=== PATIENT | male | born 1950 | race Caucasian/White ===

== ENCOUNTER 2016-09-09 02:09 | Emergency (ER) | payer MEDICARE ==
[~2016-09-09] VITALS: Ht 160 cm; Wt 64.5 kg
[~2016-09-09 02:09] MED LIST: AUGM875T PO; CELE20TA PO; DILT-64 PO; OMEP20TA PO; REST30CA PO
[2016-09-09 02:18] VITALS: BP 143/104; PULSE 62; RESP 20; TEMP 98.1; O2SAT 95
[2016-09-09 03:54] VITALS: BP 138/80; PULSE 62; RESP 18; TEMP 98.1; O2SAT 97
[2016-09-09 03:57] VITALS: BP 138/80; PULSE 62; RESP 18; TEMP 98.1; O2SAT 97
[2016-09-09] MEDS ORDERED: SODIUM CHLORIDE 0.9% FLUSH 10 ML FLUSH IV FLUSH PRN (04:30)
[2016-09-09] MEDS ORDERED: ONDANSETRON HCL 4 MG/2 ML VIAL IVP ONE (04:30)
--- NOTE | 2016-09-09 04:33 | PD ---
HPI Chief Complaint: Abdominal Pain Time Seen by Provider: 04:17 Travel History International Travel<30 days: No Contact w/Intl Traveler<30days: No Traveled to known affect area: No History of Present Illness HPI 65-year-old male presents to the emergency department for complaint of 3 days of abdominal pain with intermittent nausea and vomiting. Patient denies fever chills. Patient's had no diarrhea or constipation. No report of bilious emesis hematemesis or coffee-ground emesis also denies any melena hematochezia. Patient denies any dysuria frequency urgency flank pain or hematuria. Patient denies any injury or trauma. Patient reports pain is epigastric and periumbilical. Patient is unable to identify exacerbating or alleviating factors. Patient reports that he has chronic abdominal pain. Patient takes diltiazem for hypertension. Patient also reports history of COPD anxiety and DVT. Patient is status post appendectomy. Patient reports he has taken his last dose of Coumadin as of evening. Patient states he typically has his [facility] but [facility] at [facility] a [facility] or longer. Patient does not report increased bruising, gingival bleeding, epistaxis, hemoptysis, hematemesis, coffee-ground emesis, hematuria, melena or hematochezia. [facility] Past Medical History Narrative Medical Medical record and nursing notes reviewed Hx Anticoagulant Therapy: Yes (OUT OF COUMADIN PAST COUPLE OF WEEKS) Asthma: No Anxiety: Yes Depression: Yes Heart Rhythm Problems: Yes (irregular heart beat) Cancer: No Cardiovascular Problems: Yes High Cholesterol: No Chest Pain: No Congestive Heart Failure: No COPD: Yes Diminished Hearing: No Deep Vein Thrombosis: Yes (PE) Endocrine: No GERD: Yes Genitourinary: Yes Hypertension: Yes Implanted Vascular Access Dvce: No Musculoskeletal: No Neurologic: No Psychiatric: Yes Reproductive: No Respiratory: Yes (COPD) Immunizations Current: No Tetanus Vaccination: Unknown Influenza Vaccination: No Past Surgical History Abdominal Surgery: Yes (APPENDECTOMY A CHILD.) Appendectomy: Yes Tonsillectomy: Yes Other Surgery: Yes Social History Alcohol Use: Yes (ABT 4 - 16 OZ DAILY) Tobacco Use: Yes (2 PPD) Substance Use: No Allergies-Medications (Allergen,Severity, Reaction): Coded Allergies: No Known Allergies (Verified , 09/09/16) Reported Meds & Prescriptions Reported Meds & Active Scripts Active Reported Coumadin (Warfarin) 5 Mg Tab 5 Mg PO DAILY Diltiazem CD 24 HR 240 Mg Caper 240 Mg PO DAILY Review of Systems Except as stated in HPI: all other systems reviewed are Neg General / Constitutional: No: Fever, Chills HENT: No: Congestion Cardiovascular: No: Chest Pain or Discomfort Respiratory: No: Cough, Shortness of Breath Gastrointestinal: Positive: Nausea, Vomiting, Abdominal Pain, No: Diarrhea, Hematemesis, Hematochezia Genitourinary: No: Urgency, Frequency, Dysuria, Hematuria Musculoskeletal: No: Myalgias, Arthralgias Skin: No Rash Neurologic: No: Weakness, Dizziness, Syncope Psychiatric: No: Anxiety Endocrine: No: Heat Intolerance Hematologic/Lymphatic: No: Easy Bruising Physical Exam Narrative GENERAL: Well-developed well-nourished nourished disheveled male in no apparent distress no respiratory distress SKIN: Warm and dry. HEAD: Normocephalic. EYES: No scleral icterus. No injection or drainage. NECK: Supple, trachea midline. No JVD or lymphadenopathy. CARDIOVASCULAR: Regular rate and rhythm without murmurs, gallops, or rubs. RESPIRATORY: Breath sounds equal bilaterally. No accessory muscle use. GASTROINTESTINAL: Abdomen soft, mild epigastric and focal tenderness no guarding no rebound no palpable pulsatile mass, nondistended. MUSCULOSKELETAL: No cyanosis, or edema. BACK: Nontender without obvious deformity. No CVA tenderness. Data Data Last Documented VS Vital Signs Date Time Temp Pulse Resp B/P Pulse Ox O2 Delivery O2 Flow Rate FiO2 09/09/16 06:24 66 18 141/84 97 Room Air 09/09/16 03:57 98.1 Orders Complete Blood Count With Diff (09/09/16 04:17) Comprehensive Metabolic Panel (09/09/16 04:17) Lipase (09/09/16 04:17) Lactic Acid (09/09/16 04:17) Prothrombin Time / Inr (Pt) (09/09/16 04:17) Act Partial Throm Time (Ptt) (09/09/16 04:17) Urinalysis - C+S If Indicated (09/09/16 04:17) Ct Abd/Pel W Iv Contrast(Rout) (09/09/16 04:17) Iv Access Insert/Monitor (09/09/16 04:17) Ecg Monitoring (09/09/16 04:17) Oximetry (09/09/16 04:17) Ondansetron Inj (Zofran Inj) (09/09/16 04:30) Sodium Chloride 0.9% Flush (Ns Flush) (09/09/16 04:30) Electrocardiogram (09/09/16 04:17) Chest, Single Ap (09/09/16 04:17) Iohexol 350 Inj (Omnipaque 350 Inj) (09/09/16 05:20) Ct Brain W/O Iv Contrast(Rout) (09/09/16 ) Labs Laboratory Tests Test 09/09/16 09/09/16 04:10 04:40 White Blood Count 9.2 TH/MM3 Red Blood Count 5.06 MIL/MM3 Hemoglobin 13.0 GM/DL Hematocrit 39.9 % Mean Corpuscular Volume 78.9 FL Mean Corpuscular Hemoglobin 25.7 PG Mean Corpuscular Hemoglobin 32.5 % Concent Red Cell Distribution Width 17.3 % Platelet Count 195 TH/MM3 Mean Platelet Volume 10.4 FL Neutrophils (%) (Auto) 63.8 % Lymphocytes (%) (Auto) 25.8 % Monocytes (%) (Auto) 6.3 % Eosinophils (%) (Auto) 3.5 % Basophils (%) (Auto) 0.6 % Neutrophils # (Auto) 5.8 TH/MM3 Lymphocytes # (Auto) 2.4 TH/MM3 Monocytes # (Auto) 0.6 TH/MM3 Eosinophils # (Auto) 0.3 TH/MM3 Basophils # (Auto) 0.1 TH/MM3 CBC Comment DIFF FINAL Differential Comment Prothrombin Time 9.9 SEC Prothromb Time International 0.9 RATIO Ratio Activated Partial 26.5 SEC Thromboplast Time Urine Color YELLOW Urine Turbidity CLEAR Urine pH 5.5 Urine Specific [place] 1.019 Urine Protein NEG mg/dL Urine Glucose (UA) NEG mg/dL Urine Ketones TRACE mg/dL Urine Occult Blood NEG Urine Nitrite NEG Urine Bilirubin NEG Urine Leukocyte Esterase NEG Urine RBC 0-2 /hpf Urine WBC 0-2 /hpf Urine Squamous Epithelial 0-5 /hpf Cells Urine Bacteria NONE /hpf Microscopic Urinalysis Comment CULT NOT INDICATED Sodium Level 142 MEQ/L Potassium Level 4.1 MEQ/L Chloride Level 108 MEQ/L Carbon Dioxide Level 24.9 MEQ/L Anion Gap 9 MEQ/L Blood Urea Nitrogen 25 MG/DL Creatinine 1.30 MG/DL Estimat Glomerular Filtration 55 ML/MIN Rate Random Glucose 108 MG/DL Calcium Level 9.0 MG/DL Total Bilirubin 0.3 MG/DL Aspartate Amino Transf 18 U/L (AST/SGOT) Alanine Aminotransferase 25 U/L (ALT/SGPT) Alkaline Phosphatase 82 U/L Total Protein 7.2 GM/DL Albumin 3.9 GM/DL Lipase 148 U/L Lactic Acid Level 1.4 mmol/L MDM Medical Decision Making Medical Screen Exam Complete: Yes Emergency Medical Condition: Yes Medical Record Reviewed: Yes (EKG normal sinus rhythm rate [address] elevation or injury pattern change noted) Interpretation(s) EKG: Sinus rhythm rate [address] elevation or injury pattern change noted Differential Diagnosis Abdominal pain, gastritis, peptic ulcer disease, cholecystitis, pancreatitis, colitis, diverticulitis, UTI, hernia, small bowel obstruction Narrative Course IV access obtained specimens collected and sent for resulting; EKG performed which reveals no acute ST elevation or injury pattern CT abdomen and pelvis ordered with IV contrast CBC with automated differential no leukocytosis anemia Pancytopenia or Marked Left Shift; Metabolic Panel Remarkable for Elevation of BUN Otherwise Values Grossly within Normal Range; Lactic Acid Is Not Elevated 1.4; INR Is 0.9 Not Prolonged; Urinalysis Is Grossly Within Normal Limits CT Abdomen and Pelvis Reveals No Acute Intra-Abdominal or Pelvic Pathology Other Than Radiologist Comments That There Is an Area of Possible Soft Tissue Swelling to the Right Groin That May Be Consistent with adenopathy or fluid collection or possible hematoma. Patient is reexamined and has no tenderness or soft tissue swelling to the groin area. Patient reports that he is not here because of his abdominal pain he is here because he has a headache. CT brain noncontrast ordered in view of patient's history of Coumadin treatment. Patient has no neurologic focality on exam. Patient is normotensive with out evidence of tachycardia. Hemoglobin is stable. INR is 0.9 suspects that soft tissue swelling is consistent with adenopathy as opposed to fluid collection or hematoma. CT brain noncontrast has been ordered and care signed over to oncoming Soha Oshea MD Sep 09, 2016 04:33
[2016-09-09 04:37] LABS: BLOOD, URINE NEG (NEG); GLUCOSE,URINE NEG (NEG); KETONE, URINE TRACE mg/dL (NEG); NITRITE,URINE NEG (NEG); PH, URINE 5.5 (5.0-8.5)
[2016-09-09 04:39] LABS: AUTOMATED NEUTROPHIL # 5.8 TH/MM3 (1.8-7.7); BASOPHIL # 0.1 TH/MM3 (0-0.2); BASOPHIL % 0.6 % (0.0-2.0); EOSINOPHIL # 0.3 TH/MM3 (0-0.4); EOSINOPHIL % 3.5 % (0.0-4.0); HEMATOCRIT 39.9 % (39.0-51.0); HEMO FLAGS DIFF FINAL; LYMPH % 25.8 % (9.0-44.0); LYMPHOCYTE # 2.4 TH/MM3 (1.0-4.8); MEAN CELL VOLUME 78.9 FL (80.0-100.0); MEAN CORPUSCULAR HEMOGLOBIN 25.7 PG (27.0-34.0); MEAN CORPUSCULAR HGB CONC 32.5 % (32.0-36.0); MONO % 6.3 % (0.0-8.0); NEUT % 63.8 % (16.0-70.0); PLATELET COUNT 195 TH/MM3 (150-450); RED BLOOD COUNT 5.06 MIL/MM3 (4.50-5.90); RED CELL DISTRIBUTION WIDTH 17.3 % (11.6-17.2); WHITE BLOOD COUNT 9.2 TH/MM3 (4.0-11.0)
[2016-09-09 04:42] LABS: URINE COLOR YELLOW (YELLW/STRAW); WBC, URINE 0-2 /hpf (0-5)
[2016-09-09 04:43] LABS: COMMENT (UR) CULT NOT INDICATED; CULTURE IF INDICATED CULT NOT INDICATED; RBC, URINE 0-2 /hpf (0-3); SQUAMOUS EPITHELIAL CELL URINE 0-5 /hpf (0-5)
[2016-09-09 04:44] LABS: CHLORIDE 108 MEQ/L (98-107); POTASSIUM 4.1 MEQ/L (3.5-5.1); SODIUM (NA) 142 MEQ/L (136-145)
[2016-09-09 04:48] LABS: ANION GAP 9 MEQ/L (5-15); APTT (PATIENT) 26.5 SEC (24.3-30.1); BICARBONATE 24.9 MEQ/L (21.0-32.0); BLOOD UREA NITROGEN 25 MG/DL (7-18); INTERNATIONAL NORMALIZED RATIO 0.9 RATIO; PROTHROMBIN TIME - PATIENT 9.9 SEC (9.8-11.6)
[2016-09-09 04:51] LABS: ALT (GPT) 25 U/L (12-78); AST (GOT) 18 U/L (15-37); GLOMERULAR FILTRATION RATE 55 ML/MIN (>89)
[2016-09-09 04:53] LABS: TOTAL BILIRUBIN ADULT 0.3 MG/DL (0.2-1.0)
[2016-09-09 04:54] LABS: ALKALINE PHOSPHATASE 82 U/L (45-117)
--- NOTE | 2016-09-09 05:12 | RADHPO ---
EXAM DATE/TIME: 09/09/2016 04:56 [facility] COMPARISON: CHEST SINGLE AP, March 13, 2016, 21:36. INDICATIONS : Shortness of breath. MEDICAL HISTORY : Hypertension. Chronic obstructive pulmonary disease. Deep venous thrombosis. SURGICAL HISTORY : Appendectomy. ENCOUNTER: Initial ACUITY: 1 day PAIN SCORE: 6/10 LOCATION: Bilateral chest FINDINGS: A single view of the chest demonstrates the lungs to be symmetrically aerated without evidence of mas s, infiltrate or effusion. The cardiomediastinal contours are unremarkable. There is minimal persist ent blunting of the left costophrenic angle. There is chronic remodeling at the humeral heads bilater ally with degenerative change at the glenohumeral joints. CONCLUSION: Minimal blunting of the left costophrenic angle Casey Huang MD on September 09, 2016 at 5:09 Board Certified Radiologist. This report was verified electronically.
[2016-09-09] MEDS ORDERED: IOHEXOL 350 MG/ML 10 ML VIAL (for RAD DIAG) IV ONE (05:20)
--- NOTE | 2016-09-09 05:43 | RADHPO ---
EXAM DATE/TIME: 09/09/2016 05:03 [facility] COMPARISON: CT ABDOMEN & PELVIS W CONTRAST, October 06, 2010, 16:32. INDICATIONS : Abdominal pain with nausea and vomiting. IV CONTRAST: 95 cc Omnipaque 350 (iohexol) IV ORAL CONTRAST: No oral contrast ingested. RADIATION DOSE: 13.71 CTDIvol (mGy) MEDICAL HISTORY : Deep venous thrombosis. Chronic obstructive pulmonary disease. Gastroesophageal reflux disease. SURGICAL HISTORY : Appendectomy. ENCOUNTER: Initial ACUITY: 1 day PAIN SCALE: 7/10 LOCATION: Abdomen. TECHNIQUE: Volumetric scanning of the abdomen and pelvis was performed. Using automated exposure control and ad justment of the mA and/or kV according to patient size, radiation dose was kept as low as reasonably achievable to obtain optimal diagnostic quality images. FINDINGS: LOWER LUNGS: The visualized lower lungs are clear. LIVER: Homogeneous density without lesion. There is no dilation of the biliary tree. No calcified gallston es. SPLEEN: Normal size without lesion. PANCREAS: Within normal limits. KIDNEYS: Normal in size and shape. There is no mass, stone or hydronephrosis. ADRENAL GLANDS: Within normal limits. VASCULAR: There is no aortic aneurysm. There are scattered vascular calcifications seen. BOWEL/MESENTERY: The stomach, small bowel, and colon demonstrate no acute abnormality. There is no free intraperitone al air or fluid. ABDOMINAL WALL: Within normal limits. RETROPERITONEUM: There is no lymphadenopathy. There is an IVC filter in place. BLADDER: No wall thickening or mass. REPRODUCTIVE: Within normal limits. INGUINAL: There is 3.1 cm lobulated soft tissue density in the right inguinal region. This does not clearly rep resent bowel. MUSCULOSKELETAL: There is degenerative change in the lumbar spine. CONCLUSION: 1. Lobulated soft tissue density in the right inguinal canal potentially related to adenopathy or com plex fluid. An evolving hematoma could have this appearance. This does not appear to be related to brandi wel. 2. Atherosclerotic change throughout the arterial system. 3. Degenerative change in the lumbar spine. Casey Huang MD on September 09, 2016 at 5:34 Board Certified Radiologist. This report was verified electronically.
[2016-09-09 06:24] VITALS: BP 141/84; PULSE 66; RESP 18; O2SAT 97
[2016-09-09] MEDS ORDERED: COUM5TAB PO (06:49)
[2016-09-09] MEDS ORDERED: ACETAMINOPHEN 325 MG TAB PO ONE (07:45)
--- NOTE | 2016-09-09 08:31 | RADHPO ---
EXAM DATE/TIME: 09/09/2016 07:51 [facility] COMPARISON: No previous studies available for comparison. INDICATIONS : Cephalgia. RADIATION DOSE: 60.67 CTDIvol (mGy) MEDICAL HISTORY : Chronic obstructive pulmonary disease. Gastroesophageal reflux disease. Deep venous thrombosis. SURGICAL HISTORY : Appendectomy. ENCOUNTER: Initial ACUITY: 1 day PAIN SCALE: 2/10 LOCATION: cranial TECHNIQUE: Multiple contiguous axial images were obtained of the head. Using automated exposure control and adj ustment of the mA and/or kV according to patient size, radiation dose was kept as low as reasonably a chievable to obtain optimal diagnostic quality images. FINDINGS: CEREBRUM: The ventricles are normal for age. No evidence of midline shift, mass lesion, hemorrhage or acute in farction. No extra-axial fluid collections are seen. POSTERIOR FOSSA: The cerebellum and brainstem are intact. The 4th ventricle is midline. The cerebellopontine angle i s unremarkable. EXTRACRANIAL: The visualized portion of the orbits is intact. SKULL: The calvaria is intact. No evidence of skull fracture. CONCLUSION: Normal examination. Dalia Elizabeth MD on September 09, 2016 at 8:29 Board Certified Radiologist. This report was verified electronically.
[2016-09-09 08:36] VITALS: BP 102/49; PULSE 65; RESP 16; O2SAT 96
--- NOTE | 2016-09-09 08:43 | PD ---
Data Data Last Documented VS Vital Signs Date Time Temp Pulse Resp B/P Pulse Ox O2 Delivery O2 Flow Rate FiO2 09/09/16 08:36 16 09/09/16 08:36 65 102/49 96 Room Air 09/09/16 03:57 98.1 Orders Complete Blood Count With Diff (09/09/16 04:17) Comprehensive Metabolic Panel (09/09/16 04:17) Lipase (09/09/16 04:17) Lactic Acid (09/09/16 04:17) Prothrombin Time / Inr (Pt) (09/09/16 04:17) Act Partial Throm Time (Ptt) (09/09/16 04:17) Urinalysis - C+S If Indicated (09/09/16 04:17) Ct Abd/Pel W Iv Contrast(Rout) (09/09/16 04:17) Iv Access Insert/Monitor (09/09/16 04:17) Ecg Monitoring (09/09/16 04:17) Oximetry (09/09/16 04:17) Ondansetron Inj (Zofran Inj) (09/09/16 04:30) Sodium Chloride 0.9% Flush (Ns Flush) (09/09/16 04:30) Electrocardiogram (09/09/16 04:17) Chest, Single Ap (09/09/16 04:17) Iohexol 350 Inj (Omnipaque 350 Inj) (09/09/16 05:20) Ct Brain W/O Iv Contrast(Rout) (09/09/16 ) Acetaminophen (Tylenol) (09/09/16 07:45) Labs Laboratory Tests Test 09/09/16 09/09/16 04:10 04:40 White Blood Count 9.2 TH/MM3 Red Blood Count 5.06 MIL/MM3 Hemoglobin 13.0 GM/DL Hematocrit 39.9 % Mean Corpuscular Volume 78.9 FL Mean Corpuscular Hemoglobin 25.7 PG Mean Corpuscular Hemoglobin 32.5 % Concent Red Cell Distribution Width 17.3 % Platelet Count 195 TH/MM3 Mean Platelet Volume 10.4 FL Neutrophils (%) (Auto) 63.8 % Lymphocytes (%) (Auto) 25.8 % Monocytes (%) (Auto) 6.3 % Eosinophils (%) (Auto) 3.5 % Basophils (%) (Auto) 0.6 % Neutrophils # (Auto) 5.8 TH/MM3 Lymphocytes # (Auto) 2.4 TH/MM3 Monocytes # (Auto) 0.6 TH/MM3 Eosinophils # (Auto) 0.3 TH/MM3 Basophils # (Auto) 0.1 TH/MM3 CBC Comment DIFF FINAL Differential Comment Prothrombin Time 9.9 SEC Prothromb Time International 0.9 RATIO Ratio Activated Partial 26.5 SEC Thromboplast Time Urine Color YELLOW Urine Turbidity CLEAR Urine pH 5.5 Urine Specific [place] 1.019 Urine Protein NEG mg/dL Urine Glucose (UA) NEG mg/dL Urine Ketones TRACE mg/dL Urine Occult Blood NEG Urine Nitrite NEG Urine Bilirubin NEG Urine Leukocyte Esterase NEG Urine RBC 0-2 /hpf Urine WBC 0-2 /hpf Urine Squamous Epithelial 0-5 /hpf Cells Urine Bacteria NONE /hpf Microscopic Urinalysis Comment CULT NOT INDICATED Sodium Level 142 MEQ/L Potassium Level 4.1 MEQ/L Chloride Level 108 MEQ/L Carbon Dioxide Level 24.9 MEQ/L Anion Gap 9 MEQ/L Blood Urea Nitrogen 25 MG/DL Creatinine 1.30 MG/DL Estimat Glomerular Filtration 55 ML/MIN Rate Random Glucose 108 MG/DL Calcium Level 9.0 MG/DL Total Bilirubin 0.3 MG/DL Aspartate Amino Transf 18 U/L (AST/SGOT) Alanine Aminotransferase 25 U/L (ALT/SGPT) Alkaline Phosphatase 82 U/L Total Protein 7.2 GM/DL Albumin 3.9 GM/DL Lipase 148 U/L Lactic Acid Level 1.4 mmol/L [facility] Supervised Visit with ARA: No Narrative Course This case is checked out to me by Dr. Ordaz at 7 AM. I have evaluated the patient and reviewed the entirety of the workup with him. At this Point he is minimally symptomatic. Stable for [facility] follow[facility]. Brain CT is negative Abdominal CT is reviewed with him. There is a vague right inguinal canal soft tissue fullness or hematoma that's hard to specifically define on CT. There are no objective findings on exam and he has no pain there. His INR is 0.9 Stable for outpatient follow-up. He is to discuss the finding with his physician. Diagnosis Primary Impression: Abdominal pain Qualified Code: R10.9 - Abdominal pain, unspecified location Additional Impression: Headache Qualified Code: R51 - Acute nonintractable headache, unspecified headache type Additional Instruction: The patient was advised to follow up with their physician and return if they worsen. Discuss CT scan of abdomen findings with your physician Med/Other Pt SpecificInfo: Other Disposition: 01 DISCHARGE HOME Condition: Stable Enrique Flores MD Sep 09, 2016 08:43
--- NOTE | 2016-09-09 14:36 | EKG ---
Date Performed: 09/09/2016 Time Performed: 04:26:04 PTAGE: 65 years EKG: Possible ectopic atrial rhythm. Lateral T wave changes are nonspecific Compared to prior tr acing no significant change Borderline ECG PREVIOUS TRACING : 03/14/2016 04.47 DOCTOR: Ash Ambrosio Interpretating Date/Time 09/09/2016 14:34:00
== END 2016-09-09 08:55 | disposition home or self-care (01) ==
LOC: PHED 02:09
DX: R10.9 Unspecified abdominal pain (principal); R51 Headache; F41.9 Anxiety disorder, unspecified; F32.9 Major depressive disorder, single episode, unspecified; J44.9 Chronic obstructive pulmonary disease, unspecified; K21.9 Gastro-esophageal reflux disease without esophagitis; I10 Essential (primary) hypertension; Z79.01 Long term (current) use of anticoagulants; Z86.718 Personal history of other venous thrombosis and embolism
CPT/HCPCS: 70450; 71010; 74177; 80053; 81001; 83605; 83690; 85025; 85610; 85730; 93005; 96374; 99285; J2405; Q9967

== ENCOUNTER 2017-07-16 05:24 | Inpatient (IN) | payer MEDICARE, MEDICAID ==
[2017-07-16] VITALS (16 sets, daily range): BP systolic 100–182; BP diastolic 58–98; PULSE 80–158; RESP 15–37; TEMP 97.8–99.5; O2SAT 88–100
[~2017-07-16] VITALS: Ht 160 cm; Wt 58.0 kg
[~2017-07-16 05:24] MED LIST changes: -AUGM875T PO; -CELE20TA PO; +COUM5TAB PO; -DILT-64 PO; +DILT240C44 PO; -OMEP20TA PO; -REST30CA PO
[2017-07-16] MEDS ORDERED: DILTIAZEM INJ 125 MG in SODIUM CHLORIDE 0.9% INJ 100 ML IV PRN (05:45)
[2017-07-16] MEDS ORDERED: SODIUM CHLORIDE 0.9% FLUSH 10 ML FLUSH IVF PRN (05:45)
[2017-07-16] MEDS ORDERED: DILTIAZEM HCL 25 MG/5 ML VIAL IV PUSH ONE (05:45)
--- NOTE | 2017-07-16 05:51 | PD ---
HPI Chief Complaint: Respiratory Distress Time Seen by Provider: 05:32 Travel History International Travel<30 days: No Contact w/Intl Traveler<30days: No Traveled to known affect area: No History of Present Illness HPI 66-year-old male was brought to the emergency room by EMS from the [place] [facility] emergently for respiratory distress. He was found by the [place] [facility] staff to be in acute respiratory distress and diaphoretic. Patient has history of congestive heart failure. When EMS arrived his blood pressure was 208 systolic. As per them audible rales could be heard from a distance. They gave him 2 sublingual nitroglycerin, 75 mg of IV Lasix and put him on a BiPAP and transported him. Prior to BiPAP his blood pressure was 81% on room air. After being on BiPAP it improved to 97%. As per them there was a significant improvement with all the intervention that they have done. When patient arrived to the emergency room he was so short of breath. He denied of any chest pain. Patient was in rapid A. fib on the cardiac monitor technician. Blood pressure was 180s systolic. Patient could not give good history given his respiratory distress. PFSH Past Medical History Narrative Medical List of his past medical, surgical, social and family history as reviewed from the nursing note. Hx Anticoagulant Therapy: Yes (OUT OF COUMADIN PAST COUPLE OF WEEKS) Asthma: No Anxiety: Yes Depression: Yes Heart Rhythm Problems: Yes (irregular heart beat) Cancer: No Cardiovascular Problems: Yes High Cholesterol: No Chest Pain: No Congestive Heart Failure: No COPD: Yes Diminished Hearing: No Deep Vein Thrombosis: Yes (PE) Endocrine: No GERD: Yes Genitourinary: Yes Hypertension: Yes Implanted Vascular Access Dvce: No Musculoskeletal: No Neurologic: No Psychiatric: Yes Reproductive: No Respiratory: Yes (COPD) Immunizations Current: No Tetanus Vaccination: < 5 Years Influenza Vaccination: No Past Surgical History Abdominal Surgery: Yes (APPENDECTOMY A CHILD.) Appendectomy: Yes Tonsillectomy: Yes Other Surgery: Yes Social History Alcohol Use: Yes (ABT 4 - 16 OZ DAILY) Tobacco Use: Yes (2 PPD) Substance Use: No Allergies-Medications (Allergen,Severity, Reaction): Coded Allergies: No Known Allergies (Verified Allergy, Unknown, 07/16/17) Comments No known drug allergies. Reported Meds & Prescriptions Reported Meds & Active Scripts Active Reported Omeprazole 20 Mg Tab 20 Mg PO DAILY Albuterol Neb (Albuterol Sulfate) 2.5 Mg/0.5 Ml Neb 2.5 Mg NEB Q6HR NEB Note: The Albuterol Sulfate Inhalation Solution is concentrated and must be diluted. Read complete instructions carefully before using. Narrative Medication list of his home medications reviewed from the nursing note. Review of Systems Except as stated in HPI: all other systems reviewed are Neg Respiratory: Positive: Shortness of Breath Physical Exam Narrative GENERAL: Awake, alert, significant distress, anxious SKIN: Focused skin assessment warm/dry. Diaphoretic HEAD: Atraumatic. Normocephalic. EYES: Pupils equal and round. No scleral icterus. No injection or drainage. ENT: No nasal bleeding or discharge. Mucous membranes pink and moist. NECK: Trachea midline. No JVD. CARDIOVASCULAR: Irregularly irregular rhythm, tachycardia. No murmur appreciated. RESPIRATORY: Tachypnea, respiratory distress, accessory muscles for respiration used. Fine crackles all the way up to the apex bilaterally GASTROINTESTINAL: Abdomen soft, non-tender, nondistended. Hepatic and splenic margins not palpable. MUSCULOSKELETAL: No obvious deformities. No clubbing. No cyanosis. No edema. NEUROLOGICAL: Awake and alert. No obvious cranial nerve deficits. Motor grossly within normal limits. Normal speech. PSYCHIATRIC: Appropriate mood and affect; insight and judgment normal. Data Data Last Documented VS Vital Signs Date Time Temp Pulse Resp B/P (MAP) Pulse Ox O2 Delivery O2 Flow Rate FiO2 07/16/17 08:15 98 BiPAP 40 07/16/17 07:50 85 100/58 (72) 07/16/17 06:28 99.5 18 Orders Orders Complete Blood Count With Diff (07/16/17 05:32) Basic Metabolic Panel (Bmp) (07/16/17 05:32) B-Type Natriuretic Peptide (07/16/17 05:32) Prothrombin Time / Inr (Pt) (07/16/17 05:32) Magnesium (Mg) (07/16/17 05:32) Troponin I (07/16/17 05:32) Arterial Blood Gas (Abg) (07/16/17 05:32) Urinalysis - C+S If Indicated (07/16/17 05:32) Iv Access Insert/Monitor (07/16/17 05:32) Electrocardiogram (07/16/17 05:32) Ecg Monitoring (07/16/17 05:32) Oximetry (07/16/17 05:32) Oxygen Administration (07/16/17 05:32) Chest, Single Ap (07/16/17 05:32) Sodium Chloride 0.9% Flush (Ns Flush) (07/16/17 05:45) Resp Bipap / Cpap Non Invas Vt (07/16/17 05:32) Vital Signs (Adult) Q15MX4,Q4H (07/16/17 05:34) [place] Technician / Telemetry IRINEO.Q8H (07/16/17 05:34) Cardiac Rhythm IRINEO.Q8H (07/16/17 05:34) Notify Dr: Other (07/16/17 05:34) Diltiazem Inj (Cardizem Inj) (07/16/17 05:45) Diltiazem Inj (Cardizem Inj) (07/16/17 05:45) Blood Culture (07/16/17 06:10) Lactic Acid (07/16/17 06:10) Diltiazem Inj (Cardizem Inj) (07/16/17 06:15) Piperacil-Tazo 4.5 Gm Premix (Zosyn 4.5 (07/16/17 07:45) Vancomycin Inj (Vancomycin Inj) (07/16/17 07:45) Ct Pulmonary Angiogram (07/16/17 ) Admit Order (Ed Use Only) (07/16/17 08:15) Labs Laboratory Tests Test 07/16/17 05:35 07/16/17 05:38 07/16/17 06:25 07/16/17 06:46 White Blood Count 19.5 TH/MM3 Red Blood Count 5.07 MIL/MM3 Hemoglobin 11.9 GM/DL Hematocrit 38.5 % Mean Corpuscular Volume 75.8 FL Mean Corpuscular Hemoglobin 23.4 PG Mean Corpuscular Hemoglobin Concent 30.9 % Red Cell Distribution Width 20.1 % Platelet Count 161 TH/MM3 Mean Platelet Volume 10.1 FL Neutrophils (%) (Auto) 89.3 % Lymphocytes (%) (Auto) 7.6 % Monocytes (%) (Auto) 2.3 % Eosinophils (%) (Auto) 0.3 % Basophils (%) (Auto) 0.5 % Neutrophils # (Auto) 17.4 TH/MM3 Lymphocytes # (Auto) 1.5 TH/MM3 Monocytes # (Auto) 0.4 TH/MM3 Eosinophils # (Auto) 0.1 TH/MM3 Basophils # (Auto) 0.1 TH/MM3 CBC Comment DIFF FINAL Differential Comment Prothrombin Time 11.3 SEC Prothromb Time International Ratio 1.1 RATIO Blood Urea Nitrogen 35 MG/DL Creatinine 1.34 MG/DL Random Glucose 208 MG/DL Calcium Level 8.2 MG/DL Magnesium Level 2.2 MG/DL Sodium Level 143 MEQ/L Potassium Level 4.7 MEQ/L Chloride Level 106 MEQ/L Carbon Dioxide Level 26.1 MEQ/L Anion Gap 11 MEQ/L Estimat Glomerular Filtration Rate 53 ML/MIN Troponin I 0.11 NG/ML B-Type Natriuretic Peptide 865 PG/ML Blood Gas Puncture Site RT RADIAL Blood Gas Patient Temperature 98.6 Blood Gas HCO3 25 mmol/L Blood Gas Base Excess 0.1 mmol/L Blood Gas Oxygen Saturation 98 % Arterial Blood pH 7.34 Arterial Blood Partial Pressure CO2 48 mmHg Arterial Blood Partial Pressure O2 413 mmHG Arterial Blood Oxygen Content 16.6 Vol % Arterial Blood Carboxyhemoglobin 0.7 % Arterial Blood Methemoglobin 1.2 % Blood Gas Hemoglobin 11.3 G/DL Oxygen Delivery Device BIPAP Blood Gas Ventilator Setting IPAP16/EPAP8 Blood Gas Inspired Oxygen 100 % Lactic Acid Level 3.8 mmol/L Urine Color LIGHT-YELLOW Urine Turbidity CLEAR Urine pH 6.0 Urine Specific [place] 1.006 Urine Protein TRACE mg/dL Urine Glucose (UA) NEG mg/dL Urine Ketones NEG mg/dL Urine Occult Blood NEG Urine Nitrite NEG Urine Bilirubin NEG Urine Urobilinogen LESS THAN 2.0 MG/DL Urine Leukocyte Esterase NEG Urine RBC 4 /hpf Urine WBC 3 /hpf Urine Squamous Epithelial Cells <1 /hpf Urine Hyaline Casts 1 /lpf Urine Mucus FEW /lpf Microscopic Urinalysis Comment CULT NOT INDICATED MDM Medical Decision Making Medical Screen Exam Complete: Yes Emergency Medical Condition: Yes Medical Record Reviewed: Yes Interpretation(s) Twelve-lead EKG was reviewed by me. Atrial fibrillation, left axis deviation, RVR. Heart rate of 143 bpm. Differential Diagnosis Flash pulmonary edema, congestive heart failure, acute coronary syndrome Narrative Course 5:51 AM patient was put on BiPAP here at 16/8. Blood gas which is reviewed by me which appears to be satisfactory. Awaiting for the blood test results to come back. I was just told by the nurse that his heart rate has come down to 1 teens to 120s. Patient will be getting a Cardizem bolus and possible drip. 6:12 AM blood test result shows significant leukocytosis with a leftward shift. I've ordered blood culture and lactic acid as well. Chest x-ray has been done. I do not see any obvious infiltrate or pleural effusion. Awaiting for the radiologist to give read. Heart rate is in 80s to 90s after a 15 mg of Cardizem bolus. Patient's blood pressure had dropped. I backed off on the BiPAP pressure to 12 and 6. I have discontinued the Cardizem drip at this point. 7:05 AM most of the blood test results of back. Patient's troponin is elevated. This could be from the rapid A. fib and RVR. I would like to admit the patient to [facility]. Awaiting for the call back from the admitting physician. Critical Care Narrative Aggregate critical care time was 60 minutes. Time to perform other separately billable procedures was not included in the critical care time. My time did not include minutes spent treating any other patients simultaneously or on activities that did not directly contribute to the patient's treatment. The services I provided to this patient were to treat and/or prevent clinically significant deterioration that could result in: Respiratory distress, A. fib with RVR, elevated troponin, sepsis I provided critical care services requiring my management, as noted below: Chart data review, documentation time, medication orders and management, vital sign assessments/reviewing monitor data, ordering and reviewing lab tests, ordering and interpreting/reviewing x-rays and diagnostic studies, care of the patient and discussion of the patient with the admitting physicians. Procedures EKG Prior to Arrival: No Diagnosis Primary Impression: Respiratory distress Additional Impressions: Atrial fibrillation with RVR Elevated troponin I level Hypertensive emergency Flash pulmonary edema Sepsis Qualified Codes: A41.9 - Sepsis, unspecified organism Admitting Information Admitting Physician Requests: Admit Scripts Prednisone (21) 10 mg tab Dose Pack (Prednisone (21) 10 mg tab Dose Pack) 10 Mg Pack 10 MG PO DIRECTED for Inflammation, #1 DSPK 0 Refills Prov: Ginger Gonzalez MD 07/18/17 [Budeson-Formot 160-4.5 Mcg Inh] 60 PUFF AERO No Conflict Check 2 PUFF INH Q12HR, #1 INH Prov: Ginger Gonzalez MD 07/18/17 Diltiazem CD 24 HR (Cardizem CD 24 HR) 180 Mg Caper 180 MG PO DAILY, #30 CAP Prov: Ginger Gonzalez MD 07/18/17 Levofloxacin (Levaquin) 750 Mg Tablet 750 MG PO Q24H, #5 TAB Prov: Ginger Gonzalez MD 07/18/17 Metoprolol Tartrate (Metoprolol Tartrate) 25 Mg Tab 25 MG PO BID, #60 TAB 0 Refills Prov: Ginger Gonzalez MD 07/18/17 Rivaroxaban (Xarelto) 10 Mg Tab 10 MG PO BID for Blood Clot Prevention, #30 TAB 0 Refills Prov: Ginger Gonzalez MD 07/18/17 Marc Myers MD Jul 16, 2017 05:51
[2017-07-16 05:57] LABS: AUTOMATED NEUTROPHIL # 17.4 TH/MM3 (1.8-7.7); BASOPHIL # 0.1 TH/MM3 (0-0.2); BASOPHIL % 0.5 % (0.0-2.0); EOSINOPHIL # 0.1 TH/MM3 (0-0.4); EOSINOPHIL % 0.3 % (0.0-4.0); HEMATOCRIT 38.5 % (39.0-51.0); HEMOGLOBIN 11.9 GM/DL (13.0-17.0); LYMPH % 7.6 % (9.0-44.0); LYMPHOCYTE # 1.5 TH/MM3 (1.0-4.8); MEAN CELL VOLUME 75.8 FL (80.0-100.0); MEAN CORPUSCULAR HEMOGLOBIN 23.4 PG (27.0-34.0); MEAN CORPUSCULAR HGB CONC 30.9 % (32.0-36.0); MEAN PLATELET VOLUME 10.1 FL (7.0-11.0); MONO % 2.3 % (0.0-8.0); MONOCYTE # 0.4 TH/MM3 (0-0.9); NEUT % 89.3 % (16.0-70.0); PLATELET COUNT 161 TH/MM3 (150-450); RED BLOOD COUNT 5.07 MIL/MM3 (4.50-5.90); RED CELL DISTRIBUTION WIDTH 20.1 % (11.6-17.2); WHITE BLOOD COUNT 19.5 TH/MM3 (4.0-11.0)
[2017-07-16 06:05] LABS: INTERNATIONAL NORMALIZED RATIO 1.1 RATIO; PROTHROMBIN TIME - PATIENT 11.3 SEC (9.8-11.6)
[2017-07-16] MEDS ORDERED: OMEP20TA93 PO (06:06)
[2017-07-16] MEDS ORDERED: ALBU.5I NEB (06:06)
[2017-07-16] MEDS ORDERED: XARE10TA PO (06:06)
[2017-07-16] MEDS ORDERED: FURO1TAB62 PO (06:06)
[2017-07-16] MEDS ORDERED: METO25TA3 PO (06:06)
[2017-07-16] MEDS ORDERED: METH8TAB3 PO (06:06)
[2017-07-16] MEDS ORDERED: DILTIAZEM HCL 25 MG/5 ML VIAL IV ONE (06:15)
--- NOTE | 2017-07-16 06:21 | RADRPT ---
EXAM DATE/TIME: 07/16/2017 05:51 [facility] COMPARISON: CHEST SINGLE AP, September 09, 2016, 4:56. INDICATIONS : Short of breath. MEDICAL HISTORY : Hypertension. Chronic obstructive pulmonary disease. Deep venous thrombosis. SURGICAL HISTORY : Appendectomy. ENCOUNTER: Initial ACUITY: 1 day PAIN SCORE: 0/10 LOCATION: Bilateral chest FINDINGS: There is atherosclerotic calcification of the aorta, possible tiny effusion with blunting of the left lateral costophrenic angle and mild left basilar atelectasis. Aortic calcification. CONCLUSION: Left basilar atelectasis. Possible tiny left effusion. Thom Harding MD on July 16, 2017 at 6:18 Board Certified Radiologist. This report was verified electronically.
[2017-07-16 06:26] LABS: BICARBONATE 26.1 MEQ/L (21.0-32.0); CALCIUM 8.2 MG/DL (8.5-10.1); CREATININE 1.34 MG/DL (0.60-1.30); MAGNESIUM 2.2 MG/DL (1.5-2.5)
[2017-07-16 06:29] LABS: TROPONIN I 0.11 NG/ML (0.02-0.05)
[2017-07-16 07:36] LABS: BILIRUBIN, URINE NEG (NEG); BLOOD, URINE NEG (NEG); GLUCOSE,URINE NEG (NEG); HYALINE CAST, URINE 1 /lpf (RARE); KETONE, URINE NEG (NEG); MUCUS URINE FEW /lpf (OCC); NITRITE,URINE NEG (NEG); SQUAMOUS EPITHELIAL CELL URINE <1 /hpf (0-5); URINE COLOR LIGHT-YELLOW (YELLW/STRAW); URINE LEUKOCYTE ESTERASE NEG (NEG)
[2017-07-16] MEDS ORDERED: VANCOMYCIN INJ 1,000 MG in SODIUM CHLOR 0.9% 250 ML INJ 250 ML IV ONE (07:45)
[2017-07-16] MEDS ORDERED: PIPERACIL-TAZO 4.5 GM PREMIX 100 ML IV ONE (07:45)
--- NOTE | 2017-07-16 08:15 | PD ---
Data Data Last Documented VS Vital Signs Date Time Temp Pulse Resp B/P (MAP) Pulse Ox O2 Delivery O2 Flow Rate FiO2 07/16/17 07:50 85 100/58 (72) 94 BiPAP 50 07/16/17 06:28 99.5 18 Orders Orders Complete Blood Count With Diff (07/16/17 05:32) Basic Metabolic Panel (Bmp) (07/16/17 05:32) B-Type Natriuretic Peptide (07/16/17 05:32) Prothrombin Time / Inr (Pt) (07/16/17 05:32) Magnesium (Mg) (07/16/17 05:32) Troponin I (07/16/17 05:32) Arterial Blood Gas (Abg) (07/16/17 05:32) Urinalysis - C+S If Indicated (07/16/17 05:32) Iv Access Insert/Monitor (07/16/17 05:32) Electrocardiogram (07/16/17 05:32) Ecg Monitoring (07/16/17 05:32) Oximetry (07/16/17 05:32) Oxygen Administration (07/16/17 05:32) Chest, Single Ap (07/16/17 05:32) Sodium Chloride 0.9% Flush (Ns Flush) (07/16/17 05:45) Resp Bipap / Cpap Non Invas Vt (07/16/17 05:32) Vital Signs (Adult) Q15MX4,Q4H (07/16/17 05:34) Special Events Manager / Telemetry IRINEO.Q8H (07/16/17 05:34) Cardiac Rhythm IRINEO.Q8H (07/16/17 05:34) Notify Dr: Other (07/16/17 05:34) Diltiazem Inj (Cardizem Inj) (07/16/17 05:45) Diltiazem Inj (Cardizem Inj) (07/16/17 05:45) Blood Culture (07/16/17 06:10) Lactic Acid (07/16/17 06:10) Diltiazem Inj (Cardizem Inj) (07/16/17 06:15) Piperacil-Tazo 4.5 Gm Premix (Zosyn 4.5 (07/16/17 07:45) Vancomycin Inj (Vancomycin Inj) (07/16/17 07:45) Ct Pulmonary Angiogram (07/16/17 ) Labs Laboratory Tests Test 07/16/17 05:35 07/16/17 05:38 07/16/17 06:25 07/16/17 06:46 White Blood Count 19.5 TH/MM3 Red Blood Count 5.07 MIL/MM3 Hemoglobin 11.9 GM/DL Hematocrit 38.5 % Mean Corpuscular Volume 75.8 FL Mean Corpuscular Hemoglobin 23.4 PG Mean Corpuscular Hemoglobin Concent 30.9 % Red Cell Distribution Width 20.1 % Platelet Count 161 TH/MM3 Mean Platelet Volume 10.1 FL Neutrophils (%) (Auto) 89.3 % Lymphocytes (%) (Auto) 7.6 % Monocytes (%) (Auto) 2.3 % Eosinophils (%) (Auto) 0.3 % Basophils (%) (Auto) 0.5 % Neutrophils # (Auto) 17.4 TH/MM3 Lymphocytes # (Auto) 1.5 TH/MM3 Monocytes # (Auto) 0.4 TH/MM3 Eosinophils # (Auto) 0.1 TH/MM3 Basophils # (Auto) 0.1 TH/MM3 CBC Comment DIFF FINAL Differential Comment Prothrombin Time 11.3 SEC Prothromb Time International Ratio 1.1 RATIO Blood Urea Nitrogen 35 MG/DL Creatinine 1.34 MG/DL Random Glucose 208 MG/DL Calcium Level 8.2 MG/DL Magnesium Level 2.2 MG/DL Sodium Level 143 MEQ/L Potassium Level 4.7 MEQ/L Chloride Level 106 MEQ/L Carbon Dioxide Level 26.1 MEQ/L Anion Gap 11 MEQ/L Estimat Glomerular Filtration Rate 53 ML/MIN Troponin I 0.11 NG/ML B-Type Natriuretic Peptide 865 PG/ML Blood Gas Puncture Site RT RADIAL Blood Gas Patient Temperature 98.6 Blood Gas HCO3 25 mmol/L Blood Gas Base Excess 0.1 mmol/L Blood Gas Oxygen Saturation 98 % Arterial Blood pH 7.34 Arterial Blood Partial Pressure CO2 48 mmHg Arterial Blood Partial Pressure O2 413 mmHG Arterial Blood Oxygen Content 16.6 Vol % Arterial Blood Carboxyhemoglobin 0.7 % Arterial Blood Methemoglobin 1.2 % Blood Gas Hemoglobin 11.3 G/DL Oxygen Delivery Device BIPAP Blood Gas Ventilator Setting IPAP16/EPAP8 Blood Gas Inspired Oxygen 100 % Lactic Acid Level 3.8 mmol/L Urine Color LIGHT-YELLOW Urine Turbidity CLEAR Urine pH 6.0 Urine Specific [place] 1.006 Urine Protein TRACE mg/dL Urine Glucose (UA) NEG mg/dL Urine Ketones NEG mg/dL Urine Occult Blood NEG Urine Nitrite NEG Urine Bilirubin NEG Urine Urobilinogen LESS THAN 2.0 MG/DL Urine Leukocyte Esterase NEG Urine RBC 4 /hpf Urine WBC 3 /hpf Urine Squamous Epithelial Cells <1 /hpf Urine Hyaline Casts 1 /lpf Urine Mucus FEW /lpf Microscopic Urinalysis Comment CULT NOT INDICATED MDM Supervised Visit with ARA: No Narrative Course I have evaluated this patient at 8 AM. I resumed care of this patient so he could get admitted into the hospital. Patient currently is on BiPAP with a saturation of 94% He is in rapid A. fib with a rate of 120 and a systolic blood pressure of 100 He has low-grade temp of 99.5 and elevated lactate and leukocytosis with marginal vital signs on BiPAP and I believe intensive care is the proper place for him at this time. I have discussed with the herb counselor in detail. He is recommended CT pulmonary angiogram to rule out PE given his lack of chest x-ray findings explaining his shortness of breath and poor saturations There is no pulmonary edema or pneumonia on chest x-ray Patient does have history of multiple DVT on Xarelto but his compliance may not be full Patient has received IV antibiotics I admitted him to intensive care after discussion with Dr. Lanier and I ordered CT pulmonary angiogram Diagnosis Primary Impression: Respiratory distress Additional Impressions: Atrial fibrillation with RVR Elevated troponin I level Hypertensive emergency Flash pulmonary edema Sepsis Qualified Codes: A41.9 - Sepsis, unspecified organism Admitting Information Admitting Physician Requests: Admit Enrique Flores MD Jul 16, 2017 08:15
[2017-07-16] MEDS ORDERED: IOHEXOL 350 MG/ML 10 ML VIAL (for RAD DIAG) IVCONTRAST ONE (09:16)
--- NOTE | 2017-07-16 09:25 | RADRPT ---
EXAM DATE/TIME: 07/16/2017 09:10 [facility] COMPARISON: CT PULMONARY ANGIOGRAM, March 14, 2016, 8:19. INDICATIONS : Shortness of breath, rule out pulmonary embolism. IV CONTRAST: 74 cc Omnipaque 350 (iohexol) IV RADIATION DOSE: 14.75 CTDIvol (mGy) MEDICAL HISTORY : Cardiovascular disease. Hypertension. Chronic obstructive pulmonary disease.Pulmonary Embolism SURGICAL HISTORY : Appendectomy. ENCOUNTER: Initial ACUITY: 1 day PAIN SCALE: 0/10 LOCATION: chest TECHNIQUE: Volumetric scanning of the chest was performed using a pulmonary embolism protocol MIP images were re constructed. Using automated exposure control and adjustment of the mA and/or kV according to patien t size, radiation dose was kept as low as reasonably achievable to obtain optimal diagnostic quality images. DICOM format image data is available electronically for review and comparison. Follow-up recommendations for detected pulmonary nodules are based at a minimum on nodule size and pa tient risk factors according to Fleischner Society Guidelines. FINDINGS: . Minimal consolidative changes are present anteriorly in the right lung. On there is no axillary or mediastinal adenopathy. There is no evidence of central pulmonary emboli Moderate coronary calcifications are noted Extensive sclerotic changes are seen about both glenoid. Slight changes are seen in numerous vertebr al bodies these are nonspecific but could represent neoplastic process in appropriate to the situatio n. Correlation is suggested. CONCLUSION: Minimal consolidative changes right lung Negative for central pulmonary emboli Abnormal axial skeleton unchanged from 03/14/16. Ish Caceres MD FACR on July 16, 2017 at 9:20 Board Certified Radiologist. This report was verified electronically.
[2017-07-16] MEDS ORDERED: RESP: ALBUTEROL 2.5 MG/IPRATROPIUM 0.5 MG NEB (PRN) INH (09:45)
[2017-07-16] MEDS ORDERED: MAGNESIUM HYDROXIDE SUSP 30 ML CUP PO PRN (09:45)
[2017-07-16] MEDS ORDERED: SENNOSIDES 8.6 MG TAB PO PRN (09:45)
[2017-07-16] MEDS ORDERED: BISACODYL 10 MG SUPP RECTAL PRN (09:45)
[2017-07-16] MEDS ORDERED: CHLORHEXIDINE GLUCONATE 2 % 1 PACK (2 CLOTHS) TOP PRN (09:45)
[2017-07-16] MEDS ORDERED: LACTULOSE SYRUP 20 GM/30 ML CUP PO PRN (09:45)
[2017-07-16] MEDS ORDERED: MISCELLANEOUS NURSING INFORMATION XX SCH (09:45)
[2017-07-16] MEDS: DOCUSATE SODIUM 50 MG/SENNA 8.6 MG TAB PO SCH ×2 (10:00→20:41)
[2017-07-16] MEDS ORDERED: GLUCAGON 1 MG/ML VIAL OTHER PRN (10:30)
[2017-07-16] MEDS ORDERED: DEXTROSE 50% IN WATER 50 ML VIAL(D50) IV PUSH PRN (10:30)
[2017-07-16] MEDS: INSULIN NovoLIN REGULAR SUPPLEMENTAL SCALE SQ SCH ×4 (10:30→23:35)
[2017-07-16] MEDS: BUDESONIDE-FORMOTEROL 160/4.5 MCG INHALER INH SCH ×2 (10:30→20:41)
[2017-07-16] MEDS: RESP: ALBUTEROL 2.5 MG/IPRATROPIUM 0.5 MG NEB (SCH) INH ×3 (10:41→19:42)
[2017-07-16] MEDS ORDERED: CHLORHEXIDINE GLUCONATE 2 % 1 PACK (2 CLOTHS)(extra cloths) TOPICAL PRN (11:00)
[2017-07-16] MEDS ORDERED: HEPARIN SODIUM - SQ 10,000 UNITS/ML VIAL SQ SCH (11:00)
--- NOTE | 2017-07-16 11:09 | MH ---
cc: [facility] DATE OF ADMISSION: 07/16/2017 1948 HISTORY OF PRESENT ILLNESS The patient is 66-year-old male with past medical history of pulmonary embolism and DVT left lower extremity in 2010 on Xarelto, COPD, anxiety disorder. The patient presented to [facility] ED with three to four day history of respiratory distress. On arrival to the ER the patient was hypertensive with systolic blood pressure in 180s and his EKG showed atrial fibrillation with rapid ventricular response at a rate of 143 beats per minute. He was given Cardizem 15 mg IV push. In addition he was given Lasix 40 mg by paramedics. The patient was initially placed on a BiPAP 16/8 with 100% FIO2 and his ABG showed a pH of 7.34, CO2 48, pAO2 413, bicarb 25 and sats of 98%. He was weaned off BiPAP and is currently on 4 liters oxygen with good saturation. His laboratory data was significant for leukocytosis with a WBC of 19.5, however, the patient is afebrile. His lactic acid measured at 3.8 and BNP 865. A chest x-ray in the ED showed left basilar atelectasis. Subsequently the patient underwent CT angiogram of the chest which showed no evidence of any central pulmonary emboli. However, minimal consolidative changes noted in the right lung base. He received vancomycin and Zosyn in the ER. He denies any associated symptoms of chest pain, cough or any constitutional symptoms. Furthermore, the patient denies any orthopnea, PND or edema of lower extremities. He denies any use of oxygen at home. The patient states that he has a nebulizer at home, however, it is broken. He quit smoking a month ago and has a 40 pack-year history of smoking. The patient denies any history of coronary artery disease. PAST MEDICAL HISTORY Past medical history significant for: 1. Pulmonary embolism. 2. DVT. 3. COPD. 4. Irregular heartbeat. 5. Anxiety disorder. 6. Depression. PAST SURGICAL HISTORY 1. Previous appendectomy. 2. Previous tonsillectomy. 3. Hernia repair. SOCIAL HISTORY The patient has quit smoking a month ago. Has a 40 pack-year history of smoking. Also he has history of ETOH use. ALLERGIES NO KNOWN DRUG ALLERGIES. FAMILY HISTORY Noncontributory to current present illness. MEDICATION Reported medications: 1. Omeprazole. 2. Medrol Dosepak. 3. Lasix. 4. Xarelto. 5. Albuterol. REVIEW OF SYSTEMS As per HPI. The rest of review of systems unremarkable. PHYSICAL EXAMINATION GENERAL: A 66-year-old male lying in bed, in mild respiratory distress. VITAL SIGNS: Temperature 99.5, pulse of 105, saturation 95% on 4 liters, respiratory rate of 18. HEENT: Atraumatic, normocephalic. Pupil equal, round, reactive to light and accommodation. Extraocular muscles intact. Conjunctivae pink. Nonicteric sclerae. Oral mucosa within normal. NECK: Supple. No JVD, adenopathy, thyromegaly. Trachea midline. CARDIOVASCULAR: Tachycardic, irregular. Normal S1-S2. No murmurs, rubs or gallops noted. PULMONARY: Bilateral equal air entry. No crackles. ABDOMEN: Soft, nontender, no distension. Positive bowel sounds. EXTREMITIES: No cyanosis, clubbing or edema. NEURO: No focal sensory deficit. LABORATORY DATA Sodium 143, potassium 4.7, chloride 106, CO2 26, BUN 35, creatinine 1.34, glucose 208, lactic acid 3.8, troponin 0.11, BNP 865, WBC 19.5, hemoglobin 11.9, hematocrit 38, platelet count of 161, INR 1.1, PT 11.3. EKG Showed atrial fibrillation with RVR. RADIOGRAPHIC STUDIES CT angiogram of the chest negative for central pulmonary emboli, minimal consolidative changes noted right lung base. IMPRESSION 1. Acute hypercapnic respiratory failure. 2. COPD exacerbation. 3. CHF with elevated BNP on admission. 4. Hypertension. 5. Lactic acidemia. 6. Mild acute kidney injury. 7. Hyperglycemia. 8. Leukocytosis. 9. History of PE and DVT. 10. History of anxiety. RECOMMENDATIONS 1. Monitor neuro status closely and avoid sedatives. 2. Continue oxygen and maintain sats above 92%. 3. Bronchodilators in the form of DuoNeb q. 4 plus q. 2 p.r.n. for shortness of breath. In addition will start on Symbicort two puffs q. 12-hour. 4. Noninvasive positive pressure ventilation p.r.n. for respiratory distress. 5. Will consult pulmonary service. The patient will need pulmonary function test as an outpatient to assess the severity of his obstructive lung disease. 6. Monitor heart rate and blood pressure closely and maintain MAP greater than 65 mmHg. Will monitor troponins and will obtain 2-D echo to evaluate LV function and to rule out regional wall motion abnormalities. 7. Diurese with Lasix as needed. Continue with Xarelto 10 mg b.i.d. 8. Serial lactic acid monitoring until clear. 9. Monitor renal function, Is and Os and avoid nephrotoxins. Electrolyte replacement as needed. 10. Place on heart healthy diet and Pepcid for GI prophylaxis. 11. Place on empiric antibiotics in the form of Levaquin and monitor for signs of infections which include fever and WBC. Will obtain a sputum culture with gram stain. Follow up on blood cultures. His urinalysis is negative for leukocyte esterase and nitrite, [address] on sliding scale insulin with Accu-Cheks for glycemic control. 13. Monitor CBC. 14. GI prophylaxis with Pepcid and DVT prophylaxis with SCDs and will continue with Xarelto 10 mg b.i.d. 15. Further recommendations will be based on hospital course. MD TRISTEN Hendrickson/KAREN /10:30 AM /10:46 AM
--- NOTE | 2017-07-16 11:58 | EKG ---
Date Performed: 07/16/2017 Time Performed: 05:31:47 PTAGE: 66 years EKG: ATRIAL FIBRILLATION WITH RAPID VENTRICULAR RESPONSE NONSPECIFIC ST & T-WAVE ABNORMALITY Com pared to previous tracing atrial fibrillation with rapid v. response has replaced ectopic rhythm, ST segment depression and T wave inversion is now noted in the lateral precordial leads. ABNORMAL ECG PREVIOUS TRACING : 09/09/16 DOCTOR: Serge Carias Interpretating Date/Time 07/16/2017 11:57:45
[2017-07-16] MEDS ORDERED: ALPRAZolam 0.25 MG TAB PO ONE (12:00)
[2017-07-16] MEDS: LEVOFLOXACIN 750 MG TAB PO SCH (13:04)
[2017-07-16] MEDS: methylPREDNISolone SOD SUCC 40 MG/1 ML VIAL IV PUSH SCH ×2 (13:05→17:12)
[2017-07-16] MEDS ORDERED: oxyCODONE/ACETAMINOPHEN 5 MG/325 MG TAB PO ONE (14:00)
[2017-07-16 15:24] LABS: AUTOMATED NEUTROPHIL # 11.8 TH/MM3 (1.8-7.7); BASOPHIL % 0.2 % (0.0-2.0); EOSINOPHIL # 0.1 TH/MM3 (0-0.4); EOSINOPHIL % 0.5 % (0.0-4.0); HEMOGLOBIN 11.5 GM/DL (13.0-17.0); LYMPH % 6.5 % (9.0-44.0); LYMPHOCYTE # 0.9 TH/MM3 (1.0-4.8); MEAN CELL VOLUME 74.2 FL (80.0-100.0); MEAN CORPUSCULAR HEMOGLOBIN 23.1 PG (27.0-34.0); MEAN CORPUSCULAR HGB CONC 31.1 % (32.0-36.0); MEAN PLATELET VOLUME 9.2 FL (7.0-11.0); MONO % 3.8 % (0.0-8.0); MONOCYTE # 0.5 TH/MM3 (0-0.9); PLATELET COUNT 116 TH/MM3 (150-450); RED BLOOD COUNT 4.98 MIL/MM3 (4.50-5.90); RED CELL DISTRIBUTION WIDTH 19.1 % (11.6-17.2); WHITE BLOOD COUNT 13.2 TH/MM3 (4.0-11.0)
[2017-07-16 15:41] LABS: BICARBONATE 31.3 MEQ/L (21.0-32.0); CALCIUM 7.8 MG/DL (8.5-10.1); CREATININE 1.25 MG/DL (0.60-1.30)
[2017-07-16 15:43] LABS: TROPONIN I 0.18 NG/ML (0.02-0.05)
[2017-07-16] MEDS ORDERED: ASPIRIN 325 MG TAB PO ONE (16:15)
[2017-07-16] MEDS: METOPROLOL TARTRATE 25 MG TAB PO SCH ×2 (17:12→20:41)
[2017-07-16] MEDS: DILTIAZEM HCL 60 MG TAB PO SCH ×2 (19:19→23:35)
--- NOTE | 2017-07-16 19:53 | MB ---
cc: DAVE BLEVINS DATE OF CONSULTATION 07/16/[address] Lanier REASON FOR CONSULTATION Evaluation of COPD exacerbation. HISTORY OF THE PRESENT ILLNESS Mr. Membreno is a 66-year-old male with longstanding history of COPD, nicotine use continues to smoke one pack of cigarettes a day. He has a history of DVT and has IVC filter placed. He stopped taking his anticoagulation. He came to the emergency room with shortness of breath. He said that he was getting out of his RV and suddenly he felt loss of his breathing. He was brought to the emergency room and was found to be in atrial fibrillation with rapid ventricular rate, also had hypercarbia. The patient was admitted in intensive care unit. His rate is much better controlled now. LABORATORY DATA His lab evaluation revealed WBC count 13.2, hemoglobin 11.5, hematocrit 37, MCV 74, platelet count of 116. Sodium 145, potassium 4.1, chloride 103, CO2 31, BUN 33, creatinine 1.25, glucose 82. Blood gas pH 7.34, pCO2 48, pCO2 413. IMAGING His CTA of the chest shows no pulmonary embolism. It showed minimal changes in the right lung. PAST MEDICAL HISTORY Significant for: 1. History of COPD. 2. History of DVT not on any anticoagulation. 3. IVC filter placement. 4. Appendectomy. 5. Hernia surgery. 6. Anxiety. 7. Depression. MEDICATIONS 1. The patient uses inhaler off and on. He [facility]. Currently he is on Famotidine 10 milligrams. 2. Xarelto 10 mg twice a day. 3. Lopressor 25 mg q. 12-hour. 4. Albuterol/Atrovent nebulizer treatment. 5. Levaquin 750 milligrams a day. 6. Solu-Medrol 40 mg q.8 h. 7. Symbicort 160/4.5 two puffs twice a day. 8. He is on insulin coverage. ALLERGIES NO KNOWN DRUG ALLERGIES. SOCIAL HISTORY He has been twice, lives alone. History of smoking one pack a day and he drinks significant amount. FAMILY HISTORY He has two children. REVIEW OF SYSTEMS Normally up, around and active. No history of malignancy. No seizure or epilepsy. PHYSICAL EXAMINATION GENERAL: Moderately built, well-nourished male mild short of breath not in acute distress. VITAL SIGNS: Blood pressure 126/87, heart rate 108, respirations 18, temperature 98.2. HEENT: Pupils are equal and reactive to light. He has bilateral cataracts. Oral mucosa and nasal mucosa normal. NECK: Supple. JVD not raised. CHEST: He has expiratory rhonchi. CARDIOVASCULAR: S1-S2 normal. ABDOMEN: Soft. Nontender, nondistended. Bowel sounds are present. EXTREMITIES: No edema. GAME ENGINEER: Alert , oriented, no focal deficit. IMPRESSION 1. COPD with exacerbation. 2. Respiratory acidosis. 3. Atrial fibrillation with rapid ventricular rate. 4. History of deep venous thrombosis. 5. Status post IVC filter placement. PLAN I advised him strongly to quit smoking. And advised compliance with medications. Continue IV Solu-Medrol and aerosol treatment. Continue antibiotic. He is on Xarelto 10 mg twice a day but he is not sure he would want to continue with anticoagulation. Once he gets better we will check his pulmonary function study. Further treatment will depend on the course in the hospital. Thank you Dr. Lanier for this consultation. MD SANYA Duran/RABIA /5:03 PM /7:16 PM SIMONE
[2017-07-16] MEDS: FAMOTIDINE 20 MG/2 ML VIAL IV PUSH SCH (20:41)
[2017-07-16] MEDS: RIVAROXABAN 10 MG TAB PO SCH (20:41)
[2017-07-16] MEDS ORDERED: METOPROLOL TARTRATE 25 MG TAB PO SCH (21:00)
--- NOTE | 2017-07-16 22:07 | MB ---
cc: BRYAN TORREZ DATE OF CONSULTATION 07/16/2017 HISTORY Mr. Membreno is a 66-year-old white male with a history of pulmonary embolism, left lower extremity DVT, COPD and anxiety. He has had increased shortness of breath for at least 3 days prior to admission. He was found to have severe hypertension. He was in atrial fibrillation with rapid ventricle response. He is aware of previous history of atrial fibrillation. He quit smoking several days ago but he is using alcohol heavily. PAST MEDICAL HISTORY Positive for: 1. Pulmonary embolism. 2. Deep venous thrombosis. 3. COPD. 4. Atrial fibrillation. 5. Anxiety. 6. Depression. 7. History of hernia repair. 8. Tonsillectomy. 9. Appendectomy. MEDICATIONS 1. Xarelto. 2. Lasix. 3. Medrol Dosepak, 4. Omeprazole. 5. Albuterol. ALLERGIES None. SOCIAL HISTORY The patient quit smoking in the last month. He uses alcohol excessively. FAMILY HISTORY Negative for heart disease. REVIEW OF SYSTEMS Otherwise negative. PHYSICAL EXAMINATION VITAL SIGNS: Blood pressure 126/87, pulse 140 and irregular. HEENT: Negative. NECK: 2+ carotid upstrokes. No bruits. LUNGS: Clear. CARDIOVASCULAR: Heart irregularly irregular. Tachycardic. No murmur, gallop or rub. ABDOMEN: Soft. No bruits. EXTREMITIES: Without edema. 1-2+ distal pulses. NEUROLOGIC: Grossly nonfocal. EKG was reviewed and showed atrial fibrillation with rapid ventricular response and nonspecific ST-T changes. LABORATORY DATA Hemoglobin 11.5. Potassium 4.1, creatinine 1.25. Troponin 0.11 and 0.18. BNP 865. DIAGNOSIS 1. Acute respiratory failure. 2. Chronic obstructive pulmonary disease exacerbation. 3. Acute congestive heart failure. 4. Atrial fibrillation with rapid ventricular response. 5. Hypertension. 6. History of deep venous thrombosis and pulmonary embolism. 7. Anxiety. DISPOSITION Mr. Membreno will be monitored on telemetry. His troponin is slightly elevated which is likely due to his congestive heart failure and atrial fibrillation with rapid ventricular response. He has not had any chest discomfort. He will be treated with antibiotics for his COPD exacerbation. We will start diltiazem for rate control. He will be monitored in the ICU. I will follow him for cardiology during his hospitalization. We will continue anticoagulation with Xarelto due to his history of DVT and PE. MD SHOAIB Rosas /6:10 PM /9:46 PM
[2017-07-17] VITALS (10 sets, daily range): BP systolic 93–131; BP diastolic 56–83; PULSE 51–86; RESP 12–47; TEMP 97.7–98.3; O2SAT 80–100
[2017-07-17] MEDS: RESP: ALBUTEROL 2.5 MG/IPRATROPIUM 0.5 MG NEB (SCH) INH ×7 (00:38→23:22)
[2017-07-17] MEDS: methylPREDNISolone SOD SUCC 40 MG/1 ML VIAL IV PUSH SCH ×3 (02:59→17:54)
[2017-07-17] MEDS ORDERED: CHLORHEXIDINE GLUCONATE 2 % 1 PACK (2 CLOTHS) TOP SCH (04:00)
[2017-07-17] MEDS ORDERED: CHLORHEXIDINE GLUCONATE 2 % 1 PACK (2 CLOTHS)(taper/protocol) TOPICAL SCH (04:00)
[2017-07-17 04:23] LABS: AUTOMATED NEUTROPHIL # 10.8 TH/MM3 (1.8-7.7); BASOPHIL % 0.1 % (0.0-2.0); HEMATOCRIT 38.4 % (39.0-51.0); LYMPH % 4.8 % (9.0-44.0); LYMPHOCYTE # 0.6 TH/MM3 (1.0-4.8); MEAN CELL VOLUME 75.4 FL (80.0-100.0); MEAN CORPUSCULAR HEMOGLOBIN 23.5 PG (27.0-34.0); MEAN CORPUSCULAR HGB CONC 31.2 % (32.0-36.0); MEAN PLATELET VOLUME 10.4 FL (7.0-11.0); MONOCYTE # 0.2 TH/MM3 (0-0.9); NEUT % 93.1 % (16.0-70.0); PLATELET COUNT 130 TH/MM3 (150-450); RED CELL DISTRIBUTION WIDTH 19.4 % (11.6-17.2); WHITE BLOOD COUNT 11.6 TH/MM3 (4.0-11.0)
[2017-07-17 04:32] LABS: BICARBONATE 31.5 MEQ/L (21.0-32.0); CALCIUM 8.3 MG/DL (8.5-10.1); CREATININE 1.29 MG/DL (0.60-1.30); MAGNESIUM 1.9 MG/DL (1.5-2.5)
[2017-07-17] MEDS: DILTIAZEM HCL 60 MG TAB PO SCH ×4 (05:51→23:31)
[2017-07-17] MEDS: INSULIN NovoLIN REGULAR SUPPLEMENTAL SCALE SQ SCH ×4 (05:51→23:31)
--- NOTE | 2017-07-17 08:27 | HHI.PR ---
Subjective Remarks Patient reports he is feeling slightly better today. Shortness of breath has improved. Heart rate is controlled. He complains of anxiety today. States he used to take a benzodiazepine for anxiety. He believes that alcohol helps with his anxiety. Objective Vitals Vital Signs Date Time Temp Pulse Resp B/P (MAP) Pulse Ox O2 Delivery O2 Flow Rate FiO2 07/17/17 07:41 97 Nasal Cannula 4.00 07/17/17 06:00 66 07/17/17 04:00 98.0 60 16 93/56 (68) 91 07/17/17 04:00 53 07/17/17 02:00 64 07/17/17 00:00 75 07/17/17 00:00 97.8 85 14 130/79 (96) 100 07/16/17 22:00 80 07/16/17 20:00 95 07/16/17 20:00 97.8 95 35 103/77 (86) 100 07/16/17 19:44 100 Nasal Cannula 4.00 07/16/17 19:00 100 Nasal Cannula 4.00 07/16/17 18:00 122 07/16/17 16:00 108 07/16/17 16:00 98.3 108 15 126/87 (100) 100 07/16/17 14:00 153 07/16/17 12:00 98.5 105 37 124/82 (96) 88 07/16/17 12:00 105 07/16/17 11:00 98.4 89 22 133/76 (95) 97 07/16/17 10:43 94 Nasal Cannula 4.00 07/16/17 10:30 07/16/17 09:35 100 Nasal Cannula 4.00 I/O 07/16/17 07/16/17 07/16/17 07/17/17 07/17/17 07/17/17 07:00 15:00 23:00 07:00 15:00 23:00 Intake Total 100 ml 730 ml 240 ml Output Total 625 ml 1100 ml 450 ml Balance -525 ml -370 ml -210 ml Intake Oral 480 ml 240 ml IV Total 100 ml 250 ml Output Urine Total 625 ml 1100 ml 450 ml # Voids 1 # Bowel Movements 0 Result Diagram: 07/17/17 0336 07/17/17335 Imaging Last Impressions Chest X-Ray 07/16/17 0532 Signed Impressions: Service Date/Time: Sunday, July 16, 2017 05:51 - CONCLUSION: Left basilar atelectasis. Possible tiny left effusion. Thom Harding MD CT Angiography 07/16/17 0000 Signed Impressions: Service Date/Time: Sunday, July 16, 2017 09:10 - CONCLUSION: Minimal consolidative changes right lung Negative for central pulmonary emboli Abnormal axial skeleton unchanged from 03/14/16. Ish Caceres MD FACR Objective Remarks GENERAL: This is a well-nourished, well-developed patient, in no apparent distress. CARDIOVASCULAR: Normal rate and regular rhythm without murmurs, gallops, or rubs. RESPIRATORY: Good respiratory efforts. Diminished breath sounds at the bases bilaterally otherwise clear to auscultation. GASTROINTESTINAL: Abdomen soft, non-tender, non-distended. Normal active bowel sounds MUSCULOSKELETAL: Extremities without cyanosis, or edema. NEURO: Alert & Oriented x4 to person, place, time, situation. Moves all ext x4 PSYCH: Appropriate mood and affect. A/P Assessment and Plan 66-year-old male admitted with acute hypercapnic respiratory failure secondary to COPD exacerbation, A. fib with aVR Acute respiratory failure secondary to COPD exacerbation: - Continue supplemental oxygen, IV Solu-Medrol today. Plan to transition to oral steroids tomorrow. - Breathing treatments. Continue oral Levaquin. Plan to DC home on a short course. - Patient strongly counseled to quit smoking. A. fib with aVR: - Appreciate cardiology following. - Diltiazem added. Continue metoprolol and Xarelto. Alcohol abuse: - Patient counseled on cessation. - [facility] protocol Anxiety: Likely related to alcohol dependence. - Patient counseled alcohol or benzodiazepines are not the right medications for generalized anxiety. He is advised to follow-up outpatient with PCP or psychiatry to consider long-term medications for treatment of anxiety such as SSRI. He is not interested in starting this medication at this time. History of PE and DVT: -Continue Xarelto Elevated BNP: No overt heart failure. LVEF preserved on 2D echocardiogram. Hold off on diuretics. GI prophylaxis: Famotidine. Stool softener PRN constipation. DVT PPx: On Xarelto Discharge Planning Transfer to floor today. Possible discharge tomorrow if he continues to improve. Ginger Gonzalez MD Jul 17, 2017 08:27
[2017-07-17] MEDS ORDERED: LORazepam 2 MG/ML VIAL IV PUSH PRN ×4 (08:30)
[2017-07-17] MEDS ORDERED: LORazepam 2 MG TAB PO PRN (08:30)
[2017-07-17] MEDS ORDERED: LORazepam 1 MG TAB PO PRN (08:30)
[2017-07-17] MEDS ORDERED: FLUMAZENIL 0.5 MG/5 ML VIAL IV PUSH PRN (08:30)
[2017-07-17] MEDS: METOPROLOL TARTRATE 25 MG TAB PO SCH ×2 (08:56→20:24)
[2017-07-17] MEDS: FAMOTIDINE 20 MG/2 ML VIAL IV PUSH SCH ×2 (08:56→20:25)
[2017-07-17] MEDS: BUDESONIDE-FORMOTEROL 160/4.5 MCG INHALER INH SCH ×2 (08:57→21:07)
[2017-07-17] MEDS: DOCUSATE SODIUM 50 MG/SENNA 8.6 MG TAB PO SCH ×2 (08:57→20:24)
[2017-07-17] MEDS: RIVAROXABAN 10 MG TAB PO SCH ×2 (08:57→20:24)
--- NOTE | 2017-07-17 11:01 | ECHRPT ---
Indication: CHF CONCLUSIONS Normal left ventricular size with upper normal wall thickness. The left ventricular systolic functio n is normal with an estimated ejection fraction in the range of 60-65%. Normal wall motion. Trileaflet aortic valve. Mild aortic valve sclerosis is present. Trace aortic valve regurgitation. Structurally normal tricuspid valve. There is trace tricuspid valve regurgitation. The estimated pulmonary arterial pressure is 31 mmHg. Structurally normal mitral valve. Trace mitral valve regurgitation. BP: 100 / 58 HR: 85 Rhythm: Sinus MEASUREMENTS (Male / Female) Normal Values Technical Quality:Good 2D ECHO LV Diastolic Diameter PLAX 4.1 cm 4.2 - 5.9 / 3.9 - 5.3 cm LV Systolic Diameter PLAX 2.7 cm IVS Diastolic Thickness 1.2 cm 0.6 - 1.0 / 0.6 - 0.9 cm LVPW Diastolic Thickness 1.2 cm 0.6 - 1.0 / 0.6 - 0.9 cm LV Relative Wall Thickness 0.6 RV Internal Dim ED PLAX 2.8 cm LVOT Diameter 1.8 cm LA Systolic Diameter LX 4.1 cm 3.0 - 4.0 / 2.7 - 3.8 cm LV Ejection Fraction MOD 4C 69.9 % LV Cardiac Index MOD 4C 3058.6 cm/minm LV Ejection Fraction 4C AL 71.5 % LV Cardiac Index 4C AL 3262.2 cm/minm M-MODE Aortic Root Diameter MM 3.1 cm LA Systolic Diameter MM 3.8 cm LA Ao Ratio MM 1.2 DOPPLER AV Peak Velocity 191.0 cm/s AV Peak Gradient 14.6 mmHg AI Peak Velocity 261.0 cm/s AI Peak Gradient 27.2 mmHg AI Pressure Half Time 1157.0 ms LVOT Peak Velocity 87.9 cm/s LVOT Peak Gradient 3.1 mmHg AV Area Cont Eq pk 1.2 cm MV Area PHT 4.2 cm LV E' Lateral Velocity 9.4 cm/s LV E' Septal Velocity 6.7 cm/s TR Peak Velocity 229.0 cm/s TR Peak Gradient 21.0 mmHg Right Atrial Pressure 10.0 mmHg Pulmonary Artery Systolic Pressu 31.0 mmHg Right Ventricular Systolic Press 31.0 mmHg PV Peak Velocity 70.6 cm/s PV Peak Gradient 2.0 mmHg FINDINGS LEFT VENTRICLE Normal left ventricular size with upper normal wall thickness. The left ventricular systolic functio n is normal with an estimated ejection fraction in the range of 60-65%. Normal wall motion. RIGHT VENTRICLE Normal right ventricular size and systolic function. LEFT ATRIUM The left atrial size is normal. RIGHT ATRIUM The right atrial size is normal. ATRIAL SEPTUM Normal atrial septal thickness without atrial level shunting by limited color doppler interrogation. AORTA The aortic root and proximal ascending aorta are normal in size on limited imaging. MITRAL VALVE Structurally normal mitral valve. Trace mitral valve regurgitation. AORTIC VALVE Trileaflet aortic valve. Mild aortic valve sclerosis is present. Trace aortic valve regurgitation. TRICUSPID VALVE Structurally normal tricuspid valve. There is trace tricuspid valve regurgitation. The estimated pulmonary arterial pressure is 31 mmHg. PULMONARY VALVE No pulmonary valve regurgitation or stenosis. VESSELS The inferior vena cava is normal in size. PERICARDIUM No pericardial effusion. Stephane Antunez MD (Electronically Signed) Final Date:17 July 2017 11:00
[2017-07-17] MEDS: LEVOFLOXACIN 750 MG TAB PO SCH (11:20)
--- NOTE | 2017-07-17 16:17 | HHI.DCPOC ---
Discharge Care Plan Diagnosis: (1) Elevated brain natriuretic peptide (BNP) level (2) COPD with exacerbation (3) Atrial fibrillation with RVR (4) Alcohol abuse Goals to Promote Your Health * To prevent worsening of your condition and complications * To maintain your health at the optimal level Directions to Meet Your Goals Take your medications as prescribed Follow your dietary instruction Follow activity as directed Keep your appointments as scheduled Take your immunizations and boosters as scheduled If your symptoms worsen call your PCP, if no PCP go to Urgent Care Center or Emergency Room Smoking is Dangerous to Your Health. Avoid second hand smoke Call the 24-hour hour crisis hotline for domestic abuse at Ginger Gonzalez MD Jul 17, 2017 16:17
--- NOTE | 2017-07-17 16:25 | PD.CARD.PN ---
Subjective Subjective Remarks No angina, still c/o SOB, HR well controlled with diltiazem Objective Medications Current Medications Medications (Trade) Dose Ordered Sig/Hugh Route Start Time Stop Time Status Last Admin (Pepcid Inj) 10 mg Q12HR IV PUSH 07/16/17 21:00 07/17/17 08:56 (Duoneb Neb) 1 ampule Q4HR NEB INH 07/16/17 12:00 07/17/17 11:32 (Duoneb Neb) 1 ampule Q2HR NEB PRN INH 07/16/17 09:45 (Talita-Colace) 1 tab BID PO 07/16/17 10:00 07/17/17 08:57 (Milk Of Magnesia Liq) 30 ml Q12H PRN PO 07/16/17 09:45 (Senokot) 17.2 mg Q12H PRN PO 07/16/17 09:45 (Dulcolax Supp) 10 mg DAILY PRN RECTAL 07/16/17 09:45 (Lactulose Liq) 30 ml DAILY PRN PO 07/16/17 09:45 (Levaquin) 750 mg Q24H PO 07/16/17 11:00 07/17/17 11:20 (Symbicort 160-4.5 Mcg Inh) 2 puff Q12HR INH 07/16/17 10:30 07/17/17 08:57 (SoluMEDROL INJ) 40 mg Q8H IV PUSH 07/16/17 11:00 07/17/17 11:20 (D50w (Vial) Inj) 50 ml UNSCH PRN IV PUSH 07/16/17 10:30 (Glucagon Inj) 1 mg UNSCH PRN OTHER 07/16/17 10:30 (NovoLIN R SUPPLEMENTAL SCALE) 1 Q6HR SQ 07/16/17 10:30 07/17/17 11:22 (Xarelto) 10 mg BID PO 07/16/17 21:00 07/17/17 08:57 Miscellaneous Information Patient in critical care unit? Ass... Q361D .XX 07/16/17 11:00 (Chlorhexidine 2% Cloth) 3 pack DAILY@04 TOPICAL 07/17/17 04:00 07/21/17 04:01 07/17/17 03:38 (Chlorhexidine 2% Cloth) 3 pack UNSCH PRN TOPICAL 07/16/17 11:00 07/21/17 10:57 (Lopressor) 25 mg Q12HR PO 07/16/17 16:30 07/17/17 08:56 (Cardizem) 60 mg Q6HR PO 07/16/17 18:15 07/17/17 11:20 (Romazicon Inj) 0.2 mg Q1M PRN IV PUSH 07/17/17 08:30 (Ativan) 1 mg Q4H PRN PO 07/17/17 08:30 (Ativan Inj) 1 mg Q4H PRN IV PUSH 07/17/17 08:30 (Ativan) 2 mg Q2H PRN PO 07/17/17 08:30 (Ativan Inj) 2 mg Q2H PRN IV PUSH 07/17/17 08:30 (Ativan Inj) 2 mg Q1H PRN IV PUSH 07/17/17 08:30 (Ativan Inj) 2 mg Q15M PRN IV PUSH 07/17/17 08:30 Vital Signs / I&O Vital Signs Date Time Temp Pulse Resp B/P (MAP) Pulse Ox O2 Delivery O2 Flow Rate FiO2 07/17/17 12:00 51 07/17/17 12:00 98.3 51 17 131/83 (99) 100 07/17/17 08:00 60 07/17/17 08:00 98.2 61 12 119/69 (86) 100 07/17/17 07:41 97 Nasal Cannula 4.00 07/17/17 07:00 98 Nasal Cannula 4.00 07/17/17 06:00 66 07/17/17 04:00 98.0 60 16 93/56 (68) 91 07/17/17 04:00 53 07/17/17 02:00 64 07/17/17 00:00 75 07/17/17 00:00 97.8 85 14 130/79 (96) 100 07/16/17 22:00 80 07/16/17 20:00 95 07/16/17 20:00 97.8 95 35 103/77 (86) 100 07/16/17 19:44 100 Nasal Cannula 4.00 07/16/17 19:00 100 Nasal Cannula 4.00 07/16/17 18:00 122 I/O 2/12/18 2/05/2107/16/17 07/17/17 07/17/17 07/17/17 07:00 15:00 23:00 07:00 15:00 23:00 Intake Total 100 ml 730 ml 240 ml Output Total 625 ml 1100 ml 450 ml Balance -525 ml -370 ml -210 ml Intake Oral 480 ml 240 ml IV Total 100 ml 250 ml Output Urine Total 625 ml 1100 ml 450 ml # Voids 1 # Bowel Movements 0 Physical Exam GENERAL: In mild resp distress, anxious SKIN: Warm and dry. HEAD: Normocephalic. EYES: No scleral icterus. No injection or drainage. NECK: Supple, trachea midline. No JVD or lymphadenopathy. CARDIOVASCULAR: Irregular rate and rhythm without murmurs, gallops, or rubs. RESPIRATORY: Breath sounds equal bilaterally. No accessory muscle use. Few rhonchi. GASTROINTESTINAL: Abdomen soft, non-tender, nondistended. MUSCULOSKELETAL: No cyanosis, mild LE edema. Laboratory Laboratory Tests Test 07/17/17 03:36 White Blood Count 11.6 TH/MM3 Red Blood Count 5.10 MIL/MM3 Hemoglobin 12.0 GM/DL Hematocrit 38.4 % Mean Corpuscular Volume 75.4 FL Mean Corpuscular Hemoglobin 23.5 PG Mean Corpuscular Hemoglobin Concent 31.2 % Red Cell Distribution Width 19.4 % Platelet Count 130 TH/MM3 Mean Platelet Volume 10.4 FL Neutrophils (%) (Auto) 93.1 % Lymphocytes (%) (Auto) 4.8 % Monocytes (%) (Auto) 2.0 % Eosinophils (%) (Auto) 0.0 % Basophils (%) (Auto) 0.1 % Neutrophils # (Auto) 10.8 TH/MM3 Lymphocytes # (Auto) 0.6 TH/MM3 Monocytes # (Auto) 0.2 TH/MM3 Eosinophils # (Auto) 0.0 TH/MM3 Basophils # (Auto) 0.0 TH/MM3 CBC Comment DIFF FINAL Differential Comment Blood Urea Nitrogen 40 MG/DL Creatinine 1.29 MG/DL Random Glucose 85 MG/DL Calcium Level 8.3 MG/DL Phosphorus Level 4.0 MG/DL Magnesium Level 1.9 MG/DL Sodium Level 143 MEQ/L Potassium Level 3.8 MEQ/L Chloride Level 102 MEQ/L Carbon Dioxide Level 31.5 MEQ/L Anion Gap 10 MEQ/L Estimat Glomerular Filtration Rate 55 ML/MIN Assessment and Plan Problem List: (1) Atrial fibrillation with RVR ICD Codes: I48.91 - Unspecified atrial fibrillation Status: Acute (2) CHF (congestive heart failure) ICD Codes: I50.9 - Heart failure, unspecified (3) COPD with exacerbation ICD Codes: J44.1 - Chronic obstructive pulmonary disease with (acute) exacerbation (4) Hypertension ICD Codes: I10 - Essential (primary) hypertension Status: Acute (5) History of DVT of lower extremity ICD Codes: Z86.718 - Personal history of other venous thrombosis and embolism Status: Acute (6) Anxiety ICD Codes: F41.9 - Anxiety disorder, unspecified (7) Alcohol abuse ICD Codes: F10.10 - Alcohol abuse, uncomplicated Status: Acute (8) Noncompliance ICD Codes: Z91.19 - Patient's noncompliance with other medical treatment and regimen Assessment and Plan AF rate well controlled with PO diltiazem and metoprolol. Echo with well preserved LV function. Recommend to continue anticoagulation although the patient is not sure if he wants to continue Xarelto long-term. Continue tx for COPD exac. Increase activity. Counseled on alcohol and compliance with medical care. Veronica Ferrer MD Jul 17, 2017 16:25
[2017-07-17] MEDS: CALCIUM CARBONATE 500 MG CHEWABLE TAB CHEW PRN ×2 (17:53→20:31)
--- NOTE | 2017-07-17 18:36 | HHI.PR ---
Subjective Remarks 66 YOWM with COPD exac,AF with RVR Breathing betetr C/O Back pain no fever No CP Objective Vital Signs Vital Signs Date Time Temp Pulse Resp B/P (MAP) Pulse Ox O2 Delivery O2 Flow Rate FiO2 07/17/17 16:00 51 07/17/17 16:00 97.7 86 47 126/58 (80) 80 07/17/17 12:00 51 07/17/17 12:00 98.3 51 17 131/83 (99) 100 07/17/17 08:00 60 07/17/17 08:00 98.2 61 12 119/69 (86) 100 07/17/17 07:41 97 Nasal Cannula 4.00 07/17/17 07:00 98 Nasal Cannula 4.00 07/17/17 06:00 66 07/17/17 04:00 98.0 60 16 93/56 (68) 91 07/17/17 04:00 53 07/17/17 02:00 64 07/17/17 00:00 75 07/17/17 00:00 97.8 85 14 130/79 (96) 100 07/16/17 22:00 80 07/16/17 20:00 95 07/16/17 20:00 97.8 95 35 103/77 (86) 100 07/16/17 19:44 100 Nasal Cannula 4.00 07/16/17 19:00 100 Nasal Cannula 4.00 I/O 07/16/17 07/16/17 07/16/17 07/17/17 07/17/17 07/17/17 07:00 15:00 23:00 07:00 15:00 23:00 Intake Total 100 ml 730 ml 240 ml 720 ml Output Total 625 ml 1100 ml 450 ml 500 ml Balance -525 ml -370 ml -210 ml 220 ml Intake Oral 480 ml 240 ml 720 ml IV Total 100 ml 250 ml Output Urine Total 625 ml 1100 ml 450 ml 500 ml # Voids 1 # Bowel Movements 0 0 Result Diagram: 07/17/1733507/17/17335 Objective Remarks GENERAL: Elderly WM, mild sob SKIN: Warm and dry. HEAD: Normocephalic. EYES: No scleral icterus. No injection or drainage. NECK: Supple, trachea midline. No JVD or lymphadenopathy. CARDIOVASCULAR: Regular rate and rhythm without murmurs, gallops, or rubs. RESPIRATORY: Breath sounds equal bilaterally. No accessory muscle use. Decreased chest excursion GASTROINTESTINAL: Abdomen soft, non-tender, nondistended. MUSCULOSKELETAL: No cyanosis, or edema. BACK: Nontender without obvious deformity. No CVA tenderness. A/P Assessment and Plan COPD with Exac AF with RVR Resp acidosis DVT, s/p IVC filter CHF PLAN: Aerosol nebs. Symbicort 2 puffs bid IV Solumedrol Xarelto 10 mg bid Supplement 02 PFT Rivera Lundberg MD Jul 17, 2017 18:36
[2017-07-18] VITALS: BP 150/64; PULSE 58; PULSE 71; RESP 20; TEMP 97.9; O2SAT 98
[2017-07-18] MEDS: methylPREDNISolone SOD SUCC 40 MG/1 ML VIAL IV PUSH SCH ×2 (02:53→11:17)
[2017-07-18] MEDS: RESP: ALBUTEROL 2.5 MG/IPRATROPIUM 0.5 MG NEB (SCH) INH ×3 (03:44→11:38)
[2017-07-18 04:00] VITALS: BP 150/83; PULSE 66; RESP 20; TEMP 98.1; O2SAT 100
[2017-07-18] MEDS: INSULIN NovoLIN REGULAR SUPPLEMENTAL SCALE SQ SCH (06:00)
[2017-07-18 07:06] LABS: HEMATOCRIT 33.6 % (39.0-51.0); HEMOGLOBIN 10.6 GM/DL (13.0-17.0); MEAN CELL VOLUME 75.1 FL (80.0-100.0); MEAN CORPUSCULAR HEMOGLOBIN 23.8 PG (27.0-34.0); MEAN CORPUSCULAR HGB CONC 31.7 % (32.0-36.0); MEAN PLATELET VOLUME 9.9 FL (7.0-11.0); PLATELET COUNT 97 TH/MM3 (150-450); RED BLOOD COUNT 4.47 MIL/MM3 (4.50-5.90); RED CELL DISTRIBUTION WIDTH 19.7 % (11.6-17.2); WHITE BLOOD COUNT 13.4 TH/MM3 (4.0-11.0)
[2017-07-18 07:07] LABS: BICARBONATE 31.8 MEQ/L (21.0-32.0); CALCIUM 8.9 MG/DL (8.5-10.1); CREATININE 1.2 MG/DL (0.60-1.30)
[2017-07-18 07:20] VITALS: O2SAT 95
[2017-07-18 08:00] VITALS: BP 154/80; PULSE 80; PULSE 87; RESP 18; TEMP 98.1; O2SAT 93
[2017-07-18] MEDS: FAMOTIDINE 20 MG/2 ML VIAL IV PUSH SCH (08:51)
[2017-07-18] MEDS: METOPROLOL TARTRATE 25 MG TAB PO SCH (08:51)
[2017-07-18] MEDS: DOCUSATE SODIUM 50 MG/SENNA 8.6 MG TAB PO SCH (08:51)
[2017-07-18] MEDS: RIVAROXABAN 10 MG TAB PO SCH (08:51)
[2017-07-18] MEDS: BUDESONIDE-FORMOTEROL 160/4.5 MCG INHALER INH SCH (08:52)
[2017-07-18] MEDS ORDERED: DILTIAZEM-CD 180 MG CAP ER PO SCH (09:00)
[2017-07-18] MEDS ORDERED: PRED10PA PO (09:02)
[2017-07-18] MEDS ORDERED: LEVA750T9 PO (09:02)
[2017-07-18] MEDS ORDERED: Budeson-Formot 160-4.5 Mcg Inh INH (09:02)
[2017-07-18] MEDS ORDERED: XARE10TA PO (09:02)
[2017-07-18] MEDS ORDERED: CARD180C5 PO (09:02)
[2017-07-18] MEDS ORDERED: METO25TA3 PO (09:02)
--- NOTE | 2017-07-18 09:03 | HHI.DS ---
Discharge Summary Admission Date Jul 16, 2017 at 08:17 Discharge Date: Jul 18, 2017 Admitting Diagnosis resp distress,afib with rvr (1) COPD with exacerbation ICD Code: J44.1 - Chronic obstructive pulmonary disease with (acute) exacerbation (2) History of DVT of lower extremity ICD Code: Z86.718 - Personal history of other venous thrombosis and embolism Status: Acute (3) Noncompliance ICD Code: Z91.19 - Patient's noncompliance with other medical treatment and regimen (4) Anxiety ICD Code: F41.9 - Anxiety disorder, unspecified (5) Elevated brain natriuretic peptide (BNP) level ICD Code: R79.89 - Other specified abnormal findings of blood chemistry (6) Alcohol abuse ICD Code: F10.10 - Alcohol abuse, uncomplicated Status: Acute Procedures None Brief History - From Admission HPI from the admitting physician 66-year-old male with past medical history of pulmonary embolism and DVT left lower extremity in 2010 on Xarelto, COPD, anxiety disorder. The patient presented to [facility] ED with three to four day history of respiratory distress. On arrival to the ER the patient was hypertensive with systolic blood pressure in 180s and his EKG showed atrial fibrillation with rapid ventricular response at a rate of 143 beats per minute. He was given Cardizem 15 mg IV push. In addition he was given Lasix 40 mg by paramedics. The patient was initially placed on a BiPAP 16/8 with 100% FIO2 and his ABG showed a pH of 7.34, CO2 48, pAO2 413, bicarb 25 and sats of 98%. He was weaned off BiPAP and is currently on 4 liters oxygen with good saturation. His laboratory data was significant for leukocytosis with a WBC of 19.5, however, the patient is afebrile. His lactic acid measured at 3.8 and BNP 865. A chest x-ray in the ED showed left basilar atelectasis. Subsequently the patient underwent CT angiogram of the chest which showed no evidence of any central pulmonary emboli. However, minimal consolidative changes noted in the right lung base. He received vancomycin and Zosyn in the ER. He denies any associated symptoms of chest pain, cough or any constitutional symptoms. Furthermore, the patient denies any orthopnea, PND or edema of lower extremities. He denies any use of oxygen at home. The patient states that he has a nebulizer at home, however, it is broken. He quit smoking a month ago and has a 40 pack-year history of smoking. The patient denies any history of coronary artery disease. CBC/BMP: 07/18/17 0535 07/18/17 0535 Significant Findings Laboratory Tests Test 07/16/17 05:35 07/16/17 05:38 07/16/17 06:25 07/16/17 06:46 White Blood Count 19.5 TH/MM3 (4.0-11.0) Hemoglobin 11.9 GM/DL (13.0-17.0) Hematocrit 38.5 % (39.0-51.0) Mean Corpuscular Volume 75.8 FL (80.0-100.0) Mean Corpuscular Hemoglobin 23.4 PG (27.0-34.0) Mean Corpuscular Hemoglobin Concent 30.9 % (32.0-36.0) Red Cell Distribution Width 20.1 % (11.6-17.2) Neutrophils (%) (Auto) 89.3 % (16.0-70.0) Lymphocytes (%) (Auto) 7.6 % (9.0-44.0) Neutrophils # (Auto) 17.4 TH/MM3 (1.8-7.7) Blood Urea Nitrogen 35 MG/DL (7-18) Creatinine 1.34 MG/DL (0.60-1.30) Random Glucose 208 MG/DL (74-106) Calcium Level 8.2 MG/DL (8.5-10.1) Estimat Glomerular Filtration Rate 53 ML/MIN (>89) Troponin I 0.11 NG/ML (0.02-0.05) B-Type Natriuretic Peptide 865 PG/ML (0-100) Arterial Blood pH 7.34 (7.380-7.420) Arterial Blood Partial Pressure CO2 48 mmHg (38-42) Arterial Blood Partial Pressure O2 413 mmHG (61-120) Blood Gas Hemoglobin 11.3 G/DL (12.0-16.0) Lactic Acid Level 3.8 mmol/L (0.4-2.0) Urine RBC 4 /hpf (0-3) Urine Mucus FEW /lpf (OCC) Test 07/16/17 10:02 07/16/17 10:30 07/16/17 14:43 07/17/17 03:36 Lactic Acid Level 2.2 mmol/L (0.4-2.0) White Blood Count 13.2 TH/MM3 (4.0-11.0) 11.6 TH/MM3 (4.0-11.0) Hemoglobin 11.5 GM/DL (13.0-17.0) 12.0 GM/DL (13.0-17.0) Hematocrit 37.0 % (39.0-51.0) 38.4 % (39.0-51.0) Mean Corpuscular Volume 74.2 FL (80.0-100.0) 75.4 FL (80.0-100.0) Mean Corpuscular Hemoglobin 23.1 PG (27.0-34.0) 23.5 PG (27.0-34.0) Mean Corpuscular Hemoglobin Concent 31.1 % (32.0-36.0) 31.2 % (32.0-36.0) Red Cell Distribution Width 19.1 % (11.6-17.2) 19.4 % (11.6-17.2) Platelet Count 116 TH/MM3 (150-450) 130 TH/MM3 (150-450) Neutrophils (%) (Auto) 89.0 % (16.0-70.0) 93.1 % (16.0-70.0) Lymphocytes (%) (Auto) 6.5 % (9.0-44.0) 4.8 % (9.0-44.0) Neutrophils # (Auto) 11.8 TH/MM3 (1.8-7.7) 10.8 TH/MM3 (1.8-7.7) Lymphocytes # (Auto) 0.9 TH/MM3 (1.0-4.8) 0.6 TH/MM3 (1.0-4.8) Platelet Estimate LOW (NORMAL) Blood Urea Nitrogen 33 MG/DL (7-18) 40 MG/DL (7-18) Calcium Level 7.8 MG/DL (8.5-10.1) 8.3 MG/DL (8.5-10.1) Estimat Glomerular Filtration Rate 57 ML/MIN (>89) 55 ML/MIN (>89) Troponin I 0.18 NG/ML (0.02-0.05) Test 07/18/17 05:35 White Blood Count 13.4 TH/MM3 (4.0-11.0) Red Blood Count 4.47 MIL/MM3 (4.50-5.90) Hemoglobin 10.6 GM/DL (13.0-17.0) Hematocrit 33.6 % (39.0-51.0) Mean Corpuscular Volume 75.1 FL (80.0-100.0) Mean Corpuscular Hemoglobin 23.8 PG (27.0-34.0) Mean Corpuscular Hemoglobin Concent 31.7 % (32.0-36.0) Red Cell Distribution Width 19.7 % (11.6-17.2) Platelet Count 97 TH/MM3 (150-450) Blood Urea Nitrogen 53 MG/DL (7-18) Random Glucose 154 MG/DL (74-106) Estimat Glomerular Filtration Rate 60 ML/MIN (>89) Imaging Last Impressions Chest X-Ray 07/16/17 0532 Signed Impressions: Service Date/Time: Sunday, July 16, 2017 05:51 - CONCLUSION: Left basilar atelectasis. Possible tiny left effusion. Thom Harding MD CT Angiography 07/16/17 0000 Signed Impressions: Service Date/Time: Sunday, July 16, 2017 09:10 - CONCLUSION: Minimal consolidative changes right lung Negative for central pulmonary emboli Abnormal axial skeleton unchanged from 03/14/16. Ish Caceres MD FACR PE at Discharge GENERAL: This is a well-nourished, well-developed patient, in no apparent distress. CARDIOVASCULAR: Normal rate and regular rhythm without murmurs, gallops, or rubs. RESPIRATORY: Good respiratory efforts. Diminished breath sounds at the bases bilaterally otherwise clear to auscultation. GASTROINTESTINAL: Abdomen soft, non-tender, non-distended. Normal active bowel sounds MUSCULOSKELETAL: Extremities without cyanosis, or edema. NEURO: Alert & Oriented x4 to person, place, time, situation. Moves all ext x4 PSYCH: Appropriate mood and affect. Pt update on day of discharge Patient reports he is feeling much better. He is breathing much more comfortable. Hospital Course 66-year-old male admitted and treated for the following: Acute respiratory failure secondary to COPD exacerbation: -Patient treated with IV Solu-Medrol. He was transitioned to oral steroids. He was treated with oral Levaquin for COPD exacerbation. He is discharged on a short course of antibiotics and a prednisone taper. Patient was strongly counseled against smoking. A. fib with aVR: -Patient was followed by cardiology - Diltiazem added. Continue metoprolol and Xarelto. Patient agrees that he needs Xarelto. He will continue to take this medication. Elevated troponins: Agree with station mechanic assessment, likely secondary to A. fib. - Continue rate control medications. Alcohol abuse: - Patient counseled on cessation. - CIWA protocol Anxiety: Likely related to alcohol dependence. - Patient counseled re alcohol or benzodiazepines are not the right medications for generalized anxiety. He is advised to follow-up outpatient with PCP or psychiatry to consider long-term medications for treatment of anxiety such as SSRI. He is not interested in starting this medication at this time. History of PE and DVT: -Continue Xarelto Elevated BNP: No overt heart failure. LVEF preserved on 2D echocardiogram. Hold off on diuretics. Pt Condition on Discharge: Good Discharge Disposition: Discharge to SNF Discharge Time: > 30 minutes Discharge Instructions DIET: Follow Instructions for: Heart Healthy Diet Activities you can perform: Regular-No Restrictions Follow up Referrals: PCP Follow-up New Medications: Prednisone (21) 10 mg tab Dose Pack (Prednisone (21) 10 mg tab Dose Pack) 10 Mg Pack 10 MG PO DIRECTED for Inflammation, #1 DSPK 0 Refills Diltiazem CD 24 HR (Cardizem CD 24 HR) 180 Mg Caper 180 MG PO DAILY, #30 CAP Levofloxacin (Levaquin) 750 Mg Tablet 750 MG PO Q24H, #5 TAB [Budeson-Formot 160-4.5 Mcg Inh] () 60 PUFF AERO 2 PUFF INH Q12HR, #1 INH Continued Medications: Albuterol Neb (Albuterol Neb) 2.5 Mg/0.5 Ml Neb 2.5 MG NEB Q6HR NEB, BOX Note: The Albuterol Sulfate Inhalation Solution is concentrated and must be diluted. Read complete instructions carefully before using. Metoprolol Tartrate (Metoprolol Tartrate) 25 Mg Tab 25 MG PO BID, #60 TAB 0 Refills (This prescription has been renewed) Omeprazole (Omeprazole) 20 Mg Tab 20 MG PO DAILY, #30 TAB 0 Refills Rivaroxaban (Xarelto) 10 Mg Tab 10 MG PO BID for Blood Clot Prevention, #30 TAB 0 Refills (This prescription has been renewed) Discontinued Medications: Furosemide (Lasix) 20 Mg Tab 20 MG PO DAILY, #30 TAB 0 Refills Methylprednisolone (Methylprednisolone) 8 Mg Tab 4 MG PO BID, TAB 0 Refills Ginger Gonzalez MD Jul 18, 2017 09:03
[2017-07-18 11:00] VITALS: BP 156/75; PULSE 76; RESP 16
[2017-07-18] MEDS: LEVOFLOXACIN 750 MG TAB PO SCH (11:17)
--- NOTE | 2017-07-24 09:21 | RSPPFT ---
DATE OF PROCEDURE: 07/18/17 COMMENTS: Spirometry shows FVC of 1.7 at 63% of predicted, FEV1 of 0.7 at 34%, FEV1/FVC ratio is decreased. Flow is decreased at FEF 25, FEF 50, FEF 75 and FEF 25-75. There is a good response after bronchodilator treatment. IMPRESSION: 1. Severe obstructive lung disease. 2. Good response after bronchodilator treatment.
== END 2017-07-18 11:50 | DRG 189 ==
LOC: NEPC 05:24 → NEDA 08:17 → HIMW 10:35
PROVIDERS: ADMIT Family Medicine; ATTEND Family Medicine
PROC: 5A09357 Assistance with Respiratory Ventilation, Less than 24 Consecutive Hours, Continuous Positive Airway Pressure (ICD-10-PCS; principal; 2017-07-16)
DX: J96.02 Acute respiratory failure with hypercapnia (principal); N17.9 Acute kidney failure, unspecified; E87.2 Acidosis; I11.0 Hypertensive heart disease with heart failure; I50.9 Heart failure, unspecified; J44.1 Chronic obstructive pulmonary disease with (acute) exacerbation; J98.11 Atelectasis; I16.1 Hypertensive emergency; I48.91 Unspecified atrial fibrillation; R73.9 Hyperglycemia, unspecified; R74.8 Abnormal levels of other serum enzymes; K21.9 Gastro-esophageal reflux disease without esophagitis; F17.200 Nicotine dependence, unspecified, uncomplicated; F10.20 Alcohol dependence, uncomplicated; F32.9 Major depressive disorder, single episode, unspecified; F41.9 Anxiety disorder, unspecified; Z79.01 Long term (current) use of anticoagulants; Z86.711 Personal history of pulmonary embolism; Z86.718 Personal history of other venous thrombosis and embolism; Z91.19 Patient's noncompliance with other medical treatment and regimen
CPT/HCPCS: 36600; 71045; 71275; 80048; 81001; 82805; 82948; 83605; 83735; 83880; 84100; 84484; 85025; 85027; 85610; 87040; 87641; 93005; 93306; 94002; 94060; 94640; 94664; J2543; J2920; J3370; J7050; Q9967

== ENCOUNTER 2017-08-27 08:32 | Inpatient (IN) | payer MEDICARE, MEDICAID ==
[2017-08-27] VITALS (48 sets, daily range): BP systolic 41–208; BP diastolic 12–110; PULSE 98–168; RESP 16–63; TEMP 98.2–103.1; O2SAT 90–100
[~2017-08-27] VITALS: Ht 167.6 cm; Wt 75.6 kg
[~2017-08-27 08:32] MED LIST changes: +ALBU.5I NEB; +ATROPINE SULFATE 1 MG/10 ML SYRINGE IV ONE; +Budeson-Formot 160-4.5 Mcg Inh INH; +CALCIUM CHLORIDE 10% SOLN 1 GRAM/10 ML SYR IV ONE; +CARD180C5 PO; -COUM5TAB PO; -DILT240C44 PO; +EPINEPHrine HCL (1:10,000) 1 MG/10 ML SYRINGE IV ONE; +FUROSEMIDE 100 MG/10 ML VIAL IV PUSH ONE; +LEVA750T9 PO; +METO25TA3 PO; +OMEP20TA93 PO; +PRED10PA PO; +SODIUM BICARBONATE 8.4% INJ 50 MEQ/50 ML SYR IV ONE; +XARE10TA PO
[2017-08-27] MEDS ORDERED: PROPOFOL 500 MG/50 ML INJ 50 ML ONE (08:40)
[2017-08-27] MEDS ORDERED: ACETAMINOPHEN 650 MG SUPP RECTAL ONE (08:45)
[2017-08-27] MEDS ORDERED: DILTIAZEM HCL 25 MG/5 ML VIAL IV PUSH ONE (08:45)
[2017-08-27] MEDS ORDERED: DILTIAZEM INJ 125 MG in SODIUM CHLORIDE 0.9% INJ 100 ML IV PRN (08:45)
[2017-08-27] MEDS ORDERED: SODIUM CHLOR 0.9% 1000 ML INJ 1,000 ML IV ONE ×3 (09:15→10:15)
--- NOTE | 2017-08-27 09:16 | RADRPT ---
EXAM DATE/TIME: 08/27/2017 08:53 [facility] COMPARISON: CHEST SINGLE AP, July 16, 2017, 5:51. INDICATIONS : Unresponsive shortness of breath. Patient is status post intubation. MEDICAL HISTORY : None. SURGICAL HISTORY : None. ENCOUNTER: Initial ACUITY: 1 day PAIN SCORE: Non-responsive. LOCATION: Bilateral chest FINDINGS: A single AP supine view of the chest was obtained and demonstrates interval intubation with the endot yosef tube tip approximately 1 cm above the maru. A nasogastric tube has been placed and is seen coursing through the esophagus and into the stomach. There are new bilateral perihilar and bibasal ar e airspace opacities. There is mild blunting of the left costophrenic angle again noted. The heart si ze is at the upper limits of normal. Degenerative changes again noted in both glenohumeral joints. CONCLUSION: 1. Interval intubation and placement of nasogastric tube. 2. New bilateral airspace disease most characteristic of pulmonary edema. 3. Small left effusion. Neftali Lora MD on August 27, 2017 at 9:12 Board Certified Radiologist. This report was verified electronically.
[2017-08-27] MEDS: PROPOFOL 1000 MG/100 ML INJ 100 ML IV PRN (09:17)
--- NOTE | 2017-08-27 09:18 | PD ---
HPI . Respiratory distress Chief Complaint: Respiratory Distress Time Seen by Provider: 08:38 Travel History International Travel<30 days: No Contact w/Intl Traveler<30days: No Traveled to known affect area: No History of Present Illness HPI This patient is brought to us by [facility] intubated from the group home. No history is available from the patient. History was obtained from [facility] and by reviewing old records. This patient has a history of COPD, CHF, previous non- STEMI, atrial fibrillation and continued tobacco abuse. The group home staff was off for the weekend. They reported to [facility] that they came in this morning" found him this way ". He had a decreased mental status, tachycardia and tachypnea [facility] was called. On their arrival, they found him to have a heart rate of 160 and a respiratory rate of 30. They report that he was struggling to breathe so they elected to intubate him. His initial end-tidal CO2 was about 80. PFSH Past Medical History Hx Anticoagulant Therapy: Yes Asthma: No Anxiety: Yes Depression: Yes Heart Rhythm Problems: Yes (irregular heart beat) Cancer: No Cardiovascular Problems: Yes High Cholesterol: No Chest Pain: No Congestive Heart Failure: No COPD: Yes Diabetes: Yes (patient states "borderline" ) Diminished Hearing: No Deep Vein Thrombosis: Yes (PE) Endocrine: Yes GERD: Yes Genitourinary: Yes Hypertension: Yes Immune Disorder: No Implanted Vascular Access Dvce: No Musculoskeletal: No Neurologic: No Psychiatric: Yes Reproductive: No Respiratory: Yes Immunizations Current: No Past Surgical History Abdominal Surgery: Yes (APPENDECTOMY A CHILD.) Appendectomy: Yes Tonsillectomy: Yes Other Surgery: Yes Social History Alcohol Use: Yes (ABT 4 - 16 OZ DAILY) Tobacco Use: Yes (2 PPD) Substance Use: No Allergies-Medications (Allergen,Severity, Reaction): Coded Allergies: No Known Allergies (Verified Allergy, Unknown, 07/16/17) Reported Meds & Prescriptions Reported Meds & Active Scripts Active [Budeson-Formot 160-4.5 Mcg Inh] 60 PUFF Aero 2 Puff INH Q12HR Cardizem CD 24 HR (Diltiazem CD 24 HR) 180 Mg Caper 180 Mg PO DAILY Metoprolol Tartrate 25 Mg Tab 25 Mg PO BID Xarelto (Rivaroxaban) 10 Mg Tab 10 Mg PO BID Reported Methylprednisolone 8 Mg Tab 4 Mg PO DAILY Albuterol Neb (Albuterol Sulfate) 2.5 Mg/0.5 Ml Neb 2.5 Mg NEB Q6HR NEB Note: The Albuterol Sulfate Inhalation Solution is concentrated and must be diluted. Read complete instructions carefully before using. Review of Systems ROS Limitations: Intubated, Altered Mental Status Physical Exam Narrative GENERAL: Cachectic, chronically ill-appearing man who is currently intubated and fighting the ventilator. SKIN: warm/dry. Several bruises including a large hematoma on the right medial thigh. HEAD: Normocephalic. Atraumatic. EYES: Pupils equal and round. No scleral icterus. No injection or drainage. ENT: No nasal bleeding or discharge. Mucous membranes are dry. NECK: Trachea midline. CARDIOVASCULAR: Irregular rhythm with a rate of 160-190. RESPIRATORY: Intubated. Fighting the tube. Breath sounds are diminished on the left. GASTROINTESTINAL: Abdomen soft. Bowel sounds present. Nondistended. : Normal male. MUSCULOSKELETAL: No obvious deformities. NEUROLOGICAL: Intubated. PSYCHIATRIC: Unable to assess. Data Data Last Documented VS Vital Signs Date Time Temp Pulse Resp B/P (MAP) Pulse Ox O2 Delivery O2 Flow Rate FiO2 08/27/17 11:09 102.0 100 20 142/67 (92) 100 Ventilator 50 Orders Orders Ecg Monitoring (08/27/17 08:38) Blood Pressure (08/27/17 08:38) Iv Access Insert/Monitor (08/27/17 08:38) Oximetry (08/27/17 08:38) Vital Signs (08/27/17 08:38) Diltiazem Inj (Cardizem Inj) (08/27/17 08:45) Diltiazem Inj (Cardizem Inj) (08/27/17 08:45) Sodium Chloride 0.9% Flush (Ns Flush) (08/27/17 08:45) Propofol 500 Mg/50 Ml Inj (Diprivan 500 (08/27/17 08:40) Propofol 1000 Mg/100 Ml Inj (Diprivan 10 (08/27/17 08:45) Electrocardiogram (08/27/17 08:40) Complete Blood Count With Diff (08/27/17 08:40) Comprehensive Metabolic Panel (08/27/17 08:40) Lactic Acid Sepsis Protocol (08/27/17 08:40) Blood Culture (08/27/17 08:40) Chest, Single Ap (08/27/17 08:40) Arterial Blood Gas (Abg) (08/27/17 08:40) Oxygen Administration (08/27/17 08:40) Troponin I (08/27/17 08:40) B-Type Natriuretic Peptide (08/27/17 08:40) Acetaminophen Supp (Tylenol Supp) (08/27/17 08:45) Sodium Chlor 0.9% 1000 Ml Inj (Ns 1000 M (08/27/17 09:15) Sodium Chlor 0.9% 1000 Ml Inj (Ns 1000 M (08/27/17 09:15) Insert Temp Sensing [place]man Cath (08/27/17 09:11) Ct Brain W/O Iv Contrast(Rout) (08/27/17 09:19) Piperacil-Tazo 4.5 Gm Premix (Zosyn 4.5 (08/27/17 09:22) Azithromycin Inj (Zithromax Inj) (08/27/17 09:22) Tobramycin Inj (Nebcin Inj) (08/27/17 09:22) Diltiazem Inj (Cardizem Inj) (08/27/17 09:45) Urinalysis - C+S If Indicated (08/27/17 10:07) Sodium Chlor 0.9% 1000 Ml Inj (Ns 1000 M (08/27/17 10:15) Urine Culture (08/27/17 09:20) Urinary Catheter Insert/Apply (08/27/17 10:25) Restraints Non-Violent IRINEO.Q3H (08/27/17 10:41) Electrocardiogram (08/27/17 ) Labs Laboratory Tests Test 08/27/17 08:55 08/27/17 09:10 08/27/17 09:15 08/27/17 09:20 White Blood Count 23.1 TH/MM3 Red Blood Count 4.61 MIL/MM3 Hemoglobin 10.8 GM/DL Hematocrit 35.7 % Mean Corpuscular Volume 77.5 FL Mean Corpuscular Hemoglobin 23.4 PG Mean Corpuscular Hemoglobin Concent 30.2 % Red Cell Distribution Width 24.2 % Platelet Count 232 TH/MM3 Mean Platelet Volume 9.3 FL Neutrophils (%) (Auto) 83.8 % Lymphocytes (%) (Auto) 13.0 % Monocytes (%) (Auto) 2.9 % Eosinophils (%) (Auto) 0.2 % Basophils (%) (Auto) 0.1 % Neutrophils # (Auto) 19.4 TH/MM3 Lymphocytes # (Auto) 3.0 TH/MM3 Monocytes # (Auto) 0.7 TH/MM3 Eosinophils # (Auto) 0.1 TH/MM3 Basophils # (Auto) 0.0 TH/MM3 CBC Comment AUTO DIFF Differential Total Cells Counted 100 Neutrophils % (Manual) 73 % Band Neutrophils % 10 % Lymphocytes % 10 % Monocytes % 5 % Eosinophils % 1 % Neutrophils # (Manual) 19.4 TH/MM3 Myelocytes 1 % Differential Comment FINAL DIFF MANUAL Platelet Estimate NORMAL Platelet Morphology Comment NORMAL Tear Drop Cells 1+ Ovalocytes 1+ Blood Urea Nitrogen 27 MG/DL Creatinine 1.18 MG/DL Random Glucose 182 MG/DL Total Protein 6.1 GM/DL Albumin 3.0 GM/DL Calcium Level 7.6 MG/DL Alkaline Phosphatase 75 U/L Aspartate Amino Transf (AST/SGOT) 60 U/L Alanine Aminotransferase (ALT/SGPT) 44 U/L Total Bilirubin 0.6 MG/DL Sodium Level 141 MEQ/L Potassium Level 5.3 MEQ/L Chloride Level 108 MEQ/L Carbon Dioxide Level 23.0 MEQ/L Anion Gap 10 MEQ/L Estimat Glomerular Filtration Rate 61 ML/MIN Troponin I 0.05 NG/ML Lactic Acid Level 3.3 mmol/L Blood Gas Puncture Site LT BRACHIAL Blood Gas Patient Temperature 98.6 Blood Gas HCO3 22 mmol/L Blood Gas Base Excess -4.3 mmol/L Blood Gas Oxygen Saturation 97 % Arterial Blood pH 7.25 Arterial Blood Partial Pressure CO2 52 mmHg Arterial Blood Partial Pressure O2 230 mmHg Arterial Blood Oxygen Content 16.4 Vol % Arterial Blood Carboxyhemoglobin 1.3 % Arterial Blood Methemoglobin 1.4 % Blood Gas Hemoglobin 11.7 G/DL Oxygen Delivery Device VENTILATOR Blood Gas Ventilator Setting PRVC/VT500/R16/P5 Blood Gas Inspired Oxygen 100 % Urine Color YELLOW Urine Turbidity HAZY Urine pH 6.5 Urine Specific [place] 1.016 Urine Protein 100 mg/dL Urine Glucose (UA) NEG mg/dL Urine Ketones NEG mg/dL Urine Occult Blood TRACE Urine Nitrite NEG Urine Bilirubin NEG Urine Urobilinogen LESS THAN 2.0 MG/DL Urine Leukocyte Esterase NEG Urine RBC 2 /hpf Urine WBC 15 /hpf Urine Mucus FEW /lpf Microscopic Urinalysis Comment CATH-CULTURE IND MDM Medical Decision Making Medical Screen Exam Complete: Yes Emergency Medical Condition: Yes Medical Record Reviewed: Yes (PMH COPD with continued tobacco abuse, AF, CHF, previous NSTEMI) Interpretation(s) EKG shows atrial fibrillation. He has ST segment depression and T-wave inversion laterally. However, this is unchanged from a recent EKG. repeat EKG following cardiac arrest shows sinus tachycardia with a rate of 104. He has a right bundle branch block. Differential Diagnosis Differential diagnosis of dyspnea includes but is not limited to congestive heart failure, pneumonia, wheezing, pneumothorax, pulmonary embolism Narrative Course This patient presents to us and respiratory failure, intubated per EMS. He was found to have a fever. He is also in atrial fibrillation with a ventricular response of 160-190. Septic workup labs have been ordered. He has been placed on a propofol drip for sedation. He has been given a Cardizem bolus and drip for the atrial fibrillation with RVR. He is receiving 2 L of fluid. ABG Test 08/27/17 09:15 Arterial Blood Carboxyhemoglobin 1.3 % Arterial Blood Methemoglobin 1.4 % Arterial Blood Oxygen Content 16.4 Vol % Arterial Blood Partial Pressure CO2 52 mmHg *H Arterial Blood Partial Pressure O2 230 mmHg H Arterial Blood pH 7.25 *L Blood Gas Base Excess -4.3 mmol/L L Blood Gas HCO3 22 mmol/L Blood Gas Hemoglobin 11.7 G/DL L Blood Gas Inspired Oxygen 100 % Blood Gas Oxygen Saturation 97 % Blood Gas Ventilator Setting PRVC/VT500/R16/P5 Oxygen Delivery Device VENTILATOR The FiO2 was subsequently decreased in the respiratory rate was increased. CBC Diagram 08/27/17 08:55 CXR: 1. Interval intubation and placement of nasogastric tube. 2. New bilateral airspace disease most characteristic of pulmonary edema. 3. Small left effusion The patient has subsequently been given Lasix as well as antibiotics for presumed HCAP. The patient has remained tachycardic at about 130. He has been given a second bolus of Cardizem. He is also receiving IV fluids. Thus far, he is making very little urine. UA>>15 WBCs but is LE and nitrite neg. 11:07 AM The patient has been resuscitated from an asystolic arrest. He was treated with epinephrine, atropine, bicarb and calcium chloride. Please see the code sheet for exact times. Critical Care Narrative Aggregate critical care time was 60 minutes. Time to perform other separately billable procedures was not included in the critical care time. My time did not include minutes spent treating any other patients simultaneously or on activities that did not directly contribute to the patient's treatment. The services I provided to this patient were to treat and/or prevent clinically significant deterioration due to respiratory failure, AF with RVR, fever I provided critical care services requiring my management, as noted below: Chart data review, documentation time, medication orders and management, vital sign assessments/reviewing monitor data, ordering and reviewing lab tests, ordering and interpreting/reviewing x-rays and diagnostic studies, care of the patient and discussion of the patient with the admitting physicians Procedures Procedure Narrative ACLS: The patient coded at 10: 52 a.m. It was an asystolic arrest. CPR was immediately started. He was treated with epi 3, atropine 2, sodium bicarb 1 and calcium chloride 1. He was successfully resuscitated. Sepsis Criteria SIRS Criteria (2 or more): Temp > 100.9 or < 96.8, Heart rate over 90, WBC > 30856, < 4000 or > 10% bands Sepsis Criteria (SIRS+source): Infect source susp/known Severe Sepsis (+one): Lactate >2 Criteria Outcome: Meets SIRS criteria, Meets sepsis criteria, Meets severe sepsis criteria Diagnosis Primary Impression: Respiratory failure Qualified Codes: J96.02 - Acute respiratory failure with hypercapnia Additional Impressions: Pulmonary edema Qualified Codes: J81.0 - Acute pulmonary edema Pneumonia Qualified Codes: J18.9 - Pneumonia, unspecified organism Atrial fibrillation with RVR Severe sepsis Admitting Information Admitting Physician Requests: Admit Condition: Serious Sandy Novak MD Aug 27, 2017 09:18
[2017-08-27] MEDS ORDERED: TOBRAMYCIN IV STA (09:22)
[2017-08-27] MEDS ORDERED: SODIUM CHLORIDE 0.9% IV STA (09:22)
[2017-08-27] MEDS ORDERED: PIPERACIL-TAZO 4.5 GM PREMIX 100 ML IV STA (09:22)
[2017-08-27] MEDS ORDERED: AZITHROMYCIN INJ 500 MG in SODIUM CHLOR 0.9% 250 ML INJ 250 ML IV STA (09:22)
[2017-08-27 09:45] LABS: AUTOMATED NEUTROPHIL # 19.4 TH/MM3 (1.8-7.7); BASOPHIL % 0.1 % (0.0-2.0); EOSINOPHIL # 0.1 TH/MM3 (0-0.4); EOSINOPHIL % 0.2 % (0.0-4.0); HEMATOCRIT 35.7 % (39.0-51.0); HEMOGLOBIN 10.8 GM/DL (13.0-17.0); MEAN CELL VOLUME 77.5 FL (80.0-100.0); MEAN CORPUSCULAR HEMOGLOBIN 23.4 PG (27.0-34.0); MEAN CORPUSCULAR HGB CONC 30.2 % (32.0-36.0); MEAN PLATELET VOLUME 9.3 FL (7.0-11.0); MONO % 2.9 % (0.0-8.0); MONOCYTE # 0.7 TH/MM3 (0-0.9); NEUT % 83.8 % (16.0-70.0); PLATELET COUNT 232 TH/MM3 (150-450); RED BLOOD COUNT 4.61 MIL/MM3 (4.50-5.90); RED CELL DISTRIBUTION WIDTH 24.2 % (11.6-17.2); WHITE BLOOD COUNT 23.1 TH/MM3 (4.0-11.0)
[2017-08-27] MEDS: DILTIAZEM HCL 50 MG/10 ML VIAL IV PUSH ONE ×2 (09:51→10:04)
[2017-08-27 10:00] LABS: ALT (GPT) 44 U/L (12-78)
[2017-08-27 10:02] LABS: AST (GOT) 60 U/L (15-37); BLOOD UREA NITROGEN 27 MG/DL (7-18); CALCIUM 7.6 MG/DL (8.5-10.1); CHLORIDE 108 MEQ/L (98-107); CREATININE 1.18 MG/DL (0.60-1.30); GLOMERULAR FILTRATION RATE 61 ML/MIN (>89); GLUCOSE,RANDOM 182 MG/DL (74-106); SODIUM (NA) 141 MEQ/L (136-145)
[2017-08-27 10:03] LABS: LACTIC ACID SEPSIS PROTOCOL 3.3 mmol/L (0.4-2.0)
[2017-08-27 10:04] LABS: ALKALINE PHOSPHATASE 75 U/L (45-117); TOTAL BILIRUBIN ADULT 0.6 MG/DL (0.2-1.0); TOTAL PROTEIN 6.1 GM/DL (6.4-8.2); TROPONIN I 0.05 NG/ML (0.02-0.05)
[2017-08-27] MEDS ORDERED: METH8TAB3 PO (10:14)
[2017-08-27 10:17] LABS: BILIRUBIN, URINE NEG (NEG); BLOOD, URINE TRACE (NEG); GLUCOSE,URINE NEG (NEG); KETONE, URINE NEG (NEG); MUCUS URINE FEW /lpf (OCC); NITRITE,URINE NEG (NEG); PH, URINE 6.5 (5.0-8.5); URINE COLOR YELLOW (YELLW/STRAW); URINE LEUKOCYTE ESTERASE NEG (NEG)
[2017-08-27 10:18] LABS: BANDS 10 % (0-6); LYMPHOCYTES 10 % (9-44); MONOCYTES 5 % (0-8); MYELOCYTES 1 % (0-0); NEUTROPHIL # MANUAL DIFF 19.4 TH/MM3 (1.8-7.7); OVALOCYTES 1+ (NORMAL); POLYS (SEG NEUTROPHILS) 73 % (16-70)
[2017-08-27 10:19] LABS: TEARDROP RBCS 1+ (NORMAL)
[2017-08-27] MEDS ORDERED: BISACODYL 10 MG SUPP RECTAL PRN (12:00)
[2017-08-27] MEDS ORDERED: SENNOSIDES 8.6 MG TAB PO PRN (12:00)
[2017-08-27] MEDS ORDERED: CHLORHEXIDINE GLUCONATE 2 % 1 PACK (2 CLOTHS) TOP PRN (12:00)
[2017-08-27] MEDS ORDERED: MAGNESIUM HYDROXIDE SUSP 30 ML CUP PO PRN (12:00)
[2017-08-27] MEDS ORDERED: MISCELLANEOUS NURSING INFORMATION XX SCH (12:00)
[2017-08-27] MEDS ORDERED: LACTULOSE SYRUP 20 GM/30 ML CUP PO PRN (12:00)
[2017-08-27] MEDS ORDERED: DEXTROSE 50% IN WATER 50 ML VIAL(D50) IV PUSH PRN (12:15)
[2017-08-27] MEDS: FAMOTIDINE 20 MG/2 ML VIAL IV PUSH SCH ×2 (12:15→21:36)
[2017-08-27] MEDS: INSULIN NovoLIN REGULAR SUPPLEMENTAL SCALE SQ SCH ×3 (12:15→20:15)
[2017-08-27] MEDS ORDERED: GLUCAGON 1 MG/ML VIAL OTHER PRN (12:15)
[2017-08-27 13:06] LABS: AUTOMATED NEUTROPHIL # 27.9 TH/MM3 (1.8-7.7); BASOPHIL # 0.1 TH/MM3 (0-0.2); BASOPHIL % 0.5 % (0.0-2.0); EOSINOPHIL % 0.1 % (0.0-4.0); HEMATOCRIT 40.3 % (39.0-51.0); HEMOGLOBIN 11.9 GM/DL (13.0-17.0); LYMPH % 4.6 % (9.0-44.0); LYMPHOCYTE # 1.4 TH/MM3 (1.0-4.8); MEAN CELL VOLUME 78.7 FL (80.0-100.0); MEAN CORPUSCULAR HEMOGLOBIN 23.2 PG (27.0-34.0); MEAN PLATELET VOLUME 8.9 FL (7.0-11.0); MONO % 1.2 % (0.0-8.0); MONOCYTE # 0.4 TH/MM3 (0-0.9); NEUT % 93.6 % (16.0-70.0); PLATELET COUNT 218 TH/MM3 (150-450); RED BLOOD COUNT 5.13 MIL/MM3 (4.50-5.90); RED CELL DISTRIBUTION WIDTH 24.2 % (11.6-17.2); WHITE BLOOD COUNT 29.8 TH/MM3 (4.0-11.0)
[2017-08-27 13:09] LABS: MEAN CORPUSCULAR HGB CONC 29.4 % (32.0-36.0)
--- NOTE | 2017-08-27 13:34 | RADRPT ---
EXAM DATE/TIME: 08/27/2017 13:25 [facility] COMPARISON: CT BRAIN W/O CONTRAST, September 09, 2016, 7:51. INDICATIONS : Altered mental status RADIATION DOSE: 60.34 CTDIvol (mGy) MEDICAL HISTORY : Hypertension. Cardiovascular disease Pulmonary embolism SURGICAL HISTORY : Tonsillectomy. ENCOUNTER: Initial ACUITY: 1 day PAIN SCALE: 0/10 LOCATION: cranial TECHNIQUE: Multiple contiguous axial images were obtained of the head. Using automated exposure control and adj ustment of the mA and/or kV according to patient size, radiation dose was kept as low as reasonably a chievable to obtain optimal diagnostic quality images. DICOM format image data is available electro nically for review and comparison. FINDINGS: CEREBRUM: The ventricles are normal for age. No evidence of midline shift, mass lesion, hemorrhage or acute in farction. No extra-axial fluid collections are seen. POSTERIOR FOSSA: The cerebellum and brainstem are intact. The 4th ventricle is midline. The cerebellopontine angle i s unremarkable. EXTRACRANIAL: The visualized portion of the orbits is intact. SKULL: The calvaria is intact. No evidence of skull fracture. CONCLUSION: Negative noncontrast CT. Neftali Lora MD on August 27, 2017 at 13:30 Board Certified Radiologist. This report was verified electronically.
--- NOTE | 2017-08-27 13:35 | MH ---
cc: Estee Lanier MD DATE OF ADMISSION: 08/27/2017 HISTORY OF PRESENT ILLNESS: The patient is a 66-year-old male with a past medical history of COPD, CHF, hypertension, history of PE and DVT on Xarelto, and coronary artery disease, who was brought in by [facility] from the [place] [facility] for generalized weakness, shortness of breath, fever and altered mental status. In the ED, the patient was found to have a temperature of 103.2 rectally. On arrival, he was in atrial fibrillation with RVR and due to respiratory distress, the patient was intubated by [facility]. The patient was placed on a Diprivan for sedation. In addition, he was placed on Cardizem drip at 15 mg an hour. Shortly after, the patient went into asystole. ACLS protocol was initiated and he received epinephrine, atropine, bicarbonate, and calcium with successful return of spontaneous circulation. LABORATORY DATA: Significant for leukocytosis with a WBC of 23.1, lactic acidemia, lactic acid level of 3.3 and 4.7 post-code. A chest x-ray showed bilateral airspace disease. He was given 1 liter bolus of normal saline along with Zosyn, azithromycin and tobramycin. The patient received 3 liters of crystalloids in the ED. ABG post-intubation showed acute hypercapnic respiratory acidosis with a pH of 7.25, CO2 52, bicarbonate 22, PaO2 230, saturation 97%. PAST MEDICAL HISTORY: Significant for a history of PE and DVT, atrial fibrillation, hypertension, CHF, coronary artery disease, COPD. PAST SURGICAL HISTORY: Previous appendectomy, tonsillectomy and hernia repair. SOCIAL HISTORY: The patient has a [id number] history of smoking and a history of ETOH use. He is a [facility] resident. ALLERGIES: NO KNOWN DRUG ALLERGIES. FAMILY HISTORY: Noncontributing to present illness. REPORTED MEDICATIONS: Include: Xarelto, metoprolol, Cardizem and Medrol Dose-Hermilo. REVIEW OF SYSTEMS: As per HPI. The rest of the review of systems is unobtainable. PHYSICAL EXAMINATION: GENERAL: This is a 66-year-old male, intubated for respiratory failure, status post cardiopulmonary arrest. VITAL SIGNS: Temperature T-max 103.2 rectally, blood pressure 104/55, pulse 116, sats 93%, vent setting PRVC rate of 18, tidal volume 500, I-time 1, 5 of PEEP, FIO2 50%. HEENT: Atraumatic, normocephalic. Pupils are equal, round and reactive to light and accommodation. Extraocular muscles intact. Conjunctivae pink. Nonicteric sclerae. Oral mucosa within normal limits. NECK: Supple. No JVD, adenopathy, or thyromegaly. Trachea in the midline. Orally intubated. CARDIOVASCULAR: Tachycardic. Normal S1, S2. No murmurs, rubs or gallops. PULMONARY: Bilateral air entry with coarse breath sounds. ABDOMEN: Soft, nontender. No distention. Positive bowel sounds. EXTREMITIES: No cyanosis, clubbing or edema. NEUROLOGIC: Intubated. LABORATORY DATA: Sodium 141, potassium 5.3, chloride 108, CO2 23, BUN 27, creatinine 1.18, glucose 182. Lactic acid 4.7, AST 60, ALT 44. WBC 23.1, hemoglobin 10.8, hematocrit 35, platelet count 232. Urinalysis, 15 WBC, negative for leukocyte esterase and nitrite. RADIOGRAPHIC STUDIES: Chest x-ray shows bilateral airspace disease. IMPRESSION: 1. Acute hypoxemic and hypercapnic respiratory failure requiring incubation. 2. Diffuse bilateral pulmonary infiltrates. 3. Leukocytosis with bandemia. 4. Febrile illness. 5. Status post cardiopulmonary arrest. 6. Chronic obstructive pulmonary disease. 7. Anemia. 8. History of hypertension. 9. History of congestive heart failure. 10. History of pulmonary embolism and deep venous thrombosis. 11. History of atrial fibrillation. RECOMMENDATIONS: 1. Diprivan infusion for sedation if needed. Monitor neuro status closely. The patient is for a CT scan of the brain without contrast. 2. Continue with vent support and maintain sats above 92%. 3. Bronchodilators in the form of DuoNeb q. 6 hours and placed on Solu-Medrol 40 mg IV q. 8 hours. 4. Increased respiratory rate to 20. Decrease FIO2 to 40% and repeat ABG in 1 hour. 5. We will proceed with CT scan of the chest without contrast for further evaluation of pulmonary parenchyma. 6. Monitor heart rate and blood pressure closely and maintain MAP greater than 65 mmHg. Serial lactic acid monitoring until clear. He was given 3 liters of crystalloids in the ED. We will place on maintenance fluids NS at 75 mL an hour. 7. We will obtain 2D echo to evaluate LV function. He had an echocardiogram on a previous admission in July which showed an EF of 60-65%. 8. Monitor renal function, I's and O's and electrolyte replacement per protocol. IV fluids as stated above. 9. Keep n.p.o. for now and place on Pepcid 20 mg IV q. 12 hours for GI prophylaxis. Start nutrition support within 24 hours if remains intubated. 10. Continued broad spectrum antibiotics. We will place on vancomycin, Zosyn and azithromycin. Monitor for signs of infection which include fever and WBC. Consult ID service. Follow up on blood and urine cultures. I will obtain sputum culture with Gram stain, Strep pneumonia, Legionella urinary antigen and will send a nasal washing to rule out influenza. 11. Placed on sliding scale insulin with Accu-Chek's for glycemic control. 12. GI prophylaxis with Pepcid 20 mg q. 12 and DVT prophylaxis with SCDs. We will resume Xarelto if CT scan of the brain is negative for acute intracranial process. The patient is critically ill with respiratory failure, and pneumonia, status post cardiopulmonary arrest. Critical care time 60 minutes, excluding procedures. Estee Lanier MD AI/DL , 12:36 PM , 01:33 PM
[2017-08-27 13:39] LABS: ALBUMIN 2.4 GM/DL (3.4-5.0); ALKALINE PHOSPHATASE 104 U/L (45-117); ALT (GPT) 1141 U/L (12-78); AST (GOT) 1121 U/L (15-37); BICARBONATE 21.5 MEQ/L (21.0-32.0); BLOOD UREA NITROGEN 25 MG/DL (7-18); CALCIUM 7.6 MG/DL (8.5-10.1); CHLORIDE 116 MEQ/L (98-107); CREATININE 1.19 MG/DL (0.60-1.30); GLOMERULAR FILTRATION RATE 61 ML/MIN (>89); SODIUM (NA) 147 MEQ/L (136-145); TOTAL BILIRUBIN ADULT 1.4 MG/DL (0.2-1.0); TOTAL PROTEIN 5.2 GM/DL (6.4-8.2)
[2017-08-27 13:40] LABS: GLUCOSE,RANDOM 14 MG/DL (74-106)
--- NOTE | 2017-08-27 13:41 | RADRPT ---
EXAM DATE/TIME: 08/27/2017 13:28 [facility] COMPARISON: CHEST SINGLE AP, August 27, 2017, 8:53. CT BRAIN W/O CONTRAST, August 27, 2017, 13:25. CT PULMONARY A NGIOGRAM, July 16, 2017, 9:10. INDICATIONS : Post cardiac arrest RADIATION DOSE: 16.10 CTDIvol (mGy) MEDICAL HISTORY : Hypertension. Cardiovascular disease Pulmonary embolism SURGICAL HISTORY : Tonsillectomy. ENCOUNTER: Initial ACUITY: 1 day PAIN SCALE: 2/10 LOCATION: Bilateral chest TECHNIQUE: Volumetric scanning of the chest was performed. Using automated exposure control and adjustment of t he mA and/or kV according to patient size, radiation dose was kept as low as reasonably achievable to obtain optimal diagnostic quality images. DICOM format image data is available electronically for r eview and comparison. Follow-up recommendations for detected pulmonary nodules are based at a minimum on nodule size and pa tient risk factors according to Fleischner Society Guidelines. FINDINGS: LUNGS: Bilateral alveolar opacities are present with areas of consolidation in the perihilar regions and bot h lower lobes. There is no focal mass. An endotracheal tube is present with the tip at the level the maru. PLEURAE: There are minimal pleural effusions which are not well-visualized. MEDIASTINUM: The heart and great vessels demonstrate no acute abnormality. There is no mediastinal or hilar lymph adenopathy. A nasogastric tube is coursing through the esophagus. Coronary artery calcifications are present. AXILLAE: Within normal limits. No lymphadenopathy. MUSCULOSKELETAL: Within normal limits for patient age. MISCELLANEOUS: The visualized upper abdominal organs demonstrate no acute abnormality. CONCLUSION: 1. Bilateral airspace disease with areas of consolidation and air bronchograms most characteristic of pulmonary edema. 2. Minimal pleural effusions. 3. The patient is intubated with the endotracheal tube tip at the level of the maru. Neftali Lora MD on August 27, 2017 at 13:34 Board Certified Radiologist. This report was verified electronically.
[2017-08-27 13:53] LABS: BANDS 15 % (0-6); CORRECTED NUCLEATED RBC 1 /100 WBC (0-0); LYMPHOCYTES 6 % (9-44); MONOCYTES 1 % (0-8); NEUTROPHIL # MANUAL DIFF 27.7 TH/MM3 (1.8-7.7); NUCLEATED RED BLOOD CELL 1 (0-0); OVALOCYTES 1+ (NORMAL); POLYCHROMASIA 2.2 % (0.0-1.9); POLYS (SEG NEUTROPHILS) 78 % (16-70)
[2017-08-27] MEDS: DEXTROSE 10% INJ 1,000 ML IV SCH (14:00)
[2017-08-27] MEDS: PIPERACIL-TAZO 4.5 GM PREMIX 100 ML IV SCH ×2 (15:00→21:00)
[2017-08-27] MEDS ORDERED: CALCIUM GLUCONATE INJ 1 GM in DEXTROSE 5% IN WATER 100ML INJ 100 ML IV ONE ×2 (15:00)
[2017-08-27] MEDS ORDERED: SODIUM BICARBONATE 8.4% INJ 50 MEQ/50 ML SYR IV PUSH ONE (15:00)
[2017-08-27] MEDS ORDERED: FUROSEMIDE 40 MG/4 ML VIAL IV PUSH ONE (15:00)
[2017-08-27] MEDS ORDERED: SODIUM POLYSTYRENE SULFONATE SUSP 15 GM/60 ML CUP PO ONE (15:00)
[2017-08-27] MEDS: RESP: ALBUTEROL 2.5 MG/IPRATROPIUM 0.5 MG NEB (SCH) INH ×2 (15:15→22:12)
--- NOTE | 2017-08-27 15:47 | HHI.HCSW ---
Machine Design Engineer Visit Advance Directive Spoke with social service department at [facility]. No advanced directives on file, states Mr. Membreno was his own person. They do not know of any other family than his daughter and sister (both listed in EMR). . Follow Up Visit Palliative care consulted to assist with goals of care. Goals to be determined pending family discussion with daughter to determine health care proxy and patient/family wishes. Delfina Rios, TRUCK RENTAL MANAGER Aug 27, 2017 15:47
[2017-08-27] MEDS: methylPREDNISolone SOD SUCC 40 MG/1 ML VIAL IV PUSH SCH ×2 (15:52→21:36)
[2017-08-27] MEDS: VANCOMYCIN INJ 1,000 MG in SODIUM CHLOR 0.9% 250 ML INJ 250 ML IV SCH (15:53)
--- NOTE | 2017-08-27 15:54 | RADRPT ---
EXAM DATE/TIME: 08/27/2017 15:10 [facility] COMPARISON: CHEST SINGLE AP, August 27, 2017, 8:53. INDICATIONS : Evaluate short of breath. Apparent pulmonary edema on chest CT. Followup infiltrates. MEDICAL HISTORY : Hypertension. Chronic obstructive pulmonary disease. Deep venous thrombosis SURGICAL HISTORY : Appendectomy. ENCOUNTER: Initial ACUITY: 1 day PAIN SCORE: Non-responsive. LOCATION: Bilateral chest FINDINGS: A single AP portable semierect view of the chest was obtained and again demonstrates the endotracheal tube in place with the tip now located approximately 2.7 cm above the maru. Nasogastric tube is ag ain seen coursing through the esophagus and stomach. Hazy perihilar and bibasilar opacities are again noted with mild increased consolidation in the perihilar region on the right. The heart size remains at the upper limits of normal. Both costophrenic angles are blunted. Overlying oxygen tubing and esme ctrocardiogram leads are present. There are degenerative changes in both glenohumeral joints. CONCLUSION: 1. Endotracheal tube tip now lies approximately 2.7 cm above the maru. 2. Mild decrease in confluency of the alveolar opacities in the right perihilar region. 3. Small effusions again noted. Neftali Lora MD on August 27, 2017 at 15:49 Board Certified Radiologist. This report was verified electronically.
--- NOTE | 2017-08-27 16:31 | HHI.HCPN ---
Attempted to contact family to notify them re: patient's critical condition; to verify appropriate legal decision maker; and get guidance regarding goals of medical treatment. Calls included : * Mai Membreno (daughter) [facility] -- [phone] -- voicemail was full; unable to leave message * Claire Saravia (sister) [phone] -- No answer. We will need to continue with full code status and all aggressive care until we can identify legal health care decision maker and get guidance regarding goals. Jm Hoang MD Aug 27, 2017 16:31
--- NOTE | 2017-08-27 16:36 | RADRPT ---
EXAM DATE/TIME: 08/27/2017 16:24 [facility] COMPARISON: No previous studies available for comparison. INDICATIONS : Increased lab values. MEDICAL HISTORY : Deep venous thrombosis. Hypertension. Chronic obstructive pulmonary disease. Hearing loss. Cardiac di sorders. Irregular heartbeat. Pulmonary embolism. Dyspnea. GERD. Renal disease. Diabetes. Depression. Tobacco use. Anxiety. Anticoagulant therapy. SURGICAL HISTORY : Tonsillectomy. Appendectomy. Right ankle surgery. ENCOUNTER: Initial ACUITY: 1 day PAIN SCORE: Nonresponsive. LOCATION: Bilateral upper quadrant MEASUREMENTS: LIVER: 15.7 cm length COMMON DUCT: 3 mm RIGHT KIDNEY: 9.5 x 3.9 x 3.9 cm SPLEEN: 9.4 cm length FINDINGS: LIVER: Normal echotexture without focal lesion or ductal dilatation. Portal vein is patent. COMMON DUCT: No intraluminal mass or stone visualized. GALLBLADDER: Gallbladder is mildly distended. There are no internal echoes. Minimal pericholecystic fluid is ident ified. PANCREAS: Not well visualized. RIGHT KIDNEY: No hydronephrosis, stone or mass. SPLEEN: No focal lesion. Small amount of fluid is identified surrounding the spleen. CONCLUSION: 1. Minimal free fluid in the abdomen 2. Mildly distended gallbladder without evidence of cholelithiasis. 3. No evidence of biliary obstructive disease or focal liver abnormality. Jagjit Lilly MD on August 27, 2017 at 16:30 Board Certified Radiologist. This report was verified electronically.
[2017-08-27 17:01] LABS: INTERNATIONAL NORMALIZED RATIO 1.2 RATIO; PROTHROMBIN TIME - PATIENT 12.4 SEC (9.8-11.6)
[2017-08-27 17:39] LABS: ALBUMIN 2.3 GM/DL (3.4-5.0); ALKALINE PHOSPHATASE 106 U/L (45-117); ALT (GPT) 1940 U/L (12-78); AST (GOT) 1631 U/L (15-37); BICARBONATE 20.9 MEQ/L (21.0-32.0); BLOOD UREA NITROGEN 28 MG/DL (7-18); CALCIUM 7.7 MG/DL (8.5-10.1); CHLORIDE 116 MEQ/L (98-107); CREATININE 1.46 MG/DL (0.60-1.30); GLOMERULAR FILTRATION RATE 48 ML/MIN (>89); SODIUM (NA) 146 MEQ/L (136-145); TOTAL BILIRUBIN ADULT 1.3 MG/DL (0.2-1.0)
[2017-08-27 17:44] LABS: GLUCOSE,RANDOM 31 MG/DL (74-106)
--- NOTE | 2017-08-27 20:44 | PD.PROCEDR ---
Procedure Note Procedure Procedure: Arterial Line Placement Right radial arterial line Diagnosis: Status post PEA arrest Indications: Need for beat to beat hemodynamic monitoring Consent: Emergent Description of the Procedure: The right wrist was prepped and draped sterilely. 1% lidocaine was used for local anesthesia. The pulse was located and a needle was advanced into the artery. A 20 gauge, 12 cm catheter was advanced into the artery using a modified Seldinger technique. The catheter was sutured to the skin and a sterile dressing was applied. The catheter was connected to a pressure transducer and an arterial waveform was noted. There were no immediate complications noted. There was minimal EBL. I personally performed the procedure. Andrews Gutierrez MD Aug 27, 2017 20:44
--- NOTE | 2017-08-27 20:45 | PD.PROCEDR ---
Procedure Note Procedure Central Line Procedure Note Left subclavian triple lumen catheter Diagnosis: Status post cardiac arrest Indications: Need for highly potent vasoactive substances Consent: Emergent Anesthesia: 1% lidocaine locally Description of the Procedure: The patient was placed in the supine, mild- Trendelenburg position. The area was prepped and draped sterilely. A 19g needle was inserted under negative pressure aspiration and dark venous blood was obtained. A guidewire was inserted easily without resistance. A small incision was made using a #11 blade. Using a modified Seldinger technique, the dilator and 7 [place], 20 cm catheter were advanced over the guidewire without resistance. All ports were aspirated and flushed, and had brisk blood return. The line was secured at the skin using 2-0 silk interrupted sutures. A Biopatch and Transparent sterile dressing were applied. There were no immediate complications noted. There was minimal EBL. The patient tolerated the procedure well. Ultrasound guidance was not used for this procedure A Chest x-ray has been ordered. I personally performed the procedure. Andrews Gutierrez MD Aug 27, 2017 20:45
--- NOTE | 2017-08-27 20:48 | HHI.PR ---
Subjective Remarks Patient was transferred to [facility] ICU for ongoing management. I evaluated the patient in the [facility] ICU separate time from Dr. Beltran's evaluation. The patient is persistently encephalopathic, GCS 3, pupils fixed and dilated. The patient is labored breathing and an ABG resulted in severe metabolic acidosis with a pH of 7 and a base deficit of -9. I emergently gave some sodium bicarbonate to help bring the pH into a more normal range. I placed arterial line and central venous catheter to assist in ongoing management and evaluation of cardiac filling, see separate procedure note for details. Patient remains in acute hypoxic hypercarbic respiratory failure as well as septic shock with an elevated lactate. Objective Vital Signs Date Time Temp Pulse Resp B/P (MAP) Pulse Ox O2 Delivery O2 Flow Rate FiO2 08/27/17 19:05 110 40 121/78 (92) 90 08/27/17 19:03 104 34 41/26 (31) 90 08/27/17 18:59 110 33 44/12 (23) 90 08/27/17 18:45 106 08/27/17 18:45 104 36 106/81 (89) 91 08/27/17 18:30 106 43 114/75 (88) 94 08/27/17 17:56 95 100 08/27/17 17:45 106 08/27/17 17:45 100 08/27/17 17:45 99.2 104 38 208/92 (130) 91 08/27/17 16:32 99.7 122 24 96/69 (78) 98 Ventilator 08/27/17 16:13 99.5 117 22 119/53 (75) 96 Ventilator 08/27/17 15:37 99.1 114 18 90/92 (91) 95 Ventilator 100 08/27/17 15:15 94 100 08/27/17 14:44 98.6 115 18 131/62 (85) 91 Ventilator 08/27/17 14:21 110 16 106/59 (75) 93 Ventilator 08/27/17 13:50 98.2 101 109/59 (76) 94 Ventilator 08/27/17 13:40 99 100 08/27/17 13:00 98.2 103 20 134/68 (90) 100 Ventilator 50 08/27/17 12:00 99.1 108 18 123/67 (85) 100 Ventilator 50 08/27/17 11:31 101.1 101 18 101/59 (73) 100 Ventilator 50 08/27/17 11:25 101.6 98 18 99/71 (80) 98 Ventilator 50 08/27/17 11:19 101.8 106 20 101/68 (79) 100 Ventilator 50 08/27/17 11:09 102.0 100 20 142/67 (92) 100 Ventilator 50 08/27/17 10:30 102.6 102 20 139/83 (101) 100 Ventilator 50 08/27/17 10:23 102.3 115 22 110/68 (82) 100 Ventilator 50 08/27/17 10:08 102.2 114 24 159/68 (98) 98 Ventilator 50 08/27/17 09:58 102.1 (97) 100 Ventilator 50 08/27/17 09:37 129 59/68 08/27/17 09:35 50 08/27/17 09:34 101.3 133 28 148/72 (97) 100 Ventilator 100 08/27/17 09:17 155 150/88 08/27/17 09:05 162 148/89 08/27/17 08:55 156 38 148/89 (108) 100 Ventilator 08/27/17 08:49 100 100 08/27/17 08:40 100 Ventilator 100 08/27/17 08:40 100 08/27/17 08:40 38 100 Ventilator 100 08/27/17 08:35 171 38 100 Ventilator 100 08/27/17 08:35 103.1 168 38 199/110 (139) I/O 08/26/17 08/26/17 08/26/17 08/27/17 08/27/17 08/27/17 07:00 15:00 23:00 07:00 15:00 23:00 Intake Total 3550 ml Balance 3550 ml Intake IV Total 3550 ml Result Diagram: 08/27/17 1248 08/27/17 1605 Objective Remarks Patient is obtunded,, comatose, GCS 3. Nonresponsive. Pupils 5 mm, nonreactive. Labored respirations, tachycardic and tachypneic Extremities are cold and poorly perfused. Assessment and Plan Assessment and Plan Assessment: 66-year-old male status post out of hospital cardiac arrest with severe leukocytosis, fever, evidence of septic shock, likely from pulmonary origin. Continue antibiotics. Serial lactates. Trend labs. Frequent urine output monitoring. Given poor neurologic exam, unlikely to have a good prognosis. Palliative care involved. Remains very critically ill. Ongoing active problems: Severe metabolic acidosis Septic shock Status post cardiac arrest Hypoxic ischemic encephalopathy Plan: Placed arterial and central venous catheters Sodium bicarb normalized pH Serial labs Close unit for monitoring Frequent neurochecks No weaning of mechanical ventilation until neurologic improvement Appreciate palliative care. This patient remains critically ill with one or more organ systems which are or may become a threat to life. This addendum represents an additional 25 minutes in excess of any time previously documented in the care and management of this patient. This time is discontinuous, exclusive of procedures, and includes, but is not limited to, evaluation of the patient, review of the medical record, discussions with family, consultants, nursing staff, or respiratory therapy, and documentation in the medical record. Andrews Gutierrez MD Aug 27, 2017 20:48
[2017-08-27] MEDS ORDERED: TERBUTALINE INJ 1 MG/ML AMP SQ PRN (21:00)
--- NOTE | 2017-08-27 21:01 | PD.CONS ---
Consult Service Palliative Care . Consult Requested By Dr. Lanier . Primary Care Physician Serge Abreu MD . Reason for Consultation a. To assist with evaluation and management of symptoms including: dyspnea ; encephalopathy b. To assist medical decision maker(s) with: better understanding of current medical conditions; weighing benefits/burdens of medical treatment options; making medical treatment decisions. . HPI History of Present Illness Mr. Membreno is a 66-year-old male fdc resident with a known history of pulmonary embolus; DVT; atrial fibrillation; CHF; coronary artery disease status post non-STEMI; COPD; and hypertension who was sent from his nursing facility by the paramedics to [facility] Emergency Department earlier today when he was noted to have significant shortness of breath, fever, altered mental status, and generalized weakness. On their arrival, paramedics noted the patient to have a heart rate of 160 and respiratory rate of 30. Due to his respiratory distress, paramedics intubated the patient in the field. Initial end-tidal CO2 was about 80. Initial temperature in the emergency department was 103.2. Initial physical examination by the emergency retail department supervisor noted the following patient was cachectic and chronically ill appearing. He was fighting the ventilator.: Bruising was noted in multiple areas including a large hematoma on the right medial thigh. Pupils were equal and round. Patient was tachycardic with an irregular rate. Breath sounds were diminished more so on the left. Abdomen was benign. No other significant abnormalities noted. Initial diagnostic studies were as follows: * CBC showed WBC 23.1; hemoglobin 10.8; platelet count 232 there were 10% band neutrophils.. * ABGs on the ventilator at 100% FiO2 showed a pH of 7.25; PCO2 of 52; PO2 of 230; bicarbonate of 22; base excess -4.3 * Urinalysis was unremarkable * Troponin was 0.05 * Chem profile showed sodium 141; potassium 5.3; chloride 108; CO2 23; anion gap 10; BUN 27; creatinine 1.18; glucose 182; calcium 7.6; GFR 61; lactic acid 3.3 * Liver function studies showed total bilirubin 0.6; alkaline phosphatase 75; AST 60; ALT 44; total protein 6.1; albumin 3.0 * EKG revealed atrial fibrillation. There were ST segment depressions and T- wave inversions laterally but this was unchanged from the prior EKG. A right bundle branch block was present. * Chest x-ray showed bilateral airspace disease most characteristic of pulmonary edema. There is a small left effusion. The patient was initially given Cardizem to help control his atrial fibrillation with RVR. He received 2 L of fluid. Septic workup labs were ordered. Lasix was ordered. Empiric antibiotics were started for presumed healthcare associated pneumonia. While still in the emergency department the patient experienced an asystolic cardiac arrest. He received CPR and he was treated with epi 3, atropine 2, sodium bicarb 1 and calcium chloride 1. He was successfully resuscitated. Critical care was consulted. . Repeat laboratory work shows white blood count going up to 29.8. Blood glucose went down to 14. Creatinine has increased to 1.46. Most significant, transaminases show evidence of shock liver with AST at 1631 and ALT at 1940. There is no apparent living will. We have been unable to contact family. Aggressive care continues. . Function/Cognitive Trajectory Patient was recently hospitalized from 07/16/2017 through 07/18/2017 for respiratory distress associated with atrial fibrillation with RVR. He required BiPAP during that admission but avoided mechanical ventilation. His functional status and trajectory of decline are difficult to ascertain from available medical records, and there is no family available. . Review of Systems ROS Limitations: Clinical Condition (Patient cannot provide his own review of systems and there is no family to help with this. Review of systems is taken as best as possible from the medical record.) Constitutional: COMPLAINS OF: Fatigue, Fever Ears, nose, mouth, throat: DENIES: Hearing loss, Oral lesions Respiratory: COMPLAINS OF: Cough, Wheezing, Sputum production, Shortness of breath Cardiovascular: COMPLAINS OF: Palpitations, DENIES: Chest pain Gastrointestinal: COMPLAINS OF: Dyspepsia or heartburn Musculoskeletal: COMPLAINS OF: Neck pain Psychiatric: COMPLAINS OF: Anxiety, Depression Past Family Social History Coded Allergies: No Known Allergies (Verified Allergy, Unknown, 07/16/17) Past Medical History Pulmonary embolus Deep venous thrombosis Atrial fibrillation Congestive heart failure Coronary artery disease COPD Hypertension . Past Surgical History Appendectomy Tonsillectomy Hernia repair Inferior vena cava filter placement Surgery of the right ankle . Reported Medications Prehospitalization medications at the [facility]dc included the following: [Budeson-Formot 160-4.5 Mcg Inh] 60 PUFF Aero 2 Puff INH Q12HR Cardizem CD 24 HR (Diltiazem CD 24 HR) 180 Mg Caper 180 Mg PO DAILY Metoprolol Tartrate 25 Mg Tab 25 Mg PO BID Xarelto (Rivaroxaban) 10 Mg Tab 10 Mg PO BID Methylprednisolone 8 Mg Tab 4 Mg PO DAILY Albuterol Neb (Albuterol Sulfate) 2.5 Mg/0.5 Ml Neb 2.5 Mg NEB Q6HR NEB Note: The Albuterol Sulfate Inhalation Solution is concentrated and must be diluted. Read complete instructions carefully before using. . Current Medications Medications (Trade) Dose Ordered Sig/Hugh Route Start Time Stop Time Status Last Admin (NS Flush) 2 ml UNSCH PRN IV FLUSH 08/27/17 08:45 Propofol 100 ml @ 0 mls/hr TITRATE PRN IV 08/27/17 08:45 08/27/17 09:17 (Pepcid Inj) 20 mg Q12HR IV PUSH 08/27/17 12:00 08/27/17 12:15 (Duoneb Neb) 1 ampule Q6HR NEB INH 08/27/17 12:00 08/27/17 15:15 Miscellaneous Information 1 Q361D XX 08/27/17 12:00 (Chlorhexidine 2% Cloth) 3 pack Taper DAILY@04 TOP 08/28/17 04:00 08/24/18 03:59 (Chlorhexidine 2% Cloth) 3 pack UNSCH PRN TOP 08/27/17 12:00 (Talita-Colace) 1 tab BID PO 08/27/17 21:00 (Milk Of Magnesia Liq) 30 ml Q12H PRN PO 08/27/17 12:00 (Senokot) 17.2 mg Q12H PRN PO 08/27/17 12:00 (Dulcolax Supp) 10 mg DAILY PRN RECTAL 08/27/17 12:00 (Lactulose Liq) 30 ml DAILY PRN PO 08/27/17 12:00 (SoluMEDROL INJ) 40 mg Q8HR IV PUSH 08/27/17 14:00 08/27/17 15:52 Vancomycin HCl 1000 mg/Sodium Chloride 250 ml @ 250 mls/hr Q12H IV 08/27/17 14:00 08/27/17 15:53 Piperacillin Sod/ Tazobactam Sod 100 ml @ 200 mls/hr Q6H IV 08/27/17 15:00 Azithromycin 500 mg/Sodium Chloride 250 ml @ 250 mls/hr Q24H IV 08/28/17 10:00 (D50w (Vial) Inj) 50 ml UNSCH PRN IV PUSH 08/27/17 12:15 08/27/17 13:50 (Glucagon Inj) 1 mg UNSCH PRN OTHER 08/27/17 12:15 (NovoLIN R SUPPLEMENTAL SCALE) 1 Q4H SQ 08/27/17 12:15 Dextrose 1,000 ml @ 42 mls/hr [id number] IV 08/27/17 14:00 08/27/17 14:00 . Family History Father of lung cancer. No history of DVT or pulmonary embolus in the family. . Substance Use Tobacco: Greater than [id number] history of smoking and has been smoking 1 pack per day up until very recently. Alcohol: History of abuse. Prescription med abuse: No known prescription drug abuse. Illicits: No known use of illicits . Psychosocial History Born in [place] Has not worked for at least 7 years. He used to do [employer] work. twice. His contacts include 1 daughter --Elena Membreno --who we believe lives in [facility]. We have been unable to contact her. Uncertain if there are other children. Records indicate the patient also has a brother and 3 sisters. Contact information includes a sister who lives locally. We have not been able to contact her. . Spiritual/Cultural Factors No reported islam in the electronic medical record. . Living Will: Never completed Health Care Surrogate: Never completed Durable Power of Television And Radio Repairer: Never completed Date completed: Patient has not completed an advanced directive prior records. . Health Care Surrogate(s): There is been no written designation of healthcare surrogate per our records. . Documented care wishes: There is no written documentation of healthcare wishes or preferences. . Today's verbally stated goals: Patient is unable to verbally state his own healthcare preferences or goals. At this point it is unlikely he will regain capacity to do so. . Family/friends goals: We have been unable to contact any family or friends to provide guidance regarding patient's goals/preferences for health care. . Ethical and Legal Issues Patient is currently incapacitated at it currently appears quite unlikely that he will regain capacity. We have not yet been able to locate a healthcare decision maker. . Physical Exam Vital Signs Date Time Temp Pulse Resp B/P (MAP) Pulse Ox O2 Delivery O2 Flow Rate FiO2 08/27/17 19:05 110 40 121/78 (92) 90 08/27/17 19:03 104 34 41/26 (31) 90 08/27/17 18:59 110 33 44/12 (23) 90 08/27/17 18:45 106 08/27/17 18:45 104 36 106/81 (89) 91 08/27/17 18:30 106 43 114/75 (88) 94 08/27/17 17:56 95 100 08/27/17 17:45 106 08/27/17 17:45 100 08/27/17 17:45 99.2 104 38 208/92 (130) 91 08/27/17 16:32 99.7 122 24 96/69 (78) 98 Ventilator 08/27/17 16:13 99.5 117 22 119/53 (75) 96 Ventilator 08/27/17 15:37 99.1 114 18 90/92 (91) 95 Ventilator 100 08/27/17 15:15 94 100 08/27/17 14:44 98.6 115 18 131/62 (85) 91 Ventilator 08/27/17 14:21 110 16 106/59 (75) 93 Ventilator 08/27/17 13:50 98.2 101 109/59 (76) 94 Ventilator 08/27/17 13:40 99 100 08/27/17 13:00 98.2 103 20 134/68 (90) 100 Ventilator 50 08/27/17 12:00 99.1 108 18 123/67 (85) 100 Ventilator 50 08/27/17 11:31 101.1 101 18 101/59 (73) 100 Ventilator 50 08/27/17 11:25 101.6 98 18 99/71 (80) 98 Ventilator 50 08/27/17 11:19 101.8 106 20 101/68 (79) 100 Ventilator 50 08/27/17 11:09 102.0 100 20 142/67 (92) 100 Ventilator 50 08/27/17 10:30 102.6 102 20 139/83 (101) 100 Ventilator 50 08/27/17 10:23 102.3 115 22 110/68 (82) 100 Ventilator 50 08/27/17 10:08 102.2 114 24 159/68 (98) 98 Ventilator 50 08/27/17 09:58 102.1 (97) 100 Ventilator 50 08/27/17 09:37 129 59/68 08/27/17 09:35 50 08/27/17 09:34 101.3 133 28 148/72 (97) 100 Ventilator 100 08/27/17 09:17 155 150/88 08/27/17 09:05 162 148/89 08/27/17 08:55 156 38 148/89 (108) 100 Ventilator 08/27/17 08:49 100 100 08/27/17 08:40 100 Ventilator 100 08/27/17 08:40 100 08/27/17 08:40 38 100 Ventilator 100 08/27/17 08:35 171 38 100 Ventilator 100 08/27/17 08:35 103.1 168 38 199/110 (139) . 08/27/17 08/28/17 19:00 07:00 Intake Total 3550 ml Balance 3550 ml Intake IV Total 3550 ml . Exam CONSTITUTIONAL/GENERAL: This is an adequately nourished patient tachypneic and laboring on the ventilator. He is quite pale. He is unresponsive. TUBES/LINES/DRAINS: Orotracheal tube; orogastric tube; Grossman catheter; soft wrist restraints; external jugular line; peripheral IVs SKIN: No jaundice, rashes. There is a large bruise on the inner right thigh. Other smaller ecchymoses on the extremities. . No wounds seen anteriorly. Skin temperature appropriate. Not diaphoretic. HEAD: Atraumatic. Normocephalic. EYES: Pupils equal and round and non--reactive. Unable to assess extraocular movements. No scleral icterus. No injection or drainage. Fundi not examined. ENT: Unable to assess hearing.. Nose without bleeding or purulent drainage. Throat without visible erythema, exudates, masses, or lesions though difficult to adequately examine due to intubations. NECK: Trachea midline. No palpable thyroid enlargement or nodularity. CARDIOVASCULAR: Tachycardic, irregular rhythm without murmurs, gallops, or rubs. No JVD. Peripheral pulses symmetric. RESPIRATORY/CHEST: Symmetric, rapid, labored respirations. Very little air movement bilaterally. No wheezes, rales, or rhonchi. GASTROINTESTINAL: Abdomen soft, distended. No hepato-splenomegaly, or palpable masses. No guarding. Bowel sounds hypoactive. GENITOURINARY: Without palpable bladder distension. Grossman catheter in place. MUSCULOSKELETAL: Extremities without clubbing, cyanosis, or edema. Slight mottling of the feet is noted. LYMPHATICS: No palpable cervical or supraclavicular adenopathy. NEUROLOGICAL: Unresponsive. No spontaneous movements noted. Is not withdrawing to noxious stimuli. Pupils are nonreactive. PSYCHIATRIC: Unable to assess due to level of responsiveness. . Diagnostic Tests Laboratory Laboratory Tests Test 08/27/17 08:55 08/27/17 09:10 08/27/17 09:15 08/27/17 09:20 White Blood Count 23.1 TH/MM3 (4.0-11.0) Red Blood Count 4.61 MIL/MM3 (4.50-5.90) Hemoglobin 10.8 GM/DL (13.0-17.0) Hematocrit 35.7 % (39.0-51.0) Mean Corpuscular Volume 77.5 FL (80.0-100.0) Mean Corpuscular Hemoglobin 23.4 PG (27.0-34.0) Mean Corpuscular Hemoglobin Concent 30.2 % (32.0-36.0) Red Cell Distribution Width 24.2 % (11.6-17.2) Platelet Count 232 TH/MM3 (150-450) Mean Platelet Volume 9.3 FL (7.0-11.0) Neutrophils (%) (Auto) 83.8 % (16.0-70.0) Lymphocytes (%) (Auto) 13.0 % (9.0-44.0) Monocytes (%) (Auto) 2.9 % (0.0-8.0) Eosinophils (%) (Auto) 0.2 % (0.0-4.0) Basophils (%) (Auto) 0.1 % (0.0-2.0) Neutrophils # (Auto) 19.4 TH/MM3 (1.8-7.7) Lymphocytes # (Auto) 3.0 TH/MM3 (1.0-4.8) Monocytes # (Auto) 0.7 TH/MM3 (0-0.9) Eosinophils # (Auto) 0.1 TH/MM3 (0-0.4) Basophils # (Auto) 0.0 TH/MM3 (0-0.2) CBC Comment AUTO DIFF Differential Total Cells Counted 100 Neutrophils % (Manual) 73 % (16-70) Band Neutrophils % 10 % (0-6) Lymphocytes % 10 % (9-44) Monocytes % 5 % (0-8) Eosinophils % 1 % (0-4) Neutrophils # (Manual) 19.4 TH/MM3 (1.8-7.7) Myelocytes 1 % (0-0) Differential Comment FINAL DIFF MANUAL Platelet Estimate NORMAL (NORMAL) Platelet Morphology Comment NORMAL (NORMAL) Tear Drop Cells 1+ (NORMAL) Ovalocytes 1+ (NORMAL) Blood Urea Nitrogen 27 MG/DL (7-18) Creatinine 1.18 MG/DL (0.60-1.30) Random Glucose 182 MG/DL (74-106) Total Protein 6.1 GM/DL (6.4-8.2) Albumin 3.0 GM/DL (3.4-5.0) Calcium Level 7.6 MG/DL (8.5-10.1) Alkaline Phosphatase 75 U/L (45-117) Aspartate Amino Transf (AST/SGOT) 60 U/L (15-37) Alanine Aminotransferase (ALT/SGPT) 44 U/L (12-78) Total Bilirubin 0.6 MG/DL (0.2-1.0) Sodium Level 141 MEQ/L (136-145) Potassium Level 5.3 MEQ/L (3.5-5.1) Chloride Level 108 MEQ/L (98-107) Carbon Dioxide Level 23.0 MEQ/L (21.0-32.0) Anion Gap 10 MEQ/L (5-15) Estimat Glomerular Filtration Rate 61 ML/MIN (>89) Troponin I 0.05 NG/ML (0.02-0.05) B-Type Natriuretic Peptide 534 PG/ML (0-100) Lactic Acid Level 3.3 mmol/L (0.4-2.0) Blood Gas Puncture Site LT BRACHIAL Blood Gas Patient Temperature 98.6 Blood Gas HCO3 22 mmol/L (22-26) Blood Gas Base Excess -4.3 mmol/L (-2-2) Blood Gas Oxygen Saturation 97 % (90-100) Arterial Blood pH 7.25 (7.380-7.420) Arterial Blood Partial Pressure CO2 52 mmHg (38-42) Arterial Blood Partial Pressure O2 230 mmHg (61-120) Arterial Blood Oxygen Content 16.4 Vol % (12.0-20.0) Arterial Blood Carboxyhemoglobin 1.3 % (0-4) Arterial Blood Methemoglobin 1.4 % (0-2) Blood Gas Hemoglobin 11.7 G/DL (12.0-16.0) Oxygen Delivery Device VENTILATOR Blood Gas Ventilator Setting PRVC/VT500/R16/P5 Blood Gas Inspired Oxygen 100 % Urine Color YELLOW (YELLW/STRAW) Urine Turbidity HAZY (CLEAR) Urine pH 6.5 (5.0-8.5) Urine Specific [place] 1.016 (1.002-1.035) Urine Protein 100 mg/dL (NEG-TRACE) Urine Glucose (UA) NEG mg/dL (NEG) Urine Ketones NEG mg/dL (NEG) Urine Occult Blood TRACE (NEG) Urine Nitrite NEG (NEG) Urine Bilirubin NEG (NEG) Urine Urobilinogen LESS THAN 2.0 MG/DL (LESS Urine Leukocyte Esterase NEG (NEG) Urine RBC 2 /hpf (0-3) Urine WBC 15 /hpf (0-5) Urine Mucus FEW /lpf (OCC) Microscopic Urinalysis Comment CATH-CULTURE IND Test 08/27/17 11:32 08/27/17 12:48 08/27/17 16:05 08/27/17 18:40 Lactic Acid Level 4.7 mmol/L (0.4-2.0) White Blood Count 29.8 TH/MM3 (4.0-11.0) Red Blood Count 5.13 MIL/MM3 (4.50-5.90) Hemoglobin 11.9 GM/DL (13.0-17.0) Hematocrit 40.3 % (39.0-51.0) Mean Corpuscular Volume 78.7 FL (80.0-100.0) Mean Corpuscular Hemoglobin 23.2 PG (27.0-34.0) Mean Corpuscular Hemoglobin Concent 29.4 % (32.0-36.0) Red Cell Distribution Width 24.2 % (11.6-17.2) Platelet Count 218 TH/MM3 (150-450) Mean Platelet Volume 8.9 FL (7.0-11.0) Neutrophils (%) (Auto) 93.6 % (16.0-70.0) Lymphocytes (%) (Auto) 4.6 % (9.0-44.0) Monocytes (%) (Auto) 1.2 % (0.0-8.0) Eosinophils (%) (Auto) 0.1 % (0.0-4.0) Basophils (%) (Auto) 0.5 % (0.0-2.0) Neutrophils # (Auto) 27.9 TH/MM3 (1.8-7.7) Lymphocytes # (Auto) 1.4 TH/MM3 (1.0-4.8) Monocytes # (Auto) 0.4 TH/MM3 (0-0.9) Eosinophils # (Auto) 0.0 TH/MM3 (0-0.4) Basophils # (Auto) 0.1 TH/MM3 (0-0.2) CBC Comment AUTO DIFF Differential Total Cells Counted 100 Neutrophils % (Manual) 78 % (16-70) Band Neutrophils % 15 % (0-6) Lymphocytes % 6 % (9-44) Monocytes % 1 % (0-8) Neutrophils # (Manual) 27.7 TH/MM3 (1.8-7.7) Nucleated Red Blood Cells 1 /100 WBC (0-0) Differential Comment FINAL DIFF MANUAL Platelet Estimate NORMAL (NORMAL) Platelet Morphology Comment NORMAL (NORMAL) Polychromasia 2.2 % (0.0-1.9) Ovalocytes 1+ (NORMAL) Blood Urea Nitrogen 25 MG/DL (7-18) 28 MG/DL (7-18) Creatinine 1.19 MG/DL (0.60-1.30) 1.46 MG/DL (0.60-1.30) Random Glucose 14 MG/DL (74-106) 31 MG/DL (74-106) Total Protein 5.2 GM/DL (6.4-8.2) 5.0 GM/DL (6.4-8.2) Albumin 2.4 GM/DL (3.4-5.0) 2.3 GM/DL (3.4-5.0) Calcium Level 7.6 MG/DL (8.5-10.1) 7.7 MG/DL (8.5-10.1) Alkaline Phosphatase 104 U/L (45-117) 106 U/L (45-117) Aspartate Amino Transf (AST/SGOT) 1121 U/L (15-37) 1631 U/L (15-37) Alanine Aminotransferase (ALT/SGPT) 1141 U/L (12-78) 1940 U/L (12-78) Total Bilirubin 1.4 MG/DL (0.2-1.0) 1.3 MG/DL (0.2-1.0) Sodium Level 147 MEQ/L (136-145) 146 MEQ/L (136-145) Potassium Level 5.5 MEQ/L (3.5-5.1) 4.8 MEQ/L (3.5-5.1) Chloride Level 116 MEQ/L (98-107) 116 MEQ/L (98-107) Carbon Dioxide Level 21.5 MEQ/L (21.0-32.0) 20.9 MEQ/L (21.0-32.0) Anion Gap 10 MEQ/L (5-15) 9 MEQ/L (5-15) Estimat Glomerular Filtration Rate 61 ML/MIN (>89) 48 ML/MIN (>89) Prothrombin Time 12.4 SEC (9.8-11.6) Prothromb Time International Ratio 1.2 RATIO Hepatitis A IgM Antibody NONREACTIVE (NONREACTIVE) Hepatitis B Surface Antigen NONREACTIVE (NONREACTIVE) Hepatitis B Core IgM Antibody NONREACTIVE (NONREACTIVE) Hepatitis C IgG Antibody NONREACTIVE (NONREACTIVE) Blood Gas Puncture Site RT FEMORAL Blood Gas Patient Temperature 37.0 Blood Gas HCO3 19 mmol/L (22-26) Blood Gas Base Excess -9.1 mmol/L (-2-2) Blood Gas Oxygen Saturation 90 % (90-100) Arterial Blood pH 7.09 (7.380-7.420) Arterial Blood Partial Pressure CO2 66 mmHg (38-42) Arterial Blood Partial Pressure O2 84 mmHg (61-120) Arterial Blood Oxygen Content 15.1 Vol % (12.0-20.0) Arterial Blood Carboxyhemoglobin 1.1 % (0-4) Arterial Blood Methemoglobin 1.5 % (0-2) Blood Gas Hemoglobin 11.8 G/DL (12.0-16.0) Oxygen Delivery Device VENT PRVC/AC MODE Blood Gas Ventilator Setting RR20/VT550/PEEP8 Blood Gas Inspired Oxygen 100 % . Result Diagram: 08/27/17 1248 08/27/17 3605 Microbiology Microbiology Date/Time Source Procedure Growth Status 08/27/17 08:55 Blood Peripheral Aerobic Blood Culture Pending Received 08/27/17 08:55 Blood Peripheral Anaerobic Blood Culture Pending Received 08/27/17 08:40 Blood Peripheral Aerobic Blood Culture Pending Received 08/27/17 08:40 Blood Peripheral Anaerobic Blood Culture Pending Received 08/27/17 12:48 Nasal Aspirate Influenza Types A,B Antigen (SHERRELL) - Final NEGATIVE FOR FLU A AND B ANTIGEN.... Complete 08/27/17 09:20 Urine Catheterized Urine Urine Culture Pending Received . Imaging Last Impressions Chest X-Ray 08/27/17 0840 Signed Impressions: Service Date/Time: Sunday, August 27, 2017 08:53 - CONCLUSION: 1. Interval intubation and placement of nasogastric tube. 2. New bilateral airspace disease most characteristic of pulmonary edema. 3. Small left effusion. Neftali Lora MD . Procedures * Intubation/mechanical ventilation. . Patient/Family Conference Present at Family Conference: Unable to contact family members. . Family Conference Time (mins): 0 Issues Discussed: Assessment and Plan Disease Oriented Problem List: (1) Cardiac arrest (2) Respiratory failure (3) Shock liver (4) COPD with exacerbation (5) Severe sepsis (6) Acute kidney injury (7) Atrial fibrillation with RVR (8) Pulmonary edema (9) CHF (congestive heart failure) (10) Pneumonia (11) Hypoalbuminemia Symptom Scale: (1) Pain 0-10 Scale: Unable to quantify Comment: Unclear if patient had prehospitalization pain syndromes. Current sources of pain might include recent chest compressions; orotracheal and orogastric intubations; Grossman catheter; venous access catheters; restraints; prolonged bedbound status. . (2) Dyspnea 0-10 Scale: Unable to quantify Comment: Dyspnea probably secondary to a combination of underlying COPD; tachycardia; and congestive heart failure. Dyspnea currently managed on the ventilator. . (3) Encephalopathy 0-10 Scale: Unable to quantify Pertinent Non-Medical Issues Psychosocial: Patient was a resident of health system. We have not been able to locate family or friends. Spiritual: Records do not include any church affiliation. Uncertain if islam or spirituality played an important role in this patient's life. Legal: No advance directives available to us. No known healthcare surrogate. Have not been able to locate a proxy healthcare decision maker. Ethical issues impacting care: Patient is incapacitated. It appears unlikely at this time that he will regain capacity to make his own healthcare decisions. . Important Contacts Elena Membreno (daughter) [phone] Claire Saravia (sister) [phone] . Prognosis Patient has multiple underlying comorbidities. He came in in respiratory distress and suffered a asystolic cardiac arrest. He is now going into shock liver. Kidney function is declining. Prognosis is poor at this time. It is uncertain if patient will survive this hospitalization. If he does survive the hospitalization it is unclear what type of quality of life he will return to. Prognostication would also be helped if I was clear about his functional status prior to this event. . Code Status: Full Code Plan == Code Status: FULL CODE -- pt will need to remain full code until we are able to find a legal health care decision maker. == Decision Making: Patient is incapacitated to make his own healthcare decisions. At this point it is very unlikely that he will recover capacity to do so.. There is no known written designation of healthcare surrogate. Records seem to indicate patient is . We have a telephone number for a daughter but there is no answer and voicemail is full. Proxy decision making would fall to the majority of adult children. If there are no adult children or the choose not to participate I believe there are some siblings that would be next in line. Finding a healthcare decision maker will be a high priority. If there are no family or friends available, we will need to consider bringing in [employer]. == Goals medical treatment: Without a living will, with patient being incapacitated, and without legal healthcare decision makers, goals must be aggressive at this point. == Symptoms: * Pain: Unclear if patient had prehospitalization pain syndromes. Current sources of pain might include recent chest compressions; orotracheal and orogastric intubations; Grossman catheter; venous access catheters; restraints; prolonged bedbound status. There are no current orders for opioids. Sedating medicines are probably being minimized at this time with the hopes of improving respiratory status. No recommendations at this time. * Dyspnea: probably secondary to a combination of underlying COPD; tachycardia ; and congestive heart failure. Dyspnea currently managed on the ventilator. No additional recommendations at this time. * Encephalopathy: Probably metabolic and multi-factorial . This will probably improve if we can correct some of the underlying metabolic issues. No further recommendations at this time. == Palliative care will assist in trying to locate and contact family members or friends who might be able to serve as healthcare proxy. Should none be found , we will need to consider bringing [employer] in to serve as proxy. == Palliative care will try to get more information on prehospitalization functional status. This might help with prognostication. == Palliative care will continue to follow to assist with symptom management and to further clarify goals of medical treatment as the clinical course evolves. . Thank you for the opportunity to participate in the care of Mr. Membreno. . Attestation To help prompt me to consider important information that might be impacting today's encounter and assessment, information from prior notes written by myself or my colleagues may have been "brought forward" into today's note. My signature on this note, however, is an attestation that I personally performed the exam, history, and/or decision-making noted today, and, unless otherwise indicated, the interactions with patient, family, and staff as well as the review of records all occurred today. I also attest that the listed assessment and stated plan reflect my best clinical judgment today based on the combination of historical information, prior notes, and today's exam/ interactions. When time spent is documented, it refers only to time spent today by the signer, or if indicated, combined time spent today by collaborating physician/nurse practitioner. . Jm Hoang MD Aug 27, 2017 21:01
[2017-08-27] MEDS: DOCUSATE SODIUM 50 MG/SENNA 8.6 MG TAB PO SCH (21:36)
--- NOTE | 2017-08-27 21:50 | RADRPT ---
EXAM DATE/TIME: 08/27/2017 20:45 [facility] COMPARISON: CHEST SINGLE AP, August 27, 2017, 15:10. INDICATIONS : Central line placement. MEDICAL HISTORY : Hypertension. Cardiovascular disease. Pulmonary embolism. SURGICAL HISTORY : None. ENCOUNTER: Subsequent ACUITY: 2 days PAIN SCORE: Non-responsive. LOCATION: Bilateral chest FINDINGS: Endotracheal tube in good position. NG enters stomach. Left central line in superior vena cava. Bilat eral patchy airspace disease and pleural effusions similar to exam from earlier today. CONCLUSION: 1. Placement of left central line with tip in superior vena cava. No pneumothorax. Ra Chapa MD on August 27, 2017 at 21:47 Board Certified Radiologist. This report was verified electronically.
[2017-08-27 22:21] LABS: LACTIC ACID SEPSIS PROTOCOL 2.3 mmol/L (0.4-2.0)
[2017-08-28] VITALS (88 sets, daily range): BP systolic 44–156; BP diastolic 30–82; PULSE 92–142; RESP 11–50; TEMP 98.2–100.1; O2SAT 93–100
--- NOTE | 2017-08-28 00:02 | EKG ---
Date Performed: 08/27/2017 Time Performed: 11:07:58 PTAGE: 66 years EKG: SINUS TACHYCARDIA WITH SHORT TN INTERVAL MARKED RIGHT AXIS DEVIATION RIGHT BUNDLE BRANCH BL OCK ABNORMAL ECG PREVIOUS TRACING : 08/27/2017 08.46 DOCTOR: Ayaz Park Interpretating Date/Time 08/27/2017 23:58:23
--- NOTE | 2017-08-28 00:07 | EKG ---
Date Performed: 08/27/2017 Time Performed: 08:46:52 PTAGE: 66 years EKG: ATRIAL FIBRILLATION WITH RAPID VENTRICULAR RESPONSE ST DEVIATION AND MODERATE T-WAVE ABNORM ALITY, CONSIDER LATERAL ISCHEMIA ABNORMAL ECG PREVIOUS TRACING : 07/16/2017 05.31 DOCTOR: Ayaz Park Interpretating Date/Time 08/28/2017 00:01:06
[2017-08-28 00:15] LABS: BICARBONATE 21.8 MEQ/L (21.0-32.0); CALCIUM 7.1 MG/DL (8.5-10.1); CREATININE 1.8 MG/DL (0.60-1.30)
[2017-08-28] MEDS: INSULIN NovoLIN REGULAR SUPPLEMENTAL SCALE SQ SCH ×6 (00:15→19:47)
[2017-08-28] MEDS: fentaNYL DRIP 250 ML IV PRN (01:51)
[2017-08-28] MEDS: VANCOMYCIN INJ 1,000 MG in SODIUM CHLOR 0.9% 250 ML INJ 250 ML IV SCH ×2 (02:09→15:12)
[2017-08-28] MEDS: RESP: ALBUTEROL 2.5 MG/IPRATROPIUM 0.5 MG NEB (SCH) INH ×4 (03:09→21:12)
[2017-08-28] MEDS: CHLORHEXIDINE GLUCONATE 2 % 1 PACK (2 CLOTHS) TOP SCH (03:43)
[2017-08-28] MEDS: PIPERACIL-TAZO 4.5 GM PREMIX 100 ML IV SCH ×4 (04:56→20:12)
[2017-08-28] MEDS: DEXTROSE 10% INJ 1,000 ML IV SCH (04:57)
[2017-08-28] MEDS: LACTATED RINGER'S 1000 ML INJ 1,000 ML IV SCH ×2 (04:57→20:14)
[2017-08-28 05:11] LABS: ALBUMIN 2.1 GM/DL (3.4-5.0); BICARBONATE 21.5 MEQ/L (21.0-32.0); CALCIUM 7.1 MG/DL (8.5-10.1); CALCIUM-PROTEIN CORRECTED 8.5 MG/DL (8.5-10.1); CREATININE 2.3 MG/DL (0.60-1.30); TOTAL BILIRUBIN ADULT 1.1 MG/DL (0.2-1.0); TOTAL PROTEIN 4.5 GM/DL (6.4-8.2)
[2017-08-28] MEDS: methylPREDNISolone SOD SUCC 40 MG/1 ML VIAL IV PUSH SCH ×3 (05:16→23:14)
[2017-08-28 05:19] LABS: AUTOMATED NEUTROPHIL # 19.2 TH/MM3 (1.8-7.7); BASOPHIL % 0.1 % (0.0-2.0); EOSINOPHIL % 0.1 % (0.0-4.0); HEMATOCRIT 34.4 % (39.0-51.0); HEMOGLOBIN 10.4 GM/DL (13.0-17.0); LYMPH % 3.7 % (9.0-44.0); LYMPHOCYTE # 0.8 TH/MM3 (1.0-4.8); MEAN CELL VOLUME 77.2 FL (80.0-100.0); MEAN CORPUSCULAR HEMOGLOBIN 23.2 PG (27.0-34.0); MEAN CORPUSCULAR HGB CONC 30.1 % (32.0-36.0); MEAN PLATELET VOLUME 9.9 FL (7.0-11.0); MONO % 1.3 % (0.0-8.0); MONOCYTE # 0.3 TH/MM3 (0-0.9); NEUT % 94.8 % (16.0-70.0); PLATELET COUNT 160 TH/MM3 (150-450); RED BLOOD COUNT 4.46 MIL/MM3 (4.50-5.90); RED CELL DISTRIBUTION WIDTH 22.9 % (11.6-17.2); WHITE BLOOD COUNT 20.3 TH/MM3 (4.0-11.0)
[2017-08-28 05:44] LABS: BANDS 30 % (0-6); CORRECTED NUCLEATED RBC 2 /100 WBC (0-0); LYMPHOCYTES 9 % (9-44); METAMYELOCYTES 4 % (0-1); MONOCYTES 2 % (0-8); NEUTROPHIL # MANUAL DIFF 18.1 TH/MM3 (1.8-7.7); NUCLEATED RED BLOOD CELL 2 (0-0); POLYS (SEG NEUTROPHILS) 55 % (16-70)
[2017-08-28 05:45] LABS: OVALOCYTES 1+ (NORMAL)
[2017-08-28 06:20] LABS: CALCIUM-PROTEIN CORRECTED 8.4 MG/DL (8.5-10.1); TOTAL PROTEIN 4.8 GM/DL (6.4-8.2)
--- NOTE | 2017-08-28 07:36 | HHI.CCPN ---
Subjective Remarks/Hospital Course 08/28: overnight, started to become purposeful in upper extremities, and pupils are 3mm and now reactive. remains in shock with shock liver, acute kidney injury , multiorgan failure. LFTs uptrending. Objective Vital Signs Date Time Temp Pulse Resp B/P (MAP) Pulse Ox O2 Delivery O2 Flow Rate FiO2 08/28/17 06:05 101 08/28/17 06:00 20 80/58 (65) 97 100/54 (69) 08/28/17 05:25 70 08/28/17 04:30 100.1 08/27/17 16:32 Ventilator Intake and Output 08/28/17 08/28/17 08/29/17 08:00 16:00 00:00 Intake Total 350 ml Output Total 600 ml Balance -250 ml Result Diagram: 08/28/17 0435 08/28/17 0435 Other Results Microbiology Date/Time Source Procedure Growth Status 08/27/17 12:48 Nasal Aspirate Influenza Types A,B Antigen (SHERRELL) - Final NEGATIVE FOR FLU A AND B ANTIGEN.... Complete Laboratory Tests Test 08/27/17 09:15 08/27/17 18:40 08/27/17 23:15 Blood Gas Puncture Site LT BRACHIAL RT FEMORAL VLAD Blood Gas Patient Temperature 98.6 37.0 37.0 Blood Gas HCO3 22 mmol/L (22-26) 19 mmol/L (22-26) 18 mmol/L (22-26) Blood Gas Base Excess -4.3 mmol/L (-2-2) -9.1 mmol/L (-2-2) -8.6 mmol/L (-2-2) Blood Gas Oxygen Saturation 97 % (90-100) 90 % (90-100) 95 % (90-100) Arterial Blood pH 7.25 (7.380-7.420) 7.09 (7.380-7.420) 7.24 (7.380-7.420) Arterial Blood Partial Pressure CO2 52 mmHg (38-42) 66 mmHg (38-42) 43 mmHg (38-42) Arterial Blood Partial Pressure O2 230 mmHg (61-120) 84 mmHg (61-120) 107 mmHg (61-120) Arterial Blood Oxygen Content 16.4 Vol % (12.0-20.0) 15.1 Vol % (12.0-20.0) 14.8 Vol % (12.0-20.0) Arterial Blood Carboxyhemoglobin 1.3 % (0-4) 1.1 % (0-4) 0.3 % (0-4) Arterial Blood Methemoglobin 1.4 % (0-2) 1.5 % (0-2) 1.1 % (0-2) Blood Gas Hemoglobin 11.7 G/DL (12.0-16.0) 11.8 G/DL (12.0-16.0) 11.0 G/DL (12.0-16.0) Oxygen Delivery Device VENTILATOR VENT PRVC/AC MODE VENTILATOR Blood Gas Ventilator Setting PRVC/VT500/R16/P5 RR20/VT550/PEEP8 PRVC/AC Blood Gas Inspired Oxygen 100 % 100 % 90 % Objective Remarks gen: elderly male, lying in bed, comatose, critically ill heent: pupils 3mm, equal, reactive. mucous membranes moist. nc. at. neck: no jvd. trachea midline. chest: equal chest rise. coarse breath sounds. left subclavian cvl in place, site c/d/i. cv: tachycardic rate, irregularly irregular rhythm. afib. abd: soft, nontender, nondistended. no guarding. extr: distal pulses 2+. no peripheral edema. right radial art line in place, site c/d/i. neuro: RASS -4. GCS 6 (E1V1M4). +cough. - gag. + corneals. purposeful in the upper extremities, withdrawing in the lower extremities. A/P Assessment and Plan Assessment: 66yM who presented in extremis and progressed rapidly to PEA arrest , most likely secondary to septic shock. Possible sources at this point are pneumonic and urinary. Now with what appears to be hypoxic ischemic encephalopathy superimposed on metabolic encephalopathy from septic shock. remains very critically ill in multiorgan failure. continue supportive care. Appreciate palliative care involvement. Plan by systems: Neurologic: Hypoxic-ischemic encephalopathy Metabolic encephalopathy Frequent neuro checks Propofol for goal RASS -2 Avoid long-acting sedatives Respiratory: Acute hypoxic and hypercarbic respiratory failure Vent bundle Head of bed at 30 Nebs No SBT until neurologic status improves Wean FiO2 for goal SPO2 greater than 90% Cardiovascular: Septic shock Status post PEA arrest Atrial fibrillation with rapid ventricular response Continue IV fluids Trend lactates Will avoid rate controlling medicines at present given recent PA arrest and bradycardia Telemetry Renal: Acute kidney injury-worsening Secondary septic shock Continue Grossman today -- Strict I/Os FEN/GI: Acute protein calorie malnutrition -severe Shock liver Hyperkalemia Continue n.p.o. Trend LFTs Heme/ID: Septic shock Leukocytosis Possible urinary tract infection Possible pneumonia Continue vancomycin Continue Zosyn Continue azithromycin Follow-up cultures send urinary legionella and pneumococcal Ag Endocrine: Hypoglycemia Secondary to shock liver Continue D10W Frequent glycemic checks -- SSI Prophylaxis: GI Prophylaxis IV Pepcid DVT Prophylaxis -- SCDs Subcu heparin Lines: 08/27 left subclavian triple-lumen catheter 08/27 right radial arterial line Grossman Dispo: Remain in ICU. Remains critically ill. This patient remains critically ill with one or more organ systems which are or may become a threat to life. I have spent in excess of 42 minutes discontinuously in the care and management of this patient. This time is exclusive of procedures, and includes, but is not limited to, evaluation of the patient, review of the medical record, discussions with family, consultants, nursing staff, or respiratory therapy, and documentation in the medical record. Andrews Gutierrez MD Aug 28, 2017 07:36
[2017-08-28 08:38] LABS: INTERNATIONAL NORMALIZED RATIO 1.4 RATIO; PROTHROMBIN TIME - PATIENT 14.4 SEC (9.8-11.6)
[2017-08-28] MEDS: CHLORHEXIDINE 0.12% (ORAL KIT) 15 ML CUP MT SCH ×2 (09:22→20:00)
[2017-08-28] MEDS: FAMOTIDINE 20 MG/2 ML VIAL IV PUSH SCH (09:23)
[2017-08-28] MEDS: DOCUSATE SODIUM 50 MG/SENNA 8.6 MG TAB PO SCH ×2 (09:23→20:13)
[2017-08-28] MEDS: HEPARIN SODIUM - SQ 10,000 UNITS/ML VIAL SQ SCH ×2 (09:23→20:13)
[2017-08-28] MEDS: NOREPINEPHRINE-DEXTROSE DRIP 250 ML IV PRN ×2 (09:58→16:42)
[2017-08-28] MEDS: AZITHROMYCIN INJ 500 MG in SODIUM CHLOR 0.9% 250 ML INJ 250 ML IV SCH (11:00)
--- NOTE | 2017-08-28 12:30 | HHI.HCSW ---
Sales Order Clerk Visit Advance Directive Attempted to contact michael Membreno-- number in EMR continues to ring to [employer], mailbox full unable to leave a message. Telephone call to sister Claire Quintana-- number in EMR just rings, unable to leave message. Google search produced possible number for michael Parker-- [phone]-- not a working number, another possible number [phone]-- rings busy. Google search unable to locate additional contact for sister Claire. No potential matches found via social media. [employer] requested, results: *POSSIBLE MEHUL? CAROLYNN BATES : [birth year] Age: 61 Gender: Female NO PHONE LISTED AND NO RECORDS TO PURCHASE. USING HER RELATIVES LIST, POSSIBLE PHONE NUMBER FOR THOM BATES~ [phone] FOUND NO CLAIRE MARIANO, [place]~~ TO MANY RECORDS FOR Liliana QUINTANA.~ FOUND A ZACH QUINTANA AGE 81 . Attempted to contact possible relative Thom Bates [phone]-- number rings to [employer] --Unable to narrow additional contact information on google search. Unable to identify match on facebook. At this time seems appropriate to proceed with social work advantage as no family/relatives able to be identified, contacted. . Follow Up Visit Palliative care consulted to assist with goals of care. Goals to be determined pending securing health care proxy decision maker, possible social work advantage. . Delfina Rios, ADMISSIONS RECRUITER Aug 28, 2017 12:30
[2017-08-28] MEDS: PROPOFOL 1000 MG/100 ML INJ 100 ML IV PRN (13:00)
--- NOTE | 2017-08-28 14:31 | ECHRPT ---
Indication: S/P CARDIAC ARREST CONCLUSIONS Normal left ventricular size. ef @ 35=40%, ant-sep wamm appears dispropotionately hypokinetic c/w remainder of lv Wall thickness is normal. The left atrial size is [id number] dilated. The right atrial size is mildly dilated. No atrial level shunt is demonstrated by color flow Doppler interrogation. Trace mitral valve regurgitation. Aortic valve sclerosis is present. Trace aortic valve regurgitation. There is mild tricuspid valve regurgitation. The estimated pulmonary arterial pressure is 53.8 mmHg. A right sided pleural effusion is present. BP: 80 / 58 HR: 101 Rhythm: Atrial fibrillation MEASUREMENTS (Male / Female) Normal Values Technical Quality:Fair 2D ECHO LV Diastolic Diameter PLAX 4.2 cm 4.2 - 5.9 / 3.9 - 5.3 cm LV Systolic Diameter PLAX 3.0 cm IVS Diastolic Thickness 1.0 cm 0.6 - 1.0 / 0.6 - 0.9 cm LVPW Diastolic Thickness 1.0 cm 0.6 - 1.0 / 0.6 - 0.9 cm LV Relative Wall Thickness 0.5 RV Internal Dim ED PLAX 3.0 cm LVOT Diameter 2.1 cm Aortic Root Diameter 3.4 cm LA Systolic Diameter LX 3.8 cm 3.0 - 4.0 / 2.7 - 3.8 cm M-MODE AV Cusp Separation MM 1.8 cm DOPPLER AV Peak Velocity 141.5 cm/s AV Peak Gradient 8.0 mmHg AV Mean Gradient 5.5 mmHg AV Velocity Time Integral 20.4 cm LVOT Peak Velocity 63.1 cm/s LVOT Peak Gradient 1.6 mmHg LVOT Velocity Time Integral 9.2 cm AV Area Cont Eq vti 1.6 cm AV Area Cont Eq pk 1.5 cm Mitral E Point Velocity 88.5 cm/s LV E' Lateral Velocity 7.8 cm/s Mitral E to LV E' Lateral Ratio 11.4 LV E' Septal Velocity 5.6 cm/s Mitral E to LV E' Septal Ratio 15.8 TR Peak Velocity 331.0 cm/s TR Peak Gradient 43.8 mmHg Right Atrial Pressure 10.0 mmHg Pulmonary Artery Systolic Pressu 53.8 mmHg Right Ventricular Systolic Press 53.8 mmHg PV Peak Velocity 72.6 cm/s PV Peak Gradient 2.1 mmHg FINDINGS LEFT VENTRICLE Normal left ventricular size. Wall thickness is normal. The left ventricular systolic function is normal with an estimated ejection fraction in the range of 60-65%. RIGHT VENTRICLE Normal right ventricular size and systolic function. LEFT ATRIUM The left atrial size is vvwg-bx-aubzikihoo dilated. RIGHT ATRIUM The right atrial size is mildly dilated. ATRIAL SEPTUM No atrial level shunt is demonstrated by color flow Doppler interrogation. AORTA The aortic root and proximal ascending aorta are not well visualized. MITRAL VALVE Trace mitral valve regurgitation. AORTIC VALVE Aortic valve sclerosis is present. Trace aortic valve regurgitation. TRICUSPID VALVE There is mild tricuspid valve regurgitation. The estimated pulmonary arterial pressure is 53.8 mmHg. PULMONARY VALVE No pulmonary valve regurgitation or stenosis. PERICARDIUM No pericardial effusion. A right sided pleural effusion is present. Connor Bearden MD, FACC, [facility] (Electronically Signed) Final Date:28 August 2017 14:30
[2017-08-28] MEDS: MUPIROCIN 2% OINT 1 APPLIC/GM SYR NASAL SCH (20:13)
[2017-08-28] MEDS: FAMOTIDINE 20 MG TAB PO SCH (20:13)
[2017-08-29] VITALS (42 sets, daily range): BP systolic 84–134; BP diastolic 50–72; PULSE 80–130; RESP 5–22; TEMP 98.3–99.1; O2SAT 90–100
[2017-08-29] MEDS: NOREPINEPHRINE-DEXTROSE DRIP 250 ML IV PRN (00:40)
[2017-08-29] MEDS: LACTATED RINGER'S 1000 ML INJ 1,000 ML IV SCH (00:49)
[2017-08-29] MEDS: INSULIN NovoLIN REGULAR SUPPLEMENTAL SCALE SQ SCH ×7 (00:52→23:35)
[2017-08-29] MEDS: VANCOMYCIN INJ 1,000 MG in SODIUM CHLOR 0.9% 250 ML INJ 250 ML IV SCH ×2 (02:58→14:54)
[2017-08-29] MEDS: DEXTROSE 10% INJ 1,000 ML IV SCH (02:58)
[2017-08-29] MEDS: RESP: ALBUTEROL 2.5 MG/IPRATROPIUM 0.5 MG NEB (SCH) INH ×4 (03:23→22:02)
[2017-08-29] MEDS: CHLORHEXIDINE GLUCONATE 2 % 1 PACK (2 CLOTHS) TOP SCH (04:00)
[2017-08-29] MEDS: PIPERACIL-TAZO 4.5 GM PREMIX 100 ML IV SCH ×2 (04:16→09:00)
[2017-08-29 04:40] LABS: HEMOGLOBIN 9.1 GM/DL (13.0-17.0); MEAN CELL VOLUME 75.2 FL (80.0-100.0); MEAN CORPUSCULAR HEMOGLOBIN 24.5 PG (27.0-34.0); MEAN CORPUSCULAR HGB CONC 32.6 % (32.0-36.0); PLATELET COUNT 112 TH/MM3 (150-450); RED BLOOD COUNT 3.73 MIL/MM3 (4.50-5.90)
[2017-08-29 05:46] LABS: ALBUMIN 1.7 GM/DL (3.4-5.0); BICARBONATE 17.2 MEQ/L (21.0-32.0); CALCIUM 6.9 MG/DL (8.5-10.1); CALCIUM-PROTEIN CORRECTED 8.4 MG/DL (8.5-10.1); CREATININE 3.1 MG/DL (0.60-1.30); TOTAL BILIRUBIN ADULT 1.2 MG/DL (0.2-1.0); TOTAL PROTEIN 4.4 GM/DL (6.4-8.2)
[2017-08-29] MEDS: methylPREDNISolone SOD SUCC 40 MG/1 ML VIAL IV PUSH SCH ×3 (05:52→23:22)
[2017-08-29 06:16] LABS: INTERNATIONAL NORMALIZED RATIO 1.3 RATIO; PROTHROMBIN TIME - PATIENT 12.7 SEC (9.8-11.6)
[2017-08-29] MEDS ORDERED: ALBUMIN 5% INJ 500 ML IV ONE (06:45)
--- NOTE | 2017-08-29 07:02 | HHI.CCPN ---
Subjective Remarks/Hospital Course 08/28: overnight, started to become purposeful in upper extremities, and pupils are 3mm and now reactive. remains in shock with shock liver, acute kidney injury , multiorgan failure. LFTs uptrending. 08/29: improvement in mental status. now following commands. discussion with sister: patient drinks heavily: 2-3 6-packs/day. liver enzymes still elevated, remains oliguric with Cr > 3 now and rising. albumin continues to fall which is likely combination of very poor nutritional status and poor liver synthetic function. blood sugar slightly improved. overall still in multiorgan failure. family appears to have poor insight into patient's condition: sister herself is going through rehab for a recent severe illness. now also starting tremors which may be early alcohol withdraw given new clinical history to suggest large etoh intake. Objective Vital Signs Date Time Temp Pulse Resp B/P (MAP) Pulse Ox O2 Delivery O2 Flow Rate FiO2 08/29/17 06:08 96 08/29/17 06:00 20 110/60 (77) 98 08/29/17 04:15 99.1 08/29/17 04:00 40 08/27/17 16:32 Ventilator Intake and Output 08/29/17 08/29/17 08/30/17 08:00 16:00 00:00 Intake Total 999 ml Output Total 400 ml Balance 599 ml Result Diagram: 08/29/17 0427 08/29/17 0427 Other Results Microbiology Date/Time Source Procedure Growth Status 08/27/17 12:48 Nasal Aspirate Influenza Types A,B Antigen (SHERRELL) - Final NEGATIVE FOR FLU A AND B ANTIGEN.... Complete 08/28/17 09:30 Urine Catheterized Urine Legionella Antigen - Final PRESUMPTIVE NEGATIVE FOR LEGIONELLA P... Complete 08/28/17 09:30 Urine Catheterized Urine Streptococcus pneumoniae Antigen (M - Final PRESUMPTIVE NEGATIVE FOR STREPTOCOCCU... Complete Laboratory Tests Test 08/28/17 07:30 Blood Gas Puncture Site ART LINE Blood Gas Patient Temperature 37.0 Blood Gas HCO3 16 mmol/L (22-26) Blood Gas Base Excess -9.4 mmol/L (-2-2) Blood Gas Oxygen Saturation 96 % (90-100) Arterial Blood pH 7.27 (7.380-7.420) Arterial Blood Partial Pressure CO2 37 mmHg (38-42) Arterial Blood Partial Pressure O2 156 mmHg (61-120) Arterial Blood Oxygen Content 12.6 Vol % (12.0-20.0) Arterial Blood Carboxyhemoglobin 1.2 % (0-4) Arterial Blood Methemoglobin 1.5 % (0-2) Blood Gas Hemoglobin 9.1 G/DL (12.0-16.0) Oxygen Delivery Device VENT PRVC/AC MODE Blood Gas Ventilator Setting VT550/RR20/PEEP 8 Blood Gas Inspired Oxygen 70 % Objective Remarks gen: elderly male, lying in bed, intubated, sedated heent: pupils 3mm, equal, reactive. mucous membranes moist. nc. at. neck: no jvd. trachea midline. chest: equal chest rise. coarse breath sounds. left subclavian cvl in place, site c/d/i. cv: tachycardic rate, irregularly irregular rhythm. afib. abd: soft, nontender, nondistended. no guarding. extr: distal pulses 2+. no peripheral edema. right radial art line in place, site c/d/i. neuro: RASS -2. GCS 10 (E3V1M6). +cough. + gag. + corneals. follows commands. A/P Assessment and Plan Assessment: 66yM who presented in extremis and progressed rapidly to PEA arrest , most likely secondary to septic shock. Possible sources at this point are pneumonic and urinary. Remains in septic shock with multiorgan failure. by pulse contour analysis, cardiac output is adequate. remains on vasopressors. multiple organs still involved, including worsening renal failure and persistent shock liver. Chronic etoh history will complicate clinical course. remains very critically ill, off pathway. Again, prognosis is poor and I appreciate palliative care input. Plan by systems: Neurologic: Hypoxic-ischemic encephalopathy Metabolic encephalopathy - improving Alcohol Dependence Alcohol withdraw syndrome Frequent neuro checks Propofol for goal RASS -2 start iv thiamine, mvi valium 10mg per tube q8h would be a good candidate for clonidine, but shock prevents this currently Respiratory: Acute hypoxic and hypercarbic respiratory failure - persistent. Vent bundle Head of bed at 30 Nebs remains with severe metabolic acidosis. unable to start SBT due to acidosis. Wean FiO2 for goal SPO2 greater than 90% Cardiovascular: Septic shock - persistent. Status post PEA arrest Atrial fibrillation with rapid ventricular response d/c LR. Will avoid rate controlling medicines at present given recent PA arrest and bradycardia Telemetry continue levophed for goal map > 65 mmHg. Renal: Acute kidney injury-worsening Secondary septic shock Continue Grossman today order renal ultrasound to rule out obstructive uropathy. -- Strict I/Os FEN/GI: Acute protein calorie malnutrition -severe Shock liver Hyperkalemia start tube feeds Trend LFTs nutrition consult Heme/ID: Septic shock Leukocytosis Possible urinary tract infection Possible pneumonia Continue vancomycin Continue Zosyn Continue azithromycin Follow-up cultures urinary legionella and pneumococcal Ag: negative. Endocrine: Hypoglycemia- improving. Secondary to shock liver Continue D10W -- SSI Prophylaxis: GI Prophylaxis IV Pepcid DVT Prophylaxis -- SCDs needs full anticoagulation for afib, but worsening renal function is concerning. will start heparin drip and titrate as needed. can transition back to Xarelto if renal function improves. Lines: 08/27 left subclavian triple-lumen catheter 08/27 right radial arterial line Grossman Dispo: Remain in ICU. Remains critically ill. This patient remains critically ill with one or more organ systems which are or may become a threat to life. I have spent in excess of 49 minutes discontinuously in the care and management of this patient. This time is exclusive of procedures, and includes, but is not limited to, evaluation of the patient, review of the medical record, discussions with family, consultants, nursing staff, or respiratory therapy, and documentation in the medical record. Andrews Gutierrez MD Aug 29, 2017 07:02
[2017-08-29] MEDS: CHLORHEXIDINE 0.12% (ORAL KIT) 15 ML CUP MT SCH ×2 (08:00→20:54)
[2017-08-29] MEDS ORDERED: MULTIVITAMIN INJ 10 ML, THIAMINE INJ 100 MG, FOLIC ACID INJ 1 MG in SODIUM CHLOR 0.45% ... IV ONE (08:00)
[2017-08-29] MEDS: DIAZEPAM 10 MG TAB PO SCH ×3 (08:30→20:55)
[2017-08-29] MEDS: MUPIROCIN 2% OINT 1 APPLIC/GM SYR NASAL SCH ×2 (09:00→20:55)
[2017-08-29] MEDS: FAMOTIDINE 20 MG TAB PO SCH ×2 (09:00→20:55)
[2017-08-29] MEDS: DOCUSATE SODIUM 50 MG/SENNA 8.6 MG TAB PO SCH ×2 (09:00→20:55)
--- NOTE | 2017-08-29 09:51 | RADRPT ---
EXAM DATE/TIME: 08/29/2017 08:50 [facility] COMPARISON: CHEST SINGLE AP, August 27, 2017, 20:45. CT ABDOMEN & PELVIS W CONTRAST, September 09, 2016, 5:03. INDICATIONS : Increased BUN/Creatinine. MEDICAL HISTORY : Deep venous thrombosis. Hypertension. Chronic obstructive pulmonary disease. Hearing loss. Cardiac di sorders. Irregular heartbeat. Pulmonary embolism. Dyspnea. GERD. Renal disease. Diabetes. Depression. Tobacco use. Anxiety. Anticoagulant therapy. SURGICAL HISTORY : Tonsillectomy. Appendectomy. Right ankle surgery. ENCOUNTER: Subsequent ACUITY: 1 day PAIN SCORE: Nonresponsive. LOCATION: Bilateral flank MEASUREMENTS: RIGHT KIDNEY: 12.1 x 4.5 x 4.8 cm LEFT KIDNEY: 10.5 x 4.7 x 4.4 cm FINDINGS: RIGHT KIDNEY: There is increased echogenicity of the renal parenchyma. There is no evidence of hydronephrosis. Ther e is some mild perinephric edema. LEFT KIDNEY: There is increased echogenicity of the renal parenchyma. There is no evidence of hydronephrosis. Ther e is some mild perinephric edema. There appears to be a left-sided pleural effusion. BLADDER: Grossman catheter in a decompressed urinary bladder. CONCLUSION: 1. No evidence of hydronephrosis. 2. Increased echogenicity of the renal parenchyma bilaterally suggestive of chronic medical renal dis ease. Jn Larios MD on August 29, 2017 at 9:47 Board Certified Radiologist. This report was verified electronically.
[2017-08-29] MEDS: AZITHROMYCIN INJ 500 MG in SODIUM CHLOR 0.9% 250 ML INJ 250 ML IV SCH (10:00)
[2017-08-29] MEDS: PROPOFOL 1000 MG/100 ML INJ 100 ML IV PRN (10:12)
--- NOTE | 2017-08-29 12:21 | HHI.HCPN ---
Spoke with nurse to obtain additional contact information for sister, not currently updated in EMR. Sent request for contact information to be updated in EMR. Spoke with sister. She states she will not be available to meet with palliative care today as she is about to leave the hospital. She states she will be back tomorrow, 08/30 and will be staying most of the day. Palliative care to meet with her tomorrow. Palliative care will continue to follow throughout hospitalization. Delfina Rios, CHIEF DISPATCHER SERVICE Aug 29, 2017 12:21
[2017-08-29] MEDS: PIPERACIL-TAZO 2.25 GM PREMIX 50 ML IV SCH ×2 (15:00→20:55)
--- NOTE | 2017-08-29 15:46 | HHI.HCPN ---
Reason for visit a. To assist with evaluation and management of symptoms including: dyspnea ; encephalopathy, pain, anxiety b. To assist medical decision maker(s) with: better understanding of current medical conditions; weighing benefits/burdens of medical treatment options; making medical treatment decisions. . Subjective/Interval History Patient seen to follow-up on symptom management and goals of care. Sister's telephone number was updated today and she was contacted by the palliative care social media content manager, Delfina Rios. She is not available today for a [id number] meeting but will be at the bedside all day tomorrow and will be happy to receive the palliative care update either by phone or in person. Clinical data: * Laboratory: PT 12.7, INR 1.3, APTT 40.1 (on heparin), WBC 18.0, hemoglobin 9.1 , hematocrit 28.0, platelets 112, sodium 139, potassium 4.6, chloride 110, carbon dioxide 17.2, BUN 50 (37), creatinine 3.10 (2.30) AST 847 (1496), ALT 2260 Ahrendt disease 2117), total protein 4.4, albumin 1.7, ABG pH 7.29, PCO2 35 , PO2 113, HCO3 16, base excess -9.2, saturation 95%. * Microbiology: Blood culture shows gram-positive cocci, final and sensitivity pending. * Radiology: Ultrasound of the kidneys show increased echogenicity of the renal parenchyma with no evidence of hydronephrosis and mild perinephric edema bilaterally. Left-sided pleural effusion is noted. Patient is seen in room 8407, ICU, intubated, sedated. When on sedation vacation this morning he was showing some improvement. Has been seen with some purposeful movement in the upper extremities. Following commands occasionally when sedation is off. Remains critically ill in multisystem organ failure, respiratory failure, shock liver and acute kidney injury. . Family/friend interactions Spoke with [facility] where patient had resided several times. He was there for short-term rehab and then went home but returned to the SNF 2017 with multiple bruises noted per the staff. There is no incident report of patient falls since that time. His sister had reported that he was a heavy drinker of 2-3 6 packs per day however has been in the SNF for the last 2 weeks where he has not had any alcohol. They report he does have a chronic anxiety disorder and takes a benzodiazepine twice daily and as needed. He was previously ambulatory but noncompliant with using his walker. Spoke with his sister Carmen at length regarding past social, psychosocial and medical history. She is in contact with the patient's daughter, Elena, who lives in [place] as well as the patient's estranged son, who changed his name to Oleksandr Carbajal, but still contacts his aunt. Carmen states that she has spoken with both children regarding the patient's hospitalization and critical condition. We will continue this conversation as clinical course develops. She wishes to continue his current CODE STATUS pending that discussion with the children. . Advance Directives Living Will: Copy in medical record Health Care Surrogate: Copy in medical record Durable Power of Distance Education Director: Copy in medical record (DURABLE POWER OF SAFETY ADMIN ASSISTANT for healthcare) Advance Directive Specifics Date completed: November 14, 2010 . Health Care Surrogate(s): He has named his sister Felecia Fowler as his primary healthcare surrogate and his other sister Susan Saravia as his alternate . Documented care wishes: Living will on chart. . Objective Vital Signs Date Time Temp Pulse Resp B/P (MAP) Pulse Ox O2 Delivery O2 Flow Rate FiO2 08/29/17 11:05 99 35 08/29/17 07:24 99 40 08/29/17 06:08 96 08/29/17 06:00 90 20 110/60 (77) 98 08/29/17 05:30 90 20 112/60 (77) 99 08/29/17 05:00 86 20 108/58 (75) 99 08/29/17 04:45 94 19 104/56 (72) 99 08/29/17 04:16 84 111/55 08/29/17 04:15 99.1 88 19 134/72 (92) 100 08/29/17 04:00 108 08/29/17 04:00 40 08/29/17 04:00 92 9 108/58 (75) 100 08/29/17 03:45 92 19 122/66 (84) 100 08/29/17 03:30 92 18 120/66 (84) 99 08/29/17 03:25 98 40 08/29/17 03:15 96 18 120/66 (84) 90 08/29/17 03:00 94 20 126/66 (86) 98 08/29/17 02:45 90 19 126/66 (86) 97 08/29/17 02:30 96 22 110/60 (77) 98 08/29/17 02:00 98 19 128/66 (86) 99 08/29/17 02:00 80 08/29/17 01:30 96 19 114/60 (78) 99 08/29/17 01:00 98.3 94 15 116/60 (78) 99 08/29/17 00:40 95 109/64 08/29/17 00:30 88 20 118/62 (80) 99 08/29/17 00:00 94 19 110/58 (75) 98 08/29/17 00:00 98 08/29/17 00:00 40 08/28/17 23:45 98 40 08/28/17 23:30 94 19 104/56 (72) 98 08/28/17 23:15 96 20 110/56 (74) 97 08/28/17 23:00 94 19 138/70 (92) 97 08/28/17 22:45 94 19 146/74 (98) 99 08/28/17 22:30 94 20 152/74 (100) 99 08/28/17 22:15 92 20 142/74 (96) 99 08/28/17 22:00 92 08/28/17 22:00 94 19 142/72 (95) 98 08/28/17 21:55 96 20 140/72 (94) 99 08/28/17 21:55 96 20 140/72 (94) 99 08/28/17 20:15 116 19 108/58 (75) 96 08/28/17 20:00 116 08/28/17 20:00 108 22 110/58 (75) 97 08/28/17 20:00 40 08/28/17 20:00 96 40 08/28/17 19:48 108 142/74 08/28/17 19:45 102 20 120/62 (81) 97 08/28/17 19:30 102 19 134/66 (88) 97 08/28/17 19:15 104 18 124/62 (82) 99 08/28/17 19:00 102 19 134/64 (87) 97 08/28/17 18:00 106 20 122/58 (79) 96 08/28/17 18:00 106 3/27/18 17:45 114 26 118/62 (80) 93 08/28/17 17:30 110 20 126/62 (83) 97 08/28/17 17:15 108 19 124/60 (81) 96 08/28/17 17:05 96 40 08/28/17 17:00 106 20 132/64 (86) 95 08/28/17 17:00 106 20 132/64 (86) 95 08/28/17 16:45 108 11 64/36 (45) 99 08/28/17 16:42 106 61/36 08/28/17 16:30 104 20 130/64 (86) 98 08/28/17 16:15 106 19 136/66 (89) 98 08/28/17 16:00 40 08/28/17 16:00 114 08/28/17 16:00 99.3 114 15 128/64 (85) 98 08/28/17 15:45 108 19 124/64 (84) 96 08/28/17 15:30 110 20 130/64 (86) 97 08/28/17 15:15 112 20 128/64 (85) 97 08/28/17 15:00 108 19 118/58 (78) 96 08/28/17 14:45 112 20 114/56 (75) 96 Intake & Output 08/29/17 08/29/17 07:00 19:00 Intake Total 1099 ml Output Total 400 ml Balance 699 ml Intake IV Total 1099 ml Output Urine Total 400 ml Physical Exam CONSTITUTIONAL/GENERAL: This is an adequately nourished patient intubated, sedated, in no acute distress. TUBES/LINES/DRAINS: Orotracheal tube; orogastric tube; Grossman catheter; soft wrist restraints; left subclavian CVL; peripheral IVs SKIN: No jaundice, rashes. There is a large bruise on the inner right thigh. Other smaller ecchymoses on the extremities. . No wounds seen anteriorly. Skin temperature appropriate. Not diaphoretic. HEAD: Atraumatic. Normocephalic. EYES: Pupils equal and round and reactive, 3 mm. Unable to assess extraocular movements. No scleral icterus. No injection or drainage. Fundi not examined. ENT: Unable to assess hearing.. Nose without bleeding or purulent drainage. CARDIOVASCULAR: Mildly tachycardic, irregular rhythm without murmurs, gallops, or rubs. No JVD. Peripheral pulses symmetric. RESPIRATORY/CHEST: Lungs diminished, coarse breath sounds, rare wheeze. On mechanical vent. GASTROINTESTINAL: Abdomen soft, distended. No hepato-splenomegaly, or palpable masses. No guarding. Bowel sounds hypoactive. GENITOURINARY: Without palpable bladder distension. Grossman catheter in place. MUSCULOSKELETAL: Extremities without clubbing, cyanosis, or edema. Slight mottling of the feet is noted. NEUROLOGICAL: Unresponsive. No spontaneous movements noted. Withdraws to noxious stimuli on sedation vacation. PSYCHIATRIC: Unable to assess due to level of responsiveness. . Diagnostic Tests Laboratory Laboratory Tests Test 08/27/17 08:55 08/27/17 09:10 08/27/17 09:15 08/27/17 09:20 White Blood Count 23.1 TH/MM3 (4.0-11.0) Red Blood Count 4.61 MIL/MM3 (4.50-5.90) Hemoglobin 10.8 GM/DL (13.0-17.0) Hematocrit 35.7 % (39.0-51.0) Mean Corpuscular Volume 77.5 FL (80.0-100.0) Mean Corpuscular Hemoglobin 23.4 PG (27.0-34.0) Mean Corpuscular Hemoglobin Concent 30.2 % (32.0-36.0) Red Cell Distribution Width 24.2 % (11.6-17.2) Platelet Count 232 TH/MM3 (150-450) Mean Platelet Volume 9.3 FL (7.0-11.0) Neutrophils (%) (Auto) 83.8 % (16.0-70.0) Lymphocytes (%) (Auto) 13.0 % (9.0-44.0) Monocytes (%) (Auto) 2.9 % (0.0-8.0) Eosinophils (%) (Auto) 0.2 % (0.0-4.0) Basophils (%) (Auto) 0.1 % (0.0-2.0) Neutrophils # (Auto) 19.4 TH/MM3 (1.8-7.7) Lymphocytes # (Auto) 3.0 TH/MM3 (1.0-4.8) Monocytes # (Auto) 0.7 TH/MM3 (0-0.9) Eosinophils # (Auto) 0.1 TH/MM3 (0-0.4) Basophils # (Auto) 0.0 TH/MM3 (0-0.2) CBC Comment AUTO DIFF Differential Total Cells Counted 100 Neutrophils % (Manual) 73 % (16-70) Band Neutrophils % 10 % (0-6) Lymphocytes % 10 % (9-44) Monocytes % 5 % (0-8) Eosinophils % 1 % (0-4) Neutrophils # (Manual) 19.4 TH/MM3 (1.8-7.7) Myelocytes 1 % (0-0) Differential Comment FINAL DIFF MANUAL Platelet Estimate NORMAL (NORMAL) Platelet Morphology Comment NORMAL (NORMAL) Tear Drop Cells 1+ (NORMAL) Ovalocytes 1+ (NORMAL) Blood Urea Nitrogen 27 MG/DL (7-18) Creatinine 1.18 MG/DL (0.60-1.30) Random Glucose 182 MG/DL (74-106) Total Protein 6.1 GM/DL (6.4-8.2) Albumin 3.0 GM/DL (3.4-5.0) Calcium Level 7.6 MG/DL (8.5-10.1) Alkaline Phosphatase 75 U/L (45-117) Aspartate Amino Transf (AST/SGOT) 60 U/L (15-37) Alanine Aminotransferase (ALT/SGPT) 44 U/L (12-78) Total Bilirubin 0.6 MG/DL (0.2-1.0) Sodium Level 141 MEQ/L (136-145) Potassium Level 5.3 MEQ/L (3.5-5.1) Chloride Level 108 MEQ/L (98-107) Carbon Dioxide Level 23.0 MEQ/L (21.0-32.0) Anion Gap 10 MEQ/L (5-15) Estimat Glomerular Filtration Rate 61 ML/MIN (>89) Troponin I 0.05 NG/ML (0.02-0.05) B-Type Natriuretic Peptide 534 PG/ML (0-100) Lactic Acid Level 3.3 mmol/L (0.4-2.0) Blood Gas Puncture Site LT BRACHIAL Blood Gas Patient Temperature 98.6 Blood Gas HCO3 22 mmol/L (22-26) Blood Gas Base Excess -4.3 mmol/L (-2-2) Blood Gas Oxygen Saturation 97 % (90-100) Arterial Blood pH 7.25 (7.380-7.420) Arterial Blood Partial Pressure CO2 52 mmHg (38-42) Arterial Blood Partial Pressure O2 230 mmHg (61-120) Arterial Blood Oxygen Content 16.4 Vol % (12.0-20.0) Arterial Blood Carboxyhemoglobin 1.3 % (0-4) Arterial Blood Methemoglobin 1.4 % (0-2) Blood Gas Hemoglobin 11.7 G/DL (12.0-16.0) Oxygen Delivery Device VENTILATOR Blood Gas Ventilator Setting PRVC/VT500/R16/P5 Blood Gas Inspired Oxygen 100 % Urine Color YELLOW (YELLW/STRAW) Urine Turbidity HAZY (CLEAR) Urine pH 6.5 (5.0-8.5) Urine Specific [place] 1.016 (1.002-1.035) Urine Protein 100 mg/dL (NEG-TRACE) Urine Glucose (UA) NEG mg/dL (NEG) Urine Ketones NEG mg/dL (NEG) Urine Occult Blood TRACE (NEG) Urine Nitrite NEG (NEG) Urine Bilirubin NEG (NEG) Urine Urobilinogen LESS THAN 2.0 MG/DL (LESS Urine Leukocyte Esterase NEG (NEG) Urine RBC 2 /hpf (0-3) Urine WBC 15 /hpf (0-5) Urine Mucus FEW /lpf (OCC) Microscopic Urinalysis Comment CATH-CULTURE IND Test 08/27/17 11:32 08/27/17 12:48 08/27/17 16:05 08/27/17 18:40 Lactic Acid Level 4.7 mmol/L (0.4-2.0) White Blood Count 29.8 TH/MM3 (4.0-11.0) Red Blood Count 5.13 MIL/MM3 (4.50-5.90) Hemoglobin 11.9 GM/DL (13.0-17.0) Hematocrit 40.3 % (39.0-51.0) Mean Corpuscular Volume 78.7 FL (80.0-100.0) Mean Corpuscular Hemoglobin 23.2 PG (27.0-34.0) Mean Corpuscular Hemoglobin Concent 29.4 % (32.0-36.0) Red Cell Distribution Width 24.2 % (11.6-17.2) Platelet Count 218 TH/MM3 (150-450) Mean Platelet Volume 8.9 FL (7.0-11.0) Neutrophils (%) (Auto) 93.6 % (16.0-70.0) Lymphocytes (%) (Auto) 4.6 % (9.0-44.0) Monocytes (%) (Auto) 1.2 % (0.0-8.0) Eosinophils (%) (Auto) 0.1 % (0.0-4.0) Basophils (%) (Auto) 0.5 % (0.0-2.0) Neutrophils # (Auto) 27.9 TH/MM3 (1.8-7.7) Lymphocytes # (Auto) 1.4 TH/MM3 (1.0-4.8) Monocytes # (Auto) 0.4 TH/MM3 (0-0.9) Eosinophils # (Auto) 0.0 TH/MM3 (0-0.4) Basophils # (Auto) 0.1 TH/MM3 (0-0.2) CBC Comment AUTO DIFF Differential Total Cells Counted 100 Neutrophils % (Manual) 78 % (16-70) Band Neutrophils % 15 % (0-6) Lymphocytes % 6 % (9-44) Monocytes % 1 % (0-8) Neutrophils # (Manual) 27.7 TH/MM3 (1.8-7.7) Nucleated Red Blood Cells 1 /100 WBC (0-0) Differential Comment FINAL DIFF MANUAL Platelet Estimate NORMAL (NORMAL) Platelet Morphology Comment NORMAL (NORMAL) Polychromasia 2.2 % (0.0-1.9) Ovalocytes 1+ (NORMAL) Blood Urea Nitrogen 25 MG/DL (7-18) 28 MG/DL (7-18) Creatinine 1.19 MG/DL (0.60-1.30) 1.46 MG/DL (0.60-1.30) Random Glucose 14 MG/DL (74-106) 31 MG/DL (74-106) Total Protein 5.2 GM/DL (6.4-8.2) 5.0 GM/DL (6.4-8.2) Albumin 2.4 GM/DL (3.4-5.0) 2.3 GM/DL (3.4-5.0) Calcium Level 7.6 MG/DL (8.5-10.1) 7.7 MG/DL (8.5-10.1) Alkaline Phosphatase 104 U/L (45-117) 106 U/L (45-117) Aspartate Amino Transf (AST/SGOT) 1121 U/L (15-37) 1631 U/L (15-37) Alanine Aminotransferase (ALT/SGPT) 1141 U/L (12-78) 1940 U/L (12-78) Total Bilirubin 1.4 MG/DL (0.2-1.0) 1.3 MG/DL (0.2-1.0) Sodium Level 147 MEQ/L (136-145) 146 MEQ/L (136-145) Potassium Level 5.5 MEQ/L (3.5-5.1) 4.8 MEQ/L (3.5-5.1) Chloride Level 116 MEQ/L (98-107) 116 MEQ/L (98-107) Carbon Dioxide Level 21.5 MEQ/L (21.0-32.0) 20.9 MEQ/L (21.0-32.0) Anion Gap 10 MEQ/L (5-15) 9 MEQ/L (5-15) Estimat Glomerular Filtration Rate 61 ML/MIN (>89) 48 ML/MIN (>89) Prothrombin Time 12.4 SEC (9.8-11.6) Prothromb Time International Ratio 1.2 RATIO Hepatitis A IgM Antibody NONREACTIVE (NONREACTIVE) Hepatitis B Surface Antigen NONREACTIVE (NONREACTIVE) Hepatitis B Core IgM Antibody NONREACTIVE (NONREACTIVE) Hepatitis C IgG Antibody NONREACTIVE (NONREACTIVE) Blood Gas Puncture Site RT FEMORAL Blood Gas Patient Temperature 37.0 Blood Gas HCO3 19 mmol/L (22-26) Blood Gas Base Excess -9.1 mmol/L (-2-2) Blood Gas Oxygen Saturation 90 % (90-100) Arterial Blood pH 7.09 (7.380-7.420) Arterial Blood Partial Pressure CO2 66 mmHg (38-42) Arterial Blood Partial Pressure O2 84 mmHg (61-120) Arterial Blood Oxygen Content 15.1 Vol % (12.0-20.0) Arterial Blood Carboxyhemoglobin 1.1 % (0-4) Arterial Blood Methemoglobin 1.5 % (0-2) Blood Gas Hemoglobin 11.8 G/DL (12.0-16.0) Oxygen Delivery Device VENT PRVC/AC MODE Blood Gas Ventilator Setting RR20/VT550/PEEP8 Blood Gas Inspired Oxygen 100 % Test 08/27/17 21:50 08/27/17 23:05 08/27/17 23:15 08/28/17 00:01 Lactic Acid Level 2.3 mmol/L (0.4-2.0) 2.3 mmol/L (0.4-2.0) Nasal Screen MRSA (PCR) MRSA DETECTED (NOT DETECT) Blood Urea Nitrogen 34 MG/DL (7-18) Creatinine 1.80 MG/DL (0.60-1.30) Random Glucose 111 MG/DL (74-106) Total Protein 4.8 GM/DL (6.4-8.2) Calcium Level 7.1 MG/DL (8.5-10.1) Sodium Level 144 MEQ/L (136-145) Potassium Level 4.8 MEQ/L (3.5-5.1) Chloride Level 114 MEQ/L (98-107) Carbon Dioxide Level 21.8 MEQ/L (21.0-32.0) Anion Gap 8 MEQ/L (5-15) Estimat Glomerular Filtration Rate 38 ML/MIN (>89) Protein Corrected Calcium 8.4 MG/DL (8.5-10.1) Blood Gas Puncture Site VLAD Blood Gas Patient Temperature 37.0 Blood Gas HCO3 18 mmol/L (22-26) Blood Gas Base Excess -8.6 mmol/L (-2-2) Blood Gas Oxygen Saturation 95 % (90-100) Arterial Blood pH 7.24 (7.380-7.420) Arterial Blood Partial Pressure CO2 43 mmHg (38-42) Arterial Blood Partial Pressure O2 107 mmHg (61-120) Arterial Blood Oxygen Content 14.8 Vol % (12.0-20.0) Arterial Blood Carboxyhemoglobin 0.3 % (0-4) Arterial Blood Methemoglobin 1.1 % (0-2) Blood Gas Hemoglobin 11.0 G/DL (12.0-16.0) Oxygen Delivery Device VENTILATOR Blood Gas Ventilator Setting [facility]/AC Blood Gas Inspired Oxygen 90 % Test 08/28/17 04:35 08/28/17 07:30 08/28/17 08:20 08/29/17 04:27 White Blood Count 20.3 TH/MM3 (4.0-11.0) 18.0 TH/MM3 (4.0-11.0) Red Blood Count 4.46 MIL/MM3 (4.50-5.90) 3.73 MIL/MM3 (4.50-5.90) Hemoglobin 10.4 GM/DL (13.0-17.0) 9.1 GM/DL (13.0-17.0) Hematocrit 34.4 % (39.0-51.0) 28.0 % (39.0-51.0) Mean Corpuscular Volume 77.2 FL (80.0-100.0) 75.2 FL (80.0-100.0) Mean Corpuscular Hemoglobin 23.2 PG (27.0-34.0) 24.5 PG (27.0-34.0) Mean Corpuscular Hemoglobin Concent 30.1 % (32.0-36.0) 32.6 % (32.0-36.0) Red Cell Distribution Width 22.9 % (11.6-17.2) 23.0 % (11.6-17.2) Platelet Count 160 TH/MM3 (150-450) 112 TH/MM3 (150-450) Mean Platelet Volume 9.9 FL (7.0-11.0) 9.0 FL (7.0-11.0) Neutrophils (%) (Auto) 94.8 % (16.0-70.0) Lymphocytes (%) (Auto) 3.7 % (9.0-44.0) Monocytes (%) (Auto) 1.3 % (0.0-8.0) Eosinophils (%) (Auto) 0.1 % (0.0-4.0) Basophils (%) (Auto) 0.1 % (0.0-2.0) Neutrophils # (Auto) 19.2 TH/MM3 (1.8-7.7) Lymphocytes # (Auto) 0.8 TH/MM3 (1.0-4.8) Monocytes # (Auto) 0.3 TH/MM3 (0-0.9) Eosinophils # (Auto) 0.0 TH/MM3 (0-0.4) Basophils # (Auto) 0.0 TH/MM3 (0-0.2) CBC Comment AUTO DIFF Differential Total Cells Counted 100 Neutrophils % (Manual) 55 % (16-70) Band Neutrophils % 30 % (0-6) Lymphocytes % 9 % (9-44) Monocytes % 2 % (0-8) Neutrophils # (Manual) 18.1 TH/MM3 (1.8-7.7) Metamyelocytes 4 % (0-1) Nucleated Red Blood Cells 2 /100 WBC (0-0) Differential Comment FINAL DIFF MANUAL Platelet Estimate NORMAL (NORMAL) Platelet Morphology Comment CLUMPED (NORMAL) Ovalocytes 1+ (NORMAL) Blood Urea Nitrogen 37 MG/DL (7-18) 50 MG/DL (7-18) Creatinine 2.30 MG/DL (0.60-1.30) 3.10 MG/DL (0.60-1.30) Random Glucose 116 MG/DL (74-106) 146 MG/DL (74-106) Total Protein 4.5 GM/DL (6.4-8.2) 4.4 GM/DL (6.4-8.2) Albumin 2.1 GM/DL (3.4-5.0) 1.7 GM/DL (3.4-5.0) Calcium Level 7.1 MG/DL (8.5-10.1) 6.9 MG/DL (8.5-10.1) Alkaline Phosphatase 92 U/L (45-117) 77 U/L (45-117) Aspartate Amino Transf (AST/SGOT) 1496 U/L (15-37) 847 U/L (15-37) Alanine Aminotransferase (ALT/SGPT) 2117 U/L (12-78) 2260 U/L (12-78) Total Bilirubin 1.1 MG/DL (0.2-1.0) 1.2 MG/DL (0.2-1.0) Sodium Level 144 MEQ/L (136-145) 139 MEQ/L (136-145) Potassium Level 5.0 MEQ/L (3.5-5.1) 4.6 MEQ/L (3.5-5.1) Chloride Level 115 MEQ/L (98-107) 110 MEQ/L (98-107) Carbon Dioxide Level 21.5 MEQ/L (21.0-32.0) 17.2 MEQ/L (21.0-32.0) Anion Gap 8 MEQ/L (5-15) 12 MEQ/L (5-15) Estimat Glomerular Filtration Rate 28 ML/MIN (>89) 20 ML/MIN (>89) Protein Corrected Calcium 8.5 MG/DL (8.5-10.1) 8.4 MG/DL (8.5-10.1) Blood Gas Puncture Site ART LINE Blood Gas Patient Temperature 37.0 Blood Gas HCO3 16 mmol/L (22-26) Blood Gas Base Excess -9.4 mmol/L (-2-2) Blood Gas Oxygen Saturation 96 % (90-100) Arterial Blood pH 7.27 (7.380-7.420) Arterial Blood Partial Pressure CO2 37 mmHg (38-42) Arterial Blood Partial Pressure O2 156 mmHg (61-120) Arterial Blood Oxygen Content 12.6 Vol % (12.0-20.0) Arterial Blood Carboxyhemoglobin 1.2 % (0-4) Arterial Blood Methemoglobin 1.5 % (0-2) Blood Gas Hemoglobin 9.1 G/DL (12.0-16.0) Oxygen Delivery Device VENT PRVC/AC MODE Blood Gas Ventilator Setting VT550/RR20/PEEP 8 Blood Gas Inspired Oxygen 70 % Prothrombin Time 14.4 SEC (9.8-11.6) 12.7 SEC (9.8-11.6) Prothromb Time International Ratio 1.4 RATIO 1.3 RATIO Activated Partial Thromboplast Time 33.4 SEC (24.3-30.1) 40.1 SEC (24.3-30.1) Test 08/29/17 06:28 08/29/17 08:03 Blood Gas Puncture Site VLAD Blood Gas Patient Temperature 37.0 Blood Gas HCO3 16 mmol/L (22-26) Blood Gas Base Excess -9.2 mmol/L (-2-2) Blood Gas Oxygen Saturation 95 % (90-100) Arterial Blood pH 7.29 (7.380-7.420) Arterial Blood Partial Pressure CO2 35 mmHg (38-42) Arterial Blood Partial Pressure O2 113 mmHg (61-120) Arterial Blood Oxygen Content 12.0 Vol % (12.0-20.0) Arterial Blood Carboxyhemoglobin 1.3 % (0-4) Arterial Blood Methemoglobin 1.6 % (0-2) Blood Gas Hemoglobin 8.8 G/DL (12.0-16.0) Oxygen Delivery Device VENTILATOR Blood Gas Ventilator Setting PRVC/AV Blood Gas Inspired Oxygen 40 % Prealbumin 13 MG/DL (20-40) Result Diagram: 08/29/1742608/29/17426 Microbiology Microbiology Date/Time Source Procedure Growth Status 08/27/17 08:55 Blood Peripheral Aerobic Blood Culture - Preliminary Gram Positive Cocci Resulted 08/27/17 08:55 Blood Peripheral Anaerobic Blood Culture - Preliminary NO GROWTH IN 2 DAYS Resulted 08/27/17 08:40 Blood Peripheral Aerobic Blood Culture - Preliminary NO GROWTH IN 2 DAYS Resulted 08/27/17 08:40 Anaerobic Blood Culture - Final Staph Sp Coagulase Negative Resulted 08/27/17 23:10 Sputum Endotracheal Gram Stain - Final Complete 08/27/17 23:10 Sputum Endotracheal Sputum Culture - Final NO GROWTH IN 48 HOURS. Complete 08/27/17 12:48 Nasal Aspirate Influenza Types A,B Antigen (SHERRELL) - Final NEGATIVE FOR FLU A AND B ANTIGEN.... Complete 08/28/17 09:30 Urine Catheterized Urine Legionella Antigen - Final PRESUMPTIVE NEGATIVE FOR LEGIONELLA P... Complete 08/28/17 09:30 Urine Catheterized Urine Streptococcus pneumoniae Antigen (M - Final PRESUMPTIVE NEGATIVE FOR STREPTOCOCCU... Complete 08/27/17 09:20 Urine Catheterized Urine Urine Culture - Final NO GROWTH IN 48 HOURS. Complete Imaging Last Impressions Renal Ultrasound 08/29/17 0000 Signed Impressions: Service Date/Time: Tuesday, August 29, 2017 08:50 - CONCLUSION: 1. No evidence of hydronephrosis. 2. Increased echogenicity of the renal parenchyma bilaterally suggestive of chronic medical renal disease. Jn Larios MD Head CT 08/27/17 0919 Signed Impressions: Service Date/Time: Sunday, August 27, 2017 13:25 - CONCLUSION: Negative noncontrast CT. Neftail Lora MD Chest X-Ray 08/27/17 0840 Signed Impressions: Service Date/Time: Sunday, August 27, 2017 08:53 - CONCLUSION: 1. Interval intubation and placement of nasogastric tube. 2. New bilateral airspace disease most characteristic of pulmonary edema. 3. Small left effusion. Neftali Lora MD Liver Ultrasound 08/27/17 0000 Signed Impressions: Service Date/Time: Sunday, August 27, 2017 16:24 - CONCLUSION: 1. Minimal free fluid in the abdomen 2. Mildly distended gallbladder without evidence of cholelithiasis. 3. No evidence of biliary obstructive disease or focal liver abnormality. Jagjit Llily MD Chest CT 08/27/17 0000 Signed Impressions: Service Date/Time: Sunday, August 27, 2017 13:28 - CONCLUSION: 1. Bilateral airspace disease with areas of consolidation and air bronchograms most characteristic of pulmonary edema. 2. Minimal pleural effusions. 3. The patient is intubated with the endotracheal tube tip at the level of the maru. Neftali Lora MD Procedures * 08/27 intubation/mechanical ventilation. Intubation by EMS at shelter. * 08/27 right radial arterial line placement * 08/27 left subclavian triple-lumen catheter placement . Assessment and Plan Disease Oriented Problem List: (1) Cardiac arrest (2) Respiratory failure (3) Shock liver (4) COPD with exacerbation (5) Severe sepsis (6) Acute kidney injury (7) Atrial fibrillation with RVR (8) Pulmonary edema (9) CHF (congestive heart failure) (10) Pneumonia (11) Hypoalbuminemia Symptom Scale: (1) Pain 0-10 Scale: Unable to quantify Comment: Unclear if patient had prehospitalization pain syndromes. Current sources of pain might include recent chest compressions; orotracheal and orogastric intubations; Grossman catheter; venous access catheters; restraints; prolonged bedbound status. . (2) Dyspnea 0-10 Scale: Unable to quantify Comment: Dyspnea probably secondary to a combination of underlying COPD; tachycardia; and congestive heart failure. Dyspnea currently managed on the ventilator. . (3) Encephalopathy 0-10 Scale: Unable to quantify Pertinent Non-Medical Issues Psychosocial: He was born in [facility] and moved to [facility] as a young child where he spent most of his life. He was in the [employer] and served in the [place] [employer]. He is color blind and so was stationed in [place]. 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 He has 1 daughter, Elena Chauhan who lives in [place] and one son, from whom he is estranged who changed his name to Oleksandr Carbajal. He was 1 of 5 children. 2 sisters are and he has 1 sister, Susan who is his healthcare surrogate and one brother in [place]. Patient was a resident of [facility]. Sister has been located and produced advanced directive paperwork naming her as healthcare surrogate. Spiritual: Not an important concept to the patient per the sister. Legal: Healthcare surrogate and living will on chart. Ethical issues impacting care: Patient is incapacitated. It appears unlikely at this time that he will regain capacity to make his own healthcare decisions. His sister is willing to serve as his healthcare surrogate. . Important Contacts Sylvie Butler (daughter) Claire Saravia (sister) [phone] healthcare surrogate . Prognosis Patient has multiple underlying comorbidities. He came in in respiratory distress and suffered a asystolic cardiac arrest. He is now going into shock liver. Kidney function is declining. Prognosis is poor at this time. It is uncertain if patient will survive this hospitalization. If he does survive the hospitalization it is unclear what type of quality of life he will return to. Prognostication would also be helped if I was clear about his functional status prior to this event. . Code Status: Full Code Plan == Code Status: FULL CODE --sister wishes him to remain a full code until she has discussed this with the patient's daughter. == Decision Making: Patient is incapacitated to make his own healthcare decisions. At this point it is very unlikely that he will recover capacity to do so. His sister Claire is his healthcare surrogate == Goals medical treatment: Sister states that patient stated he would undergo 1 round of CPR but then would not want it extended and would want to be allowed to pass naturally. The CODE STATUS has not been changed pending discussion with the patient's daughter. == Symptoms: * Pain: Unclear if patient had prehospitalization pain syndromes. Current sources of pain might include recent chest compressions; orotracheal and orogastric intubations; Grossman catheter; venous access catheters; restraints; prolonged bedbound status. There are no current orders for opioids. Sedating medicines are probably being minimized at this time with the hopes of improving respiratory status. No recommendations at this time. * Dyspnea: probably secondary to a combination of underlying COPD; tachycardia ; and congestive heart failure. Dyspnea currently managed on the ventilator. No additional recommendations at this time. * Encephalopathy: Probably metabolic and multi-factorial . This will probably improve if we can correct some of the underlying metabolic issues. No further recommendations at this time. * Anxiety: Per shelter and the patient's sister, he has a severe anxiety disorder and has been chronically on benzodiazepines. He is a heavy alcohol user of 2-3 6 packs per day, but has not been drinking during the last 2 weeks as he has been in a shelter. He is receiving Valium 10 mg every 8 hours and no further tremors are seen at this evaluation. == Palliative care will continue to follow to assist with symptom management and to further clarify goals of medical treatment as the clinical course evolves. . Attestation To help prompt me to consider important information that might be impacting today's encounter and assessment, information from prior notes written by myself or my colleagues may have been "brought forward" into today's note. My signature on this note, however, is an attestation that I personally performed the exam, history, and/or decision-making noted today, and, unless otherwise indicated, the interactions with patient, family, and staff as well as the review of records all occurred today. I also attest that the listed assessment and stated plan reflect my best clinical judgment today based on the combination of historical information, prior notes, and today's exam/ interactions. When time spent is documented, it refers only to time spent today by the signer, or if indicated, combined time spent today by collaborating physician/nurse practitioner. . Jacquelyn Maya Aug 29, 2017 15:43
[2017-08-29] MEDS: fentaNYL DRIP 250 ML IV PRN (21:34)
[2017-08-30] VITALS (43 sets, daily range): BP systolic 110–136; BP diastolic 65–99; PULSE 84–156; RESP 7–34; TEMP 97.3–97.9; O2SAT 89–100
[2017-08-30] MEDS: THIAMINE INJ 100 MG in SODIUM CHLORIDE 0.9% INJ 100 ML IV SCH (01:21)
[2017-08-30] MEDS: VANCOMYCIN INJ 1,000 MG in SODIUM CHLOR 0.9% 250 ML INJ 250 ML IV SCH ×2 (01:22→14:00)
[2017-08-30] MEDS: PIPERACIL-TAZO 2.25 GM PREMIX 50 ML IV SCH ×4 (02:21→20:23)
[2017-08-30] MEDS: RESP: ALBUTEROL 2.5 MG/IPRATROPIUM 0.5 MG NEB (SCH) INH ×4 (03:31→21:59)
[2017-08-30] MEDS: PROPOFOL 1000 MG/100 ML INJ 100 ML IV PRN ×2 (03:59→12:43)
[2017-08-30] MEDS: DEXTROSE 10% INJ 1,000 ML IV SCH (03:59)
[2017-08-30] MEDS: CHLORHEXIDINE GLUCONATE 2 % 1 PACK (2 CLOTHS) TOP SCH (04:00)
[2017-08-30] MEDS: INSULIN NovoLIN REGULAR SUPPLEMENTAL SCALE SQ SCH ×5 (04:00→20:21)
[2017-08-30 04:44] LABS: HEMATOCRIT 27.2 % (39.0-51.0); HEMOGLOBIN 8.4 GM/DL (13.0-17.0); MEAN CELL VOLUME 75.2 FL (80.0-100.0); MEAN CORPUSCULAR HEMOGLOBIN 23.1 PG (27.0-34.0); MEAN CORPUSCULAR HGB CONC 30.7 % (32.0-36.0); MEAN PLATELET VOLUME 10.7 FL (7.0-11.0); PLATELET COUNT 85 TH/MM3 (150-450); RED BLOOD COUNT 3.62 MIL/MM3 (4.50-5.90); RED CELL DISTRIBUTION WIDTH 22.9 % (11.6-17.2); WHITE BLOOD COUNT 9.6 TH/MM3 (4.0-11.0)
[2017-08-30 05:06] LABS: INTERNATIONAL NORMALIZED RATIO 1.1 RATIO; PROTHROMBIN TIME - PATIENT 10.9 SEC (9.8-11.6)
[2017-08-30 05:08] LABS: ALBUMIN 2.1 GM/DL (3.4-5.0); BICARBONATE 15.3 MEQ/L (21.0-32.0); CALCIUM 6.8 MG/DL (8.5-10.1); CALCIUM-PROTEIN CORRECTED 7.8 MG/DL (8.5-10.1); CREATININE 3.6 MG/DL (0.60-1.30); TOTAL BILIRUBIN ADULT 1.5 MG/DL (0.2-1.0); TOTAL PROTEIN 5.1 GM/DL (6.4-8.2)
[2017-08-30] MEDS: DIAZEPAM 10 MG TAB PO SCH ×3 (05:27→21:40)
[2017-08-30] MEDS: methylPREDNISolone SOD SUCC 40 MG/1 ML VIAL IV PUSH SCH ×3 (05:27→21:41)
--- NOTE | 2017-08-30 06:17 | HHI.CCPN ---
Subjective Remarks/Hospital Course 08/28: overnight, started to become purposeful in upper extremities, and pupils are 3mm and now reactive. remains in shock with shock liver, acute kidney injury , multiorgan failure. LFTs uptrending. 08/29: improvement in mental status. now following commands. discussion with sister: patient drinks heavily: 2-3 6-packs/day. liver enzymes still elevated, remains oliguric with Cr > 3 now and rising. albumin continues to fall which is likely combination of very poor nutritional status and poor liver synthetic function. blood sugar slightly improved. overall still in multiorgan failure. family appears to have poor insight into patient's condition: sister herself is going through rehab for a recent severe illness. now also starting tremors which may be early alcohol withdraw given new clinical history to suggest large etoh intake. 08/30: improvements in hemodynamics and off vasopressors. wbc downtrending. but no improvement and worsening in metabolic organ failure: Cr higher, remains oliguric. LFTs still high. remains on d10w and tube feeds with marginal blood glucose. acidosis continues to worsen despite adequate cardiac index. Objective Vital Signs Date Time Temp Pulse Resp B/P (MAP) Pulse Ox O2 Delivery O2 Flow Rate FiO2 08/30/17 06:00 96 20 120/70 (87) 99 08/30/17 04:30 35 08/30/17 00:00 97.6 08/27/17 16:32 Ventilator Intake and Output 08/30/17 08/30/17 08/31/17 08:00 16:00 00:00 Intake Total 1464 ml Output Total 300 ml Balance 1164 ml Result Diagram: 08/30/17 0430 08/30/17 0430 Other Results Microbiology Date/Time Source Procedure Growth Status 08/27/17 23:10 Sputum Endotracheal Gram Stain - Final Complete 08/27/17 23:10 Sputum Endotracheal Sputum Culture - Final NO GROWTH IN 48 HOURS. Complete 08/27/17 12:48 Nasal Aspirate Influenza Types A,B Antigen (SHERRELL) - Final NEGATIVE FOR FLU A AND B ANTIGEN.... Complete 08/28/17 09:30 Urine Catheterized Urine Legionella Antigen - Final PRESUMPTIVE NEGATIVE FOR LEGIONELLA P... Complete 08/28/17 09:30 Urine Catheterized Urine Streptococcus pneumoniae Antigen (M - Final PRESUMPTIVE NEGATIVE FOR STREPTOCOCCU... Complete 08/27/17 09:20 Urine Catheterized Urine Urine Culture - Final NO GROWTH IN 48 HOURS. Complete Laboratory Tests Test 08/29/17 06:28 Blood Gas Puncture Site VLAD Blood Gas Patient Temperature 37.0 Blood Gas HCO3 16 mmol/L (22-26) Blood Gas Base Excess -9.2 mmol/L (-2-2) Blood Gas Oxygen Saturation 95 % (90-100) Arterial Blood pH 7.29 (7.380-7.420) Arterial Blood Partial Pressure CO2 35 mmHg (38-42) Arterial Blood Partial Pressure O2 113 mmHg (61-120) Arterial Blood Oxygen Content 12.0 Vol % (12.0-20.0) Arterial Blood Carboxyhemoglobin 1.3 % (0-4) Arterial Blood Methemoglobin 1.6 % (0-2) Blood Gas Hemoglobin 8.8 G/DL (12.0-16.0) Oxygen Delivery Device VENTILATOR Blood Gas Ventilator Setting PRVC/AV Blood Gas Inspired Oxygen 40 % Objective Remarks gen: elderly male, lying in bed, intubated, sedated heent: pupils 3mm, equal, reactive. mucous membranes moist. nc. at. neck: no jvd. trachea midline. chest: equal chest rise. coarse breath sounds. left subclavian cvl in place, site c/d/i. cv: tachycardic rate, irregularly irregular rhythm. afib. abd: soft, nontender, nondistended. no guarding. extr: distal pulses 2+. no peripheral edema. right radial art line in place, site c/d/i. neuro: RASS -2. GCS 10 (E3V1M6). +cough. + gag. + corneals. follows commands. A/P Assessment and Plan Assessment: 66yM who presented in extremis and progressed rapidly to PEA arrest , most likely secondary to septic shock. Blood with Coag negative staph in 2/4 bottles. Unclear source of infection as sputum and urine cultures have not produced organism. He remains in multiorgan failure and his liver and kidneys are still severely dysfunctional without signs of improvement. remains critically ill. given chronic medical comorbidities and severe malnutrition, unlikely to survive this illness. Plan by systems: Neurologic: Hypoxic-ischemic encephalopathy Metabolic encephalopathy - improving Alcohol Dependence Alcohol withdraw syndrome Frequent neuro checks Propofol for goal RASS -2 iv thiamine, mvi valium 10mg per tube q8h would be a good candidate for clonidine, but shock prevents this currently Respiratory: Acute hypoxic and hypercarbic respiratory failure - persistent. Vent bundle Head of bed at 30 Nebs remains with severe metabolic acidosis. unable to start SBT due to acidosis. Wean FiO2 for goal SPO2 greater than 90% obtain CT chest to rule out empyema Cardiovascular: Septic shock Status post PEA arrest Atrial fibrillation with rapid ventricular response Will avoid rate controlling medicines at present given recent PA arrest and bradycardia Telemetry continue levophed for goal map > 65 mmHg. Renal: Acute kidney injury-worsening Secondary septic shock Continue Grossman today renal ultrasound 08/29: no evidence of hydronephrosis. -- Strict I/Os FEN/GI: Acute protein calorie malnutrition -severe Shock liver Hyperkalemia tube feeds Trend LFTs Liver ultrasound nutrition consult Heme/ID: Septic shock Leukocytosis Continue vancomycin Continue Zosyn Continue azithromycin urine and sputum cultures NG Blood cultures, coag negative staph urinary legionella and pneumococcal Ag: negative. wbc and fever curve trending down. Endocrine: Hypoglycemia- improving. Secondary to shock liver Continue D10W -- SSI Prophylaxis: GI Prophylaxis IV Pepcid DVT Prophylaxis -- SCDs heparin drip Lines: 08/27 left subclavian triple-lumen catheter 08/27 right radial arterial line Grossman Dispo: Remain in ICU. Remains critically ill. This patient remains critically ill with one or more organ systems which are or may become a threat to life. I have spent in excess of 33 minutes discontinuously in the care and management of this patient. This time is exclusive of procedures, and includes, but is not limited to, evaluation of the patient, review of the medical record, discussions with family, consultants, nursing staff, or respiratory therapy, and documentation in the medical record. Andrews Gutierrez MD Aug 30, 2017 06:17
[2017-08-30] MEDS: HEPARIN-D5W 25,000 U/250 ML 250 ML IV PRN (06:25)
[2017-08-30] MEDS ORDERED: FUROSEMIDE 100 MG/10 ML VIAL IV PUSH ONE ×2 (06:45→14:15)
[2017-08-30] MEDS: MUPIROCIN 2% OINT 1 APPLIC/GM SYR NASAL SCH ×2 (08:45→20:22)
[2017-08-30] MEDS: MULTIVITAMIN TAB PO SCH (08:45)
[2017-08-30] MEDS: FAMOTIDINE 20 MG TAB PO SCH ×2 (08:45→20:22)
[2017-08-30] MEDS: CHLORHEXIDINE 0.12% (ORAL KIT) 15 ML CUP MT SCH ×2 (08:47→20:21)
[2017-08-30] MEDS: DOCUSATE SODIUM 50 MG/SENNA 8.6 MG TAB PO SCH ×2 (08:48→20:23)
[2017-08-30] MEDS: SODIUM BICARBONATE 8.4% INJ 150 MEQ in WATER STERILE FOR INJ 850 ML IV SCH ×2 (09:24→23:08)
[2017-08-30] MEDS: fentaNYL DRIP 250 ML IV PRN ×2 (10:22→21:40)
[2017-08-30] MEDS: AZITHROMYCIN INJ 500 MG in SODIUM CHLOR 0.9% 250 ML INJ 250 ML IV SCH (11:27)
--- NOTE | 2017-08-30 13:31 | RADRPT ---
EXAM DATE/TIME: 08/30/2017 11:55 [facility] COMPARISON: CT THORAX W/O CONTRAST, August 27, 2017, 13:28. INDICATIONS : Pneumonia. RADIATION DOSE: 11.42 CTDIvol (mGy) MEDICAL HISTORY : Deep venous thrombosis. Chronic obstructive pulmonary disease. Cardiovascular disease Hypertension. D iabetes. Pulmonary embolism. SURGICAL HISTORY : None. ENCOUNTER: Initial ACUITY: 1 day PAIN SCALE: 0/10 LOCATION: chest TECHNIQUE: Volumetric scanning of the chest was performed. Using automated exposure control and adjustment of t he mA and/or kV according to patient size, radiation dose was kept as low as reasonably achievable to obtain optimal diagnostic quality images. DICOM format image data is available electronically for r eview and comparison. Follow-up recommendations for detected pulmonary nodules are based at a minimum on nodule size and pa tient risk factors according to Fleischner Society Guidelines. FINDINGS: LUNGS: Compared to the prior study there has been significant improvement with the scattered areas of inters titial and airspace disease especially in the upper lung spivey. The upper lung spivey are better aer ated on today's examination. There continues to be some infiltrates in both lung bases along with sma ll effusions. There is some compressive atelectasis in both lung bases. PLEURAE: Small bilateral effusions. MEDIASTINUM: The heart and great vessels demonstrate no acute abnormality. There is no mediastinal or hilar lymph adenopathy. Heart size is enlarged but stable. AXILLAE: Within normal limits. No lymphadenopathy. MUSCULOSKELETAL: Within normal limits for patient age. MISCELLANEOUS: The visualized upper abdominal organs demonstrate no acute abnormality. CONCLUSION: There has been overall improvement with increased aeration of both upper lung spivey and improving re solution of the previously noted scattered interstitial and airspace infiltrates especially in both u pper lung spivey. There continues to be infiltrates in both lung bases with some compressive atelecta sis. Small bilateral effusions. Jn Larios MD on August 30, 2017 at 13:27 Board Certified Radiologist. This report was verified electronically.
[2017-08-30] MEDS ORDERED: AMIODARONE INJ 150 MG in DEXTROSE 5% IN WATER 100ML INJ 100 ML IV ONE ×2 (14:00)
[2017-08-30] MEDS ORDERED: AMIODARONE INJ 450 MG in DEXTROSE 5% IN WATE(EXCEL) INJ 241 ML IV PRN ×2 (14:13)
[2017-08-30] MEDS ORDERED: SODIUM BICARBONATE 8.4% INJ 50 MEQ/50 ML SYR IV PUSH ONE (14:15)
[2017-08-30] MEDS ORDERED: MAGNESIUM SULFATE 2 GM/NS 100 ML IV ONE ×2 (14:15)
[2017-08-30] MEDS ORDERED: CHLOROTHIAZIDE SOD 500 MG VIAL IV ONE (14:15)
[2017-08-30] MEDS: AMIODARONE INJ 450 MG in SODIUM CHLOR 0.9% (EXCEL) INJ 241 ML IV PRN (15:00)
[2017-08-30 15:20] LABS: LACTIC ACID SEPSIS PROTOCOL 5.7 mmol/L (0.4-2.0)
[2017-08-31] VITALS (46 sets, daily range): BP systolic 92–133; BP diastolic 61–87; PULSE 82–112; RESP 15–25; TEMP 97.3–98.2; O2SAT 93–100
[2017-08-31] MEDS: INSULIN NovoLIN REGULAR SUPPLEMENTAL SCALE SQ SCH ×6 (00:39→20:36)
[2017-08-31] MEDS: HEPARIN-D5W 25,000 U/250 ML 250 ML IV PRN ×2 (00:42→14:00)
[2017-08-31] MEDS: THIAMINE INJ 100 MG in SODIUM CHLORIDE 0.9% INJ 100 ML IV SCH (01:54)
[2017-08-31] MEDS: VANCOMYCIN INJ 1,000 MG in SODIUM CHLOR 0.9% 250 ML INJ 250 ML IV SCH ×2 (01:58→13:39)
[2017-08-31] MEDS: PIPERACIL-TAZO 2.25 GM PREMIX 50 ML IV SCH ×4 (02:56→20:36)
[2017-08-31] MEDS: AMIODARONE INJ 450 MG in SODIUM CHLOR 0.9% (EXCEL) INJ 241 ML IV PRN (03:04)
[2017-08-31] MEDS: RESP: ALBUTEROL 2.5 MG/IPRATROPIUM 0.5 MG NEB (SCH) INH ×4 (03:45→20:49)
[2017-08-31] MEDS: CHLORHEXIDINE GLUCONATE 2 % 1 PACK (2 CLOTHS) TOP SCH (04:00)
[2017-08-31 05:01] LABS: HEMATOCRIT 27.3 % (39.0-51.0); HEMOGLOBIN 8.6 GM/DL (13.0-17.0); MEAN CELL VOLUME 73.7 FL (80.0-100.0); MEAN CORPUSCULAR HGB CONC 31.3 % (32.0-36.0); MEAN PLATELET VOLUME 9.1 FL (7.0-11.0); PLATELET COUNT 57 TH/MM3 (150-450); RED BLOOD COUNT 3.71 MIL/MM3 (4.50-5.90); RED CELL DISTRIBUTION WIDTH 22.4 % (11.6-17.2); WHITE BLOOD COUNT 10.5 TH/MM3 (4.0-11.0)
[2017-08-31 05:19] LABS: ALBUMIN 2.1 GM/DL (3.4-5.0); CALCIUM 6.7 MG/DL (8.5-10.1)
[2017-08-31 05:23] LABS: CALCIUM-PROTEIN CORRECTED 7.7 MG/DL (8.5-10.1); CREATININE 4.1 MG/DL (0.60-1.30); TOTAL BILIRUBIN ADULT 1.8 MG/DL (0.2-1.0); TOTAL PROTEIN 5.1 GM/DL (6.4-8.2)
[2017-08-31 05:35] LABS: INTERNATIONAL NORMALIZED RATIO 1.1 RATIO; PROTHROMBIN TIME - PATIENT 11.4 SEC (9.8-11.6)
[2017-08-31] MEDS: DIAZEPAM 10 MG TAB PO SCH ×3 (05:41→23:02)
[2017-08-31] MEDS: methylPREDNISolone SOD SUCC 40 MG/1 ML VIAL IV PUSH SCH ×3 (05:41→23:03)
[2017-08-31] MEDS: FUROSEMIDE 100 MG/10 ML VIAL IV PUSH SCH ×3 (06:42→18:38)
[2017-08-31] MEDS: ALBUMIN 25% INJ 100 ML IV SCH ×3 (06:45→18:45)
[2017-08-31] MEDS: cloNIDine HCL 0.2 MG TAB PO SCH ×3 (06:45→23:02)
--- NOTE | 2017-08-31 06:45 | HHI.CCPN ---
Subjective Remarks/Hospital Course 08/28: overnight, started to become purposeful in upper extremities, and pupils are 3mm and now reactive. remains in shock with shock liver, acute kidney injury , multiorgan failure. LFTs uptrending. 08/29: improvement in mental status. now following commands. discussion with sister: patient drinks heavily: 2-3 6-packs/day. liver enzymes still elevated, remains oliguric with Cr > 3 now and rising. albumin continues to fall which is likely combination of very poor nutritional status and poor liver synthetic function. blood sugar slightly improved. overall still in multiorgan failure. family appears to have poor insight into patient's condition: sister herself is going through rehab for a recent severe illness. now also starting tremors which may be early alcohol withdraw given new clinical history to suggest large etoh intake. 08/30: improvements in hemodynamics and off vasopressors. wbc downtrending. but no improvement and worsening in metabolic organ failure: Cr higher, remains oliguric. LFTs still high. remains on d10w and tube feeds with marginal blood glucose. acidosis continues to worsen despite adequate cardiac index. 08/31: kidney function continues to worsen, though uop slightly improved from yesterday. remains off vasopressors. afib RVR yesterday now controlled with amiodarone. overall no meaningful improvements- acidosis still too severe to allow extubation and renal function complicating acidosis. very poor dialysis candidate given overall functionality and current acute illness. Objective Vital Signs Date Time Temp Pulse Resp B/P (MAP) Pulse Ox O2 Delivery O2 Flow Rate FiO2 08/31/17 06:01 90 19 95/65 (75) 99 08/31/17 04:00 40 08/31/17 03:01 97.6 08/27/17 16:32 Ventilator Intake and Output 08/31/17 08/31/17 09/01/17 08:00 16:00 00:00 Intake Total 2699 ml Output Total 725 ml Balance 1974 ml Result Diagram: 08/31/17 0410 08/31/17 041 Other Results Microbiology Date/Time Source Procedure Growth Status 08/28/17 09:30 Urine Catheterized Urine Legionella Antigen - Final PRESUMPTIVE NEGATIVE FOR LEGIONELLA P... Complete 08/28/17 09:30 Urine Catheterized Urine Streptococcus pneumoniae Antigen (M - Final PRESUMPTIVE NEGATIVE FOR STREPTOCOCCU... Complete Laboratory Tests Test 08/30/17 13:35 Blood Gas Puncture Site ART LINE Blood Gas Patient Temperature 37.0 Blood Gas HCO3 14 mmol/L (22-26) Blood Gas Base Excess -13.5 mmol/L (-2-2) Blood Gas Oxygen Saturation 92 % (90-100) Arterial Blood pH 7.15 (7.380-7.420) Arterial Blood Partial Pressure CO2 40 mmHg (38-42) Arterial Blood Partial Pressure O2 90 mmHg (61-120) Arterial Blood Oxygen Content 13.0 Vol % (12.0-20.0) Arterial Blood Carboxyhemoglobin 1.1 % (0-4) Arterial Blood Methemoglobin 1.6 % (0-2) Blood Gas Hemoglobin 10.0 G/DL (12.0-16.0) Oxygen Delivery Device VENTILATOR Blood Gas Ventilator Setting 20/550/PEEP 10 Blood Gas Inspired Oxygen 50 % Objective Remarks gen: elderly male, lying in bed, intubated, sedated heent: pupils 3mm, equal, reactive. mucous membranes moist. nc. at. neck: no jvd. trachea midline. chest: equal chest rise. coarse breath sounds. left subclavian cvl in place, site c/d/i. cv: normal rate, irregularly irregular rhythm. afib. abd: soft, nontender, nondistended. no guarding. extr: distal pulses 2+. no peripheral edema. right radial art line in place, site c/d/i. neuro: RASS -2. GCS 10 (E3V1M6). +cough. + gag. + corneals. follows commands. A/P Assessment and Plan Assessment: 66yM who presented in extremis and progressed rapidly to PEA arrest , most likely secondary to septic shock. Blood with Coag negative staph in 4/4 bottles. Unclear source of infection as sputum and urine cultures have not produced organism. He remains in multiorgan failure and his liver and kidneys are still severely dysfunctional without signs of improvement. remains critically ill. After long discusion with his sister and medical decisionmaker, plan to make him DNR with continued aggressive care. Acidosis and renal failure are biggest barriers today. will consult nephrology, although he would be an exceedingly poor renal replacement candidate given his pre-hospital poor functional status, his critical illness, and his multi organ dysfunction. Aggressive goals remain and he continues to be critically ill and off pathway. Plan by systems: Neurologic: Hypoxic-ischemic encephalopathy Metabolic encephalopathy - improving Alcohol Dependence Alcohol withdraw syndrome Frequent neuro checks Propofol for goal RASS -2 iv thiamine, mvi valium 10mg per tube q8h: wean to 5mg po q8h today. start clonidine 0.2mg po q8h. Respiratory: Acute hypoxic and hypercarbic respiratory failure - persistent. Vent bundle Head of bed at 30 Nebs remains with severe metabolic acidosis. unable to start SBT due to acidosis. Wean FiO2 for goal SPO2 greater than 90% CT chest 08/30: resolving consolidation without significant effusion or empyema. Cardiovascular: Septic shock - resolving. Status post PEA arrest Atrial fibrillation with rapid ventricular response continue amiodarone drip until 24h completes at 1500, then transition to 200mg po q12h. start clonidine 0.2mg po q8h Renal: Acute kidney injury-worsening Secondary septic shock Continue Grossman today renal ultrasound 08/29: no evidence of hydronephrosis. -- Strict I/Os send urine electrolytes, urine eos, complements c3/4. nephrology consult. again, very poor dialysis candidate. very volume overloaded. increase diuresis to lasix 100mg iv q6h and give with albumin 25gm q6h. diuril 500mg iv x 1. FEN/GI: Acute protein calorie malnutrition -severe Shock liver Hyperkalemia tube feeds Trend LFTs nutrition consult Heme/ID: Septic shock Leukocytosis Continue vancomycin Continue Zosyn Continue azithromycin urine and sputum cultures NG Blood cultures, coag negative staph 4/4 bottles TTE negative for overt vegetations. will repeat blood cultures today. if positive, may need to consider JACQUE. overt source most likely pulmonary as he clinically still has an HCAP pneumonia with sputum production, o2 requirement, LLL consolidation. urinary legionella and pneumococcal Ag: negative. wbc and fever curve trending down. culture data has not produced any sputum micro other than the coag neg staph in 4/4 bottles. would plan to complete full empiric antibiotic course x 7 days ( anticipated stop date 09/02). if blood cultures are persistently positive, then needs to transition to oxacillin for a longer duration of therapy and consider JACQUE. if negative, it is possible that both bottles were drawn from same stick and are contaminated. Endocrine: Hypoglycemia- improving. Secondary to shock liver d/c d10w -- SSI Prophylaxis: GI Prophylaxis IV Pepcid DVT Prophylaxis -- SCDs heparin drip Lines: 08/27 left subclavian triple-lumen catheter 08/27 right radial arterial line Grossman Dispo: Remain in ICU. Remains critically ill. This patient remains critically ill with one or more organ systems which are or may become a threat to life. I have spent in excess of 45 minutes discontinuously in the care and management of this patient. This time is exclusive of procedures, and includes, but is not limited to, evaluation of the patient, review of the medical record, discussions with family, consultants, nursing staff, or respiratory therapy, and documentation in the medical record. Andrews Gutierrez MD Aug 31, 2017 06:45
[2017-08-31] MEDS ORDERED: CHLOROTHIAZIDE SOD 500 MG VIAL IV ONE (07:00)
[2017-08-31] MEDS: CHLORHEXIDINE 0.12% (ORAL KIT) 15 ML CUP MT SCH ×2 (08:00→19:48)
--- NOTE | 2017-08-31 08:23 | RADRPT ---
EXAM DATE/TIME: 08/31/2017 07:52 [facility] COMPARISON: CT THORAX W/O CONTRAST, August 30, 2017, 11:55. CHEST SINGLE AP, August 27, 2017, 20:45. INDICATIONS : Pneumonia. MEDICAL HISTORY : Chronic obstructive pulmonary disease. Cardiovascular disease. Diabetes mellitus type II. Deep ve nous thrombosis.Pulmonary embolism.Hypertension SURGICAL HISTORY : None. ENCOUNTER: Subsequent ACUITY: 4 - 6 days PAIN SCORE: Non-responsive. LOCATION: Bilateral chest FINDINGS: Endotracheal tube is stable in good position a couple centimeters above the maru. Nasogastric tube coils in the stomach. A left subclavian central line is stable with tip overlying SVC. Patchy bilater al infiltrates and increasing effusions noted. Cardiac contours are grossly stable. There is severe a rthritic change noted in the shoulders. CONCLUSION: Probable slight interval increase in effusions Casey Guillen MD on August 31, 2017 at 8:20 Board Certified Radiologist. This report was verified electronically.
[2017-08-31] MEDS: MUPIROCIN 2% OINT 1 APPLIC/GM SYR NASAL SCH ×2 (09:00→20:36)
[2017-08-31] MEDS: DOCUSATE SODIUM 50 MG/SENNA 8.6 MG TAB PO SCH ×2 (09:00→20:36)
[2017-08-31] MEDS: AZITHROMYCIN INJ 500 MG in SODIUM CHLOR 0.9% 250 ML INJ 250 ML IV SCH (10:00)
[2017-08-31] MEDS: SODIUM BICARBONATE 8.4% INJ 150 MEQ in WATER STERILE FOR INJ 850 ML IV SCH ×2 (10:10→13:47)
[2017-08-31] MEDS: fentaNYL DRIP 250 ML IV PRN (10:15)
[2017-08-31] MEDS: PROPOFOL 1000 MG/100 ML INJ 100 ML IV PRN (10:15)
[2017-08-31] MEDS: FAMOTIDINE 20 MG TAB PO SCH ×2 (10:21→20:36)
[2017-08-31] MEDS: MULTIVITAMIN TAB PO SCH (10:21)
--- NOTE | 2017-08-31 11:02 | MB ---
cc: Glendy Muniz MD DATE: 08/31/2017 REASON FOR CONSULTATION: Acute kidney injury with elevated BUN and creatinine. HISTORY OF PRESENT ILLNESS: This is 66-year-old male with a past medical history of chronic obstructive pulmonary disease, history of deep venous thrombosis with pulmonary embolism, atrial fibrillation, hypertension, ischemic heart disease, congestive heart failure, who [facility] with generalized weakness and altered mental status. I was called to see the patient because of elevated BUN and creatinine. The patient was found febrile on admission and he was in respiratory distress and he was intubated and he was started on a Cardizem drip and shortly after he developed asystole and ACLS protocol was done and since then the patient has increasing creatinine. His creatinine on presentation was 1.1, which is gradually increasing and his urine output declining. The patient also has shock liver. He was hypotensive initially. He was on pressors, but he is off pressors now, but is still on the ventilator. Most of the history is taken from the patient's chart and some from the patient's sister, who is sitting at the bedside. The patient has gradual decrease in the urine output. He was started on diuretics. Blood pressure is better now and he is off pressors. PAST MEDICAL HISTORY: Ischemic heart disease, congestive heart failure, chronic obstructive pulmonary disease, hypertension, atrial fibrillation, history of deep venous thrombosis and pulmonary embolism. PAST SURGICAL HISTORY: Appendicectomy, tonsillectomy, hernia repair surgery. REVIEW OF SYSTEMS: Cannot be taken since the patient is intubated. SOCIAL HISTORY: The patient lives in a nursing facility. He has history of smoking and alcohol abuse in the past. FAMILY HISTORY: Noncontributory. ALLERGIES: HE HAS NO KNOWN DRUG ALLERGIES. MEDICATIONS: Currently, he is on: 1 IV fluid with sodium bicarbonate. 2. Talita-Colace 1 tablet b.i.d. 3. Famotidine 10 mg b.i.d. 4. Thiamine 100 mg once a day. 5. Multivitamin 1 tablet daily. 6. DuoNeb nebulizer. 7. Vancomycin 1 gram IV q. 12 hours. 8. Amiodarone 200 mg q. 12 hours. 9. Azithromycin 500 mg IV q. 24 hours. 10. Zosyn 2.25 grams IV q. 6 hours. 11. Lasix 100 mg IV q. 6 hours. 12. Albumin q. 6 hours. 13. Methylprednisolone 40 mg IV q. 8 hours. 14. Insulin q. 4 hours. 15. Clonidine as needed. PHYSICAL EXAMINATION: GENERAL: The patient is intubated and sedated. VITAL SIGNS: His last blood pressure was 119/68, temperature 98.2, oxygen saturation 35%, FIO2 98-99%. HEENT: Pupils are mid-constricted. Nonicteric sclerae. Conjunctivae pale. NECK: Supple. JVD is not elevated. LUNGS: :The patient has bilateral decreased air entry with scattered wheezing and basilar rales. HEART: S1, S2. Irregular rhythm. ABDOMEN: Distended, soft, lax. Bowel sounds positive. EXTREMITIES: He has bilateral 2+ edema. INVESTIGATIONS: WBC count is 10.5, hemoglobin 8.6, platelet count of 57. INR 1.1 with a PTT of greater than 277. Sodium 136, potassium 4.8, chloride 102, bicarbonate 21, BUN 86, creatinine 4.1, calcium 6.7, corrected calcium 7.7, phosphorus 8.0, AST is 397, ALT is 2541, total protein is 5.1 with albumin of 2.1. Urinalysis showing protein of 100. This was done on admission. Urine eosinophils and urine sodium pending. IMAGING STUDIES: The patient had ultrasound of the kidneys done 2 days ago which shows that both kidneys are normal in size with no hydronephrosis. There is increased echogenicity suggestive of chronic medical disease. CT scan of the chest was done without IV contrast and it shows that he has improvement in the aeration and infiltrate in both lungs, small bilateral pleural effusion. CT scan of the brain was done and was negative for any lesion. ASSESSMENT AND PLAN: 1. Post-cardiac arrest with asystole. 2. Respiratory failure with pneumonia. 3. Acute kidney injury. 4. Metabolic acidosis. 5. Encephalopathy. 6. Alcohol dependence and withdrawal. 7. Shock liver. 8. Anemia. The patient has multiorgan failure and he has metabolic acidosis. Lactic acid was high at 5.7 and now is 2.4, pH has improved to 7.30 after giving the bicarbonate infusion. At present the urine output is declining. I agree with continuing the IV fluid and diuretics. Most likely he has acute kidney injury because of acute tubular necrosis because of the cardiac arrest. Blood pressure has stabilized now he is off pressors. There is no acute urgent need for dialysis at this point, but I did discuss with the sister and she does not want him to go for dialysis at present, but asking to discuss with them again in case if the patient is requiring dialysis. She has already made the patient a NO CODE and palliative care on the case and she also indicated that they are also considering withdrawal of the care. So at present there is no acute urgent need for dialysis. When it comes to that, then I will discuss with the sister again, but I told her that his overall prognosis is not very good. Thank you for the consultation, and I will follow the patient while he is in the hospital. MD CHANDLER Luther/MANUELA , 10:34 AM , 11:01 AM SIMONE
[2017-08-31 14:00] LABS: CREATININE, RANDOM URINE LESS THAN 13.0 MG/DL; SODIUM,RANDOM URINE 108 MEQ/L
[2017-08-31 14:11] LABS: OSMOLALITY,URINE 300 MOSM/KG (300-1300)
[2017-08-31 14:15] LABS: OSMOLALITY,SERUM 310 MOSM/KG (275-295)
--- NOTE | 2017-08-31 14:18 | HHI.HCPN ---
Reason for visit a. To assist with evaluation and management of symptoms including: dyspnea ; encephalopathy, pain, anxiety b. To assist medical decision maker(s) with: better understanding of current medical conditions; weighing benefits/burdens of medical treatment options; making medical treatment decisions. . Subjective/Interval History Patient seen to follow-up on symptom management and goals of care. Mr. Membreno remains intubated and sedated. During sedation vacation yesterday he was able to answer questions regarding pain and was following commands. At this visit he is sedated on fentanyl, 200 mcg/h and propofol 10 mcg/kg/min. He is not responding to tactile or verbal stimuli. His sister is at bedside. He is no longer requiring vasopressor support. He developed atrial fibrillation with rapid ventricular response yesterday and amiodarone was initiated. Rate is controlled today. Renal indices continued to worsen and a nephrology consultation has been requested. He is receiving bicarbonate, improving his acidosis. ABG yesterday showed a pH of 7.15, today 7.30. Liver enzymes increasing showing total bilirubin 1.8, AST 397, ALT 2541, alkaline phosphatase 130. Phosphorus is 8.0. Sodium 136, potassium 4.8, BUN 86, creatinine 4.10, WBC 10.5, hemoglobin 8.6, hematocrit 27.3, platelets 57. Presenting blood culture was positive for Staphylococcus epidermidis. Repeat blood cultures are pending. Chest x-ray shows probable slight interval increase in effusions. . Family/friend interactions His sister is at bedside and has received updates from Dr. Gutierrez and the RN. She is communicating with the patient's daughter and providing medical updates. The patient's son is estranged but there is some communication between the aunt and him Via Facebook. Nephrology consultation was also done during this visit and she states that unless there would be a definitive benefit to his recovery with dialysis, he would not be in favor of doing procedures to him for the sake of doing procedures. Per Dr. Muniz's conversation, there is no urgent need for dialysis and he recommends continuing IV fluid and diuretics for now. Dialysis will be revisited if that is unsuccessful. She did express that withdrawal of ventilator support was discussed by Dr. Gutierrez and while she is hoping that he does recover, she is not willing to keep him on the ventilator for an extended time. . Advance Directives Living Will: Copy in medical record Health Care Surrogate: Copy in medical record Durable Power of Steam Shovelman: Copy in medical record (DURABLE POWER OF PAYABLE PROCESSOR for healthcare) Advance Directive Specifics Date completed: November 14, 2010 . Health Care Surrogate(s): He has named his sister Felecia Fowler as his primary healthcare surrogate and his other sister Susan Saravia as his alternate . Documented care wishes: Living will on chart. . Objective Vital Signs Date Time Temp Pulse Resp B/P (MAP) Pulse Ox O2 Delivery O2 Flow Rate FiO2 08/31/17 12:01 86 20 92/67 (75) 100 08/31/17 12:00 35 08/31/17 12:00 96 08/31/17 11:01 96 19 102/62 (75) 99 08/31/17 10:01 94 20 102/61 (75) 99 08/31/17 10:00 90 19 99 08/31/17 09:01 102 20 119/68 (85) 98 08/31/17 09:01 102 20 119/68 (85) 98 08/31/17 09:00 104 20 98 08/31/17 08:31 99 35 08/31/17 08:01 92 25 105/74 (84) 93 08/31/17 08:00 98 08/31/17 08:00 35 08/31/17 07:01 98.2 96 20 101/70 (80) 99 08/31/17 07:00 96 20 99 08/31/17 06:01 90 19 95/65 (75) 99 08/31/17 06:00 108 08/31/17 05:01 90 19 104/71 (82) 99 08/31/17 04:01 96 15 110/71 (84) 96 08/31/17 04:01 96 15 110/71 (84) 96 08/31/17 04:00 40 08/31/17 04:00 112 08/31/17 03:51 98 40 08/31/17 03:04 77 124/77 08/31/17 03:01 97.6 92 19 124/77 (93) 99 08/31/17 02:01 94 19 122/75 (91) 98 08/31/17 02:00 91 08/31/17 01:04 100 40 08/31/17 01:01 94 20 107/70 (82) 100 08/31/17 00:01 97.3 82 19 102/69 (80) 100 08/31/17 00:00 40 08/31/17 00:00 100 08/30/17 23:01 84 16 122/77 (92) 100 08/30/17 22:01 92 19 119/83 (95) 100 08/30/17 22:00 93 08/30/17 22:00 100 40 08/30/17 21:01 94 20 125/73 (90) 100 08/30/17 20:01 97.6 98 20 112/76 (88) 99 08/30/17 20:00 87 08/30/17 20:00 50 08/30/17 19:39 100 50 08/30/17 19:01 96 20 113/77 (89) 100 08/30/17 19:00 94 20 100 08/30/17 18:01 96 7 100 08/30/17 18:00 100 8 129/76 (93) 100 08/30/17 18:00 108 08/30/17 17:00 110 34 99 08/30/17 17:00 110 34 112/71 (85) 99 08/30/17 16:29 100 50 08/30/17 16:00 110 20 124/65 (84) 99 08/30/17 16:00 35 08/30/17 16:00 98 08/30/17 15:53 99 50 08/30/17 15:00 153 119/78 08/30/17 15:00 97.3 118 20 117/69 (85) 97 08/30/17 14:59 152 119/78 08/30/17 14:58 148 20 119/78 (92) 97 08/30/17 14:00 118 08/30/17 14:00 95 50 Intake & Output 08/31/17 08/31/17 07:00 19:00 Intake Total 2699 ml Output Total 725 ml Balance 1974 ml Intake Oral 0 ml IV Total 2137 ml Tube Feeding 442 ml Other 120 ml Output Urine Total 725 ml # Bowel Movements 0 Physical Exam CONSTITUTIONAL/GENERAL: This is an adequately nourished patient intubated, sedated, in no acute distress. TUBES/LINES/DRAINS: Orotracheal tube; orogastric tube; Grossman catheter; soft wrist restraints; left subclavian CVL; peripheral IVs SKIN: No jaundice, rashes. There is a fading bruise on the inner right thigh. Other smaller ecchymoses on the extremities. . No wounds seen anteriorly. Skin temperature appropriate. Not diaphoretic. CARDIOVASCULAR: Controlled rate, irregular rhythm without murmurs, gallops, or rubs. No JVD. Peripheral pulses symmetric. RESPIRATORY/CHEST: Lungs diminished, coarse breath sounds, rare wheeze. On mechanical vent. GASTROINTESTINAL: Abdomen soft, distended. No hepato-splenomegaly, or palpable masses. No guarding. Bowel sounds hypoactive. GENITOURINARY: Without palpable bladder distension. Grossman catheter in place. MUSCULOSKELETAL: Extremities without clubbing, cyanosis, or edema. Slight mottling of the feet is noted. NEUROLOGICAL: Unresponsive. No spontaneous movements noted. RN reports that he was responding to commands when on sedation vacation. PSYCHIATRIC: Unable to assess due to level of responsiveness. . Diagnostic Tests Laboratory Laboratory Tests Test 08/29/17 04:27 08/29/17 06:28 08/29/17 08:03 08/29/17 21:00 White Blood Count 18.0 TH/MM3 (4.0-11.0) Red Blood Count 3.73 MIL/MM3 (4.50-5.90) Hemoglobin 9.1 GM/DL (13.0-17.0) Hematocrit 28.0 % (39.0-51.0) Mean Corpuscular Volume 75.2 FL (80.0-100.0) Mean Corpuscular Hemoglobin 24.5 PG (27.0-34.0) Mean Corpuscular Hemoglobin Concent 32.6 % (32.0-36.0) Red Cell Distribution Width 23.0 % (11.6-17.2) Platelet Count 112 TH/MM3 (150-450) Mean Platelet Volume 9.0 FL (7.0-11.0) Prothrombin Time 12.7 SEC (9.8-11.6) Prothromb Time International Ratio 1.3 RATIO Activated Partial Thromboplast Time 40.1 SEC (24.3-30.1) 77.4 SEC (24.3-30.1) Blood Urea Nitrogen 50 MG/DL (7-18) Creatinine 3.10 MG/DL (0.60-1.30) Random Glucose 146 MG/DL (74-106) Total Protein 4.4 GM/DL (6.4-8.2) Albumin 1.7 GM/DL (3.4-5.0) Calcium Level 6.9 MG/DL (8.5-10.1) Alkaline Phosphatase 77 U/L (45-117) Aspartate Amino Transf (AST/SGOT) 847 U/L (15-37) Alanine Aminotransferase (ALT/SGPT) 2260 U/L (12-78) Total Bilirubin 1.2 MG/DL (0.2-1.0) Sodium Level 139 MEQ/L (136-145) Potassium Level 4.6 MEQ/L (3.5-5.1) Chloride Level 110 MEQ/L (98-107) Carbon Dioxide Level 17.2 MEQ/L (21.0-32.0) Anion Gap 12 MEQ/L (5-15) Estimat Glomerular Filtration Rate 20 ML/MIN (>89) Protein Corrected Calcium 8.4 MG/DL (8.5-10.1) Blood Gas Puncture Site VLAD Blood Gas Patient Temperature 37.0 Blood Gas HCO3 16 mmol/L (22-26) Blood Gas Base Excess -9.2 mmol/L (-2-2) Blood Gas Oxygen Saturation 95 % (90-100) Arterial Blood pH 7.29 (7.380-7.420) Arterial Blood Partial Pressure CO2 35 mmHg (38-42) Arterial Blood Partial Pressure O2 113 mmHg (61-120) Arterial Blood Oxygen Content 12.0 Vol % (12.0-20.0) Arterial Blood Carboxyhemoglobin 1.3 % (0-4) Arterial Blood Methemoglobin 1.6 % (0-2) Blood Gas Hemoglobin 8.8 G/DL (12.0-16.0) Oxygen Delivery Device VENTILATOR Blood Gas Ventilator Setting PRVC/AV Blood Gas Inspired Oxygen 40 % Prealbumin 13 MG/DL (20-40) Test 08/30/17 02:34 08/30/17 04:30 08/30/17 06:10 08/30/17 09:25 Activated Partial Thromboplast Time 64.7 SEC (24.3-30.1) 83.9 SEC (24.3-30.1) White Blood Count 9.6 TH/MM3 (4.0-11.0) Red Blood Count 3.62 MIL/MM3 (4.50-5.90) Hemoglobin 8.4 GM/DL (13.0-17.0) Hematocrit 27.2 % (39.0-51.0) Mean Corpuscular Volume 75.2 FL (80.0-100.0) Mean Corpuscular Hemoglobin 23.1 PG (27.0-34.0) Mean Corpuscular Hemoglobin Concent 30.7 % (32.0-36.0) Red Cell Distribution Width 22.9 % (11.6-17.2) Platelet Count 85 TH/MM3 (150-450) Mean Platelet Volume 10.7 FL (7.0-11.0) Prothrombin Time 10.9 SEC (9.8-11.6) Prothromb Time International Ratio 1.1 RATIO Blood Urea Nitrogen 65 MG/DL (7-18) Creatinine 3.60 MG/DL (0.60-1.30) Random Glucose 169 MG/DL (74-106) Total Protein 5.1 GM/DL (6.4-8.2) Albumin 2.1 GM/DL (3.4-5.0) Calcium Level 6.8 MG/DL (8.5-10.1) Alkaline Phosphatase 70 U/L (45-117) Aspartate Amino Transf (AST/SGOT) 828 U/L (15-37) Alanine Aminotransferase (ALT/SGPT) 2801 U/L (12-78) Total Bilirubin 1.5 MG/DL (0.2-1.0) Sodium Level 136 MEQ/L (136-145) Potassium Level 5.0 MEQ/L (3.5-5.1) Chloride Level 106 MEQ/L (98-107) Carbon Dioxide Level 15.3 MEQ/L (21.0-32.0) Anion Gap 15 MEQ/L (5-15) Estimat Glomerular Filtration Rate 17 ML/MIN (>89) Protein Corrected Calcium 7.8 MG/DL (8.5-10.1) Lipase 118 U/L (73-393) Blood Gas Puncture Site VLAD Blood Gas Patient Temperature 37.0 Blood Gas HCO3 13 mmol/L (22-26) Blood Gas Base Excess -12.8 mmol/L (-2-2) Blood Gas Oxygen Saturation 95 % (90-100) Arterial Blood pH 7.24 (7.380-7.420) Arterial Blood Partial Pressure CO2 32 mmHg (38-42) Arterial Blood Partial Pressure O2 128 mmHg (61-120) Arterial Blood Oxygen Content 11.6 Vol % (12.0-20.0) Arterial Blood Carboxyhemoglobin 0.4 % (0-4) Arterial Blood Methemoglobin 1.0 % (0-2) Blood Gas Hemoglobin 8.5 G/DL (12.0-16.0) Oxygen Delivery Device VENTILATOR Blood Gas Ventilator Setting PRVC/AC Blood Gas Inspired Oxygen 35 % Miscellaneous Test Result Adenovirus (PCR) NOT DETECTED (NOT DETECT) Bordetella holmesii (PCR) NOT DETECTED (NOT DETECT) Bordetella pertussis DNA (PCR) NOT DETECTED (NOT DETECT) B. parapertussis/bronchi (PCR) NOT DETECTED (NOT DETECT) Human Metapneumovirus (PCR) NOT DETECTED (NOT DETECT) Influenza Type A (RT-PCR) NOT DETECTED (NOT DETECT) Influenza Type A (H1) (PCR) NOT DETECTED (NOT DETECT) Influenza Type A (H3) (PCR) NOT DETECTED (NOT DETECT) Influenza Type B (RT-PCR) NOT DETECTED (NOT DETECT) Parainfluenza Type 1 (PCR) NOT DETECTED (NOT DETECT) Parainfluenza Type 2 (PCR) NOT DETECTED (NOT DETECT) Parainfluenza Type 3 (PCR) NOT DETECTED (NOT DETECT) Parainfluenza Type 4 (PCR) NOT DETECTED (NOT DETECT) Resp Syncytial Virus Type A (PCR) NOT DETECTED (NOT DETECT) Resp Syncytial Virus Type B (PCR) NOT DETECTED (NOT DETECT) Rhinovirus (PCR) NOT DETECTED (NOT DETECT) Test 08/30/17 13:35 08/30/17 14:35 08/30/17 19:35 08/31/17 04:10 Blood Gas Puncture Site ART LINE Blood Gas Patient Temperature 37.0 Blood Gas HCO3 14 mmol/L (22-26) Blood Gas Base Excess -13.5 mmol/L (-2-2) Blood Gas Oxygen Saturation 92 % (90-100) Arterial Blood pH 7.15 (7.380-7.420) Arterial Blood Partial Pressure CO2 40 mmHg (38-42) Arterial Blood Partial Pressure O2 90 mmHg (61-120) Arterial Blood Oxygen Content 13.0 Vol % (12.0-20.0) Arterial Blood Carboxyhemoglobin 1.1 % (0-4) Arterial Blood Methemoglobin 1.6 % (0-2) Blood Gas Hemoglobin 10.0 G/DL (12.0-16.0) Oxygen Delivery Device VENTILATOR Blood Gas Ventilator Setting 20/550/PEEP 10 Blood Gas Inspired Oxygen 50 % Lactic Acid Level 5.7 mmol/L (0.4-2.0) 2.4 mmol/L (0.4-2.0) White Blood Count 10.5 TH/MM3 (4.0-11.0) Red Blood Count 3.71 MIL/MM3 (4.50-5.90) Hemoglobin 8.6 GM/DL (13.0-17.0) Hematocrit 27.3 % (39.0-51.0) Mean Corpuscular Volume 73.7 FL (80.0-100.0) Mean Corpuscular Hemoglobin 23.0 PG (27.0-34.0) Mean Corpuscular Hemoglobin Concent 31.3 % (32.0-36.0) Red Cell Distribution Width 22.4 % (11.6-17.2) Platelet Count 57 TH/MM3 (150-450) Mean Platelet Volume 9.1 FL (7.0-11.0) Prothrombin Time 11.4 SEC (9.8-11.6) Prothromb Time International Ratio 1.1 RATIO Activated Partial Thromboplast Time GREATER THAN 277.5 SEC Blood Urea Nitrogen 86 MG/DL (7-18) Creatinine 4.10 MG/DL (0.60-1.30) Random Glucose 191 MG/DL (74-106) Total Protein 5.1 GM/DL (6.4-8.2) Albumin 2.1 GM/DL (3.4-5.0) Calcium Level 6.7 MG/DL (8.5-10.1) Alkaline Phosphatase 130 U/L (45-117) Aspartate Amino Transf (AST/SGOT) 397 U/L (15-37) Alanine Aminotransferase (ALT/SGPT) 2541 U/L (12-78) Total Bilirubin 1.8 MG/DL (0.2-1.0) Sodium Level 136 MEQ/L (136-145) Potassium Level 4.8 MEQ/L (3.5-5.1) Chloride Level 102 MEQ/L (98-107) Carbon Dioxide Level 21.0 MEQ/L (21.0-32.0) Anion Gap 13 MEQ/L (5-15) Estimat Glomerular Filtration Rate 15 ML/MIN (>89) Protein Corrected Calcium 7.7 MG/DL (8.5-10.1) Phosphorus Level 8.0 MG/DL (2.5-4.9) Test 08/31/17 06:30 08/31/17 09:15 08/31/17 11:30 Blood Gas Puncture Site LT RADIAL Blood Gas Patient Temperature 37.0 Blood Gas HCO3 19 mmol/L (22-26) Blood Gas Base Excess -6.1 mmol/L (-2-2) Blood Gas Oxygen Saturation 96 % (90-100) Arterial Blood pH 7.30 (7.380-7.420) Arterial Blood Partial Pressure CO2 40 mmHg (38-42) Arterial Blood Partial Pressure O2 133 mmHg (61-120) Arterial Blood Oxygen Content 11.4 Vol % (12.0-20.0) Arterial Blood Carboxyhemoglobin 1.3 % (0-4) Arterial Blood Methemoglobin 1.1 % (0-2) Blood Gas Hemoglobin 8.2 G/DL (12.0-16.0) Oxygen Delivery Device VENTILATOR Blood Gas Ventilator Setting PRVC/AC Blood Gas Inspired Oxygen 40 % Activated Partial Thromboplast Time 32.0 SEC (24.3-30.1) Result Diagram: 08/31/17 0410 08/31/17 0410 Microbiology Microbiology Date/Time Source Procedure Growth Status 08/31/17 11:30 Blood Peripheral Aerobic Blood Culture Pending Received 08/31/17 11:30 Blood Peripheral Anaerobic Blood Culture Pending Received 08/31/17 11:15 Blood Peripheral Aerobic Blood Culture Pending Received 08/31/17 11:15 Blood Peripheral Anaerobic Blood Culture Pending Received Imaging Last Impressions Chest X-Ray 08/31/17 0000 Signed Impressions: Service Date/Time: Thursday, August 31, 2017 07:52 - CONCLUSION: Probable slight interval increase in effusions Casey Guillen MD Chest CT 08/30/17 0000 Signed Impressions: Service Date/Time: August 11:55 - CONCLUSION: There has been overall improvement with increased aeration of both upper lung spivey and improving resolution of the previously noted scattered interstitial and airspace infiltrates especially in both upper lung spivey. There continues to be infiltrates in both lung bases with some compressive atelectasis. Small bilateral effusions. Jn Larios MD Renal Ultrasound 08/29/17 0000 Signed Impressions: Service Date/Time: Tuesday, August 29, 2017 08:50 - CONCLUSION: 1. No evidence of hydronephrosis. 2. Increased echogenicity of the renal parenchyma bilaterally suggestive of chronic medical renal disease. Jn Larios MD Head CT 08/27/17 0919 Signed Impressions: Service Date/Time: Sunday, August 27, 2017 13:25 - CONCLUSION: Negative noncontrast CT. Neftali Lora MD Liver Ultrasound 08/27/17 0000 Signed Impressions: Service Date/Time: Sunday, August 27, 2017 16:24 - CONCLUSION: 1. Minimal free fluid in the abdomen 2. Mildly distended gallbladder without evidence of cholelithiasis. 3. No evidence of biliary obstructive disease or focal liver abnormality. Jagjit Lilly MD Procedures * 08/27 intubation/mechanical ventilation. Intubation by EMS at longterm. * 08/27 right radial arterial line placement * 08/27 left subclavian triple-lumen catheter placement . Assessment and Plan Disease Oriented Problem List: (1) Cardiac arrest (2) Respiratory failure (3) Shock liver (4) COPD with exacerbation (5) Severe sepsis (6) Acute kidney injury (7) Atrial fibrillation with RVR (8) Pulmonary edema (9) CHF (congestive heart failure) (10) Pneumonia (11) Hypoalbuminemia Symptom Scale: (1) Pain 0-10 Scale: Unable to quantify Comment: Unclear if patient had prehospitalization pain syndromes. Current sources of pain might include recent chest compressions; orotracheal and orogastric intubations; Grossman catheter; venous access catheters; restraints; prolonged bedbound status. . (2) Dyspnea 0-10 Scale: Unable to quantify Comment: Dyspnea probably secondary to a combination of underlying COPD; tachycardia; and congestive heart failure. Dyspnea currently managed on the ventilator. . (3) Encephalopathy 0-10 Scale: Unable to quantify Pertinent Non-Medical Issues Psychosocial: He was born in [facility] and moved to [facility] as a young child where he spent most of his life. He was in the [employer] and served in the [place] War. He is color blind and so was stationed in [place]. He hung drywall for a living. He has 1 daughter, Elena Chauhan who lives in [place] and one son, from whom he is estranged who changed his name to Oleksandr Carbajal. He was 1 of 5 children. 2 sisters are and he has 1 sister, Susan who is his healthcare surrogate and one brother in [place]. Patient was a resident [facility]. Sister has been located and produced advanced directive paperwork naming her as healthcare surrogate. Spiritual: Not an important concept to the patient per the sister. Legal: Healthcare surrogate and living will on chart. Ethical issues impacting care: Patient is incapacitated. It appears unlikely at this time that he will regain capacity to make his own healthcare decisions. His sister is willing to serve as his healthcare surrogate. . Important Contacts Severino Butlersas (daughter) Claire Saravia (sister) [phone] healthcare surrogate . Prognosis Patient has multiple underlying comorbidities. He came in in respiratory distress and suffered a asystolic cardiac arrest. He is now going into shock liver. Kidney function is declining. Prognosis is poor at this time. It is uncertain if patient will survive this hospitalization. If he does survive the hospitalization it is unclear what type of quality of life he will return to. Prognostication would also be helped if I was clear about his functional status prior to this event. . Code Status: Full Code Plan == Code Status: FULL CODE --sister wishes him to remain a full code until she has discussed this with the patient's daughter. == Decision Making: Patient is incapacitated to make his own healthcare decisions. At this point it is very unlikely that he will recover capacity to do so. His sister Claire is his healthcare surrogate == Goals medical treatment: Sister states that patient stated he would undergo 1 round of CPR but then would not want it extended and would want to be allowed to pass naturally. The CODE STATUS has not been changed pending discussion with the patient's daughter. == Symptoms: * Pain: Unclear if patient had prehospitalization pain syndromes. He does not "yes". Fentanyl added for both pain and sedation. Current sources of pain might include recent chest compressions; orotracheal and orogastric intubations ; Grossman catheter; venous access catheters; restraints; prolonged bedbound status. * Dyspnea: probably secondary to a combination of underlying COPD; atrial fibrillation and congestive heart failure. Dyspnea currently managed on the ventilator. No additional recommendations at this time. * Encephalopathy: Probably metabolic and multi-factorial . This will probably improve if we can correct some of the underlying metabolic issues. He is currently receiving sodium bicarbonate 150 mEq via IV drip. Patient was able to respond to questions during sedation vacation. No further recommendations at this time. * Anxiety: Per longterm and the patient's sister, he has a severe anxiety disorder and has been chronically on benzodiazepines. He is a heavy alcohol user of 2-3 6 packs per day, but has not been drinking during the last 2 weeks as he has been in a longterm. He is receiving Valium 5 mg every 8 hours and no further tremors are seen at this evaluation. == Palliative care will continue to follow to assist with symptom management and to further clarify goals of medical treatment as the clinical course evolves. . Attestation To help prompt me to consider important information that might be impacting today's encounter and assessment, information from prior notes written by myself or my colleagues may have been "brought forward" into today's note. My signature on this note, however, is an attestation that I personally performed the exam, history, and/or decision-making noted today, and, unless otherwise indicated, the interactions with patient, family, and staff as well as the review of records all occurred today. I also attest that the listed assessment and stated plan reflect my best clinical judgment today based on the combination of historical information, prior notes, and today's exam/ interactions. When time spent is documented, it refers only to time spent today by the signer, or if indicated, combined time spent today by collaborating physician/nurse practitioner. . Jacquelyn Maya Aug 31, 2017 14:17
[2017-08-31 16:01] LABS: BICARBONATE 22.1 MEQ/L (21.0-32.0); CALCIUM 6.4 MG/DL (8.5-10.1); CREATININE 4.2 MG/DL (0.60-1.30); MAGNESIUM 2.4 MG/DL (1.5-2.5); PHOSPHORUS 7.3 MG/DL (2.5-4.9)
[2017-08-31] MEDS: AMIODARONE 200 MG TAB PO SCH (16:01)
[2017-08-31 16:16] LABS: TOTAL PROTEIN 5.4 GM/DL (6.4-8.2)
[2017-08-31 16:17] LABS: CALCIUM-PROTEIN CORRECTED 7.2 MG/DL (8.5-10.1)
[2017-08-31 16:26] LABS: COMPLEMENT C3 47 MG/DL (90-180); COMPLEMENT C4 12 MG/DL (10-40)
[2017-09-01] VITALS (41 sets, daily range): BP systolic 107–164; BP diastolic 59–104; PULSE 74–104; RESP 13–21; TEMP 97.3–98.7; O2SAT 97–100
[2017-09-01] MEDS: FUROSEMIDE 100 MG/10 ML VIAL IV PUSH SCH ×4 (00:50→17:50)
[2017-09-01] MEDS: fentaNYL DRIP 250 ML IV PRN ×2 (00:50→12:11)
[2017-09-01] MEDS: ALBUMIN 25% INJ 100 ML IV SCH ×4 (00:50→17:50)
[2017-09-01] MEDS: INSULIN NovoLIN REGULAR SUPPLEMENTAL SCALE SQ SCH ×6 (01:04→19:28)
[2017-09-01] MEDS: VANCOMYCIN INJ 1,000 MG in SODIUM CHLOR 0.9% 250 ML INJ 250 ML IV SCH (01:53)
[2017-09-01] MEDS ORDERED: SODIUM CHLOR 0.9% 1000 ML INJ 1,000 ML IV SCH (02:30)
[2017-09-01] MEDS: PIPERACIL-TAZO 2.25 GM PREMIX 50 ML IV SCH (03:34)
[2017-09-01] MEDS: CHLORHEXIDINE GLUCONATE 2 % 1 PACK (2 CLOTHS) TOP SCH (03:34)
[2017-09-01] MEDS: AMIODARONE 200 MG TAB PO SCH ×2 (03:34→14:31)
[2017-09-01] MEDS: PROPOFOL 1000 MG/100 ML INJ 100 ML IV PRN ×2 (03:55→19:21)
[2017-09-01] MEDS: RESP: ALBUTEROL 2.5 MG/IPRATROPIUM 0.5 MG NEB (SCH) INH ×4 (04:07→21:18)
[2017-09-01] MEDS: cloNIDine HCL 0.2 MG TAB PO SCH ×3 (05:54→19:28)
[2017-09-01] MEDS: DIAZEPAM 10 MG TAB PO SCH ×3 (05:54→19:29)
[2017-09-01] MEDS: methylPREDNISolone SOD SUCC 40 MG/1 ML VIAL IV PUSH SCH (05:54)
[2017-09-01] MEDS: SODIUM BICARBONATE 8.4% INJ 150 MEQ in WATER STERILE FOR INJ 850 ML IV SCH (06:40)
[2017-09-01] MEDS ORDERED: Vancomycin Consult Pharmacy 1 EA OTHER SCH (06:45)
--- NOTE | 2017-09-01 06:50 | HHI.CCPN ---
Subjective Remarks/Hospital Course 08/28: overnight, started to become purposeful in upper extremities, and pupils are 3mm and now reactive. remains in shock with shock liver, acute kidney injury , multiorgan failure. LFTs uptrending. 08/29: improvement in mental status. now following commands. discussion with sister: patient drinks heavily: 2-3 6-packs/day. liver enzymes still elevated, remains oliguric with Cr > 3 now and rising. albumin continues to fall which is likely combination of very poor nutritional status and poor liver synthetic function. blood sugar slightly improved. overall still in multiorgan failure. family appears to have poor insight into patient's condition: sister herself is going through rehab for a recent severe illness. now also starting tremors which may be early alcohol withdraw given new clinical history to suggest large etoh intake. 08/30: improvements in hemodynamics and off vasopressors. wbc downtrending. but no improvement and worsening in metabolic organ failure: Cr higher, remains oliguric. LFTs still high. remains on d10w and tube feeds with marginal blood glucose. acidosis continues to worsen despite adequate cardiac index. 08/31: kidney function continues to worsen, though uop slightly improved from yesterday. remains off vasopressors. afib RVR yesterday now controlled with amiodarone. overall no meaningful improvements- acidosis still too severe to allow extubation and renal function complicating acidosis. very poor dialysis candidate given overall functionality and current acute illness. 09/01: renal function worse, however now non-oliguric. off vasopressors. staph epi growing 2 different sensitivity profiles, so most likely contaminated sample. acidosis slightly better. Objective Vital Signs Date Time Temp Pulse Resp B/P (MAP) Pulse Ox O2 Delivery O2 Flow Rate FiO2 09/01/17 06:25 77 09/01/17 06:01 20 129/87 (101) 100 09/01/17 04:30 97.9 09/01/17 04:06 35 Intake and Output 09/01/17 09/01/17 09/02/17 08:00 16:00 00:00 Output Total 1800 ml Balance -1800 ml Result Diagram: 08/31/17 0410 08/31/17 1500 Objective Remarks gen: elderly male, lying in bed, intubated, sedated heent: pupils 3mm, equal, reactive. mucous membranes moist. nc. at. neck: no jvd. trachea midline. chest: equal chest rise. coarse breath sounds. left subclavian cvl in place, site c/d/i. cv: normal rate, irregularly irregular rhythm. afib. abd: soft, nontender, nondistended. no guarding. extr: distal pulses 2+. no peripheral edema. right radial art line in place, site c/d/i. neuro: RASS -2. GCS 10 ([id number]). +cough. + gag. + corneals. follows commands. A/P Assessment and Plan Assessment: 66yM who presented in extremis and progressed rapidly to PEA arrest , most likely secondary to septic shock. Blood with Coag negative staph in 4/4 bottles. Unclear source of infection as sputum and urine cultures have not produced organism. He remains in multiorgan failure and his liver and kidneys are still severely dysfunctional without signs of improvement. remains critically ill. After long discussion with his sister and medical decisionmaker , plan to make him DNR with continued aggressive care. Acidosis and renal failure are biggest barriers today. will consult nephrology, although he would be an exceedingly poor renal replacement candidate given his pre-hospital poor functional status, his critical illness, and his multi organ dysfunction. Aggressive goals remain and he continues to be critically ill and off pathway. Plan by systems: Neurologic: Hypoxic-ischemic encephalopathy Metabolic encephalopathy - improving Alcohol Dependence Alcohol withdraw syndrome Frequent neuro checks Propofol for goal RASS -2 iv thiamine, mvi valium 5mg po q8h clonidine 0.2mg po q8h. Respiratory: Acute hypoxic and hypercarbic respiratory failure - persistent. Vent bundle Head of bed at 30 Nebs start daily SBTs Wean FiO2 for goal SPO2 greater than 90% CT chest 08/30: resolving consolidation without significant effusion or empyema. Cardiovascular: Septic shock - resolving. Status post PEA arrest Atrial fibrillation with rapid ventricular response continue amiodarone 200mg po q12h. clonidine 0.2mg po q8h Renal: Acute kidney injury-worsening Secondary septic shock Continue [facility] renal ultrasound 08/29: no evidence of hydronephrosis. -- Strict I/Os nephrology consult. again, very poor dialysis candidate. very volume overloaded. diuresis to lasix 100mg iv q6h and give with albumin 25gm q6h. FEN/GI: Acute protein calorie malnutrition -severe Shock liver Hyperkalemia tube feeds Trend LFTs nutrition consult Heme/ID: Septic shock Leukocytosis hold vancomycin d/c azithro and zosyn. check vanco level. urine and sputum cultures NG Blood cultures, coag negative staph 09/05 bottles, but different sensitivities: likely contaminant. urinary legionella and pneumococcal Ag: negative. wbc and fever curve trending down. Endocrine: Hypoglycemia- improving. Secondary to shock liver d/c d10w -- SSI Prophylaxis: GI Prophylaxis IV Pepcid DVT Prophylaxis -- SCDs heparin drip Lines: 08/27 left subclavian triple-lumen catheter 08/27 right radial arterial line [facility] Dispo: Remain in ICU. Remains critically ill. This patient remains critically ill with one or more organ systems which are or may become a threat to life. I have spent in excess of 30 minutes discontinuously in the care and management of this patient. This time is exclusive of procedures, and includes, but is not limited to, evaluation of the patient, review of the medical record, discussions with family, consultants, nursing staff, or respiratory therapy, and documentation in the medical record. Andrews Gutierrez MD Sep 01, 2017 06:50
[2017-09-01 07:14] LABS: HEMATOCRIT 22.9 % (39.0-51.0); MEAN CELL VOLUME 72.9 FL (80.0-100.0); MEAN CORPUSCULAR HEMOGLOBIN 22.5 PG (27.0-34.0); MEAN CORPUSCULAR HGB CONC 30.8 % (32.0-36.0); MEAN PLATELET VOLUME 8.7 FL (7.0-11.0); RED BLOOD COUNT 3.14 MIL/MM3 (4.50-5.90); WHITE BLOOD COUNT 7.8 TH/MM3 (4.0-11.0)
[2017-09-01 07:32] LABS: INTERNATIONAL NORMALIZED RATIO 1.1 RATIO; PROTHROMBIN TIME - PATIENT 11.3 SEC (9.8-11.6)
[2017-09-01 07:40] LABS: ALBUMIN 2.9 GM/DL (3.4-5.0); BICARBONATE 26.2 MEQ/L (21.0-32.0); CALCIUM 6.6 MG/DL (8.5-10.1); CREATININE 4.6 MG/DL (0.60-1.30); TOTAL BILIRUBIN ADULT 1.7 MG/DL (0.2-1.0); TOTAL PROTEIN 5.7 GM/DL (6.4-8.2)
[2017-09-01 07:41] LABS: CALCIUM-PROTEIN CORRECTED 7.3 MG/DL (8.5-10.1)
[2017-09-01 07:46] LABS: HEMOGLOBIN 7.1 GM/DL (13.0-17.0); PLATELET COUNT 41 TH/MM3 (150-450)
[2017-09-01] MEDS ORDERED: SODIUM CHLOR 0.9% 250 ML INJ 250 ML IV ONE (08:00)
[2017-09-01] MEDS: METOLAZONE 5 MG TAB PO SCH ×2 (08:50→19:29)
[2017-09-01] MEDS: CALCIUM ACETATE 667 MG CAP PO SCH ×3 (08:50→17:50)
[2017-09-01] MEDS: MUPIROCIN 2% OINT 1 APPLIC/GM SYR NASAL SCH ×2 (08:50→19:28)
[2017-09-01] MEDS: LACTULOSE SYRUP 20 GM/30 ML CUP PO SCH (08:50)
[2017-09-01] MEDS: DOCUSATE SODIUM 50 MG/SENNA 8.6 MG TAB PO SCH ×2 (08:51→19:29)
[2017-09-01] MEDS: FAMOTIDINE 20 MG TAB PO SCH ×2 (08:51→19:29)
[2017-09-01] MEDS: MULTIVITAMIN TAB PO SCH (08:51)
[2017-09-01] MEDS: CHLORHEXIDINE 0.12% (ORAL KIT) 15 ML CUP MT SCH ×2 (08:54→19:28)
[2017-09-01] MEDS: AZITHROMYCIN INJ 500 MG in SODIUM CHLOR 0.9% 250 ML INJ 250 ML IV SCH (09:00)
[2017-09-01] MEDS: predniSONE 5 MG/5 ML CUP PO SCH (10:05)
[2017-09-01 17:50] LABS: HEMATOCRIT 25.3 % (39.0-51.0); HEMOGLOBIN 8.1 GM/DL (13.0-17.0)
--- NOTE | 2017-09-01 22:34 | HHI.NPPN ---
Subjective History of Present Illness 66-year-old male with a past medical history of chronic obstructive pulmonary disease, history of deep venous thrombosis with pulmonary embolism, atrial fibrillation, hypertension, ischemic heart disease, congestive heart failure, who was admitted from the long-term with generalized weakness and altered mental status. I was called to see the patient because of elevated BUN and creatinine. Additional Remarks Patient remain on the vent, and unresponsive. Review of Systems General General Remarks Intubated and unresponsive. Objective Data Data 09/01/17 09/02/17 19:00 07:00 Intake Total 1652 ml Output Total 1850 ml Balance -198 ml IV Total 817 ml Tube Feeding 385 ml Packed Cells 400 ml Blood Product IV Normal Saline Flush 50 ml Output Urine Total 1850 ml # Bowel Movements 0 Vital Signs Date Time Temp Pulse Resp B/P (MAP) Pulse Ox O2 Delivery O2 Flow Rate FiO2 09/01/17 19:40 100 35 09/01/17 18:00 84 09/01/17 18:00 88 20 136/84 (101) 100 09/01/17 17:10 100 35 09/01/17 17:00 88 20 147/96 (113) 100 09/01/17 16:00 81 09/01/17 16:00 35 09/01/17 16:00 97.8 84 20 141/93 (109) 100 09/01/17 15:00 84 19 129/77 (94) 100 09/01/17 14:00 84 09/01/17 14:00 88 19 120/75 (90) 100 09/01/17 13:45 100 35 09/01/17 13:17 97.7 81 20 136/90 99 09/01/17 13:00 76 20 134/86 (102) 100 09/01/17 12:00 74 09/01/17 12:00 97.6 74 19 126/85 (99) 100 09/01/17 12:00 35 09/01/17 11:47 97.8 81 20 136/81 100 09/01/17 11:32 97.3 80 20 126/79 100 09/01/17 11:00 82 19 112/74 (87) 100 09/01/17 10:30 100 35 09/01/17 10:00 84 09/01/17 10:00 84 20 107/59 (75) 100 09/01/17 09:00 82 19 144/91 (108) 100 09/01/17 08:00 82 20 136/78 (97) 100 09/01/17 08:00 35 09/01/17 08:00 82 09/01/17 07:55 97 35 09/01/17 07:00 97.6 82 20 137/81 (99) 100 09/01/17 06:25 77 09/01/17 06:01 90 20 129/87 (101) 100 09/01/17 05:30 86 19 100 09/01/17 05:01 84 21 138/84 (102) 100 09/01/17 04:30 97.9 82 16 100 09/01/17 04:06 100 35 09/01/17 04:01 88 13 131/80 (97) 100 09/01/17 04:00 35 09/01/17 04:00 100 09/01/17 03:01 84 19 127/77 (94) 100 09/01/17 02:03 100 09/01/17 02:01 88 20 120/76 (91) 100 09/01/17 01:01 104 16 117/90 (99) 100 09/01/17 00:37 100 35 09/01/17 00:01 98.7 88 20 131/71 (91) 100 09/01/17 00:00 96 09/01/17 00:00 35 08/31/17 23:01 96 19 129/80 (96) 100 08/31/17 22:33 100 35 -: 09/01/17 1613 09/01/17 0700 Physical Exam General Appearance Remarks Intubated and unresponsive. Eyes Eye Exam: Pupils Equal Pulmonary Resp Exam: Breath Sounds Equal, No Distress, Rhonchi, Decreased Bases, Diminished Breath Sounds Gastrointestinal/Abdomen GI Exam: Soft, Non-Tender, Bowel Sounds Present, Distended Extremeties Extremities Exam: Trace Edema Neurologic Neuro Exam: Unresponsive Assessment/Plan Assessment Summary: CAROLINE/Acute Renal Failure Problem List: (1) COPD with exacerbation ICD Codes: J44.1 - Chronic obstructive pulmonary disease with (acute) exacerbation (2) Shock liver ICD Codes: K72.00 - Acute and subacute hepatic failure without coma (3) Hypoalbuminemia ICD Codes: E88.09 - Other disorders of plasma-protein metabolism, not elsewhere classified (4) Encephalopathy ICD Codes: G93.40 - Encephalopathy, unspecified (5) CHF (congestive heart failure) ICD Codes: I50.9 - Heart failure, unspecified (6) Cardiac arrest ICD Codes: I46.9 - Cardiac arrest, cause unspecified (7) Acute kidney injury ICD Codes: N17.9 - Acute kidney failure, unspecified Plan Patient has PEA and develop CAROLINE. Most likely has ATN. Now started passing the urine, On Lasix, BUN and Creatinine continue to increase. No urgent need for HD. K is normal and Hco3 is not low. If any need for HD, will discuss with the family. Possibly has Encephalopathy related to Cardiac arrest. Marlon Muniz MD Sep 01, 2017 22:34
[2017-09-02] VITALS (44 sets, daily range): BP systolic 83–201; BP diastolic 61–143; PULSE 80–166; RESP 17–29; TEMP 97.5–98.9; O2SAT 87–100
[2017-09-02] MEDS: ALBUMIN 25% INJ 100 ML IV SCH ×4 (00:03→18:17)
[2017-09-02] MEDS: FUROSEMIDE 100 MG/10 ML VIAL IV PUSH SCH ×3 (00:03→19:54)
[2017-09-02] MEDS: INSULIN NovoLIN REGULAR SUPPLEMENTAL SCALE SQ SCH ×6 (00:03→19:55)
[2017-09-02] MEDS: AMIODARONE 200 MG TAB PO SCH ×2 (01:54→13:05)
[2017-09-02] MEDS: RESP: ALBUTEROL 2.5 MG/IPRATROPIUM 0.5 MG NEB (SCH) INH ×4 (03:00→20:57)
[2017-09-02] MEDS: fentaNYL DRIP 250 ML IV PRN (03:45)
[2017-09-02] MEDS: CHLORHEXIDINE GLUCONATE 2 % 1 PACK (2 CLOTHS) TOP SCH (03:53)
[2017-09-02 04:16] LABS: HEMATOCRIT 24.8 % (39.0-51.0); HEMOGLOBIN 8.2 GM/DL (13.0-17.0); MEAN CELL VOLUME 74.1 FL (80.0-100.0); MEAN CORPUSCULAR HEMOGLOBIN 24.4 PG (27.0-34.0); PLATELET COUNT 35 TH/MM3 (150-450); RED BLOOD COUNT 3.35 MIL/MM3 (4.50-5.90); WHITE BLOOD COUNT 8.1 TH/MM3 (4.0-11.0)
[2017-09-02 04:25] LABS: CHLORIDE 93 MEQ/L (98-107); SODIUM (NA) 134 MEQ/L (136-145)
[2017-09-02 04:29] LABS: INTERNATIONAL NORMALIZED RATIO 1.1 RATIO; PROTHROMBIN TIME - PATIENT 11.3 SEC (9.8-11.6)
[2017-09-02 04:33] LABS: ALBUMIN 3.9 GM/DL (3.4-5.0); ALT (GPT) 822 U/L (12-78); AST (GOT) 33 U/L (15-37); BICARBONATE 24.6 MEQ/L (21.0-32.0); BLOOD UREA NITROGEN 118 MG/DL (7-18); CALCIUM 7.8 MG/DL (8.5-10.1); GLOMERULAR FILTRATION RATE 12 ML/MIN (>89); GLUCOSE,RANDOM 225 MG/DL (74-106)
[2017-09-02 04:36] LABS: ALKALINE PHOSPHATASE 119 U/L (45-117); TOTAL BILIRUBIN ADULT 2.2 MG/DL (0.2-1.0); TOTAL PROTEIN 6.6 GM/DL (6.4-8.2)
[2017-09-02] MEDS: cloNIDine HCL 0.2 MG TAB PO SCH ×3 (05:06→19:54)
[2017-09-02] MEDS: DIAZEPAM 10 MG TAB PO SCH ×3 (05:06→19:55)
[2017-09-02] MEDS: PROPOFOL 1000 MG/100 ML INJ 100 ML IV PRN ×2 (06:23→12:05)
[2017-09-02] MEDS: CHLORHEXIDINE 0.12% (ORAL KIT) 15 ML CUP MT SCH ×2 (09:50→19:57)
[2017-09-02] MEDS: MUPIROCIN 2% OINT 1 APPLIC/GM SYR NASAL SCH ×2 (09:52→19:54)
[2017-09-02] MEDS: LACTULOSE SYRUP 20 GM/30 ML CUP PO SCH (09:52)
[2017-09-02] MEDS: AZITHROMYCIN INJ 500 MG in SODIUM CHLOR 0.9% 250 ML INJ 250 ML IV SCH (09:52)
[2017-09-02] MEDS: CALCIUM ACETATE 667 MG CAP PO SCH ×3 (09:53→17:43)
[2017-09-02] MEDS: THIAMINE HCL 100 MG TAB PO SCH (09:53)
[2017-09-02] MEDS: METOLAZONE 5 MG TAB PO SCH ×2 (09:53→19:55)
[2017-09-02] MEDS: MULTIVITAMIN TAB PO SCH (09:54)
[2017-09-02] MEDS: DOCUSATE SODIUM 50 MG/SENNA 8.6 MG TAB PO SCH ×2 (09:54→19:55)
[2017-09-02] MEDS: FAMOTIDINE 20 MG TAB PO SCH ×2 (09:54→19:55)
[2017-09-02] MEDS: SODIUM CHLORIDE 0.9% FLUSH 10 ML FLUSH IV FLUSH PRN (09:54)
[2017-09-02] MEDS: predniSONE 5 MG/5 ML CUP PO SCH (10:02)
--- NOTE | 2017-09-02 11:45 | HHI.NPPN ---
Subjective History of Present Illness 66-year-old male with a past medical history of chronic obstructive pulmonary disease, history of deep venous thrombosis with pulmonary embolism, atrial fibrillation, hypertension, ischemic heart disease, congestive heart failure, who was admitted from the [place] [facility] with generalized weakness and altered mental status. I was called to see the patient because of elevated BUN and creatinine. Additional Remarks Patient remain on the vent, and sedated, BP is stable. Review of Systems General General Remarks Intubated and unresponsive. Objective Data Data Vital Signs Date Time Temp Pulse Resp B/P (MAP) Pulse Ox O2 Delivery O2 Flow Rate FiO2 09/02/17 11:00 88 09/02/17 10:25 100 35 09/02/17 10:00 84 09/02/17 09:00 84 09/02/17 09:00 84 20 159/93 (115) 100 09/02/17 08:00 97.5 86 20 149/94 (112) 100 09/02/17 08:00 86 09/02/17 07:32 100 35 09/02/17 07:00 88 20 162/91 (114) 100 09/02/17 06:00 88 09/02/17 06:00 88 20 145/83 (103) 100 09/02/17 05:00 90 19 168/100 (122) 100 09/02/17 04:13 100 35 09/02/17 04:00 97.9 88 20 156/90 (112) 100 09/02/17 04:00 35 09/02/17 04:00 88 09/02/17 03:00 88 20 156/83 (107) 100 09/02/17 02:00 88 19 150/92 (111) 100 09/02/17 02:00 88 09/02/17 01:00 100 35 09/02/17 01:00 86 20 152/89 (110) 100 09/02/17 00:00 98.1 88 20 147/92 (110) 100 09/02/17 00:00 88 09/02/17 00:00 35 09/01/17 23:00 90 20 164/96 (118) 100 09/01/17 22:40 100 35 09/01/17 22:00 88 09/01/17 22:00 88 19 161/96 (117) 100 09/01/17 21:00 86 20 160/104 (122) 100 09/01/17 20:00 98.5 90 20 164/90 (114) 100 09/01/17 20:00 90 09/01/17 20:00 35 09/01/17 19:40 100 35 09/01/17 19:00 82 19 146/103 (117) 100 09/01/17 18:00 84 09/01/17 18:00 88 20 136/84 (101) 100 09/01/17 17:10 100 35 09/01/17 17:00 88 20 147/96 (113) 100 09/01/17 16:00 81 09/01/17 16:00 35 09/01/17 16:00 97.8 84 20 141/93 (109) 100 09/01/17 15:00 84 19 129/77 (94) 100 09/01/17 14:00 84 09/01/17 14:00 88 19 120/75 (90) 100 09/01/17 13:45 100 35 09/01/17 13:17 97.7 81 20 136/90 99 09/01/17 13:00 76 20 134/86 (102) 100 09/01/17 12:00 74 09/01/17 12:00 97.6 74 19 126/85 (99) 100 09/01/17 12:00 35 09/01/17 11:47 97.8 81 20 136/81 100 -: 09/02/17 0331 09/02/17 0331 Physical Exam General Appearance Remarks Intubated and unresponsive, sedated. Eyes Eye Exam: Pupils Equal Pulmonary Resp Exam: Breath Sounds Equal, No Distress, Rhonchi, Decreased Bases, Diminished Breath Sounds Gastrointestinal/Abdomen GI Exam: Soft, Non-Tender, Bowel Sounds Present, Distended Extremeties Extremities Exam: Trace Edema Neurologic Neuro Exam: Unresponsive Assessment/Plan Assessment Summary: CAROLINE/Acute Renal Failure Problem List: (1) COPD with exacerbation ICD Codes: J44.1 - Chronic obstructive pulmonary disease with (acute) exacerbation (2) Shock liver ICD Codes: K72.00 - Acute and subacute hepatic failure without coma (3) Hypoalbuminemia ICD Codes: E88.09 - Other disorders of plasma-protein metabolism, not elsewhere classified (4) Encephalopathy ICD Codes: G93.40 - Encephalopathy, unspecified (5) CHF (congestive heart failure) ICD Codes: I50.9 - Heart failure, unspecified (6) Cardiac arrest ICD Codes: I46.9 - Cardiac arrest, cause unspecified (7) Acute kidney injury ICD Codes: N17.9 - Acute kidney failure, unspecified Plan Patient has PEA and develop CAROLINE. Most likely has ATN. Now started passing the urine, On Lasix and Metolazone. Urine out put is good. BUN and Creatinine continue to increase. No urgent need for HD. K is normal and Hco3 is not low. Possibly has Encephalopathy related to Cardiac arrest. Decrease Lasix, as urine out put has increased. Avoid Nephrotoxins and follow the urine out put and BMP. Marlon Muniz MD Sep 02, 2017 11:45
[2017-09-02] MEDS: hydrALAZINE HCL 20 MG/ML VIAL IV PUSH PRN (15:20)
--- NOTE | 2017-09-02 15:45 | RADRPT ---
EXAM DATE/TIME: 09/02/2017 14:50 [facility] COMPARISON: CHEST SINGLE AP, August 31, 2017, 7:52. INDICATIONS : Respiratory disease. MEDICAL HISTORY : Chronic obstructive pulmonary disease. Cardiovascular disease. Diabetes mellitus type II. Deep venous thrombosis.Pulmonary embolism.Hypertension. SURGICAL HISTORY : None. ENCOUNTER: Subsequent ACUITY: 1 week PAIN SCORE: Non-responsive. LOCATION: Bilateral chest FINDINGS: Supporting devices are stable in position. The lungs continue to demonstrate diffuse interstitial prominence and consolidating airspace disease within the left base. Small bilateral effusions remain evident. CONCLUSION: No significant change. Jagjit Lilly MD on September 02, 2017 at 15:41 Board Certified Radiologist. This report was verified electronically.
[2017-09-02] MEDS ORDERED: LABETALOL HCL 100 MG/20 ML VIAL ONE (16:06)
[2017-09-02] MEDS ORDERED: DEXMEDETOMIDINE INJ 200 MCG in SODIUM CHLORIDE 0.9% INJ 50 ML IV PRN (16:30)
--- NOTE | 2017-09-02 16:42 | HHI.CCPN ---
Subjective Remarks/Hospital Course 08/28: overnight, started to become purposeful in upper extremities, and pupils are 3mm and now reactive. remains in shock with shock liver, acute kidney injury , multiorgan failure. LFTs uptrending. 08/29: improvement in mental status. now following commands. discussion with sister: patient drinks heavily: 2-3 6-packs/day. liver enzymes still elevated, remains oliguric with Cr > 3 now and rising. albumin continues to fall which is likely combination of very poor nutritional status and poor liver synthetic function. blood sugar slightly improved. overall still in multiorgan failure. family appears to have poor insight into patient's condition: sister herself is going through rehab for a recent severe illness. now also starting tremors which may be early alcohol withdraw given new clinical history to suggest large etoh intake. 08/30: improvements in hemodynamics and off vasopressors. wbc downtrending. but no improvement and worsening in metabolic organ failure: Cr higher, remains oliguric. LFTs still high. remains on d10w and tube feeds with marginal blood glucose. acidosis continues to worsen despite adequate cardiac index. 08/31: kidney function continues to worsen, though uop slightly improved from yesterday. remains off vasopressors. afib RVR yesterday now controlled with amiodarone. overall no meaningful improvements- acidosis still too severe to allow extubation and renal function complicating acidosis. very poor dialysis candidate given overall functionality and current acute illness. 09/01: renal function worse, however now non-oliguric. off vasopressors. staph epi growing 2 different sensitivity profiles, so most likely contaminated sample. acidosis slightly better. 09/02: Patient remains intubated critical. Currently off sedation remains encephalopathic and very weak. Very weakly followed commands by squeezing hand on the left hand, wiggled toes right foot. Worsening renal failure BUN 118 creatinine 5 today. Remains nonoliguric approximately 4 L urine output. Unless there is significant neurology clinical improvement he is not a candidate for hemodialysis Objective Vital Signs Date Time Temp Pulse Resp B/P (MAP) Pulse Ox O2 Delivery O2 Flow Rate FiO2 09/02/17 15:20 154 17 195/130 (151) 98 09/02/17 13:27 35 09/02/17 13:01 97.6 Intake and Output 09/02/17 09/02/17 09/03/17 08:00 16:00 00:00 Intake Total 1012.5 ml 93 ml Output Total 2125 ml Balance -1112.5 ml 93 ml Result Diagram: 09/02/1733009/02/17330 Objective Remarks gen: 66-year-old male, lying in bed, intubated, off sedation, tachypneic heent: pupils 3mm, equal, reactive. mucous membranes moist. nc. at. neck: no jvd. trachea midline. chest: equal chest rise. coarse breath sounds, scattered coarse rhonchi. left subclavian cvl in place, site c/d/i. cv: Hypertensive, irregularly irregular rhythm. afib. abd: soft, nontender, nondistended. no guarding. extr: distal pulses 2+. no peripheral edema. right radial art line in place, site c/d/i. neuro: Eyes open spontaneously, patient is tachypneic. Very weakly squeezed with left hand and wiggle right toes on command. +cough. + gag. + corneals. A/P Assessment and Plan Assessment: 66yM who presented in extremis and progressed rapidly to PEA arrest , most likely secondary to septic shock, and COPD exacerbation blood with Coag negative staph in 4/4 bottles. Unclear source of infection as sputum and urine cultures have not produced organism. He remains in multiorgan failure and his liver and kidneys are still severely dysfunctional without signs of improvement. remains critically ill. After long discussion with his sister and medical decisionmaker, plan to make him DNR with continued aggressive care. Acidosis and renal failure are biggest barriers today. will consult nephrology, although he would be an exceedingly poor renal replacement candidate given his pre-hospital poor functional status, his critical illness, and his multi organ dysfunction. Aggressive goals remain and he continues to be critically ill and off pathway. Plan by systems: Neurologic: Hypoxic-ischemic encephalopathy Metabolic encephalopathy Alcohol Dependence Alcohol withdrawal syndrome Frequent neuro checks Discontinue propofol and fentanyl Start Precedex to facilitate ventilator weaning and neuro exam iv thiamine, mvi valium 5mg po q8h clonidine 0.2mg po q8h. Watch closely for alcohol withdrawal Respiratory: Acute hypoxic and hypercarbic respiratory failure - persistent. Vent bundle Head of bed at 30 Nebs Daily SBTs-mental status will not permit extubation Wean FiO2 for goal SPO2 greater than 90% CT chest 08/30: resolving consolidation without significant effusion or empyema. Cardiovascular: Septic shock - resolved. Status post PEA arrest Atrial fibrillation with rapid ventricular response continue amiodarone 200mg po q12h. clonidine 0.2mg po q8h Continue IV Lasix as below Renal: Acute kidney injury-worsening Secondary septic shock, ATN Continue [facility] renal ultrasound 08/29: no evidence of hydronephrosis. -- Strict I/Os nephrology consult. Dr Muniz following Very poor dialysis candidate, unless there is significant improvement in mentation very volume overloaded. Currently diuresis with lasix 100mg iv q6h and give with albumin 25gm q6h. Reduced to [address] Muniz, as the BUN creat continue to rise. On metolazone 10 mg q12 Defer for dialysis decision to Dr. Muniz. Poor candidate secondary to poor overall prognosis FEN/GI: Acute protein calorie malnutrition -severe Shock liver Hyperkalemia tube feeds Trend LFTs nutrition consult Heme/ID: Septic shock Leukocytosis holding vancomycin. Consult pharmacy to dose d/c azithro and zosyn. check vanco level. urine and sputum cultures NG Blood cultures, coag negative staph 09/05 bottles, but different sensitivities: likely contaminant. Repeat cultures negative today urinary legionella and pneumococcal Ag: negative. wbc and fever curve trending down. Endocrine: Hypoglycemia- improving. Secondary to shock liver d/c d10w -- SSI Prophylaxis: GI Prophylaxis IV Pepcid DVT Prophylaxis -- SCDs heparin drip Lines: 08/27 left subclavian triple-lumen catheter 08/27 right radial arterial line [facility] Dispo: Remain in ICU. Remains critically ill. This patient remains critically ill with one or more organ systems which are or may become a threat to life. I have spent in excess of 30 minutes discontinuously in the care and management of this patient. This time is exclusive of procedures, and includes, but is not limited to, evaluation of the patient, review of the medical record, discussions with family, consultants, nursing staff, or respiratory therapy, and documentation in the medical record. Randy Peña MD Sep 02, 2017 16:42
[2017-09-02] MEDS ORDERED: Vancomycin Consult Pharmacy 1 EA OTHER SCH (16:45)
[2017-09-02] MEDS: DEXMEDETOMIDINE INJ 400 MCG in SODIUM CHLORIDE 0.9% INJ 96 ML IV PRN (22:57)
[2017-09-03] VITALS (53 sets, daily range): BP systolic 106–203; BP diastolic 57–118; PULSE 93–134; RESP 19–36; TEMP 97.8–98.8; O2SAT 92–100
[2017-09-03] MEDS: INSULIN NovoLIN REGULAR SUPPLEMENTAL SCALE SQ SCH ×6 (00:15→20:16)
[2017-09-03] MEDS: ALBUMIN 25% INJ 100 ML IV SCH ×3 (00:49→12:30)
[2017-09-03] MEDS: DEXMEDETOMIDINE INJ 400 MCG in SODIUM CHLORIDE 0.9% INJ 96 ML IV PRN ×5 (01:57→19:26)
[2017-09-03] MEDS: AMIODARONE 200 MG TAB PO SCH ×2 (02:46→15:03)
[2017-09-03] MEDS: CHLORHEXIDINE GLUCONATE 2 % 1 PACK (2 CLOTHS) TOP SCH (02:46)
[2017-09-03] MEDS: hydrALAZINE HCL 20 MG/ML VIAL IV PUSH PRN ×5 (02:47→20:17)
[2017-09-03] MEDS: RESP: ALBUTEROL 2.5 MG/IPRATROPIUM 0.5 MG NEB (SCH) INH ×4 (03:16→21:58)
[2017-09-03 04:49] LABS: AUTOMATED NEUTROPHIL # 14.3 TH/MM3 (1.8-7.7); BASOPHIL # 0.1 TH/MM3 (0-0.2); BASOPHIL % 0.8 % (0.0-2.0); EOSINOPHIL % 0.1 % (0.0-4.0); HEMATOCRIT 26.5 % (39.0-51.0); HEMOGLOBIN 9.1 GM/DL (13.0-17.0); LYMPH % 2.8 % (9.0-44.0); LYMPHOCYTE # 0.4 TH/MM3 (1.0-4.8); MEAN CELL VOLUME 74.6 FL (80.0-100.0); MEAN CORPUSCULAR HEMOGLOBIN 25.4 PG (27.0-34.0); MEAN CORPUSCULAR HGB CONC 34.1 % (32.0-36.0); MEAN PLATELET VOLUME 7.8 FL (7.0-11.0); MONO % 0.2 % (0.0-8.0); NEUT % 96.1 % (16.0-70.0); PLATELET COUNT 31 TH/MM3 (150-450); RED BLOOD COUNT 3.56 MIL/MM3 (4.50-5.90); RED CELL DISTRIBUTION WIDTH 22.4 % (11.6-17.2); WHITE BLOOD COUNT 14.8 TH/MM3 (4.0-11.0)
[2017-09-03 04:59] LABS: CHLORIDE 90 MEQ/L (98-107); SODIUM (NA) 134 MEQ/L (136-145)
[2017-09-03] MEDS: DIAZEPAM 10 MG TAB PO SCH ×3 (05:31→22:26)
[2017-09-03] MEDS: cloNIDine HCL 0.2 MG TAB PO SCH ×2 (05:31→13:36)
[2017-09-03 06:07] LABS: INTERNATIONAL NORMALIZED RATIO 1.1 RATIO; PROTHROMBIN TIME - PATIENT 11.4 SEC (9.8-11.6)
[2017-09-03 06:21] LABS: ALBUMIN 4.7 GM/DL (3.4-5.0); ALKALINE PHOSPHATASE 125 U/L (45-117); ALT (GPT) 533 U/L (12-78); AST (GOT) 24 U/L (15-37); BICARBONATE 25.3 MEQ/L (21.0-32.0); BLOOD UREA NITROGEN 143 MG/DL (7-18); GLOMERULAR FILTRATION RATE 10 ML/MIN (>89); GLUCOSE,RANDOM 204 MG/DL (74-106); TOTAL BILIRUBIN ADULT 2.6 MG/DL (0.2-1.0); TOTAL PROTEIN 7.2 GM/DL (6.4-8.2)
--- NOTE | 2017-09-03 06:56 | HHI.CCPN ---
Objective Vital Signs Date Time Temp Pulse Resp B/P (MAP) Pulse Ox O2 Delivery O2 Flow Rate FiO2 09/03/17 06:01 132 27 155/104 (121) 98 09/03/17 05:10 35 09/03/17 04:01 98.1 Intake and Output 09/03/17 09/03/17 09/04/17 08:00 16:00 00:00 Intake Total 616 ml Output Total 1600 ml Balance -984 ml Result Diagram: 09/03/17 0421 09/03/17 0421 Rocco Oden MD Sep 03, 2017 06:56
--- NOTE | 2017-09-03 06:59 | RADRPT ---
EXAM DATE/TIME: 09/03/2017 06:15 [facility] COMPARISON: CHEST SINGLE AP, September 02, 2017, 14:50. INDICATIONS : Respiratory disease. MEDICAL HISTORY : Chronic obstructive pulmonary disease. Cardiovascular disease. Diabetes mellitus type II. Deep venous thrombosis.Pulmonary embolism. Hypertension. SURGICAL HISTORY : None. ENCOUNTER: Subsequent ACUITY: 1 day PAIN SCORE: Non-responsive. LOCATION: Bilateral chest FINDINGS: Endotracheal tube nasogastric tube and central line remain in place. Hazy bilateral primarily basilar pleural-parenchymal opacities persist unchanged. Cardiac contours are stable. CONCLUSION: No significant interval change Casey Guillen MD on September 03, 2017 at 6:56 Board Certified Radiologist. This report was verified electronically.
--- NOTE | 2017-09-03 07:08 | HHI.CCPN ---
Subjective Remarks/Hospital Course 08/28: overnight, started to become purposeful in upper extremities, and pupils are 3mm and now reactive. remains in shock with shock liver, acute kidney injury , multiorgan failure. LFTs uptrending. 08/29: improvement in mental status. now following commands. discussion with sister: patient drinks heavily: 2-3 6-packs/day. liver enzymes still elevated, remains oliguric with Cr > 3 now and rising. albumin continues to fall which is likely combination of very poor nutritional status and poor liver synthetic function. blood sugar slightly improved. overall still in multiorgan failure. family appears to have poor insight into patient's condition: sister herself is going through rehab for a recent severe illness. now also starting tremors which may be early alcohol withdraw given new clinical history to suggest large etoh intake. 08/30: improvements in hemodynamics and off vasopressors. wbc downtrending. but no improvement and worsening in metabolic organ failure: Cr higher, remains oliguric. LFTs still high. remains on d10w and tube feeds with marginal blood glucose. acidosis continues to worsen despite adequate cardiac index. 08/31: kidney function continues to worsen, though uop slightly improved from yesterday. remains off vasopressors. afib RVR yesterday now controlled with amiodarone. overall no meaningful improvements- acidosis still too severe to allow extubation and renal function complicating acidosis. very poor dialysis candidate given overall functionality and current acute illness. 09/01: renal function worse, however now non-oliguric. off vasopressors. staph epi growing 2 different sensitivity profiles, so most likely contaminated sample. acidosis slightly better. 09/02: Patient remains intubated critical. Currently off sedation remains encephalopathic and very weak. Very weakly followed commands by squeezing hand on the left hand, wiggled toes right foot. Worsening renal failure BUN 118 creatinine 5 today. Remains nonoliguric approximately 4 L urine output. Unless there is significant neurology clinical improvement he is not a candidate for hemodialysis. 09/03: No improvement of renal function. CXR looks like pulmonary venous congestion; suspect LV function is significantly reduced. ECHO report has a mixed interpretation, but looks like decompensated failure. We'll continue diuresis. Not really any role for inotropic agents. Better rate control will likely just produce depressed contractility. I'll try incremental digoxin adjusted for kidney function. Shock liver resolving. Afebrile but rising white count bears watching closely. The entire collection of medical problems and impaired neurological recovery makes long-term survival highly unlikely. Objective Vital Signs Date Time Temp Pulse Resp B/P (MAP) Pulse Ox O2 Delivery O2 Flow Rate FiO2 09/03/17 06:01 132 27 155/104 (121) 98 09/03/17 05:10 35 09/03/17 04:01 98.1 Intake and Output 09/03/17 09/03/17 09/04/17 08:00 16:00 00:00 Intake Total 616 ml Output Total 1600 ml Balance -984 ml Result Diagram: 09/03/1742009/03/17420 Objective Remarks gen: 66-year-old male, lying in bed, intubated, off sedation, tachypneic heent: pupils 2mm, equal, reactive. mucous membranes moist. nc. at. neck: no jvd. trachea midline. chest: equal chest rise. coarse breath sounds, scattered coarse rhonchi. left subclavian cvl in place, site c/d/i. cv: Hypertensive, irregularly irregular rhythm. afib. abd: soft, nontender, nondistended. no guarding. quiet. extr: distal pulses 2+. no peripheral edema. right radial art line in place, site c/d/i. neuro: Eyes open spontaneously, patient is tachypneic. Very weakly squeezed with left hand and wiggle right toes on command. +cough. + gag. + corneals. A/P Assessment and Plan Assessment: 66yM who presented in extremis and progressed rapidly to PEA arrest , most likely secondary to septic shock, and COPD exacerbation blood with Coag negative staph in 4/4 bottles. Unclear source of infection as sputum and urine cultures have not produced organism. He remains in multiorgan failure and his liver and kidneys are still severely dysfunctional without signs of improvement. remains critically ill. After long discussion with his sister and medical decision maker, plan to make him DNR with continued aggressive care. Acidosis and renal failure are biggest barriers today. will consult nephrology, although he would be an exceedingly poor renal replacement candidate given his pre-hospital poor functional status, his critical illness, and his multi organ dysfunction. Aggressive goals remain and he continues to be critically ill and off pathway. Plan by systems: Neurologic: Hypoxic-ischemic encephalopathy Metabolic encephalopathy Alcohol Dependence Alcohol withdrawal syndrome Frequent neuro checks Discontinue propofol and fentanyl Start Precedex to facilitate ventilator weaning and neuro exam iv thiamine, mvi valium 5mg po q8h clonidine 0.2mg po q8h. Watch closely for alcohol withdrawal Respiratory: Acute hypoxic and hypercarbic respiratory failure - persistent. Vent bundle Head of bed at 30 Nebs Daily SBTs-mental status will not permit extubation Wean FiO2 for goal SPO2 greater than 90% CT chest 08/30: resolving consolidation with small right effusion and middle lobe infiltrate. Cardiovascular: Septic shock - resolved. Status post PEA arrest Atrial fibrillation with rapid ventricular response continue amiodarone 200mg po q12h. clonidine 0.2mg po q8h Continue IV Lasix as below Digoxin 0.25 iv now, repaet after 4 hours if pulse > 90. He'll certainly tolerate up to 0.75 mg without toxicity. Renal: Acute kidney injury-worsening Secondary septic shock, ATN Continue [facility] renal ultrasound 08/29: no evidence of hydronephrosis. -- Strict I/Os nephrology consult. Dr Muniz following Very poor dialysis candidate, unless there is significant improvement in mentation very volume overloaded. Currently diuresis with lasix 100mg iv q6h and give with albumin 25gm q6h. Reduced to [address] Muniz, as the BUN creat continue to rise. On metolazone 10 mg q12 Defer for dialysis decision to Dr. Muniz. Poor candidate secondary to poor overall prognosis FEN/GI: Acute protein calorie malnutrition -severe Shock liver Hyperkalemia tube feeds Trend LFTs nutrition consult Heme/ID: Septic shock Leukocytosis holding vancomycin. Consult pharmacy to dose d/c azithro and zosyn. check vanco level. urine and sputum cultures NG Blood cultures, coag negative staph 09/05 bottles, but different sensitivities: likely contaminant. Repeat cultures negative today urinary legionella and pneumococcal Ag: negative. wbc and fever curve trending up again. Endocrine: Hypoglycemia- improving. Secondary to shock liver d/c d10w -- SSI Prophylaxis: GI Prophylaxis IV Pepcid DVT Prophylaxis -- SCDs heparin drip Lines: 08/27 left subclavian triple-lumen catheter 08/27 right radial arterial line [facility] Dispo: Remain in ICU. Remains critically ill. This patient remains critically ill with one or more organ systems which are or may become a threat to life. I have spent in excess of 35 minutes discontinuously in the care and management of this patient. This time is exclusive of procedures, and includes, but is not limited to, evaluation of the patient, review of the medical record, discussions with family, consultants, nursing staff, or respiratory therapy, and documentation in the medical record. Rocco Oden MD Sep 03, 2017 07:08
[2017-09-03] MEDS ORDERED: NAPHAZOLINE HCL 0.012% OPHT SOLN 15 ML BOTTLE EACH EYE PRN (07:30)
[2017-09-03] MEDS ORDERED: DIGOXIN 0.5 MG/2 ML VIAL IV PUSH ONE ×3 (07:30→17:00)
[2017-09-03 07:33] LABS: HEPARIN INDUCED PLATELET AB NEGATIVE (NEGATIVE)
[2017-09-03] MEDS: CALCIUM ACETATE 667 MG CAP PO SCH ×3 (09:00→17:39)
[2017-09-03] MEDS: DOCUSATE SODIUM 50 MG/SENNA 8.6 MG TAB PO SCH ×2 (09:00→20:17)
[2017-09-03] MEDS: MUPIROCIN 2% OINT 1 APPLIC/GM SYR NASAL SCH ×2 (10:00→20:17)
[2017-09-03] MEDS: CHLORHEXIDINE 0.12% (ORAL KIT) 15 ML CUP MT SCH ×2 (10:01→20:16)
[2017-09-03] MEDS: LACTULOSE SYRUP 20 GM/30 ML CUP PO SCH (10:01)
[2017-09-03] MEDS: predniSONE 5 MG/5 ML CUP PO SCH (10:02)
[2017-09-03] MEDS: MULTIVITAMIN TAB PO SCH (10:03)
[2017-09-03] MEDS: THIAMINE HCL 100 MG TAB PO SCH (10:03)
[2017-09-03] MEDS: METOLAZONE 5 MG TAB PO SCH (10:04)
[2017-09-03] MEDS: FAMOTIDINE 20 MG TAB PO SCH ×2 (10:04→20:17)
[2017-09-03] MEDS: FUROSEMIDE 100 MG/10 ML VIAL IV PUSH SCH (10:05)
[2017-09-03] MEDS: AZITHROMYCIN INJ 500 MG in SODIUM CHLOR 0.9% 250 ML INJ 250 ML IV SCH (10:06)
--- NOTE | 2017-09-03 14:38 | HHI.NPPN ---
Subjective History of Present Illness 66-year-old male with a past medical history of chronic obstructive pulmonary disease, history of deep venous thrombosis with pulmonary embolism, atrial fibrillation, hypertension, ischemic heart disease, congestive heart failure, who was admitted from the group home with generalized weakness and altered mental status. I was called to see the patient because of elevated BUN and creatinine. Additional Remarks Patient remain on the vent, and sedated, clinically same. Review of Systems General General Remarks Intubated and unresponsive. Objective Data Data 09/03/17 09/04/17 19:00 07:00 Intake Total 100 ml Balance 100 ml IV Total 100 ml Vital Signs Date Time Temp Pulse Resp B/P (MAP) Pulse Ox O2 Delivery O2 Flow Rate FiO2 09/03/17 14:01 126 29 188/114 (138) 97 09/03/17 13:31 122 31 158/78 (104) 94 09/03/17 13:01 124 31 169/97 (121) 98 09/03/17 12:01 97.8 114 29 143/99 (114) 98 09/03/17 12:00 35 09/03/17 12:00 118 09/03/17 11:28 93 35 09/03/17 11:01 118 26 162/100 (120) 95 09/03/17 10:01 112 20 158/90 (112) 99 09/03/17 10:00 110 09/03/17 09:01 116 21 159/93 (115) 97 09/03/17 08:01 124 28 140/84 (102) 96 09/03/17 08:00 128 09/03/17 08:00 35 09/03/17 07:25 98 35 09/03/17 07:06 98.3 128 28 127/79 (95) 95 09/03/17 07:01 134 29 171/102 (125) 95 09/03/17 06:01 132 27 155/104 (121) 98 09/03/17 06:00 116 09/03/17 05:10 98 35 09/03/17 05:01 114 22 149/87 (107) 97 09/03/17 04:01 98.1 128 23 136/81 (99) 97 09/03/17 04:00 120 09/03/17 04:00 35 09/03/17 03:01 98 20 122/77 (92) 98 09/03/17 02:01 96 19 163/98 (119) 100 09/03/17 02:00 98 09/03/17 01:25 98 35 09/03/17 01:01 114 23 175/97 (123) 99 09/03/17 00:01 98.4 110 20 159/98 (118) 99 09/03/17 00:00 35 09/03/17 00:00 106 09/02/17 23:01 92 19 147/84 (105) 98 09/02/17 22:45 98 35 09/02/17 22:01 94 20 138/75 (96) 97 09/02/17 22:00 96 09/02/17 21:01 114 27 153/100 (117) 96 09/02/17 20:01 98.9 118 26 149/93 (111) 92 09/02/17 20:00 35 09/02/17 20:00 118 09/02/17 19:40 93 35 09/02/17 19:31 118 27 133/87 (102) 97 09/02/17 18:13 110 28 124/84 (97) 96 09/02/17 18:00 104 29 98/61 (73) 100 09/02/17 18:00 116 09/02/17 17:01 97.5 110 23 165/88 (113) 97 09/02/17 16:40 97 35 09/02/17 16:31 106 22 133/86 (102) 87 09/02/17 16:27 100 21 83/73 (76) 96 09/02/17 16:01 166 22 201/114 (143) 96 09/02/17 16:00 35 09/02/17 16:00 166 09/02/17 15:20 154 17 195/130 (151) 98 09/02/17 15:11 156 20 189/143 (158) 99 09/02/17 15:01 150 17 168/118 (135) 100 -: 09/03/17 0421 09/03/17 0421 Physical Exam General Appearance Remarks Intubated and unresponsive, sedated. Eyes Eye Exam: Pupils Equal Pulmonary Resp Exam: Breath Sounds Equal, No Distress, Rhonchi, Decreased Bases, Diminished Breath Sounds Gastrointestinal/Abdomen GI Exam: Soft, Non-Tender, Bowel Sounds Present, Distended Extremeties Extremities Exam: Trace Edema Neurologic Neuro Exam: Unresponsive Assessment/Plan Assessment Summary: CAROLINE/Acute Renal Failure Problem List: (1) COPD with exacerbation ICD Codes: J44.1 - Chronic obstructive pulmonary disease with (acute) exacerbation (2) Shock liver ICD Codes: K72.00 - Acute and subacute hepatic failure without coma (3) Hypoalbuminemia ICD Codes: E88.09 - Other disorders of plasma-protein metabolism, not elsewhere classified (4) Encephalopathy ICD Codes: G93.40 - Encephalopathy, unspecified (5) CHF (congestive heart failure) ICD Codes: I50.9 - Heart failure, unspecified (6) Cardiac arrest ICD Codes: I46.9 - Cardiac arrest, cause unspecified (7) Acute kidney injury ICD Codes: N17.9 - Acute kidney failure, unspecified Plan Patient has PEA and develop CAROLINE. Most likely has ATN. Now started passing the urine, On Lasix and Metolazone. Urine out put is good. BUN and Creatinine continue to increase. No urgent need for HD. K is normal and Hco3 is not low. Possibly has Encephalopathy related to Cardiac arrest. I will D/C the diuretics as he is passing the more urine. D/W the sister on the phone, she want to discuss with barbering teacher about his condition. I will D/W her again tomorrow about possibility of HD. Marlon Muniz MD Sep 03, 2017 14:38
[2017-09-03] MEDS ORDERED: FUROSEMIDE 100 MG/10 ML VIAL IV PUSH ONE (17:00)
[2017-09-03] MEDS: cloNIDine HCL 0.3 MG TAB PO SCH (22:00)
[2017-09-04] VITALS (52 sets, daily range): BP systolic 91–178; BP diastolic 57–100; PULSE 82–122; RESP 20–41; TEMP 98–98.8; O2SAT 94–100
[2017-09-04] MEDS: PROPOFOL 1000 MG/100 ML IV PRN ×3 (00:03→17:53)
[2017-09-04] MEDS: INSULIN NovoLIN REGULAR SUPPLEMENTAL SCALE SQ SCH ×7 (00:21→23:58)
[2017-09-04] MEDS: RESP: ALBUTEROL 2.5 MG/IPRATROPIUM 0.5 MG NEB (SCH) INH ×4 (03:38→21:54)
[2017-09-04] MEDS: AMIODARONE 200 MG TAB PO SCH ×2 (03:50→18:08)
[2017-09-04] MEDS: CHLORHEXIDINE GLUCONATE 2 % 1 PACK (2 CLOTHS) TOP SCH (03:50)
[2017-09-04 04:58] LABS: HEMATOCRIT 27.2 % (39.0-51.0); HEMOGLOBIN 8.2 GM/DL (13.0-17.0); MEAN CORPUSCULAR HGB CONC 30.3 % (32.0-36.0); MEAN PLATELET VOLUME 9.2 FL (7.0-11.0); PLATELET COUNT 45 TH/MM3 (150-450); RED BLOOD COUNT 3.58 MIL/MM3 (4.50-5.90); RED CELL DISTRIBUTION WIDTH 22.3 % (11.6-17.2); WHITE BLOOD COUNT 14.6 TH/MM3 (4.0-11.0)
[2017-09-04 05:05] LABS: CHLORIDE 90 MEQ/L (98-107); SODIUM (NA) 134 MEQ/L (136-145)
[2017-09-04 05:09] LABS: CALCIUM 9.1 MG/DL (8.5-10.1)
[2017-09-04 05:10] LABS: ALBUMIN 4.5 GM/DL (3.4-5.0); BICARBONATE 25.9 MEQ/L (21.0-32.0); GLUCOSE,RANDOM 228 MG/DL (74-106)
[2017-09-04 05:11] LABS: INTERNATIONAL NORMALIZED RATIO 1.2 RATIO; PROTHROMBIN TIME - PATIENT 11.7 SEC (9.8-11.6)
[2017-09-04 05:13] LABS: ALT (GPT) 419 U/L (12-78); AST (GOT) 27 U/L (15-37); GLOMERULAR FILTRATION RATE 10 ML/MIN (>89)
[2017-09-04 05:18] LABS: ALKALINE PHOSPHATASE 148 U/L (45-117); BLOOD UREA NITROGEN 157 MG/DL (7-18)
[2017-09-04] MEDS: DIAZEPAM 10 MG TAB PO SCH ×3 (05:30→22:08)
[2017-09-04] MEDS: cloNIDine HCL 0.3 MG TAB PO SCH ×3 (06:00→22:00)
--- NOTE | 2017-09-04 07:14 | HHI.CCPN ---
Subjective Remarks/Hospital Course 08/28: overnight, started to become purposeful in upper extremities, and pupils are 3mm and now reactive. remains in shock with shock liver, acute kidney injury , multiorgan failure. LFTs uptrending. 08/29: improvement in mental status. now following commands. discussion with sister: patient drinks heavily: 2-3 6-packs/day. liver enzymes still elevated, remains oliguric with Cr > 3 now and rising. albumin continues to fall which is likely combination of very poor nutritional status and poor liver synthetic function. blood sugar slightly improved. overall still in multiorgan failure. family appears to have poor insight into patient's condition: sister herself is going through rehab for a recent severe illness. now also starting tremors which may be early alcohol withdraw given new clinical history to suggest large etoh intake. 08/30: improvements in hemodynamics and off vasopressors. wbc downtrending. but no improvement and worsening in metabolic organ failure: Cr higher, remains oliguric. LFTs still high. remains on d10w and tube feeds with marginal blood glucose. acidosis continues to worsen despite adequate cardiac index. 08/31: kidney function continues to worsen, though uop slightly improved from yesterday. remains off vasopressors. afib RVR yesterday now controlled with amiodarone. overall no meaningful improvements- acidosis still too severe to allow extubation and renal function complicating acidosis. very poor dialysis candidate given overall functionality and current acute illness. 09/01: renal function worse, however now non-oliguric. off vasopressors. staph epi growing 2 different sensitivity profiles, so most likely contaminated sample. acidosis slightly better. 09/02: Patient remains intubated critical. Currently off sedation remains encephalopathic and very weak. Very weakly followed commands by squeezing hand on the left hand, wiggled toes right foot. Worsening renal failure BUN 118 creatinine 5 today. Remains nonoliguric approximately 4 L urine output. Unless there is significant neurology clinical improvement he is not a candidate for hemodialysis. 09/03: No improvement of renal function. CXR looks like pulmonary venous congestion; suspect LV function is significantly reduced. ECHO report has a mixed interpretation, but looks like decompensated failure. We'll continue diuresis. Not really any role for inotropic agents. Better rate control will likely just produce depressed contractility. I'll try incremental digoxin adjusted for kidney function. Shock liver resolving. Afebrile but rising white count bears watching closely. The entire collection of medical problems and impaired neurological recovery makes long-term survival highly unlikely. 09/04: Continued adequate response to diuretics but azotemia worsening, consistent with acutely decreased ventricular function. The balancing act between heart failure and renal failure continues. This bodes poorly for his recovery from this illness. I would recommend avoiding tracheostomy or hemodialysis. His neurological recovery will be limited from this point forward. Objective Vital Signs Date Time Temp Pulse Resp B/P (MAP) Pulse Ox O2 Delivery O2 Flow Rate FiO2 09/04/17 06:15 35 09/04/17 06:00 99 09/04/17 06:00 22 111/68 (82) 100 09/04/17 04:00 98.6 Intake and Output 09/04/17 09/04/17 09/05/17 08:00 16:00 00:00 Intake Total 797 ml Output Total 1800 ml Balance -1003 ml Result Diagram: 09/04/1742909/04/17429 Objective Remarks gen: 66-year-old male, lying in bed, intubated, off sedation, tachypneic heent: pupils 2mm, equal, reactive. mucous membranes moist. nc. at. neck: + jvd. trachea midline. chest: equal chest rise. coarse breath sounds, scattered coarse rhonchi. left subclavian cvl in place, site c/d/i. cv: Hypertensive, irregularly irregular rhythm. afib. rate in 90s now after digoxin abd: soft, nontender, nondistended. no guarding. quiet. extr: distal pulses 2+. no peripheral edema. right radial art line in place, site c/d/i. neuro: Eyes open intermittently spontaneously, patient is less tachypneic. + cough. + gag. + corneals. A/P Assessment and Plan Plan A/P Assessment and Plan Assessment: 66yM who presented in extremis and progressed rapidly to PEA arrest , most likely secondary to septic shock, and COPD exacerbation blood with Coag negative staph in 4/4 bottles. Unclear source of infection as sputum and urine cultures have not produced organism. He remains in multiorgan failure and his liver and kidneys are still severely dysfunctional without signs of improvement. remains critically ill. After long discussion with his sister and medical decision maker, plan to make him DNR with continued aggressive care. Acidosis and renal failure are biggest barriers today. will consult nephrology, although he would be an exceedingly poor renal replacement candidate given his pre-hospital poor functional status, his critical illness, and his multi organ dysfunction. Aggressive goals remain and he continues to be critically ill and off pathway. Short term and nursing home outlook is quite poor. Plan by systems: Neurologic: Hypoxic-ischemic encephalopathy Metabolic encephalopathy Alcohol Dependence Alcohol withdrawal syndrome Frequent neuro checks Discontinue propofol and fentanyl Start Precedex to facilitate ventilator weaning and neuro exam iv thiamine, mvi valium 5mg po q8h clonidine 0.2mg po q8h. Watch closely for alcohol withdrawal Respiratory: Acute hypoxic and hypercarbic respiratory failure - persistent. Vent bundle Head of bed at 30 Nebs Daily SBTs-mental status will not permit extubation Wean FiO2 for goal SPO2 greater than 90% CT chest 08/30: resolving consolidation with small right effusion and middle lobe infiltrate. Cardiovascular: Septic shock - resolved. Status post PEA arrest Atrial fibrillation with rapid ventricular response continue amiodarone 200mg po q12h. clonidine 0.2mg po q8h Continue IV Lasix as below Digoxin 0.25 iv now, repaet after 4 hours if pulse > 90. He'll certainly tolerate up to 0.75 mg without toxicity. Renal: Acute kidney injury-worsening Secondary septic shock, ATN Continue [facility] renal ultrasound 08/29: no evidence of hydronephrosis. -- Strict I/Os nephrology consult. Dr Muniz following Very poor dialysis candidate, unless there is significant improvement in mentation very volume overloaded. Currently diuresis with lasix 100mg iv q6h and give with albumin 25gm q6h. Reduced to [address] Muniz, as the BUN creat continue to rise. On metolazone 10 mg q12 Defer for dialysis decision to Dr. Muniz. Poor candidate secondary to poor overall prognosis FEN/GI: Acute protein calorie malnutrition -severe Shock liver Hyperkalemia tube feeds Trend LFTs nutrition consult Heme/ID: Septic shock Leukocytosis holding vancomycin. Consult pharmacy to dose d/c azithro and zosyn. check vanco level. urine and sputum cultures NG Blood cultures, coag negative staph 09/05 bottles, but different sensitivities: likely contaminant. Repeat cultures negative today urinary legionella and pneumococcal Ag: negative. wbc and fever curve trending up again. Endocrine: Hypoglycemia- improving. Secondary to shock liver d/c d10w -- SSI Prophylaxis: GI Prophylaxis IV Pepcid DVT Prophylaxis -- SCDs heparin drip Lines: 08/27 left subclavian triple-lumen catheter 08/27 right radial arterial line [facility] Dispo: Remain in ICU. Remains critically ill. Neurological recovery has been minimal and not likely to improve much more at this point. Urgent dilemma remains systolic heart failure and renal failure, which precludes recovery in the contect of the anoxic brain injury. This patient remains critically ill with one or more organ systems which are or may become a threat to life. I have spent in excess of 35 minutes discontinuously in the care and management of this patient. This time is exclusive of procedures, and includes, but is not limited to, evaluation of the patient, review of the medical record, discussions with family, consultants, nursing staff, or respiratory therapy, and documentation in the medical record. Rocco Oden MD Sep 04, 2017 07:14
[2017-09-04] MEDS: predniSONE 5 MG/5 ML CUP PO SCH (09:00)
[2017-09-04] MEDS: THIAMINE HCL 100 MG TAB PO SCH (09:00)
[2017-09-04] MEDS: MUPIROCIN 2% OINT 1 APPLIC/GM SYR NASAL SCH ×2 (09:15→22:38)
[2017-09-04] MEDS: CHLORHEXIDINE 0.12% (ORAL KIT) 15 ML CUP MT SCH ×2 (09:15→20:54)
[2017-09-04] MEDS: LACTULOSE SYRUP 20 GM/30 ML CUP PO SCH (09:15)
[2017-09-04] MEDS: FAMOTIDINE 20 MG TAB PO SCH ×2 (09:21→22:09)
[2017-09-04] MEDS: DOCUSATE SODIUM 50 MG/SENNA 8.6 MG TAB PO SCH ×2 (09:22→22:09)
[2017-09-04] MEDS: MULTIVITAMIN TAB PO SCH (09:23)
[2017-09-04] MEDS: AZITHROMYCIN INJ 500 MG in SODIUM CHLOR 0.9% 250 ML INJ 250 ML IV SCH (09:31)
[2017-09-04] MEDS: CALCIUM ACETATE 667 MG CAP PO SCH ×3 (11:46→18:08)
[2017-09-04] MEDS: SODIUM CHLOR 0.9% 1000 ML INJ 1,000 ML IV SCH (11:47)
[2017-09-04] MEDS ORDERED: RASS Change Order XX ONE (14:45)
[2017-09-04] MEDS ORDERED: fentaNYL 2,500 MCG/NS 250 ML IV PRN (15:00)
--- NOTE | 2017-09-04 17:12 | HHI.HCPN ---
Reason for visit a. To assist with evaluation and management of symptoms including: dyspnea ; encephalopathy, pain, anxiety b. To assist medical decision maker(s) with: better understanding of current medical conditions; weighing benefits/burdens of medical treatment options; making medical treatment decisions. . (Jacquelyn Maya) Subjective/Interval History Patient seen to follow-up on symptom management and goals of care. He remains intubated, sedated for vent synchrony. His sister is at bedside. Failed spontaneous breathing trial today secondary to use of accessory muscles and tachycardia. He tolerated CPAP with sedation but failed without. Patient is not opening his eyes to verbal stimuli or following commands. His renal indices continue to worsen consistent with his level of heart failure. His sister, who is his decision maker, is declining dialysis as she feels he has no reasonable expectation of recovery and is entertaining a hospice consult tomorrow to evaluate the possibility of moving him to a care center for extubation and end-of-life care. Vital signs show blood pressure 173/88, heart rate 120, respiratory rate 36, oxygen saturation 100% on 35% FiO2, Afebrile. Laboratory values show WBC 14.6, hemoglobin 8.2, hematocrit 27.2, platelets 45, sodium 134, potassium 5.5, chloride 90, BUN 157, creatinine 5.9, random glucose 228, total bilirubin 2.0, ALT 419, alkaline phosphatase 148. . Family/friend interactions I spoke with the sister, Carmen, at bedside and provided supportive listening. She feels a heavy weight making this decision alone, in spite of support and regular contact from her family, she is at the hospital alone and is very appreciative of the care provided to herself and her brother by the nursing staff and physicians. She is considering transitioning her brother to hospice for compassionate withdrawal. She has requested that the hospice consult be scheduled for tomorrow and I have informed hospice admissions of her request. She was concerned that he was not able to be transported on the ventilator and I did assure her that that is a service that hospice provides and that her brother could be transported on a ventilator to the care center and have extubation performed there. I also apprised her of being able to stay at the care center if she wished. She prefers the [facility] as it is closest to her residence. . (Jacquelyn Maya) Advance Directives Living Will: Copy in medical record Health Care Surrogate: Copy in medical record Durable Power of Nursing Department Chairperson: Copy in medical record (DURABLE POWER OF INFRASTRUCTURE DESIGN ENGINEER for healthcare) (Jacquelyn Maya) Advance Directive Specifics Date completed: November 14, 2010 . Health Care Surrogate(s): He has named his sister Felecia Fowler as his primary healthcare surrogate and his other sister Susan Saravia as his alternate . Documented care wishes: Living will on chart. . (Jacquelyn Maya) Objective Vital Signs Date Time Temp Pulse Resp B/P (MAP) Pulse Ox O2 Delivery O2 Flow Rate FiO2 09/04/17 16:00 110 09/04/17 16:00 35 09/04/17 15:00 116 09/04/17 15:00 120 36 173/88 (116) 100 09/04/17 14:46 100 35 09/04/17 14:00 114 09/04/17 14:00 112 34 165/91 (115) 99 09/04/17 13:00 118 09/04/17 13:00 118 32 173/95 (121) 99 09/04/17 12:00 35 09/04/17 12:00 118 09/04/17 12:00 98.5 122 32 178/88 (118) 98 09/04/17 11:00 114 09/04/17 11:00 108 36 148/86 (106) 98 09/04/17 10:23 100 35 09/04/17 10:00 108 09/04/17 10:00 112 40 142/78 (99) 98 09/04/17 09:00 110 09/04/17 09:00 108 36 146/90 (108) 99 09/04/17 08:30 35 09/04/17 08:17 98 35 09/04/17 08:04 100 35 09/04/17 08:00 92 09/04/17 08:00 35 09/04/17 08:00 98.4 92 41 128/88 (101) 99 09/04/17 07:00 90 38 109/59 (76) 99 09/04/17 07:00 90 09/04/17 06:15 35 09/04/17 06:00 99 09/04/17 06:00 100 22 111/68 (82) 100 4/3/18 05:30 108 28 169/83 (111) 97 18 05:00 110 24 164/89 (114) 98 09/04/17 04:42 98 35 18 04:30 120 22 167/92 (117) 98 09/04/17 04:00 110 09/04/17 04:00 98.6 110 28 166/78 (107) 100 09/04/17 04:00 35 09/04/17 03:30 106 30 162/80 (107) 99 09/04/17 03:00 94 28 153/91 (111) 99 09/04/17 02:45 86 39 141/76 (97) 100 09/04/17 02:30 90 36 158/93 (114) 99 09/04/17 02:15 82 29 131/69 (89) 100 09/04/17 02:00 82 35 131/70 (90) 100 09/04/17 02:00 82 09/04/17 01:45 86 33 134/67 (89) 99 09/04/17 01:30 96 34 164/80 (108) 99 18 01:15 98 32 164/89 (114) 100 09/04/17 01:02 98 35 09/04/17 01:00 102 33 146/88 (107) 98 09/04/17 00:45 88 29 122/71 (88) 98 09/04/17 00:30 94 28 129/69 (89) 99 18 00:21 110 28 166/100 (122) 99 09/04/17 00:02 104 27 175/89 (117) 99 18 00:00 35 18 00:00 106 /18 23:30 98.8 93 24 155/85 (108) 96 18 23:02 110 29 163/86 (111) 96 18 22:32 108 24 157/88 (111) 99 18 22:28 96 24 107/57 (74) 99 18 22:10 102 26 106/61 (76) 99 18 22:02 116 218 22:02 116 24 185/103 (130) 92 18 22:00 122 4/2/18 21:56 92 35 09/03/17 21:02 122 36 176/83 (114) 96 09/03/17 20:32 126 30 182/89 (120) 96 09/03/17 20:02 98.5 120 31 201/112 (141) 95 09/03/17 20:00 120 09/03/17 20:00 35 09/03/17 19:35 96 35 09/03/17 19:32 122 30 199/103 (135) 96 09/03/17 19:02 124 29 190/102 (131) 96 09/03/17 18:28 97 35 09/03/17 18:00 100 30 140/68 (92) 97 09/03/17 18:00 100 09/03/17 17:01 130 32 191/110 (137) 96 09/03/17 17:01 130 Intake & Output 09/04/17 09/04/17 07:00 19:00 Intake Total 797 ml 303 ml Output Total 1800 ml Balance -1003 ml 303 ml Intake Oral 0 ml IV Total 147 ml 303 ml Tube Feeding 650 ml Output Urine Total 1700 ml Stool Total 100 ml Physical Exam CONSTITUTIONAL/GENERAL: This is an adequately nourished patient intubated, sedated, in no acute distress. TUBES/LINES/DRAINS: Orotracheal tube; orogastric tube; Grossman catheter; soft wrist restraints; left subclavian CVL; peripheral IVs SKIN: No jaundice, rashes. There is a fading bruise on the inner right thigh. Other smaller ecchymoses on the extremities. . No wounds seen anteriorly. Skin temperature appropriate. Not diaphoretic. CARDIOVASCULAR: S1, S2, intermittently tachycardic rate, irregular rhythm, adequate peripheral pulses, no rub murmur or gallop auscultated. RESPIRATORY/CHEST: Lungs diminished, coarse breath sounds, rare wheeze, scattered rhonchi. On mechanical vent. GASTROINTESTINAL: Abdomen soft, distended. No hepato-splenomegaly, or palpable masses. No guarding. Bowel sounds hypoactive. GENITOURINARY: Without palpable bladder distension. Grossman catheter in place. MUSCULOSKELETAL: Extremities without clubbing, cyanosis, or edema. Slight mottling of the feet is noted. NEUROLOGICAL: Unresponsive. No spontaneous movements noted. No response to commands today while on sedation vacation. PSYCHIATRIC: Unable to assess due to level of responsiveness. . (Jacquelyn Maya) Diagnostic Tests Laboratory Laboratory Tests Test 09/02/17 03:31 09/03/17 04:21 09/04/17 04:30 White Blood Count 8.1 TH/MM3 (4.0-11.0) 14.8 TH/MM3 (4.0-11.0) 14.6 TH/MM3 (4.0-11.0) Red Blood Count 3.35 MIL/MM3 (4.50-5.90) 3.56 MIL/MM3 (4.50-5.90) 3.58 MIL/MM3 (4.50-5.90) Hemoglobin 8.2 GM/DL (13.0-17.0) 9.1 GM/DL (13.0-17.0) 8.2 GM/DL (13.0-17.0) Hematocrit 24.8 % (39.0-51.0) 26.5 % (39.0-51.0) 27.2 % (39.0-51.0) Mean Corpuscular Volume 74.1 FL (80.0-100.0) 74.6 FL (80.0-100.0) 76.0 FL (80.0-100.0) Mean Corpuscular Hemoglobin 24.4 PG (27.0-34.0) 25.4 PG (27.0-34.0) 23.0 PG (27.0-34.0) Mean Corpuscular Hemoglobin Concent 33.0 % (32.0-36.0) 34.1 % (32.0-36.0) 30.3 % (32.0-36.0) Red Cell Distribution Width 22.0 % (11.6-17.2) 22.4 % (11.6-17.2) 22.3 % (11.6-17.2) Platelet Count 35 TH/MM3 (150-450) 31 TH/MM3 (150-450) 45 TH/MM3 (150-450) Mean Platelet Volume 9.0 FL (7.0-11.0) 7.8 FL (7.0-11.0) 9.2 FL (7.0-11.0) Prothrombin Time 11.3 SEC (9.8-11.6) 11.4 SEC (9.8-11.6) 11.7 SEC (9.8-11.6) Prothromb Time International Ratio 1.1 RATIO 1.1 RATIO 1.2 RATIO Activated Partial Thromboplast Time 28.0 SEC (24.3-30.1) 25.4 SEC (24.3-30.1) 26.5 SEC (24.3-30.1) Blood Urea Nitrogen 118 MG/DL (7-18) 143 MG/DL (7-18) 157 MG/DL (7-18) Creatinine 5.00 MG/DL (0.60-1.30) 5.50 MG/DL (0.60-1.30) 5.90 MG/DL (0.60-1.30) Random Glucose 225 MG/DL (74-106) 204 MG/DL (74-106) 228 MG/DL (74-106) Total Protein 6.6 GM/DL (6.4-8.2) 7.2 GM/DL (6.4-8.2) 7.0 GM/DL (6.4-8.2) Albumin 3.9 GM/DL (3.4-5.0) 4.7 GM/DL (3.4-5.0) 4.5 GM/DL (3.4-5.0) Calcium Level 7.8 MG/DL (8.5-10.1) 9.0 MG/DL (8.5-10.1) 9.1 MG/DL (8.5-10.1) Alkaline Phosphatase 119 U/L (45-117) 125 U/L (45-117) 148 U/L (45-117) Aspartate Amino Transf (AST/SGOT) 33 U/L (15-37) 24 U/L (15-37) 27 U/L (15-37) Alanine Aminotransferase (ALT/SGPT) 822 U/L (12-78) 533 U/L (12-78) 419 U/L (12-78) Total Bilirubin 2.2 MG/DL (0.2-1.0) 2.6 MG/DL (0.2-1.0) 2.0 MG/DL (0.2-1.0) Sodium Level 134 MEQ/L (136-145) 134 MEQ/L (136-145) 134 MEQ/L (136-145) Potassium Level 4.8 MEQ/L (3.5-5.1) 5.4 MEQ/L (3.5-5.1) 5.5 MEQ/L (3.5-5.1) Chloride Level 93 MEQ/L (98-107) 90 MEQ/L (98-107) 90 MEQ/L (98-107) Carbon Dioxide Level 24.6 MEQ/L (21.0-32.0) 25.3 MEQ/L (21.0-32.0) 25.9 MEQ/L (21.0-32.0) Anion Gap 16 MEQ/L (5-15) 19 MEQ/L (5-15) 18 MEQ/L (5-15) Estimat Glomerular Filtration Rate 12 ML/MIN (>89) 10 ML/MIN (>89) 10 ML/MIN (>89) Neutrophils (%) (Auto) 96.1 % (16.0-70.0) Lymphocytes (%) (Auto) 2.8 % (9.0-44.0) Monocytes (%) (Auto) 0.2 % (0.0-8.0) Eosinophils (%) (Auto) 0.1 % (0.0-4.0) Basophils (%) (Auto) 0.8 % (0.0-2.0) Neutrophils # (Auto) 14.3 TH/MM3 (1.8-7.7) Lymphocytes # (Auto) 0.4 TH/MM3 (1.0-4.8) Monocytes # (Auto) 0.0 TH/MM3 (0-0.9) Eosinophils # (Auto) 0.0 TH/MM3 (0-0.4) Basophils # (Auto) 0.1 TH/MM3 (0-0.2) CBC Comment AUTO DIFF Differential Comment AUTO DIFF CONFIRMED Platelet Estimate LOW (NORMAL) Platelet Morphology Comment NORMAL (NORMAL) (Jacquelyn Maya) Result Diagram: 09/04/1742909/04/17429 Microbiology Microbiology Date/Time Source Procedure Growth Status 08/31/17 11:30 Blood Peripheral Aerobic Blood Culture - Preliminary NO GROWTH IN 4 DAYS Resulted 08/31/17 11:30 Blood Peripheral Anaerobic Blood Culture - Preliminary NO GROWTH IN 4 DAYS Resulted 08/27/17 23:10 Sputum Endotracheal Gram Stain - Final Complete 08/27/17 23:10 Sputum Endotracheal Sputum Culture - Final NO GROWTH IN 48 HOURS. Complete 08/28/17 09:30 Urine Catheterized Urine Legionella Antigen - Final PRESUMPTIVE NEGATIVE FOR LEGIONELLA P... Complete 08/28/17 09:30 Urine Catheterized Urine Streptococcus pneumoniae Antigen (M - Final PRESUMPTIVE NEGATIVE FOR STREPTOCOCCU... Complete Imaging Last Impressions Chest X-Ray 09/03/17 0600 Signed Impressions: Service Date/Time: Sunday, September 03, 2017 06:15 - CONCLUSION: No significant interval change Casey Guillen MD Chest CT 08/30/17 0000 Signed Impressions: Service Date/Time: August 11:55 - CONCLUSION: There has been overall improvement with increased aeration of both upper lung spivey and improving resolution of the previously noted scattered interstitial and airspace infiltrates especially in both upper lung spivey. There continues to be infiltrates in both lung bases with some compressive atelectasis. Small bilateral effusions. Jn Larios MD Renal Ultrasound 08/29/17 0000 Signed Impressions: Service Date/Time: Tuesday, August 29, 2017 08:50 - CONCLUSION: 1. No evidence of hydronephrosis. 2. Increased echogenicity of the renal parenchyma bilaterally suggestive of chronic medical renal disease. Jn Larios MD Head CT 08/27/17 0919 Signed Impressions: Service Date/Time: Sunday, August 27, 2017 13:25 - CONCLUSION: Negative noncontrast CT. Neftali Lora MD Liver Ultrasound 08/27/17 0000 Signed Impressions: Service Date/Time: Sunday, August 27, 2017 16:24 - CONCLUSION: 1. Minimal free fluid in the abdomen 2. Mildly distended gallbladder without evidence of cholelithiasis. 3. No evidence of biliary obstructive disease or focal liver abnormality. Jagjit Lilly MD Procedures * 08/27 intubation/mechanical ventilation. Intubation by EMS at [facility]. * 08/27 right radial arterial line placement * 08/27 left subclavian triple-lumen catheter placement . (Jacquelyn Maya) Assessment and Plan Disease Oriented Problem List: (1) Cardiac arrest (2) Respiratory failure (3) Shock liver (4) COPD with exacerbation (5) Severe sepsis (6) Acute kidney injury (7) Atrial fibrillation with RVR (8) Pulmonary edema (9) CHF (congestive heart failure) (10) Pneumonia (11) Hypoalbuminemia Symptom Scale: (1) Pain 0-10 Scale: Unable to quantify Comment: Unclear if patient had prehospitalization pain syndromes. Current sources of pain might include recent chest compressions; orotracheal and orogastric intubations; Grossman catheter; venous access catheters; restraints; prolonged bedbound status. . (2) Dyspnea 0-10 Scale: Unable to quantify Comment: Dyspnea probably secondary to a combination of underlying COPD; tachycardia; and congestive heart failure. Dyspnea currently managed on the ventilator. . (3) Encephalopathy 0-10 Scale: Unable to quantify Pertinent Non-Medical Issues Psychosocial: He was born in [facility] and moved to [facility] as a young child where he spent most of his life. He was in the [employer] and served in the [place] War. He is color blind and so was stationed in [place]. 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 He has 1 daughter, Elena Chauhan who lives in [place] and one son, from whom he is estranged who changed his name to Oleksandr Carbajal. He was 1 of 5 children. 2 sisters are and he has 1 sister, Susan who is his healthcare surrogate and one brother in [place]. Patient was a resident of [facility]. Sister has been located and produced advanced directive paperwork naming her as healthcare surrogate. Spiritual: Not an important concept to the patient per the sister. Legal: Healthcare surrogate and living will on chart. Ethical issues impacting care: Patient is incapacitated. It appears unlikely at this time that he will regain capacity to make his own healthcare decisions. His sister is willing to serve as his healthcare surrogate. . Important Contacts Elena Chauhan, [place] (daughter) Claire Saravia (sister) [phone] healthcare surrogate . Prognosis Patient has multiple underlying comorbidities. He came in in respiratory distress and suffered a asystolic cardiac arrest. He is now going into shock liver. Kidney function is declining. Prognosis is poor at this time. It is uncertain if patient will survive this hospitalization. If he does survive the hospitalization it is unclear what type of quality of life he will return to. Prognostication would also be helped if I was clear about his functional status prior to this event. . Code Status: No Code Plan == Code Status: DNR == Decision Making: Patient is incapacitated to make his own healthcare decisions. At this point it is very unlikely that he will recover capacity to do so. His sister Claire is his healthcare surrogate == Goals medical treatment: Comfort oriented at this time. == Symptoms: * Pain: Unclear if patient had prehospitalization pain syndromes. He is no longer responding to questions regarding pain, even on sedation vacation. Current sources of pain might include recent chest compressions; orotracheal and orogastric intubations; Grossman catheter; venous access catheters; restraints ; prolonged bedbound status. * Dyspnea: probably secondary to a combination of underlying COPD; atrial fibrillation and congestive heart failure. Dyspnea currently managed on the ventilator. Failing SBT. Sister is considering withdrawal of life support and hospice consult has been requested. * Encephalopathy: Probably metabolic and multi-factorial to include sepsis, renal failure, heart failure. Where he was previously responding to command, he is no longer providing any response when off sedation. * Anxiety: Per [facility] and the patient's sister, he has a severe anxiety disorder and has been chronically on benzodiazepines. He is a heavy alcohol user of 2-3 6 packs per day, but has not been drinking during the last 2 weeks as he has been in a [facility]. He is receiving Valium 5 mg every 8 hours and no further tremors are seen at this evaluation. == Palliative care will continue to follow to assist with symptom management and to further clarify goals of medical treatment as the clinical course evolves. . (Jacquelyn Maya) Attestation To help prompt me to consider important information that might be impacting today's encounter and assessment, information from prior notes written by myself or my colleagues may have been "brought forward" into today's note. My signature on this note, however, is an attestation that I personally performed the exam, history, and/or decision-making noted today, and, unless otherwise indicated, the interactions with patient, family, and staff as well as the review of records all occurred today. I also attest that the listed assessment and stated plan reflect my best clinical judgment today based on the combination of historical information, prior notes, and today's exam/ interactions. When time spent is documented, it refers only to time spent today by the signer, or if indicated, combined time spent today by collaborating physician/nurse practitioner. . (Jacquelyn Maya) Collaborating MD Comments Chart reviewed. Case discussed with palliative care SWAMPER. Above SWAMPER note reviewed and I concur. . (Jm Hoang MD) Jacquelyn Maya Sep 04, 2017 17:12 Jm Hoang MD Sep 10, 2017 05:41
--- NOTE | 2017-09-04 19:04 | HHI.NPPN ---
Subjective History of Present Illness 66-year-old male with a past medical history of chronic obstructive pulmonary disease, history of deep venous thrombosis with pulmonary embolism, atrial fibrillation, hypertension, ischemic heart disease, congestive heart failure, who was admitted from the assisted with generalized weakness and altered mental status. I was called to see the patient because of elevated BUN and creatinine. Additional Remarks Patient remain on the vent, and sedated. Review of Systems General General Remarks Intubated and unresponsive. Objective Data Data 09/04/17 09/05/17 19:00 07:00 Intake Total 1058 ml Output Total 1380 ml Balance -322 ml Intake Oral 0 ml IV Total 403 ml Tube Feeding 655 ml Output Urine Total 1300 ml Stool Total 80 ml Vital Signs Date Time Temp Pulse Resp B/P (MAP) Pulse Ox O2 Delivery O2 Flow Rate FiO2 09/04/17 17:51 99 35 09/04/17 17:00 100 39 91/60 (70) 100 09/04/17 16:00 110 09/04/17 16:00 98.3 110 34 127/76 (93) 99 09/04/17 16:00 35 09/04/17 15:00 116 09/04/17 15:00 120 36 173/88 (116) 100 09/04/17 14:46 100 35 09/04/17 14:00 114 09/04/17 14:00 112 34 165/91 (115) 99 09/04/17 13:00 118 09/04/17 13:00 118 32 173/95 (121) 99 09/04/17 12:00 35 09/04/17 12:00 118 09/04/17 12:00 98.5 122 32 178/88 (118) 98 09/04/17 11:00 114 09/04/17 11:00 108 36 148/86 (106) 98 09/04/17 10:23 100 35 09/04/17 10:00 108 09/04/17 10:00 112 40 142/78 (99) 98 09/04/17 09:00 110 09/04/17 09:00 108 36 146/90 (108) 99 09/04/17 08:30 35 09/04/17 08:17 98 35 09/04/17 08:04 100 35 09/04/17 08:00 92 09/04/17 08:00 35 09/04/17 08:00 98.4 92 41 128/88 (101) 99 09/04/17 07:00 90 38 109/59 (76) 99 09/04/17 07:00 90 09/04/17 06:15 35 09/04/17 06:00 99 09/04/17 06:00 100 22 111/68 (82) 100 09/04/17 05:30 108 28 169/83 (111) 97 09/04/17 05:00 110 24 164/89 (114) 98 09/04/17 04:42 98 35 09/04/17 04:30 120 22 167/92 (117) 98 09/04/17 04:00 110 09/04/17 04:00 98.6 110 28 166/78 (107) 100 09/04/17 04:00 35 09/04/17 03:30 106 30 162/80 (107) 99 09/04/17 03:00 94 28 153/91 (111) 99 09/04/17 02:45 86 39 141/76 (97) 100 09/04/17 02:30 90 36 158/93 (114) 99 09/04/17 02:15 82 29 131/69 (89) 100 09/04/17 02:00 82 35 131/70 (90) 100 09/04/17 02:00 82 09/04/17 01:45 86 33 134/67 (89) 99 09/04/17 01:30 96 34 164/80 (108) 99 09/04/17 01:15 98 32 164/89 (114) 100 09/04/17 01:02 98 35 09/04/17 01:00 102 33 146/88 (107) 98 09/04/17 00:45 88 29 122/71 (88) 98 09/04/17 00:30 94 28 129/69 (89) 99 09/04/17 00:21 110 28 166/100 (122) 99 09/04/17 00:02 104 27 175/89 (117) 99 09/04/17 00:00 35 09/04/17 00:00 106 09/03/17 23:30 98.8 93 24 155/85 (108) 96 09/03/17 23:02 110 29 163/86 (111) 96 09/03/17 22:32 108 24 157/88 (111) 99 09/03/17 22:28 96 24 107/57 (74) 99 09/03/17 22:10 102 26 106/61 (76) 99 09/03/17 22:02 116 09/03/17 22:02 116 24 185/103 (130) 92 09/03/17 22:00 122 09/03/17 21:56 92 35 09/03/17 21:02 122 36 176/83 (114) 96 09/03/17 20:32 126 30 182/89 (120) 96 09/03/17 20:02 98.5 120 31 201/112 (141) 95 09/03/17 20:00 120 09/03/17 20:00 35 09/03/17 19:35 96 35 09/03/17 19:32 122 30 199/103 (135) 96 -: 09/04/17 0430 09/04/17 0430 Physical Exam General Appearance Remarks Intubated and unresponsive, sedated. Eyes Eye Exam: Pupils Equal Pulmonary Resp Exam: Breath Sounds Equal, No Distress, Rhonchi, Decreased Bases, Diminished Breath Sounds Gastrointestinal/Abdomen GI Exam: Soft, Non-Tender, Bowel Sounds Present, Distended Extremeties Extremities Exam: Trace Edema Neurologic Neuro Exam: Unresponsive Assessment/Plan Assessment Summary: CAROLINE/Acute Renal Failure Problem List: (1) COPD with exacerbation ICD Codes: J44.1 - Chronic obstructive pulmonary disease with (acute) exacerbation (2) Shock liver ICD Codes: K72.00 - Acute and subacute hepatic failure without coma (3) Hypoalbuminemia ICD Codes: E88.09 - Other disorders of plasma-protein metabolism, not elsewhere classified (4) Encephalopathy ICD Codes: G93.40 - Encephalopathy, unspecified (5) CHF (congestive heart failure) ICD Codes: I50.9 - Heart failure, unspecified (6) Cardiac arrest ICD Codes: I46.9 - Cardiac arrest, cause unspecified (7) Acute kidney injury ICD Codes: N17.9 - Acute kidney failure, unspecified Plan Patient has PEA and develop CAROLINE. Most likely has ATN. Now started passing the urine, On Lasix and Metolazone. Urine out put is good. BUN and Creatinine continue to increase. No urgent need for HD. K is normal and Hco3 is not low. Possibly has Encephalopathy related to Cardiac arrest. BUN/Creatinine continue to increase. I will add gentle hydration. Palliative care following. Marlon Muniz MD Sep 04, 2017 19:04
[2017-09-05] VITALS (66 sets, daily range): BP systolic 98–173; BP diastolic 56–99; PULSE 76–126; RESP 19–48; TEMP 97.8–98.4; O2SAT 95–100
[2017-09-05] MEDS: PROPOFOL 1000 MG/100 ML IV PRN ×2 (00:06→10:55)
[2017-09-05] MEDS: RESP: ALBUTEROL 2.5 MG/IPRATROPIUM 0.5 MG NEB (SCH) INH ×4 (03:32→21:07)
[2017-09-05] MEDS: CHLORHEXIDINE GLUCONATE 2 % 1 PACK (2 CLOTHS) TOP SCH (04:00)
[2017-09-05] MEDS: INSULIN NovoLIN REGULAR SUPPLEMENTAL SCALE SQ SCH ×5 (04:15→22:15)
[2017-09-05 05:51] LABS: CALCIUM 9.3 MG/DL (8.5-10.1)
[2017-09-05] MEDS: AMIODARONE 200 MG TAB PO SCH ×2 (05:52→16:00)
[2017-09-05] MEDS: DIAZEPAM 10 MG TAB PO SCH ×3 (05:52→22:15)
[2017-09-05] MEDS: cloNIDine HCL 0.3 MG TAB PO SCH ×3 (06:00→22:00)
[2017-09-05 06:21] LABS: ALBUMIN 3.5 GM/DL (3.4-5.0); BICARBONATE 26.9 MEQ/L (21.0-32.0); CREATININE 5.9 MG/DL (0.60-1.30); DIRECT BILIRUBIN ADULT 0.7 MG/DL (0.0-0.2); INDIRECT BILIRUBIN 0.6 MG/DL (0.0-0.8); PHOSPHORUS 7.9 MG/DL (2.5-4.9); TOTAL BILIRUBIN ADULT 1.3 MG/DL (0.2-1.0); TOTAL PROTEIN 5.9 GM/DL (6.4-8.2)
--- NOTE | 2017-09-05 07:13 | HHI.CCPN ---
Subjective Remarks/Hospital Course 08/28: overnight, started to become purposeful in upper extremities, and pupils are 3mm and now reactive. remains in shock with shock liver, acute kidney injury , multiorgan failure. LFTs uptrending. 08/29: improvement in mental status. now following commands. discussion with sister: patient drinks heavily: 2-3 6-packs/day. liver enzymes still elevated, remains oliguric with Cr > 3 now and rising. albumin continues to fall which is likely combination of very poor nutritional status and poor liver synthetic function. blood sugar slightly improved. overall still in multiorgan failure. family appears to have poor insight into patient's condition: sister herself is going through rehab for a recent severe illness. now also starting tremors which may be early alcohol withdraw given new clinical history to suggest large etoh intake. 08/30: improvements in hemodynamics and off vasopressors. wbc downtrending. but no improvement and worsening in metabolic organ failure: Cr higher, remains oliguric. LFTs still high. remains on d10w and tube feeds with marginal blood glucose. acidosis continues to worsen despite adequate cardiac index. 08/31: kidney function continues to worsen, though uop slightly improved from yesterday. remains off vasopressors. afib RVR yesterday now controlled with amiodarone. overall no meaningful improvements- acidosis still too severe to allow extubation and renal function complicating acidosis. very poor dialysis candidate given overall functionality and current acute illness. 09/01: renal function worse, however now non-oliguric. off vasopressors. staph epi growing 2 different sensitivity profiles, so most likely contaminated sample. acidosis slightly better. 09/02: Patient remains intubated critical. Currently off sedation remains encephalopathic and very weak. Very weakly followed commands by squeezing hand on the left hand, wiggled toes right foot. Worsening renal failure BUN 118 creatinine 5 today. Remains nonoliguric approximately 4 L urine output. Unless there is significant neurology clinical improvement he is not a candidate for hemodialysis. 09/03: No improvement of renal function. CXR looks like pulmonary venous congestion; suspect LV function is significantly reduced. ECHO report has a mixed interpretation, but looks like decompensated failure. We'll continue diuresis. Not really any role for inotropic agents. Better rate control will likely just produce depressed contractility. I'll try incremental digoxin adjusted for kidney function. Shock liver resolving. Afebrile but rising white count bears watching closely. The entire collection of medical problems and impaired neurological recovery makes long-term survival highly unlikely. 09/04: Continued adequate response to diuretics but azotemia worsening, consistent with acutely decreased ventricular function. The balancing act between heart failure and renal failure continues. This bodes poorly for his recovery from this illness. I would recommend avoiding tracheostomy or hemodialysis. His neurological recovery will be limited from this point forward. 09/05: No improvement in renal or neurological function. Although renal pattern is prerenal azotemia this is the result of inadequate cardiac function and our attempts with diuretics to clear up his pulmonary congestion. Prognosis remains poor and chance for meaningful recovery is zero. Objective Vital Signs Date Time Temp Pulse Resp B/P (MAP) Pulse Ox O2 Delivery O2 Flow Rate FiO2 09/05/17 04:58 80 20 100/61 (74) 99 09/05/17 04:39 35 09/05/17 03:58 97.8 Intake and Output 09/05/17 09/05/17 09/06/17 08:00 16:00 00:00 Intake Total 1396 ml Output Total 1160 ml Balance 236 ml Result Diagram: 09/04/17 0430 09/05/17 0450 Objective Remarks gen: 66-year-old male, lying in bed, intubated, off sedation heent: pupils 2mm, equal, reactive slowly. mucous membranes moist. nc. at. neck: + jvd. trachea midline. chest: equal chest rise. coarse breath sounds, scattered coarse rhonchi. cv: Hypertensive, irregularly irregular rhythm. afib. rate in 80s now after digoxin abd: soft, nontender, nondistended. no guarding. quiet. extr: distal pulses 2+. no peripheral edema. right radial art line in place, site c/d/i. neuro: Eyes open intermittently spontaneously, no purposeful movements, no tracking.. +cough. + gag. + corneals. A/P Assessment and Plan Plan A/P Assessment and Plan Assessment: 66yM who presented in extremis and progressed rapidly to PEA arrest , most likely secondary to septic shock, and COPD exacerbation blood with Coag negative staph in / bottles. Unclear source of infection as sputum and urine cultures have not produced organism. He remains in multiorgan failure and his liver and kidneys are still severely dysfunctional without signs of improvement. remains critically ill. After long discussion with his sister and medical decision maker, plan to make him DNR with continued aggressive care. Acidosis and renal failure are biggest barriers today. will consult nephrology, although he would be an exceedingly poor renal replacement candidate given his pre-hospital poor functional status, his critical illness, and his multi organ dysfunction. Aggressive goals remain and he continues to be critically ill and off pathway. Short term and alf outlook is quite poor and family appears to have decided to proceed directly to hospice. Plan by systems: Neurologic: Hypoxic-ischemic encephalopathy Metabolic encephalopathy Alcohol Dependence Alcohol withdrawal syndrome Frequent neuro checks Discontinue propofol and fentanyl Start Precedex to facilitate ventilator weaning and neuro exam iv thiamine, mvi valium 5mg po q8h clonidine 0.2mg po q8h. Watch closely for alcohol withdrawal Respiratory: Acute hypoxic and hypercarbic respiratory failure - persistent. Vent bundle Head of bed at 30 Nebs Daily SBTs-mental status will not permit extubation Wean FiO2 for goal SPO2 greater than 90% CT chest 08/30: resolving consolidation with small right effusion and middle lobe infiltrate. Cardiovascular: Septic shock - resolved. Status post PEA arrest Atrial fibrillation with rapid ventricular response continue amiodarone 200mg po q12h. clonidine 0.2mg po q8h Continue IV Lasix as below Digoxin 0.25 iv now, repaet after 4 hours if pulse > 90. He'll certainly tolerate up to 0.75 mg without toxicity. Renal: Acute kidney injury-worsening Secondary septic shock, ATN Continue Grossman renal ultrasound 08/29: no evidence of hydronephrosis. -- Strict I/Os nephrology consult. Dr Muniz following Very poor dialysis candidate, unless there is significant improvement in mentation very volume overloaded. Currently diuresis with lasix 100mg iv q6h and give with albumin 25gm q6h. Reduced to [address] Muniz, as the BUN creat continue to rise. On metolazone 10 mg q12 Defer for dialysis decision to Dr. Muniz. Poor candidate secondary to poor overall prognosis FEN/GI: Acute protein calorie malnutrition -severe Shock liver Hyperkalemia tube feeds Trend LFTs nutrition consult Heme/ID: Septic shock Leukocytosis holding vancomycin. Consult pharmacy to dose d/c azithro and zosyn. check vanco level. urine and sputum cultures NG Blood cultures, coag negative staph 09/05 bottles, but different sensitivities: likely contaminant. Repeat cultures negative today urinary legionella and pneumococcal Ag: negative. wbc and fever curve trending up again. Endocrine: Hypoglycemia- improving. Secondary to shock liver d/c d10w -- SSI Prophylaxis: GI Prophylaxis IV Pepcid DVT Prophylaxis -- SCDs heparin drip Lines: 08/27 left subclavian triple-lumen catheter 08/27 right radial arterial line [facility] Dispo: Remain in ICU. Remains critically ill. Neurological recovery has been minimal and not likely to improve much more at this point. Urgent dilemma remains systolic heart failure and renal failure, which precludes recovery in the context of the anoxic brain injury. Hospice is highly recommended. I have talked with his sister at length. This patient remains critically ill with one or more organ systems which are or may become a threat to life. I have spent in excess of 35 minutes discontinuously in the care and management of this patient. This time is exclusive of procedures, and includes, but is not limited to, evaluation of the patient, review of the medical record, discussions with family, consultants, nursing staff, or respiratory therapy, and documentation in the medical record. Rocco Oden MD Sep 05, 2017 07:12
[2017-09-05] MEDS: CHLORHEXIDINE 0.12% (ORAL KIT) 15 ML CUP MT SCH ×2 (08:02→22:16)
[2017-09-05] MEDS: DOCUSATE SODIUM 50 MG/SENNA 8.6 MG TAB PO SCH ×2 (08:03→22:15)
[2017-09-05] MEDS: MULTIVITAMIN TAB PO SCH (08:03)
[2017-09-05] MEDS: MUPIROCIN 2% OINT 1 APPLIC/GM SYR NASAL SCH ×2 (08:03→22:15)
[2017-09-05] MEDS: THIAMINE HCL 100 MG TAB PO SCH (08:04)
[2017-09-05] MEDS: LACTULOSE SYRUP 20 GM/30 ML CUP PO SCH (08:04)
[2017-09-05] MEDS: CALCIUM ACETATE 667 MG CAP PO SCH ×3 (08:04→18:43)
[2017-09-05] MEDS: FAMOTIDINE 20 MG TAB PO SCH ×2 (08:04→22:15)
[2017-09-05] MEDS: predniSONE 5 MG/5 ML CUP PO SCH (08:05)
[2017-09-05] MEDS: AZITHROMYCIN INJ 500 MG in SODIUM CHLOR 0.9% 250 ML INJ 250 ML IV SCH (08:48)
[2017-09-05] MEDS: SODIUM CHLOR 0.9% 1000 ML INJ 1,000 ML IV SCH (09:24)
--- NOTE | 2017-09-05 17:46 | HHI.NPPN ---
Subjective History of Present Illness 66-year-old male with a past medical history of chronic obstructive pulmonary disease, history of deep venous thrombosis with pulmonary embolism, atrial fibrillation, hypertension, ischemic heart disease, congestive heart failure, who was admitted from the senior care with generalized weakness and altered mental status. I was called to see the patient because of elevated BUN and creatinine. Additional Remarks Patient remain on the vent, and sedated, remain unresponsive. Review of Systems General General Remarks Intubated and unresponsive. Objective Data Data 09/05/17 09/06/17 19:00 07:00 Intake Total 139 ml Balance 139 ml Intake Oral 0 ml IV Total 139 ml Vital Signs Date Time Temp Pulse Resp B/P (MAP) Pulse Ox O2 Delivery O2 Flow Rate FiO2 09/05/17 17:00 98 35 09/05/17 15:00 108 22 128/78 (95) 97 09/05/17 14:45 108 22 128/78 (95) 97 09/05/17 14:29 114 35 144/84 (104) 97 09/05/17 14:14 118 09/05/17 14:14 118 25 156/85 (108) 97 09/05/17 13:59 110 27 146/81 (102) 97 09/05/17 13:59 110 09/05/17 13:45 97 35 09/05/17 13:44 112 09/05/17 13:44 112 27 154/92 (112) 97 09/05/17 13:30 116 09/05/17 13:29 108 20 134/72 (92) 99 09/05/17 13:29 108 09/05/17 13:18 112 09/05/17 13:18 112 29 149/84 (105) 98 09/05/17 13:14 114 09/05/17 13:14 114 26 144/75 (98) 98 09/05/17 12:59 104 21 121/66 (84) 97 09/05/17 12:59 104 09/05/17 12:44 104 09/05/17 12:44 104 23 123/60 (81) 97 09/05/17 12:30 106 09/05/17 12:29 104 19 129/72 (91) 97 09/05/17 12:29 104 09/05/17 12:14 106 19 124/72 (89) 96 4/4/18 12:14 106 4 12:00 98.4 418 12:00 35 18 11:59 108 18 11:44 108 18 11:30 124 18 11:29 122 21 157/90 (112) 95 09/05/17 11:29 122 18 11:14 126 18 11:14 126 22 173/81 (111) 95 09/05/17 10:58 124 31 164/91 (115) 97 09/05/17 10:58 124 09/05/17 10:33 96 35 09/05/17 10:30 118 09/05/17 10:30 118 09/05/17 10:00 114 09/05/17 10:00 76 09/05/17 09:58 114 48 144/80 (101) 97 09/05/17 08:58 102 42 120/99 (106) 98 09/05/17 08:00 88 09/05/17 08:00 76 09/05/17 08:00 35 09/05/17 07:58 97.8 96 25 116/71 (86) 100 09/05/17 07:53 100 35 18 07:26 76 09/05/17 07:00 92 25 124/75 (91) 100 09/05/17 06:00 92 34 123/68 (86) 99 18 04:58 80 20 100/61 (74) 99 18 04:39 99 35 09/05/17 04:00 82 18 04:00 35 18 03:58 97.8 86 22 117/60 (79) 100 18 02:58 86 20 98/56 (70) 99 18 02:00 76 18 01:58 84 20 120/77 (91) 99 18 01:16 100 35 18 00:58 80 20 110/57 (74) 98 18 00:00 35 18 00:00 80 4/18 23:58 98.0 82 20 101/57 (72) 98 18 22:59 90 20 115/66 (82) 94 09/04/17 22:32 92 20 128/62 (84) 96 09/04/17 22:01 88 20 149/79 (102) 100 09/04/17 22:00 94 09/04/17 21:53 100 35 09/04/17 21:31 88 22 130/84 (99) 100 09/04/17 21:01 84 20 131/67 (88) 100 09/04/17 20:01 98.8 90 20 139/72 (94) 100 09/04/17 20:00 91 09/04/17 20:00 35 09/04/17 19:40 100 35 09/04/17 19:31 90 20 119/62 (81) 100 09/04/17 19:01 94 20 120/71 (87) 100 09/04/17 18:00 92 33 126/67 (86) 100 09/04/17 18:00 96 09/04/17 17:51 99 35 -: 09/04/17 0430 09/05/17 0450 Physical Exam General Appearance Remarks Intubated and unresponsive, sedated. Eyes Eye Exam: Pupils Equal Pulmonary Resp Exam: Breath Sounds Equal, No Distress, Rhonchi, Decreased Bases, Diminished Breath Sounds Gastrointestinal/Abdomen GI Exam: Soft, Non-Tender, Bowel Sounds Present, Distended Extremeties Extremities Exam: Trace Edema Neurologic Neuro Exam: Unresponsive Assessment/Plan Assessment Summary: CAROLINE/Acute Renal Failure Problem List: (1) COPD with exacerbation ICD Codes: J44.1 - Chronic obstructive pulmonary disease with (acute) exacerbation (2) Shock liver ICD Codes: K72.00 - Acute and subacute hepatic failure without coma (3) Hypoalbuminemia ICD Codes: E88.09 - Other disorders of plasma-protein metabolism, not elsewhere classified (4) Encephalopathy ICD Codes: G93.40 - Encephalopathy, unspecified (5) CHF (congestive heart failure) ICD Codes: I50.9 - Heart failure, unspecified (6) Cardiac arrest ICD Codes: I46.9 - Cardiac arrest, cause unspecified (7) Acute kidney injury ICD Codes: N17.9 - Acute kidney failure, unspecified Plan Patient has PEA and develop CAROLINE. Most likely has ATN. Now started passing the urine, On Lasix and Metolazone. Urine out put is good. BUN and Creatinine continue to increase. No urgent need for HD. K is normal and Hco3 is not low. Possibly has Encephalopathy related to Cardiac arrest. BUN/Creatinine continue to increase. Palliative care following. Not much improvement in the BUN and Creatinine. D/W the sister, she is considering Hospice and no HD. Marlon Muniz MD Sep 05, 2017 17:46
--- NOTE | 2017-09-05 19:16 | HHI.HCPN ---
Met with patient's sister, Claire, at bedside. As the patient has not progressed and continues to decline, she plans to have him transferred to the [facility] in the morning for end-of-life care. She is requesting an air tank assembler transfer. I discussed this with Mary Galicia from hospice admissions and the earliest the patient can be transferred is 10:30 AM. The hospice admissions nurse, Yasmeen, will contact the sister in a.m. for an update as to arrival time. (Jacquelyn Maya) Chart reviewed. Case discussed with palliative care DIRECTOR OF MARKETING COMMUNICATIONS. Above DIRECTOR OF MARKETING COMMUNICATIONS note reviewed and I concur. . (Jm Hoang MD) Jacquelyn Maya Sep 05, 2017 19:16 Jm Hoang MD Sep 10, 2017 05:45
[2017-09-05] MEDS: SODIUM CHLORIDE 0.9% FLUSH 10 ML FLUSH IV FLUSH PRN (22:16)
[2017-09-06] VITALS (24 sets, daily range): BP systolic 86–160; BP diastolic 55–93; PULSE 82–108; RESP 20–48; TEMP 97.8–98.3; O2SAT 97–100
[2017-09-06] MEDS: INSULIN NovoLIN REGULAR SUPPLEMENTAL SCALE SQ SCH ×3 (00:07→08:15)
[2017-09-06] MEDS: PROPOFOL 1000 MG/100 ML IV PRN ×2 (02:24→08:27)
[2017-09-06] MEDS: AMIODARONE 200 MG TAB PO SCH (03:03)
[2017-09-06] MEDS: CHLORHEXIDINE GLUCONATE 2 % 1 PACK (2 CLOTHS) TOP SCH (04:00)
[2017-09-06] MEDS: RESP: ALBUTEROL 2.5 MG/IPRATROPIUM 0.5 MG NEB (SCH) INH ×2 (04:05→10:00)
--- NOTE | 2017-09-06 06:53 | HHI.CCPN ---
Subjective Remarks/Hospital Course 08/28: overnight, started to become purposeful in upper extremities, and pupils are 3mm and now reactive. remains in shock with shock liver, acute kidney injury , multiorgan failure. LFTs uptrending. 08/29: improvement in mental status. now following commands. discussion with sister: patient drinks heavily: 2-3 6-packs/day. liver enzymes still elevated, remains oliguric with Cr > 3 now and rising. albumin continues to fall which is likely combination of very poor nutritional status and poor liver synthetic function. blood sugar slightly improved. overall still in multiorgan failure. family appears to have poor insight into patient's condition: sister herself is going through rehab for a recent severe illness. now also starting tremors which may be early alcohol withdraw given new clinical history to suggest large etoh intake. 08/30: improvements in hemodynamics and off vasopressors. wbc downtrending. but no improvement and worsening in metabolic organ failure: Cr higher, remains oliguric. LFTs still high. remains on d10w and tube feeds with marginal blood glucose. acidosis continues to worsen despite adequate cardiac index. 08/31: kidney function continues to worsen, though uop slightly improved from yesterday. remains off vasopressors. afib RVR yesterday now controlled with amiodarone. overall no meaningful improvements- acidosis still too severe to allow extubation and renal function complicating acidosis. very poor dialysis candidate given overall functionality and current acute illness. 09/01: renal function worse, however now non-oliguric. off vasopressors. staph epi growing 2 different sensitivity profiles, so most likely contaminated sample. acidosis slightly better. 09/02: Patient remains intubated critical. Currently off sedation remains encephalopathic and very weak. Very weakly followed commands by squeezing hand on the left hand, wiggled toes right foot. Worsening renal failure BUN 118 creatinine 5 today. Remains nonoliguric approximately 4 L urine output. Unless there is significant neurology clinical improvement he is not a candidate for hemodialysis. 09/03: No improvement of renal function. CXR looks like pulmonary venous congestion; suspect LV function is significantly reduced. ECHO report has a mixed interpretation, but looks like decompensated failure. We'll continue diuresis. Not really any role for inotropic agents. Better rate control will likely just produce depressed contractility. I'll try incremental digoxin adjusted for kidney function. Shock liver resolving. Afebrile but rising white count bears watching closely. The entire collection of medical problems and impaired neurological recovery makes long-term survival highly unlikely. 09/04: Continued adequate response to diuretics but azotemia worsening, consistent with acutely decreased ventricular function. The balancing act between heart failure and renal failure continues. This bodes poorly for his recovery from this illness. I would recommend avoiding tracheostomy or hemodialysis. His neurological recovery will be limited from this point forward. 09/05: No improvement in renal or neurological function. Although renal pattern is prerenal azotemia this is the result of inadequate cardiac function and our attempts with diuretics to clear up his pulmonary congestion. Prognosis remains poor and chance for meaningful recovery is zero. 09/06: No improvement in neurological function or renal function. No chance for meaningful recovery. Agree with plans for Hospice disposition. Objective Vital Signs Date Time Temp Pulse Resp B/P (MAP) Pulse Ox O2 Delivery O2 Flow Rate FiO2 09/06/17 06:00 99 09/06/17 06:00 20 154/73 (100) 100 09/06/17 04:05 35 09/06/17 04:00 98.3 Intake and Output 09/06/17 09/06/17 09/07/17 08:00 16:00 00:00 Intake Total 1202 ml Output Total 900 ml Balance 302 ml Result Diagram: 09/04/17 0430 09/05/17 0450 Objective Remarks gen: 66-year-old male, lying in bed, intubated, off sedation heent: pupils 2mm, equal, reactive slowly. mucous membranes moist. neck: + jvd. trachea midline. chest: equal chest rise. coarse breath sounds, scattered coarse rhonchi. mobile secretions. cv: Hypertensive, irregularly irregular rhythm. afib. rate in 80s now after digoxin abd: soft, nontender, nondistended. no guarding. quiet. extr: distal pulses 2+. no peripheral edema. neuro: Eyes open intermittently spontaneously, no purposeful movements, no tracking.. +cough. + gag. + corneals. A/P Assessment and Plan Plan A/P Assessment and Plan Assessment: 66yM who presented in extremis and progressed rapidly to PEA arrest , most likely secondary to septic shock, and COPD exacerbation blood with Coag negative staph in 4/4 bottles. Unclear source of infection as sputum and urine cultures have not produced organism. He remains in multiorgan failure and his liver and kidneys are still severely dysfunctional without signs of improvement. remains critically ill. After long discussion with his sister and medical decision maker, plan to make him DNR with continued aggressive care. Acidosis and renal failure are biggest barriers today. will consult nephrology, although he would be an exceedingly poor renal replacement candidate given his pre-hospital poor functional status, his critical illness, and his multi organ dysfunction. Aggressive goals remain and he continues to be critically ill and off pathway. 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 Plan by systems: Neurologic: Hypoxic-ischemic encephalopathy Metabolic encephalopathy Alcohol Dependence Alcohol withdrawal syndrome Frequent neuro checks Discontinue propofol and fentanyl Start Precedex to facilitate ventilator weaning and neuro exam iv thiamine, mvi valium 5mg po q8h clonidine 0.2mg po q8h. Watch closely for alcohol withdrawal Respiratory: Acute hypoxic and hypercarbic respiratory failure - persistent. Vent bundle Head of bed at 30 Nebs Daily SBTs-mental status will not permit extubation Wean FiO2 for goal SPO2 greater than 90% CT chest 08/30: resolving consolidation with small right effusion and middle lobe infiltrate. Cardiovascular: Septic shock - resolved. Status post PEA arrest Atrial fibrillation with rapid ventricular response continue amiodarone 200mg po q12h. clonidine 0.2mg po q8h Continue IV Lasix as below Digoxin 0.25 iv now, repaet after 4 hours if pulse > 90. He'll certainly tolerate up to 0.75 mg without toxicity. Renal: Acute kidney injury-worsening Secondary septic shock, ATN Continue Grossman renal ultrasound 08/29: no evidence of hydronephrosis. -- Strict I/Os nephrology consult. Dr Muniz following Very poor dialysis candidate, unless there is significant improvement in mentation very volume overloaded. Currently diuresis with lasix 100mg iv q6h and give with albumin 25gm q6h. Reduced to [address] Muniz, as the BUN creat continue to rise. On metolazone 10 mg q12 Defer for dialysis decision to Dr. Muniz. Poor candidate secondary to poor overall prognosis FEN/GI: Acute protein calorie malnutrition -severe Shock liver Hyperkalemia tube feeds Trend LFTs nutrition consult Heme/ID: Septic shock Leukocytosis holding vancomycin. Consult pharmacy to dose d/c azithro and zosyn. check vanco level. urine and sputum cultures NG Blood cultures, coag negative staph / bottles, but different sensitivities: likely contaminant. Repeat cultures negative today urinary legionella and pneumococcal Ag: negative. wbc and fever curve trending up again. Endocrine: Hypoglycemia- improving. Secondary to shock liver d/c d10w -- SSI Prophylaxis: GI Prophylaxis IV Pepcid DVT Prophylaxis -- SCDs heparin drip Lines: 08/27 left subclavian triple-lumen catheter 08/27 right radial arterial line Grossman Dispo: Remain in ICU. Remains critically ill. Neurological recovery has been minimal and not likely to improve much more at this point. Urgent dilemma remains systolic heart failure and renal failure, which precludes recovery in the context of the anoxic brain injury. Hospice is highly recommended. I have talked with his sister at length. [facility]. Rocco Oden MD Sep 06, 2017 06:53
[2017-09-06] MEDS: cloNIDine HCL 0.3 MG TAB PO SCH (06:54)
[2017-09-06] MEDS: DIAZEPAM 10 MG TAB PO SCH (06:54)
[2017-09-06] MEDS: FAMOTIDINE 20 MG TAB PO SCH (08:03)
[2017-09-06] MEDS: MUPIROCIN 2% OINT 1 APPLIC/GM SYR NASAL SCH (08:03)
[2017-09-06] MEDS: LACTULOSE SYRUP 20 GM/30 ML CUP PO SCH (08:03)
[2017-09-06] MEDS: CHLORHEXIDINE 0.12% (ORAL KIT) 15 ML CUP MT SCH (08:03)
[2017-09-06] MEDS: predniSONE 5 MG/5 ML CUP PO SCH (08:04)
[2017-09-06] MEDS: MULTIVITAMIN TAB PO SCH (08:04)
[2017-09-06] MEDS: DOCUSATE SODIUM 50 MG/SENNA 8.6 MG TAB PO SCH (08:04)
[2017-09-06] MEDS: THIAMINE HCL 100 MG TAB PO SCH (08:04)
[2017-09-06] MEDS: SODIUM CHLOR 0.9% 1000 ML INJ 1,000 ML IV SCH (08:17)
[2017-09-06] MEDS ORDERED: LORazepam 2 MG/ML VIAL IV PUSH PRN (10:15)
[2017-09-06] MEDS ORDERED: MORPHINE SULFATE 8 MG/ML INJ IV PUSH PRN (10:30)
== END 2017-09-06 11:30 | disposition hospice, inpatient (51) | DRG 870 ==
LOC: NEPC 08:32 → NEDA 11:18 → PHICU 18:21
PROVIDERS: ADMIT Internal Medicine Critical Care Medicine; ATTEND Internal Medicine Critical Care Medicine
PROC: 5A1955Z Respiratory Ventilation, Greater than 96 Consecutive Hours (ICD-10-PCS; principal; 2017-08-27)
PROC: 03HY32Z Insertion of Monitoring Device into Upper Artery, Percutaneous Approach (ICD-10-PCS; 2017-08-27)
PROC: 5A12012 Performance of Cardiac Output, Single, Manual (ICD-10-PCS; 2017-08-27)
PROC: 02HV33Z Insertion of Infusion Device into Superior Vena Cava, Percutaneous Approach (ICD-10-PCS; 2017-08-27)
PROC: 30233N1 Transfusion of Nonautologous Red Blood Cells into Peripheral Vein, Percutaneous Approach (ICD-10-PCS; 2017-09-01)
DX: A41.9 Sepsis, unspecified organism (principal); I46.9 Cardiac arrest, cause unspecified; K72.00 Acute and subacute hepatic failure without coma; R65.21 Severe sepsis with septic shock; N17.0 Acute kidney failure with tubular necrosis; J18.9 Pneumonia, unspecified organism; J44.0 Chronic obstructive pulmonary disease with (acute) lower respiratory infection; J96.01 Acute respiratory failure with hypoxia; J96.02 Acute respiratory failure with hypercapnia; E43 Unspecified severe protein-calorie malnutrition; G93.41 Metabolic encephalopathy; G93.1 Anoxic brain damage, not elsewhere classified; R64 Cachexia; F10.239 Alcohol dependence with withdrawal, unspecified; E87.2 Acidosis; J44.1 Chronic obstructive pulmonary disease with (acute) exacerbation; I11.0 Hypertensive heart disease with heart failure; I50.9 Heart failure, unspecified; I48.91 Unspecified atrial fibrillation; D64.9 Anemia, unspecified; I25.10 Atherosclerotic heart disease of native coronary artery without angina pectoris; K21.9 Gastro-esophageal reflux disease without esophagitis; F17.210 Nicotine dependence, cigarettes, uncomplicated; I45.10 Unspecified right bundle-branch block; E88.09 Other disorders of plasma-protein metabolism, not elsewhere classified; E87.5 Hyperkalemia; Y95 Nosocomial condition; Y90.9 Presence of alcohol in blood, level not specified; E16.2 Hypoglycemia, unspecified; Z51.5 Encounter for palliative care; R00.1 Bradycardia, unspecified; Z66 Do not resuscitate; I25.2 Old myocardial infarction; Z68.26 Body mass index [BMI] 26.0-26.9, adult; Z86.711 Personal history of pulmonary embolism; Z86.718 Personal history of other venous thrombosis and embolism
CPT/HCPCS: 36430; 36600; 51702; 70450; 71045; 71250; 76705; 76775; 80048; 80053; 80069; 80074; 80076; 80202; 81001; 82570; 82805; 82948; 83605; 83690; 83735; 83880; 83930; 83935; 84100; 84134; 84155; 84300; 84484; 84540; 85007; 85014; 85018; 85025; 85027; 85610; 85730; 86022; 86160; 86403; 86850; 86900; 86901; 86920; 87040; 87070; 87077; 87086; 87186; 87205; 87449; 87633; 87641; 87804; 93005; 93306; 94002; 94003; 94640; 94664; 96365; 96368; 96375; 96376; J0171; J0282; J0360; J0456; J0461; J0610; J1160; J1205; J1644; J1940; J2060; J2270; J2543; J2920; J3010; J3260; J3370; J3411; J3475; J7030; J7050; J7120; J7512; P9016; P9045; P9047